=== PATIENT | male | born 1965 ===

== ENCOUNTER 2017-07-27 14:35 | Emergency (ER) | payer MEDICAID ==
[2017-07-27 14:35] VITALS: BMI 34.3
[2017-07-27] MEDS ORDERED: Piperacillin/Tazobact 3.375 GM in Sodium Chloride 0.9% 100 ML IVPB STA (15:03)
[2017-07-27] MEDS ORDERED: Multivitamin (MVI) 10 ML, Thiamine 100 MG, Folic Acid 1 MG in Sodium Chloride 0.9% 1,00... IV ONE (15:05)
--- NOTE | 2017-07-27 15:38 | ED PDOC ---
HPI: Psych/Substance Abuse Time Seen by Provider: 07/27/17 14:53 Chief Complaint (Nursing): Alcohol Ingestion ED Caveat: Intoxicated History Per: EMS History/Exam Limitations: intoxication Onset/Duration Of Symptoms: Unknown Current Symptoms Are (Timing): Still Present Suicide/Self Injury Attempted (Context): None Modifying Factor(s): Alcohol Additional History Per: Patient, EMS Additional Complaint(s): 52 y/o male who was found by EMS to be intoxicated. Patient admitted to ETOH today, and complains that he fell, striking his head and causing a headache. He also complains of bilateral leg swelling and pain for the last 5 months. No fever or other complaint. Past Medical History Vital Signs: Last Vital Signs Temp 99.0 F 07/27/17 14:36 Pulse 107 H 07/27/17 14:36 Resp 16 07/27/17 14:36 BP 145/78 07/27/17 14:36 Pulse Ox 97 07/27/17 14:36 - Medical History PMH: Diabetes (type II), HTN (noncompliance with meds), Peripheral Edema (BLE), Seizures Denies: HIV, Chronic Kidney Disease - Family History Family History: States: Unknown Family Hx - Social History Alcohol: > 2 Drinks/Day - Immunization History Hx Tetanus Toxoid Vaccination: No Hx Influenza Vaccination: No Hx Pneumococcal Vaccination: No - Home Medications Home Medications: Ambulatory Orders Medication Instructions Recorded Cephalexin [cephalexin] 500 mg PO Q6 #28 cap 07/27/17 - Allergies Allergies/Adverse Reactions: Allergies Allergy/AdvReac Type Severity Reaction Status Date / Time No Known Allergies Allergy Verified 06/21/17 21:54 Review of Systems Review Of Systems: ROS cannot be obtained secondary to pt's inabilty to answer questions. Constitutional: Positive for: Fever Musculoskeletal: Positive for: Leg Pain Neurological: Positive for: Headache Physical Exam - Physical Exam Appears: Positive for: Non-toxic (disheveled) Skin: Positive for: Warm (moderate, bilateral lower extremities). Negative for : Normal Color (erythema bilateral lower extremities that is noncircumferential) Pulses-Dorsalis Pedis (L): 2+ Pulses-Dorsalis Pedis (R): 2+ Extremity: Positive for: Normal ROM, Swelling - Laboratory Results Result Diagrams: 07/27/17 15:40 07/27/17 15:40 - ECG O2 Sat by Pulse Oximetry: 97 (RA) Pulse Ox Interpretation: Normal - Progress ED Course And Treament: 1620 CT head, cervical spine w/o contrast: nothing acute. Sleeping comfortably in ED. Pt. had meal in ED. 2003 Duplex b/l lower extremity: no DVT. Still sleeping comfortably. Easily arousable. Vancomycin and banana bag infusing. 2202 Gait steady and unassisted. No slurred speech. Informed of plan. States that his legs have been this way x 5 months. Denies fever. Offers no complaints at this time. Medical Decision Making Medical Decision Making: Plan: - CT head and C Spine - Doppler US BLE - Labs - Vancomycin IV and Zosyn IV - IVF ~ Scribe Attestation: Documented by~Hilary Barnes, acting as a scribe for FACUNDO Glez. Provider Scribe Attestation: All medical record entries made by the Scribe were at my direction and personally dictated by me. I have reviewed the chart and agree that the record accurately reflects my personal performance of the history, physical exam, medical decision making, and the department course for this patient. I have also personally directed, reviewed, and agree with the discharge instructions and disposition. Disposition - Clinical Impression Clinical Impression: Alcohol intoxication, Chronic cellulitis - Patient ED Disposition Is Patient to be Admitted: No - Disposition Referrals: [facility] [Outside] [facility] [Outside] Disposition: Routine/Home Disposition Time: 22:06 Condition: STABLE Prescriptions: Cephalexin [cephalexin] 500 mg PO Q6 #28 cap Instructions: Alcohol Intoxication (ED), Head Injury (ED), Leg Edema (ED) Forms: [employer] (Sri Lankan) Print Language: CROATIAN
[2017-07-27 15:43] LABS: VENOUS BLOOD GAS BASE EXCESS 0.3 mmol/L (0.0-2.0); VENOUS BLOOD GAS PCO2 45 mmHg (40-60); VENOUS BLOOD PH 7.37 (7.32-7.43)
[2017-07-27 15:44] LABS: BASO % 0.7 % (0.0-2.0); EOS # 0.2 K/uL (0.0-0.7); EOS % 3.5 % (0.0-4.0); HEMATOCRIT 32.1 % (35.0-51.0); LYMPH # 1.4 K/uL (1.0-4.3); LYMPH % 20.8 % (20.0-40.0); MEAN CELL VOLUME 94.2 fl (80.0-94.0); MEAN CORPUSCULAR HEMOGLOBIN 30.7 pg (27.0-31.0); MEAN CORPUSCULAR HGB CONC 32.6 g/dL (33.0-37.0); MEAN PLATELET VOLUME 7.5 fl (7.2-11.7); MONO # 0.5 K/uL (0.0-0.8); MONO % 7.5 % (0.0-10.0); NEUT # 4.4 K/uL (1.8-7.0); NEUT % 67.5 % (50.0-75.0); NRBC % 0.1 % (0.0-0.0); RED CELL DISTRIBUTION WIDTH 14.4 % (11.5-14.5); WHITE BLOOD COUNT 6.6 K/uL (4.8-10.8)
[2017-07-27 15:53] LABS: ALB/GLOB RATIO 1.2 (1.0-2.1); ALCOHOL SERUM 284 mg/dl (0-10); ALKALINE PHOSPHATASE 349 U/L (38-126); ALT/SGPT 46 U/L (21-72); AST/SGOT 167 U/L (17-59); BLOOD UREA NITROGEN 4 mg/dl (9-20); CALCIUM 8.6 mg/dL (8.4-10.2); CARBON DIOXIDE 25 mmol/L (22-30); CHLORIDE 105 mmol/L (98-107); GFR AFRICAN-AMERICAN > 60; GLUCOSE,RANDOM 109 mg/dL (75-110); POTASSIUM 3.6 MMOL/L (3.6-5.0); SODIUM 143 mmol/l (132-148); TOTAL PROTEIN 7.3 G/DL (6.3-8.2)
[2017-07-27] MEDS ORDERED: Piperacillin/Tazobact 3.375 gm Inj IVPB ONE (16:08)
[2017-07-27 16:38] LABS: RBC URINE < 1 /hpf (0-3); URINE BILIRUBIN NEGATIVE (NEGATIVE); URINE BLOOD NEGATIVE (NEGATIVE); URINE COLOR STRAW (YELLOW); URINE GLUCOSE (UA) NEG (Normal); URINE KETONE NEGATIVE (NEGATIVE); URINE LEUKOCYTE ESTERASE NEG Leu/uL (Negative); URINE PROTEIN NEGATIVE (NEGATIVE); URINE UROBILINOGEN 0.2-1.0 mg/dL (0.2-1.0); WBC URINE < 1 /hpf (0-5)
--- NOTE | 2017-07-27 16:48 | CT ---
PROCEDURE: CT HEAD WITHOUT CONTRAST. HISTORY: head injury COMPARISON: 02/11/2017 TECHNIQUE: Axial computed tomography images were obtained through the head/brain without intravenous contrast. Radiation dose: Total exam DLP = 1682 mGy-cm. This CT exam was performed using one or more of the following dose reduction techniques: Automated exposure control, adjustment of the mA and/or kV according to patient size, and/or use of iterative reconstruction technique. FINDINGS: HEMORRHAGE: No intracranial hemorrhage. BRAIN: No mass effect or edema. Diffuse mild cerebral cortical atrophy is noted. Minor small vessel changes are seen in the white matter tracts. No extra-axial fluid collection is noted. Retro-orbital regions are unremarkable. No tonsillar ectopia is identified. VENTRICLES: Unremarkable. No hydrocephalus. CALVARIUM: Unremarkable. PARANASAL SINUSES: Unremarkable as visualized. No significant inflammatory changes. MASTOID AIR CELLS: Underdeveloped but no abnormal opacification. OTHER FINDINGS: None. IMPRESSION: No evidence of intracranial hemorrhage or recent infarct. Mild age related atrophy.
--- NOTE | 2017-07-27 16:54 | CT ---
PROCEDURE: CT Cervical Spine without contrast HISTORY: <trauma> COMPARISON: None available. TECHNIQUE: Axial computed tomography images were obtained of the cervical spine without the use of intravenous contrast. Coronal and sagittal reformatted images were created and reviewed. Radiation dose: Total exam DLP = 770 mGy-cm. This CT exam was performed using one or more of the following dose reduction techniques: Automated exposure control, adjustment of the mA and/or kV according to patient size, and/or use of iterative reconstruction technique. FINDINGS: VERTEBRAE: There is no evidence of fracture malalignment. Posterior elements are intact. Moderate multilevel degenerative disc disease is noted from C4-5 through C7-T1 with moderate anterior osteophytes appreciated. DISCS/SPINAL CANAL/NEURAL FORAMINA: There is evidence of posterior disc osteophyte complexes from C4-5 through C6-7 causing elements of severe acquired central stenosis at C4-5 and C6-7 and lesser degree at C5-6. The disc osteophyte complex at C4-5 is causing moderate flattening upon the cervical cord. A superior endplates spur at C5 is also causing some impression upon the cord. Moderate multilevel neural foraminal narrowing is noted from C3-4 through C7-T1. Mild bulging is seen at C3-4. Visualized clavicles and upper ribs are intact. Discs heights are grossly preserved. C1-C2 articulation is within normal limits. PARASPINAL SOFT TISSUES: No prevertebral soft tissue swelling is seen. No adenopathy is identified. Thyroid gland is unremarkable. OTHER FINDINGS: None. IMPRESSION: No evidence of fracture or malalignment. Moderate to severe acquired central stenosis at C4-5 secondary to large disc osteophyte complex. Igyeczgt-oa-ddoevh acquired stenosis at C6-7 and bshq-iz-prlqrbdh stenosis at C5-6. There is flattening of the cervical cord at C4-5 and to a lesser degree at C6-7. Please see above for details.
--- NOTE | 2017-07-27 16:58 | RAD ---
HISTORY: clearance COMPARISON: 03/24/2017 FINDINGS: LUNGS: Low lung volumes are noted with poor expiratory effort. There is crowding at the lung bases. This is greater on the left. No definite focal infiltrate is seen. PLEURA: No significant pleural effusion identified, no pneumothorax apparent. CARDIOVASCULAR: Normal. OSSEOUS STRUCTURES: No significant abnormalities. VISUALIZED UPPER ABDOMEN: Normal. OTHER FINDINGS: None. IMPRESSION: Limited exam due to poor expiratory effort and crowding at the lung bases. Body habitus also limits exam. No focal infiltrate.
[2017-07-27] MEDS ORDERED: Vancomycin 1 g Inj ONE (17:13)
--- NOTE | 2017-07-27 19:45 | US ---
EXAM: US Duplex Bilateral Lower Extremity Veins CLINICAL HISTORY: 52 years old, male; Pain; Leg, lower; Bilateral TECHNIQUE: Real-time ultrasound scan of the veins of the bilateral lower extremities with color Doppler flow, spectral waveform analysis and compression. COMPARISON: No relevant prior studies available. FINDINGS: Right deep veins: Normal color and spectral Doppler flow. Normal compressibility. No deep vein thrombosis from common femoral to popliteal vein. Right superficial veins: Unremarkable. Left deep veins: Normal color and spectral Doppler flow. Normal compressibility. No deep vein thrombosis from common femoral to popliteal vein. Left superficial veins: Unremarkable. Soft tissues: No popliteal cyst. IMPRESSION: 1. No evidence of DVT within the lower extremities.
[2017-07-27 22:31] VITALS: BP 144/80; PULSE 115; RESP 20; TEMP 99.6; O2SAT 100
== END 2017-07-27 23:32 | disposition home or self-care (01) ==
LOC: H.ER 14:35
DX: F10.129 Alcohol abuse with intoxication, unspecified (principal); L03.116 Cellulitis of left lower limb; E11.9 Type 2 diabetes mellitus without complications; I10 Essential (primary) hypertension; R50.9 Fever, unspecified
CPT/HCPCS: 70450; 71010; 72125; 80053; 80320; 80324; 80345; 80346; 80349; 80353; 80358; 80361; 81003; 82803; 82948; 83992; 85025; 87040; 93970; 96374; 96375; 99285; J2543; J3411; J7040

== ENCOUNTER 2017-08-30 13:13 | Emergency (ER) | payer MEDICAID ==
[2017-08-30 13:13] VITALS: BMI 34.3
[2017-08-30 13:17] VITALS: O2SAT 100
--- NOTE | 2017-08-30 13:40 | ED PDOC ---
HPI: Psych/Substance Abuse Time Seen by Provider: 08/30/17 13:25 Chief Complaint (Nursing): Alcohol Ingestion Chief Complaint (Provider): Alcohol Ingestion History Per: Patient History/Exam Limitations: intoxication Onset/Duration Of Symptoms: Days (x1) Modifying Factor(s): Alcohol Additional History Per: EMS Additional Complaint(s): Sammy is a 52 y/o male who was brought to the ED by EMS for ETOH intoxication. Patient is well known to this ED for visits for intoxication. While here, patient went to the bathroom voluntarily, without supervision of staff, and was found lying on the floor of the bathroom after falling. Patient denies headache , pain, nausea, vomiting, dizziness, or any other complaint at this time. No active bleeding or hematoma present. Patient ambulates with unsteady gait. PMD: Provider TBD Past Medical History Reviewed: Historical Data, Nursing Documentation, Vital Signs Vital Signs: Last Vital Signs Temp 97.8 F 08/30/17 13:15 Pulse 95 H 08/30/17 13:15 Resp 18 08/30/17 13:15 BP 124/74 08/30/17 13:15 Pulse Ox 100 08/30/17 13:15 - Medical History PMH: Diabetes (type II), HTN (noncompliance with meds), Peripheral Edema (BLE), Seizures Denies: HIV, Chronic Kidney Disease - Family History Family History: States: Unknown Family Hx - Social History Alcohol: > 2 Drinks/Day - Immunization History Hx Tetanus Toxoid Vaccination: No Hx Influenza Vaccination: No Hx Pneumococcal Vaccination: No - Home Medications Home Medications: Ambulatory Orders Medication Instructions Recorded Cephalexin [cephalexin] 500 mg PO Q6 #28 cap 07/27/17 - Allergies Allergies/Adverse Reactions: Allergies Allergy/AdvReac Type Severity Reaction Status Date / Time No Known Allergies Allergy Verified 06/21/17 21:54 Review of Systems ROS Statement: Except As Marked, All Systems Reviewed And Found Negative Gastrointestinal: Negative for: Nausea, Vomiting Skin: Negative for: Other (bleeding or signs of injury) Neurological: Negative for: Weakness, Numbness, Headache, Dizziness Psych: Positive for: Other (ETOH intoxication) Physical Exam - Reviewed Nursing Documentation Reviewed: Yes Vital Signs Reviewed: Yes - Physical Exam Appears: Positive for: Non-toxic, No Acute Distress Head Exam: Positive for: ATRAUMATIC, NORMAL INSPECTION (with no bleeding or hematoma), NORMOCEPHALIC Skin: Positive for: Normal Color, Warm, Dry Eye Exam: Positive for: EOMI, Normal appearance, PERRL Neck: Positive for: Normal, Painless ROM, Supple Cardiovascular/Chest: Positive for: Regular Rate, Rhythm. Negative for: Murmur Respiratory: Positive for: Normal Breath Sounds. Negative for: Accessory Muscle Use, Respiratory Distress Gastrointestinal/Abdominal: Positive for: Normal Exam, Soft. Negative for: Tenderness Back: Positive for: Normal Inspection. Negative for: Vertebral Tenderness Extremity: Positive for: Normal ROM, Other (Bilateral feet with fungal infection ). Negative for: Pedal Edema Neurologic/Psych: Positive for: Alert, certified retinal angiographer II-XII (intact), Oriented, Gait ( unsteady), Other (Alcohol on breath, slurred speech) - ECG O2 Sat by Pulse Oximetry: 100 (RA) Pulse Ox Interpretation: Normal Medical Decision Making Medical Decision Making: Time: 13:37 Initial Plan: --Accucheck --Will order CT Head to r/o acute intracranial changes --Pending clinical sobriety Time: 17:19 CT Head FINDINGS: HEMORRHAGE: No intracranial hemorrhage. BRAIN: No mass effect or edema. Mild to moderate atrophy is again noted. Mild white matter chronic microvascular ischemic changes are again seen. VENTRICLES: Unremarkable. No hydrocephalus. CALVARIUM: Unremarkable. PARANASAL SINUSES: Unremarkable as visualized. No significant inflammatory changes. MASTOID AIR CELLS: Unremarkable as visualized. No inflammatory changes. OTHER FINDINGS: None. IMPRESSION: No evidence of acute intracranial hemorrhage intracranial collection mass effect or midline shift. Hddq-nq-nbbfdvbx atrophy. pt is clinically sober for d/c Scribe Attestation: Documented by Nova Richmond, acting as a scribe for Debra Hudson PA-C Provider Scribe Attestation: All medical record entries made by the Scribe were at my direction and personally dictated by me. I have reviewed the chart and agree that the record accurately reflects my personal performance of the history, physical exam, medical decision making, and the department course for this patient. I have also personally directed, reviewed, and agree with the discharge instructions and disposition. Disposition - Clinical Impression Clinical Impression: Alcohol abuse, Head injury - Patient ED Disposition Is Patient to be Admitted: No Counseled Patient/Family Regarding: Need For Followup - Disposition Disposition: Routine/Home Disposition Time: 20:32 Condition: STABLE Instructions: Alcohol Intoxication (ED), Abuse of Alcohol (ED), Alcohol Dependence (ED) Forms: [employer] (Khmer)
--- NOTE | 2017-08-30 17:21 | CT ---
PROCEDURE: CT HEAD WITHOUT CONTRAST. HISTORY: head injury etoh COMPARISON: Comparison is made to the previous study dated 07/27/2017 TECHNIQUE: Axial computed tomography images were obtained through the head/brain without intravenous contrast. Radiation dose: Total exam DLP = 1322.59 mGy-cm. This CT exam was performed using one or more of the following dose reduction techniques: Automated exposure control, adjustment of the mA and/or kV according to patient size, and/or use of iterative reconstruction technique. FINDINGS: HEMORRHAGE: No intracranial hemorrhage. BRAIN: No mass effect or edema. Mild to moderate atrophy is again noted. Mild white matter chronic microvascular ischemic changes are again seen. VENTRICLES: Unremarkable. No hydrocephalus. CALVARIUM: Unremarkable. PARANASAL SINUSES: Unremarkable as visualized. No significant inflammatory changes. MASTOID AIR CELLS: Unremarkable as visualized. No inflammatory changes. OTHER FINDINGS: None. IMPRESSION: No evidence of acute intracranial hemorrhage intracranial collection mass effect or midline shift. Nhiv-hd-qqlovvpz atrophy.
[2017-08-30 20:00] VITALS: BP 144/82; PULSE 90; RESP 16; TEMP 97.6
== END 2017-08-30 21:17 | disposition home or self-care (01) ==
LOC: H.ER 13:13
DX: F10.129 Alcohol abuse with intoxication, unspecified (principal); S09.90XA Unspecified injury of head, initial encounter; W19.XXXA Unspecified fall, initial encounter; Y92.89 Other specified places as the place of occurrence of the external cause; E11.9 Type 2 diabetes mellitus without complications; I10 Essential (primary) hypertension; Z91.14 Patient's other noncompliance with medication regimen

== ENCOUNTER 2017-08-31 21:18 | Emergency (ER) | payer MEDICAID ==
[2017-08-31 21:27] VITALS: BMI 31.9
[2017-08-31 21:54] VITALS: O2SAT 98
--- NOTE | 2017-08-31 22:04 | ED PDOC ---
HPI: Psych/Substance Abuse Time Seen by Provider: 08/31/17 21:26 Chief Complaint (Nursing): Alcohol Ingestion Chief Complaint (Provider): Chronic Alcohol Abuse ED Caveat: Intoxicated History Per: EMS History/Exam Limitations: intoxication Onset/Duration Of Symptoms: Mins (just prior to arrival) Current Symptoms Are (Timing): Still Present Additional Complaint(s): Patient is a 52 y/o male brought to the ED by EMS after being found intoxicated at [facility]. Patient was noted to have dry blood in his pants, and admits to right upper quadrant abdominal pain when asked. History and ROS limited due to patient 's intoxicated state. Past Medical History Reviewed: Historical Data, Nursing Documentation, Vital Signs Vital Signs: Last Vital Signs Temp 98.7 F 08/31/17 21:27 Pulse 83 08/31/17 21:27 Resp 16 08/31/17 21:27 BP 109/56 L 08/31/17 21:27 Pulse Ox 98 08/31/17 21:27 - Medical History PMH: Diabetes (type II), HTN (noncompliance with meds), Peripheral Edema (BLE), Seizures Denies: HIV, Chronic Kidney Disease - Family History Family History: States: No Known Family Hx, Unknown Family Hx - Immunization History Hx Tetanus Toxoid Vaccination: No Hx Influenza Vaccination: No Hx Pneumococcal Vaccination: No - Home Medications Home Medications: Ambulatory Orders Medication Instructions Recorded Cephalexin [cephalexin] 500 mg PO Q6 #28 cap 07/27/17 - Allergies Allergies/Adverse Reactions: Allergies Allergy/AdvReac Type Severity Reaction Status Date / Time No Known Allergies Allergy Verified 08/31/17 21:27 Review of Systems Review Of Systems: ROS cannot be obtained secondary to pt's inabilty to answer questions. (ROS limited due to patient's intoxicated state) Gastrointestinal: Positive for: Abdominal Pain (right upper quadrant) Physical Exam - Reviewed Nursing Documentation Reviewed: Yes Vital Signs Reviewed: Yes - Physical Exam Appears: Positive for: No Acute Distress Head Exam: Positive for: ATRAUMATIC, NORMOCEPHALIC Skin: Positive for: Normal Color, Warm, Dry Eye Exam: Positive for: EOMI, PERRL, Scleral icterus (bilaterally) Neck: Positive for: Normal, Painless ROM, Supple Cardiovascular/Chest: Positive for: Regular Rate, Rhythm. Negative for: Murmur Respiratory: Positive for: Normal Breath Sounds. Negative for: Respiratory Distress Gastrointestinal/Abdominal: Positive for: Soft, Tenderness (Mild right upper quadrant tenderness), Distended (with fluid wave), Other (caput medusae) Back: Positive for: Normal Inspection. Negative for: L CVA Tenderness, R CVA Tenderness, Vertebral Tenderness Rectal: Positive for: Other (normal brown stool) Extremity: Positive for: Normal ROM. Negative for: Pedal Edema, Deformity Neurologic/Psych: Positive for: Alert, Oriented (x2). Negative for: Motor/ Sensory Deficits - Laboratory Results Result Diagrams: 08/31/17 22:06 08/31/17 22:06 - ECG O2 Sat by Pulse Oximetry: 98 (RA) Pulse Ox Interpretation: Normal Medical Decision Making Medical Decision Makin:34 Initial Impression: Alcohol induced GI Bleed Initial Plan: --Blood Type and Screen --CT Abd Pelvis PO & IV Contrast --EKG --Alcohol Serum --Bilirubin, Direct --Labs --Chest X-Ray --Sodium Chloride 0.9% IV 1,000 mls/hr --Iohexol 50 ml PO --Pantoprazole 40 m IVP --Occult Blood, Stool, ER --Urinalysis 5AM: CT IMPRESSION: - Acute fracture involving the T12 vertebra. Please see above for a full description. - Possible mild mesenteric adenitis. - Otherwise, no evidence of significant acute process. - See above for remaining findings. Patient feeling well, no GIB. Patient has no complaints of back pain at this time. No step-off, crepitus, or abnormality felt on spine. Pt. has normal sensation. Will refer to Dr. Pardo. Pt. awake and alert with steady gait. Scribe Attestation: Documented by Kaiden Gore, acting as a scribe for Stanislaw Urbano MD Provider Scribe Attestation: All medical record entries made by the Scribe were at my direction and personally dictated by me. I have reviewed the chart and agree that the record accurately reflects my personal performance of the history, physical exam, medical decision making, and the department course for this patient. I have also personally directed, reviewed, and agree with the discharge instructions and disposition. Disposition - Clinical Impression Clinical Impression: Alcohol abuse, Fracture of T12 vertebra - Patient ED Disposition Is Patient to be Admitted: No - Disposition Referrals: Ant Brandon MD [Staff Provider] - Alcohol[facility] Anonymous [Outside] Disposition: Routine/Home Disposition Time: 04:37 Condition: STABLE Instructions: Alcohol Intoxication (ED), Abuse of Alcohol (ED), Vertebral Compression Fracture (DC) Forms: [employer] (Tamazight)
[2017-08-31] MEDS ORDERED: Iohexol 240 (50 ml) ONE (22:18)
[2017-08-31 22:29] LABS: BASO # 0.1 K/uL (0.0-0.2); BASO % 1.4 % (0.0-2.0); EOS # 0.3 K/uL (0.0-0.7); EOS % 4.7 % (0.0-4.0); LYMPH % 42.9 % (20.0-40.0); MEAN CELL VOLUME 90.8 fl (80.0-94.0); MEAN CORPUSCULAR HEMOGLOBIN 29.2 pg (27.0-31.0); MEAN CORPUSCULAR HGB CONC 32.2 g/dL (33.0-37.0); MEAN PLATELET VOLUME 8.9 fl (7.2-11.7); MONO # 0.3 K/uL (0.0-0.8); NEUT # 3.2 K/uL (1.8-7.0); NRBC % 0.3 % (0.0-0.0); WHITE BLOOD COUNT 6.9 K/uL (4.8-10.8)
[2017-08-31] MEDS: Sodium Chloride 0.9% 1,000 ML IV STA (22:39)
[2017-08-31 22:43] LABS: ALCOHOL SERUM 362 mg/dl (0-10)
[2017-08-31 23:02] LABS: BLOOD UREA NITROGEN 7 mg/dl (9-20); CHLORIDE 103 mmol/L (98-107); GFR AFRICAN-AMERICAN > 60; GLUCOSE,RANDOM 119 mg/dL (75-110); POTASSIUM 3.4 MMOL/L (3.6-5.0); SODIUM 145 mmol/l (132-148)
[2017-08-31 23:03] LABS: ALB/GLOB RATIO 1.2 (1.0-2.1); ALKALINE PHOSPHATASE 317 U/L (38-126); ALT/SGPT 33 U/L (21-72); AST/SGOT 53 U/L (17-59); CARBON DIOXIDE 26 mmol/L (22-30); LIPASE 101 U/L (23-300)
[2017-08-31] MEDS: Iohexol 240 (50 ml) PO ONE (23:30)
[2017-09-01] MEDS ORDERED: Sodium Chloride 0.9% 50 ML IV ONE (01:48)
[2017-09-01] MEDS ORDERED: Iohexol 300 100 ML IJ ONE (01:48)
--- NOTE | 2017-09-01 03:27 | CT ---
EXAM: CT Abdomen and Pelvis With Intravenous Contrast EXAM DATE/TIME: 08/31/2017 9:36 PM CLINICAL HISTORY: 52 years old, male; Signs and symptoms; Abdominal tenderness; Additional info: ETOH, distended abdomen, gib TECHNIQUE: Axial computed tomography images of the abdomen and pelvis with intravenous contrast. All CT scans at this facility use one or more dose reduction techniques, viz.: automated exposure control; ma/kV adjustment per patient size (including targeted exams where dose is matched to indication; i.e. head); or iterative reconstruction technique. Coronal and sagittal reformatted images were created and reviewed. CONTRAST: 95 mL of omnipaque 300 administered intravenously. Oral contrast was administered. COMPARISON: No relevant prior studies available. FINDINGS: LIMITATIONS: Mild streak/motion artifact. LOWER THORAX: Heart appears mildly enlarged. ABDOMEN: LIVER: Liver is mildly cirrhotic in appearance. It has a mildly nodular contour, and there is hypertrophy of the left lobe. No evidence of liver laceration. GALLBLADDER AND BILE DUCTS: No CT evidence of acute cholecystitis. No evidence of significant biliary ductal dilatation. PANCREAS: No CT evidence of acute pancreatitis. SPLEEN: No acute abnormality of the spleen identified. No evidence of splenic laceration. ADRENALS: No acute abnormality of the adrenal glands identified. KIDNEYS AND URETERS: No acute abnormality of the kidneys identified. No evidence of perinephric hemorrhage. STOMACH AND BOWEL: No acute abnormality of the stomach, small bowel or colon identified. No evidence of bowel obstruction. No evidence of diverticulitis. APPENDIX: Appendix is seen, and is within normal limits in appearance. PELVIS: BLADDER: Bladder is mildly dilated. REPRODUCTIVE: No acute abnormality of the reproductive organs is seen. ABDOMEN and PELVIS: INTRAPERITONEAL SPACE: No evidence of free intraperitoneal air or fluid. BONES/JOINTS: Acute fracture involving the T12 vertebral body on the right. There is an axially and slightly obliquely oriented fracture line, which extends anteroposteriorly through the right superior aspect of the vertebra. There is a small amount of nearby paravertebral hemorrhage. No significant associated vertebral compression deformity/height loss. No involvement of the posterior elements of T12 or associated vertebral retropulsion. No additional acute fractures seen. SOFT TISSUES: Fat-containing inguinal hernia on the left. Bilateral gynecomastia. VASCULATURE: No evidence of abdominal aortic aneurysm. No evidence of periaortic hemorrhage. LYMPH NODES: Mild infiltration of the mesenteric fat, in the small bowel mesentery centrally, associated with multiple tiny mesenteric lymph nodes. Findings are nonspecific, but could be secondary to mild mesenteric adenitis. No evidence of diffuse pathologic lymphadenopathy. IMPRESSION: - Acute fracture involving the T12 vertebra. Please see above for a full description. - Possible mild mesenteric adenitis. - Otherwise, no evidence of significant acute process. - See above for remaining findings.
[2017-09-01 06:03] VITALS: BP 142/82; PULSE 98; RESP 18; TEMP 98.1
--- NOTE | 2017-09-01 09:50 | RAD ---
PROCEDURE: CHEST RADIOGRAPH, 1 VIEW HISTORY: abd pain COMPARISON: Frontal chest radiograph 07/27/2017. FINDINGS: LUNGS: In the interval, there is been no definitive airspace disease bilaterally. PLEURA: No pneumothorax or pleural fluid seen. CARDIOVASCULAR: Cardiac silhouette remains prominent appearing. No definite pulmonary vascular derangement. OSSEOUS STRUCTURES: No significant abnormalities. VISUALIZED UPPER ABDOMEN: Normal. OTHER FINDINGS: None. IMPRESSION: Stable prominent cardiac silhouette. No airspace disease or pleural effusion bilaterally.
--- NOTE | 2017-09-02 12:26 | CARD ---
APPROVED REPORT EKG Measurement Heart [id number] <Conclusion> Sinus rhythm with marked sinus arrhythmia Prolonged QT Abnormal ECG
== END 2017-09-01 06:15 | disposition home or self-care (01) ==
LOC: H.ER 21:18
DX: F10.10 Alcohol abuse, uncomplicated (principal); S22.089A Unspecified fracture of T11-T12 vertebra, initial encounter for closed fracture; E11.9 Type 2 diabetes mellitus without complications; I10 Essential (primary) hypertension; Z91.14 Patient's other noncompliance with medication regimen; Y90.8 Blood alcohol level of 240 mg/100 ml or more
CPT/HCPCS: 71010; 74177; 80053; 80320; 82248; 83690; 85025; 86850; 86900; 93005; 96374; 99283; C9113; G0328; J7040; Q9966; Q9967

== ENCOUNTER 2017-09-05 20:34 | Emergency (ER) | payer MEDICAID ==
[2017-09-05 20:34] VITALS: BMI 31.9
--- NOTE | 2017-09-06 04:21 | ED PDOC ---
HPI: Psych/Substance Abuse Time Seen by Provider: 09/05/17 20:41 Chief Complaint (Nursing): Alcohol Ingestion Chief Complaint (Provider): alcohol intoxication History Per: EMS History/Exam Limitations: intoxication Additional History Per: EMS Additional Complaint(s): 52 y/o nondomiciled male brought in by EMS for acute alcohol intoxication. Patient admits to drinking tonight; denies acute medical or psychiatric complaints. Past Medical History Reviewed: Historical Data, Nursing Documentation, Vital Signs Vital Signs: Last Vital Signs Temp 97.2 F L 09/05/17 20:34 Pulse 74 09/05/17 20:34 Resp 16 09/05/17 20:34 BP 152/99 H 09/05/17 20:34 Pulse Ox 99 09/05/17 20:34 - Medical History PMH: Diabetes (type II), HTN (noncompliance with meds), Peripheral Edema (BLE), Seizures Denies: HIV, Chronic Kidney Disease - Family History Family History: States: Unknown Family Hx - Immunization History Hx Tetanus Toxoid Vaccination: No Hx Influenza Vaccination: No Hx Pneumococcal Vaccination: No - Home Medications Home Medications: Ambulatory Orders Medication Instructions Recorded Cephalexin [cephalexin] 500 mg PO Q6 #28 cap 07/27/17 - Allergies Allergies/Adverse Reactions: Allergies Allergy/AdvReac Type Severity Reaction Status Date / Time No Known Allergies Allergy Verified 08/31/17 21:27 Review of Systems ROS Statement: Except As Marked, All Systems Reviewed And Found Negative Physical Exam - Reviewed Nursing Documentation Reviewed: Yes Vital Signs Reviewed: Yes - Physical Exam Appears: Positive for: Well, Non-toxic, No Acute Distress Head Exam: Positive for: ATRAUMATIC, NORMAL INSPECTION, NORMOCEPHALIC Skin: Positive for: Normal Color Cardiovascular/Chest: Positive for: Regular Rate, Rhythm Respiratory: Positive for: Normal Breath Sounds Gastrointestinal/Abdominal: Positive for: Normal Exam Extremity: Positive for: Normal ROM Neurologic/Psych: Positive for: Alert, Oriented, Other (+aob) - ECG O2 Sat by Pulse Oximetry: 99 - Progress ED Course And Treament: accucheck, alcohol level Patient observed in ED until clinically sober. 4:15 Patient awake, alert, oriented 3. Ambulating steady gait. Stable for discharge Disposition - Clinical Impression Clinical Impression: Alcohol abuse - Patient ED Disposition Is Patient to be Admitted: No Counseled Patient/Family Regarding: Diagnosis, Need For Followup - Disposition Disposition: Routine/Home Disposition Time: 04:21 Condition: STABLE Instructions: Abuse of Alcohol (ED) Print Language: TELUGU
[2017-09-06 05:50] VITALS: BP 147/86; PULSE 79; RESP 18; TEMP 98.2
[2017-09-06 05:54] VITALS: O2SAT 99
== END 2017-09-06 05:57 | disposition home or self-care (01) ==
LOC: H.ER 20:34
DX: F10.129 Alcohol abuse with intoxication, unspecified (principal); E11.9 Type 2 diabetes mellitus without complications; I10 Essential (primary) hypertension; Z91.14 Patient's other noncompliance with medication regimen

== ENCOUNTER 2017-09-07 17:13 | Emergency (ER) | payer MEDICAID ==
[2017-09-07 17:13] VITALS: BMI 31.9
--- NOTE | 2017-09-07 17:47 | ED PDOC ---
HPI: Psych/Substance Abuse Time Seen by Provider: 09/07/17 17:27 Chief Complaint (Nursing): Trauma Chief Complaint (Provider): Alcohol Intoxicatuon ED Caveat: Intoxicated History Per: Patient History/Exam Limitations: intoxication Current Symptoms Are (Timing): Still Present Suicide/Self Injury Attempted (Context): None Modifying Factor(s): Alcohol Additional Complaint(s): Sammy Kaminski, a 52 year old male, is brought into the ED by ems for alcohol intoxication. History cannot be obtained due to patient's intoxicated state. Past Medical History Reviewed: Historical Data, Nursing Documentation, Vital Signs Vital Signs: Last Vital Signs Temp Pulse 78 09/07/17 17:39 Resp 18 09/07/17 17:39 BP 96/48 L 09/07/17 17:39 Pulse Ox 100 09/07/17 17:39 - Medical History PMH: Diabetes (type II), HTN (noncompliance with meds), Peripheral Edema (BLE), Seizures Denies: HIV, Chronic Kidney Disease - Family History Family History: States: Unknown Family Hx - Social History Alcohol: < 2 Drinks/Day - Immunization History Hx Tetanus Toxoid Vaccination: No Hx Influenza Vaccination: No Hx Pneumococcal Vaccination: No - Home Medications Home Medications: Ambulatory Orders Medication Instructions Recorded Cephalexin [cephalexin] 500 mg PO Q6 #28 cap 07/27/17 - Allergies Allergies/Adverse Reactions: Allergies Allergy/AdvReac Type Severity Reaction Status Date / Time No Known Allergies Allergy Verified 08/31/17 21:27 Review of Systems Review Of Systems: ROS cannot be obtained secondary to pt's inabilty to answer questions. (cannot be obtained due to patient's intoxicated state) Physical Exam - Reviewed Nursing Documentation Reviewed: Yes Vital Signs Reviewed: Yes - Physical Exam Appears: Positive for: No Acute Distress (appears intoxicated ) Head Exam: Positive for: ATRAUMATIC, NORMAL INSPECTION (abrasion right forehead ), NORMOCEPHALIC Skin: Positive for: Normal Color, Warm, Dry. Negative for: Rash Eye Exam: Positive for: Normal appearance, EOMI, PERRL. Negative for: Nystagmus ENT: Positive for: Normal ENT Inspection. Negative for: Nasal Congestion, Tonsillar Exudate Neck: Positive for: Normal, Painless ROM, Supple Cardiovascular/Chest: Positive for: Regular Rate, Rhythm, Chest Non Tender. Negative for: Tachycardia Respiratory: Positive for: Normal Breath Sounds. Negative for: Rales, Rhonchi, Wheezing, Respiratory Distress Gastrointestinal/Abdominal: Positive for: Normal Exam, Bowel Sounds, Soft. Negative for: Tenderness, Guarding, Rebound Back: Positive for: Normal Inspection. Negative for: L CVA Tenderness, R CVA Tenderness Extremity: Positive for: Normal ROM (moving all extremities). Negative for: Tenderness, Deformity, Swelling Neurologic/Psych: Positive for: Alert (responsive to verbal stimuli ), Gait. Negative for: Motor/Sensory Deficits - ECG O2 Sat by Pulse Oximetry: 100 (RA) Pulse Ox Interpretation: Normal Medical Decision Making Medical Decision Makin Initial Impression 52 y/o male presenting with alcohol intoxication Initial Plan: * CT Head w/o Contrast * Alcohol Serum * Reevaluation Patient signed out to Dr. Greenberg at 1900 pending imaging. Scribe Attestation Documented by Tish Pittman acting as a scribe for Lesly Ingram MD. Provider Attestation All medical record entries made by the Scribe were at my direction and personally dictated by me. I have reviewed the chart and agree that the record accurately reflects my personal performance of the history, physical exam, medical decision making, and the department course for this patient. I have also personally directed, reviewed, and agree with the discharge instructions and disposition. Disposition - Patient ED Disposition Is Patient to be Admitted: Transfer of Care - Disposition Disposition: Transfer of Care Forms: [employer] (Rwandan) Patient Signed Over To: Brain Greenberg Present On Arrival: None
--- NOTE | 2017-09-07 19:04 | ED PDOC ---
- ECG O2 Sat by Pulse Oximetry: 100 (RA) Pulse Ox Interpretation: Normal Medical Decision Making Medical Decision Making: Patient signed out to provider at [address] Ingram pending imaging. 2032 EXAM: CT Head Without Intravenous Contrast COMPARISON: CT - HEAD W/O CONTRAST 2017-08-30 17:03 FINDINGS: Brain: [id number] atrophy. No intracranial hemorrhage. No mass. No edema. Ventricles: No hydrocephalus. Bones/joints: No acute fracture. Sclerotic lesion within LEFT frontal bone, nonspecific. Soft tissues: Minimal frontal soft tissue swelling. Vasculature: Minimal atherosclerotic disease of intracranial arteries. Sinuses: Scattered minimal mucosal thickening. Mastoid air cells: No mastoid effusion. Auditory system: Cerumen. Orbits: Unremarkable as visualized. IMPRESSION: 1. No intracranial hemorrhage. 2. Incidental/non-acute findings are described above. 09/08/17 Time: 5:32 Patient is ambulating in the ED with steady gait and clear speech. Requesting to leave. Patient is clinically sober, and medically stable for discharge home. There is agreement to discharge plan. Return if symptoms persist or worsen. Clinical Impression: Alcohol abuse Scribe Attestation Documented by Tish Pittman & Nova Richmond, acting as a scribe for Brain Greenberg MD. Provider Attestation: All medical record entries made by the Scribe were at my direction and personally dictated by me. I have reviewed the chart and agree that the record accurately reflects my personal performance of the history, physical exam, medical decision making, and the department course for this patient. I have also personally directed, reviewed, and agree with the discharge instructions and disposition Disposition Counseled Patient/Family Regarding: Diagnosis - Clinical Impression Clinical Impression: Alcohol abuse, Alcohol intoxication - POA Present On Arrival: None - Disposition Disposition: Routine/Home Disposition Time: 05:32 Condition: STABLE Instructions: Alcohol Intoxication (ED), Alcohol Dependence (ED) Forms: [employer] (Macanese)
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
[2017-09-08 05:27] VITALS: BP 123/76; PULSE 88; RESP 16; TEMP 97
[2017-09-08 05:34] VITALS: O2SAT 100
== END 2017-09-08 06:00 | disposition home or self-care (01) ==
LOC: H.ER 17:13 → SUPCPDRO 17:13 → H.ER 09-08 06:00
DX: F10.129 Alcohol abuse with intoxication, unspecified (principal); S00.81XA Abrasion of other part of head, initial encounter; W19.XXXA Unspecified fall, initial encounter; Y92.89 Other specified places as the place of occurrence of the external cause; E11.9 Type 2 diabetes mellitus without complications; I10 Essential (primary) hypertension

== ENCOUNTER 2017-09-11 21:36 | Emergency (ER) | payer MEDICAID ==
[2017-09-11 21:36] VITALS: BMI 31.9
--- NOTE | 2017-09-11 22:31 | ED PDOC ---
HPI: Psych/Substance Abuse Time Seen by Provider: 09/11/17 21:51 Chief Complaint (Nursing): Alcohol Ingestion Chief Complaint (Provider): etoh History Per: Patient, EMS Additional Complaint(s): BIBA for etoh, patient is non-domiciled and has history of etoh abuse. Patient was found in vestibule of a building drinking. He is well known to ED for frequent visits. Past Medical History Reviewed: Historical Data, Nursing Documentation, Vital Signs Vital Signs: Last Vital Signs Temp 98.9 F 09/11/17 21:39 Pulse 77 09/11/17 21:39 Resp 29 H 09/11/17 21:39 BP 127/81 09/11/17 21:39 Pulse Ox 100 09/11/17 21:39 - Medical History PMH: Diabetes (type II), HTN (noncompliance with meds), Peripheral Edema (BLE), Seizures - Family History Family History: States: No Known Family Hx - Living Arrangements Living Arrangements: Other (nondomiciled) - Social History Alcohol: > 2 Drinks/Day - Home Medications Home Medications: Ambulatory Orders Medication Instructions Recorded Cephalexin [cephalexin] 500 mg PO Q6 #28 cap 07/27/17 - Allergies Allergies/Adverse Reactions: Allergies Allergy/AdvReac Type Severity Reaction Status Date / Time No Known Allergies Allergy Verified 08/31/17 21:27 Review of Systems ROS Statement: Except As Marked, All Systems Reviewed And Found Negative Psych: Positive for: Other (etoh) Physical Exam - Reviewed Nursing Documentation Reviewed: Yes Vital Signs Reviewed: Yes - Physical Exam Appears: Positive for: Non-toxic, No Acute Distress. Negative for: Well ( unkempt) Skin: Positive for: Normal Color. Negative for: Rash Cardiovascular/Chest: Positive for: Regular Rate, Rhythm Respiratory: Positive for: Normal Breath Sounds Neurologic/Psych: Positive for: Other (intoxicated, answers some questions appropriately) - ECG O2 Sat by Pulse Oximetry: 100 Pulse Ox Interpretation: Normal Medical Decision Making Medical Decision Makin52 year old intoxicated male Plan: Glucose POC 106 BAL 356 Disposition - Clinical Impression Clinical Impression: Alcohol intoxication, Alcohol abuse - Patient ED Disposition Is Patient to be Admitted: Transfer of Care - Disposition Disposition: Transfer of Care Disposition Time: 23:59 Condition: FAIR Instructions: Alcohol Intoxication (ED), Abuse of Alcohol (ED), Alcohol Dependence (ED) Forms: [facility] (Malawian) Patient Signed Over To: Debra Hudson Handoff Comments: Signed out pending sobriety and final dispo
--- NOTE | 2017-09-12 04:15 | ED PDOC ---
- ECG O2 Sat by Pulse Oximetry: 100 - Progress ED Course And Treament: 52yo M in ED signed out to service writer pending sobriety. routinely seen in ED for intoxication. Medical Decision Making Medical Decision Making: pt clincally sober and stablefor d/c Disposition - Clinical Impression Clinical Impression: Alcohol intoxication, Alcohol abuse - POA Present On Arrival: None - Disposition Disposition: Routine/Home Disposition Time: 04:14 Condition: FAIR Instructions: Alcohol Intoxication (ED), Abuse of Alcohol (ED), Alcohol Dependence (ED) Forms: [employer] (Setswana) Progress Note - Review of Symptoms General: No: Chills, Night Sweats, Fatigue, Malaise, Appetite, Other HEENT: No: Head Aches, Visual Changes, Eye Pain, Ear Pain, Dysphasia, Sinus Congestion, Post Nasal Drip, Sore Throat, Other Pulmonary: No: Dyspnea, Cough, Pleuritic Chest Pain, Other Cardiovascular: No: Chest Pain, Palpitations, Orthopnea, Paroxysmal Noc. Dyspnea , Edema, Light Headedness, Other Gastrointestinal: No: Nausea, Vomiting, Abdominal Pain, Diarrhea, Constipation, Melena, Hematochezia, Other Genitourinary: No: Dysuria, Frequency, Incontinence, Hematuria, Retention, Other Musculoskeletal: No: Muscle Pain, Joint Pain, Other
[2017-09-12 06:19] VITALS: BP 136/63; PULSE 85; RESP 16; TEMP 98.6; O2SAT 99
== END 2017-09-12 06:20 | disposition home or self-care (01) ==
LOC: H.ER 21:36
DX: F10.129 Alcohol abuse with intoxication, unspecified (principal); E11.9 Type 2 diabetes mellitus without complications; I10 Essential (primary) hypertension; Y90.8 Blood alcohol level of 240 mg/100 ml or more; Z91.14 Patient's other noncompliance with medication regimen

== ENCOUNTER 2017-12-15 06:29 | Emergency (ER) | payer MEDICAID ==
[2017-12-15 06:29] VITALS: BMI 31.9
--- NOTE | 2017-12-15 07:45 | ED PDOC ---
HPI: Psych/Substance Abuse Time Seen by Provider: 12/15/17 07:13 Chief Complaint (Nursing): Alcohol Ingestion Chief Complaint (Provider): ETOH Intoxication ED Caveat: Intoxicated, Uncooperative History Per: Patient History/Exam Limitations: intoxication Onset/Duration Of Symptoms: Unknown Current Symptoms Are (Timing): Still Present Additional Complaint(s): 52 yo male, brought in by EMS, presents with ETOH intoxication after being found found in [employer] by EMS, onset unknown. Reviews of Systems are limited due to the patient's inability to answer any of the provider's questions. Past Medical History Reviewed: Historical Data, Nursing Documentation, Vital Signs Vital Signs: Last Vital Signs Temp 97.5 F L 12/15/17 06:32 Pulse 80 12/15/17 06:32 Resp 18 12/15/17 06:32 BP 141/80 12/15/17 06:32 Pulse Ox 99 12/15/17 06:32 - Medical History PMH: Diabetes (type II), HTN (noncompliance with meds), Peripheral Edema (BLE), Seizures Denies: HIV, Chronic Kidney Disease - Surgical History Surgical History: No Surg Hx - Family History Family History: States: Unknown Family Hx - Social History Current smoker - smoking cessation education provided: No Ex-Smoker (has not smoked in the last 12 months): No Alcohol: Social Drugs: Denies - Immunization History Hx Tetanus Toxoid Vaccination: No Hx Influenza Vaccination: No Hx Pneumococcal Vaccination: No - Home Medications Home Medications: Ambulatory Orders Medication Instructions Recorded Cephalexin [cephalexin] 500 mg PO Q6 #28 cap 07/27/17 - Allergies Allergies/Adverse Reactions: Allergies Allergy/AdvReac Type Severity Reaction Status Date / Time No Known Allergies Allergy Verified 12/04/17 23:27 Review of Systems Review Of Systems: ROS cannot be obtained secondary to pt's inabilty to answer questions. (patient is uncooperative) Physical Exam - Reviewed Nursing Documentation Reviewed: Yes Vital Signs Reviewed: Yes - Physical Exam Appears: Positive for: No Acute Distress Head Exam: Positive for: ATRAUMATIC Skin: Positive for: Normal Color Eye Exam: Positive for: Normal appearance, EOMI, PERRL Neck: Positive for: Normal, Painless ROM Cardiovascular/Chest: Positive for: Regular Rate, Rhythm. Negative for: Murmur Respiratory: Positive for: Normal Breath Sounds. Negative for: Respiratory Distress Gastrointestinal/Abdominal: Positive for: Normal Exam, Soft. Negative for: Tenderness Back: Positive for: Normal Inspection. Negative for: L CVA Tenderness, R CVA Tenderness Extremity: Positive for: Normal ROM (moving extremities at his own will), Swelling (mild leg swelling bilaterally), Other (chronic vein stasis to lower extremities bilateral) Neurologic/Psych: Positive for: Alert (reponsive to commands that he wants adhere to), Other (limited secondary to paitent being uncooperative) - ECG O2 Sat by Pulse Oximetry: 99 (RA) Pulse Ox Interpretation: Normal - Progress ED Course And Treament: 1452: Stable. AAOx3. Pain free. Ambulated with no issues. Tolerated PO. Medical Decision Making Medical Decision Making: Time: --07:34 Impression: --ETOH Intoxication Plan: --Alcohol Serum --POC Reassess -- Scribe Attestation: Documented by Isael Alegria acting as a scribe for Valentin Paz MD. Disposition - Clinical Impression Clinical Impression: Alcohol abuse - Patient ED Disposition Is Patient to be Admitted: No Counseled Patient/Family Regarding: Studies Performed, Diagnosis, Need For Followup - Disposition Referrals: [facility] [Outside] - 12/17/17 Disposition: Routine/Home Disposition Time: 14:53 Condition: STABLE Additional Instructions: Return if not better in 3 days. Instructions: Alcohol Intoxication (ED) Print Language: SINHALA
[2017-12-15 12:05] VITALS: RESP 17
[2017-12-15 14:53] VITALS: O2SAT 99
[2017-12-15 15:17] VITALS: BP 137/76; PULSE 88; TEMP 98.4
== END 2017-12-15 15:15 | disposition home or self-care (01) ==
LOC: H.ER 06:29
DX: F10.129 Alcohol abuse with intoxication, unspecified (principal); E11.9 Type 2 diabetes mellitus without complications; I10 Essential (primary) hypertension; Z91.14 Patient's other noncompliance with medication regimen

== ENCOUNTER 2017-12-28 15:02 | Emergency (ER) | payer MEDICAID ==
[2017-12-28 15:02] VITALS: BMI 31.9
[2017-12-28 15:07] VITALS: RESP 16; TEMP 97.6; O2SAT 96
--- NOTE | 2017-12-28 15:15 | ED PDOC ---
HPI: Psych/Substance Abuse Time Seen by Provider: 12/28/17 15:10 Chief Complaint (Nursing): Alcohol Ingestion Chief Complaint (Provider): Alcohol Intoxication History Per: Patient History/Exam Limitations: no limitations Current Symptoms Are (Timing): Still Present Suicide/Self Injury Attempted (Context): None Modifying Factor(s): Alcohol Severity: None Additional Complaint(s): 52 year old male brought into the emergency department by EMS for alcohol intoxication. Patient admits to having a few drinks today. Patient also states that he is hungry. Patient offers no medical complaint. Past Medical History Reviewed: Historical Data, Nursing Documentation, Vital Signs Vital Signs: Last Vital Signs Temp 97.6 F 12/28/17 15:05 Pulse 76 12/28/17 15:05 Resp 16 12/28/17 15:05 BP 132/63 12/28/17 15:05 Pulse Ox 96 12/28/17 15:05 - Medical History PMH: Diabetes (type II), HTN (noncompliance with meds), Peripheral Edema (BLE), Seizures Denies: HIV, Chronic Kidney Disease - Surgical History Surgical History: No Surg Hx - Family History Family History: States: Unknown Family Hx - Social History Alcohol: < 2 Drinks/Day - Immunization History Hx Tetanus Toxoid Vaccination: No Hx Influenza Vaccination: No Hx Pneumococcal Vaccination: No - Home Medications Home Medications: Ambulatory Orders Medication Instructions Recorded Cephalexin [cephalexin] 500 mg PO Q6 #28 cap 07/27/17 - Allergies Allergies/Adverse Reactions: Allergies Allergy/AdvReac Type Severity Reaction Status Date / Time No Known Allergies Allergy Verified 12/04/17 23:27 Review of Systems ROS Statement: Except As Marked, All Systems Reviewed And Found Negative ENT: Positive for: Other (alcohol intoxication) Physical Exam - Reviewed Nursing Documentation Reviewed: Yes Vital Signs Reviewed: Yes - Physical Exam Appears: Positive for: Non-toxic, No Acute Distress (no tremors; minimal slurred speech) Head Exam: Positive for: ATRAUMATIC, NORMAL INSPECTION (No obvious head injury) , NORMOCEPHALIC Skin: Positive for: Normal Color, Warm, Dry. Negative for: Rash Cardiovascular/Chest: Positive for: Regular Rate, Rhythm, Chest Non Tender. Negative for: Tachycardia Respiratory: Positive for: Normal Breath Sounds. Negative for: Rales, Rhonchi, Wheezing, Respiratory Distress Neurologic/Psych: Positive for: Alert, Oriented - ECG O2 Sat by Pulse Oximetry: 96 (RA) Pulse Ox Interpretation: Normal - Progress ED Course And Treament: patient noted progressively sober. Eating meal in ED. Steady gait. Medical Decision Making Medical Decision Makin Initial Impression 52 year old male presenting with alcohol intoxication Initial Plan: * Reevaluation 151 Blood sugar level 136 Documented by Tish Pittman acting as a scribe for Tish Pittman. All medical record entries made by the Scribe were at my direction and personally dictated by me. I have reviewed the chart and agree that the record accurately reflects my personal performance of the history, physical exam, medical decision making, and the department course for this patient. I have also personally directed, reviewed, and agree with the discharge instructions and disposition. Disposition - Clinical Impression Clinical Impression: Alcohol intoxication - Patient ED Disposition Is Patient to be Admitted: No - Disposition Disposition: Routine/Home Disposition Time: 21:21 Condition: FAIR Instructions: Alcohol Use - When Is Drinking a Problem?, Alcohol Poisoning Forms: [facility] (Montserratian) Print Language: FRISIAN
[2017-12-28 21:49] VITALS: BP 130/76; PULSE 78
== END 2017-12-28 21:50 | disposition home or self-care (01) ==
LOC: H.ER 15:02
DX: F10.129 Alcohol abuse with intoxication, unspecified (principal); E11.9 Type 2 diabetes mellitus without complications; I10 Essential (primary) hypertension; Z91.14 Patient's other noncompliance with medication regimen

== ENCOUNTER 2018-01-06 15:08 | Emergency (ER) | payer MEDICAID ==
[2018-01-06 15:08] VITALS: BMI 31.9
--- NOTE | 2018-01-06 18:01 | ED PDOC ---
HPI: Psych/Substance Abuse Time Seen by Provider: 01/06/18 18:00 Chief Complaint (Nursing): Alcohol Ingestion Chief Complaint (Provider): etoh History Per: Patient, EMS Additional Complaint(s): 52-year-old male well-known to the emergency department presents acutely intoxicated via ambulance. Patient offers no acute complaints. Past Medical History Reviewed: Historical Data, Nursing Documentation, Vital Signs Vital Signs: Last Vital Signs Temp 97.8 F 01/06/18 16:05 Pulse 87 01/06/18 16:05 Resp 18 01/06/18 16:05 BP 123/82 01/06/18 16:05 Pulse Ox 99 01/06/18 16:05 - Medical History PMH: Diabetes (type II), HTN (noncompliance with meds), Peripheral Edema (BLE), Seizures - Family History Family History: States: No Known Family Hx - Living Arrangements Living Arrangements: Other (non-domiciled) - Social History Alcohol: > 2 Drinks/Day - Immunization History Hx Tetanus Toxoid Vaccination: No Hx Influenza Vaccination: No Hx Pneumococcal Vaccination: No - Home Medications Home Medications: Ambulatory Orders Medication Instructions Recorded Cephalexin [cephalexin] 500 mg PO Q6 #28 cap 07/27/17 - Allergies Allergies/Adverse Reactions: Allergies Allergy/AdvReac Type Severity Reaction Status Date / Time No Known Allergies Allergy Verified 12/04/17 23:27 Review of Systems ROS Statement: Except As Marked, All Systems Reviewed And Found Negative Psych: Positive for: Other (etoh) Physical Exam - Reviewed Nursing Documentation Reviewed: Yes Vital Signs Reviewed: Yes - Physical Exam Appears: Negative for: Well (unkempt) Skin: Positive for: Normal Color. Negative for: Rash Cardiovascular/Chest: Positive for: Regular Rate, Rhythm Respiratory: Positive for: Normal Breath Sounds Neurologic/Psych: Positive for: Other (intoxicated, answers some questions appropraiately) - ECG O2 Sat by Pulse Oximetry: 99 Pulse Ox Interpretation: Normal Medical Decision Making Medical Decision Makin-year-old acutely intoxicated male Fingerstick: 152 Disposition - Clinical Impression Clinical Impression: Alcohol abuse with uncomplicated intoxication - Patient ED Disposition Is Patient to be Admitted: Transfer of Care - Disposition Disposition: Transfer of Care Disposition Time: 20:04 Condition: FAIR Forms: [employer] (Estonian) Patient Signed Over To: Mishel Dorsey Handoff Comments: pending sobriety and final disposition
[2018-01-06 22:51] VITALS: RESP 20; O2SAT 96
[2018-01-06 23:11] VITALS: BP 140/78; PULSE 102; TEMP 99.1
--- NOTE | 2018-01-06 23:41 | ED PDOC ---
- ECG O2 Sat by Pulse Oximetry: 96 - Progress ED Course And Treament: Case endorsed to copy writer from Suzanne SMITH pending clinical sobriety 23:30 Patient awake, alert, oriented x3. Ambulating steady gait Tolerating food/drink stable for discharge. Disposition - Clinical Impression Clinical Impression: Alcohol abuse with uncomplicated intoxication - POA Present On Arrival: None - Disposition Disposition: Routine/Home Disposition Time: 23:41 Condition: STABLE Instructions: Alcohol Abuse and Alcoholism (DC) Forms: [facility] (Tamazight) Print Language: LIBYAN
== END 2018-01-06 23:46 | disposition home or self-care (01) ==
LOC: H.ER 15:08
DX: F10.120 Alcohol abuse with intoxication, uncomplicated (principal); E11.9 Type 2 diabetes mellitus without complications; I10 Essential (primary) hypertension; Z91.14 Patient's other noncompliance with medication regimen

== ENCOUNTER 2018-01-09 22:31 | Emergency (ER) | payer MEDICAID ==
[2018-01-09 22:31] VITALS: BMI 31.9
[2018-01-09 22:37] VITALS: TEMP 97.6
--- NOTE | 2018-01-09 22:51 | ED PDOC ---
HPI: Psych/Substance Abuse Time Seen by Provider: 01/09/18 22:43 Chief Complaint (Nursing): Alcohol Ingestion Chief Complaint (Provider): Alcohol abuse History Per: Patient History/Exam Limitations: no limitations Onset/Duration Of Symptoms: Days (today) Additional Complaint(s): Pt. found sleeping on the street so brought to the ED. Pt. admits to drinking alcohol heavily. Multiple ER visits for the same. Did not fall or hurt head or other extremities. No dizziness, chest pain, dyspnea, weakness. No drugs. Not suicidal or homicidal. Past Medical History Reviewed: Nursing Documentation, Vital Signs Vital Signs: Last Vital Signs Temp 97.6 F 01/09/18 22:34 Pulse 92 H 01/09/18 22:34 Resp 18 01/09/18 22:34 BP Pulse Ox 97 01/09/18 22:34 - Medical History PMH: Diabetes (type II), HTN (noncompliance with meds), Peripheral Edema (BLE), Seizures Denies: HIV, Chronic Kidney Disease - Family History Family History: States: Unknown Family Hx - Social History Alcohol: > 2 Drinks/Day - Immunization History Hx Tetanus Toxoid Vaccination: No Hx Influenza Vaccination: No Hx Pneumococcal Vaccination: No - Home Medications Home Medications: Ambulatory Orders Medication Instructions Recorded Cephalexin [cephalexin] 500 mg PO Q6 #28 cap 07/27/17 - Allergies Allergies/Adverse Reactions: Allergies Allergy/AdvReac Type Severity Reaction Status Date / Time No Known Allergies Allergy Verified 01/09/18 22:34 Review of Systems ROS Statement: Except As Marked, All Systems Reviewed And Found Negative Physical Exam - Reviewed Nursing Documentation Reviewed: Yes Vital Signs Reviewed: Yes - Physical Exam Appears: Positive for: Non-toxic, No Acute Distress Head Exam: Positive for: ATRAUMATIC, NORMAL INSPECTION, NORMOCEPHALIC Skin: Positive for: Normal Color, Warm, DRY Eye Exam: Positive for: EOMI, Normal appearance, PERRL ENT: Positive for: Normal ENT Inspection Neck: Positive for: Normal, Painless ROM Cardiovascular/Chest: Positive for: Regular Rate, Rhythm Respiratory: Positive for: CNT, Normal Breath Sounds Gastrointestinal/Abdominal: Positive for: Normal Exam, Bowel Sounds, Soft. Negative for: Tenderness Back: Positive for: Normal Inspection. Negative for: L CVA Tenderness, R CVA Tenderness Extremity: Positive for: Pedal Edema (b/l ). Negative for: Tenderness Neurologic/Psych: Positive for: Alert, Other (responds to commands with delay; moving extremities slowly on will.) - ECG O2 Sat by Pulse Oximetry: 97 Pulse Ox Interpretation: Normal - Progress ED Course And Treament: 2338: Stable. Dr. Schultz to take over care. FU on sobriety. Disposition - Clinical Impression Clinical Impression: Alcohol abuse - Patient ED Disposition Is Patient to be Admitted: Transfer of Care - Disposition Disposition Time: 23:39 Condition: FAIR Patient Signed Over To: Traci Schultz
--- NOTE | 2018-01-09 23:53 | ED PDOC ---
- ECG O2 Sat by Pulse Oximetry: 97 (RA) Pulse Ox Interpretation: Normal - Progress Re-evaluation Time: 06:39 Condition: Re-examined, Improved Medical Decision Making Medical Decision Making: Time: 0000 Patient signed out to me by Dr. Paz pending clinical sobriety. Scribe Attestation: Documented by Gurinder Donnelly, acting as a scribe for Traci Schultz MD Provider Scribe Attestation: All medical record entries made by the Scribe were at my direction and personally dictated by me. I have reviewed the chart and agree that the record accurately reflects my personal performance of the history, physical exam, medical decision making, and the department course for this patient. I have also personally directed, reviewed, and agree with the discharge instructions and disposition. Disposition - Clinical Impression Clinical Impression: Alcohol abuse, Alcohol abuse with uncomplicated intoxication - POA Present On Arrival: None - Disposition Referrals: [facility] [Outside] Disposition: Routine/Home Disposition Time: 06:46 Condition: GOOD Instructions: Alcohol Intoxication (ED) Print Language: SLOVENIAN
[2018-01-10 05:11] VITALS: RESP 18
[2018-01-10 06:23] VITALS: BP 117/60; PULSE 102
[2018-01-10 06:46] VITALS: O2SAT 97
== END 2018-01-10 07:07 | disposition home or self-care (01) ==
LOC: H.ER 22:31
DX: F10.120 Alcohol abuse with intoxication, uncomplicated (principal); E11.9 Type 2 diabetes mellitus without complications; I10 Essential (primary) hypertension; Z91.14 Patient's other noncompliance with medication regimen

== ENCOUNTER 2018-01-10 12:13 | Emergency (ER) | payer MEDICAID ==
[2018-01-10 12:13] VITALS: BMI 31.9
[2018-01-10 12:54] LABS: BASO # 0.1 K/uL (0.0-0.2); BASO % 0.9 % (0.0-2.0); EOS # 0.2 K/uL (0.0-0.7); HEMOGLOBIN 11.3 g/dL (12.0-18.0); LYMPH # 2.5 K/uL (1.0-4.3); LYMPH % 40.5 % (20.0-40.0); MEAN CELL VOLUME 89.4 fl (80.0-94.0); MEAN CORPUSCULAR HEMOGLOBIN 29.1 pg (27.0-31.0); MEAN CORPUSCULAR HGB CONC 32.5 g/dL (33.0-37.0); MEAN PLATELET VOLUME 8.1 fl (7.2-11.7); MONO # 0.5 K/uL (0.0-0.8); MONO % 8.4 % (0.0-10.0); NEUT # 2.9 K/uL (1.8-7.0); NEUT % 47.2 % (50.0-75.0); NRBC % 0.1 % (0.0-0.0); RBC 3.89 Mil/uL (4.40-5.90); RED CELL DISTRIBUTION WIDTH 16.6 % (11.5-14.5); WHITE BLOOD COUNT 6.2 K/uL (4.8-10.8)
--- NOTE | 2018-01-10 13:02 | ED PDOC ---
HPI: Psych/Substance Abuse Time Seen by Provider: 01/10/18 12:24 Chief Complaint (Nursing): Alcohol Ingestion History Per: EMS History/Exam Limitations: intoxication Onset/Duration Of Symptoms: Days (x today) Current Symptoms Are (Timing): Still Present Additional Complaint(s): Mr. Christianson is a 52 year old male who presents to the ED via EMS for alcohol intoxication. Patient was recently discharged earlier for similar diagnosis. Patient is unable to provide further history due to being intoxicated. PMD: Provider TBD Past Medical History Reviewed: Historical Data, Nursing Documentation, Vital Signs Vital Signs: Last Vital Signs Temp 97.8 F 01/10/18 12:15 Pulse 83 01/10/18 12:15 Resp 16 01/10/18 12:15 BP 149/84 01/10/18 12:15 Pulse Ox 97 01/10/18 12:15 - Medical History PMH: Diabetes (type II), HTN (noncompliance with meds), Peripheral Edema (BLE), Seizures Denies: HIV, Chronic Kidney Disease - Family History Family History: States: Unknown Family Hx - Immunization History Hx Tetanus Toxoid Vaccination: No Hx Influenza Vaccination: No Hx Pneumococcal Vaccination: No - Home Medications Home Medications: Ambulatory Orders Medication Instructions Recorded Cephalexin [cephalexin] 500 mg PO Q6 #28 cap 07/27/17 - Allergies Allergies/Adverse Reactions: Allergies Allergy/AdvReac Type Severity Reaction Status Date / Time No Known Allergies Allergy Verified 01/09/18 22:34 Review of Systems Review Of Systems: ROS cannot be obtained secondary to pt's inabilty to answer questions. (Caveat: Intoxication) Physical Exam - Reviewed Nursing Documentation Reviewed: Yes Vital Signs Reviewed: Yes - Physical Exam Comments: GENERAL APPEARANCE: Sleeping, but arousable to painful stimuli, in no acute distress. (-) Visible signs of trauma. SKIN: Warm, dry. HEAD: (-) scalp swelling, (-) scalp tenderness. EYES: (-) conjunctival pallor, (-) scleral icterus. ENMT: Mucous membranes moist. (+) Fruit smell to breath noted, Airway patent: (-) stridor. NECK: (-) tenderness, (-) stiffness, (-) lymphadenopathy. CHEST AND RESPIRATORY: (-) rales, (-) rhonchi, (-) wheezes; breath sounds equal. ABDOMEN: Soft, (-) distention, (-) tenderness, (-) guarding. EXTREMITIES: (-) deformity, (+) mild pedal edema, (+) mild erythema to the anterior shins b/l, (-) hot to touch, (-) tenderness, (+) distal pulses. NEURO : photographic aide grossly intact. - Laboratory Results Result Diagrams: 01/10/18 12:48 01/10/18 12:48 - ECG O2 Sat by Pulse Oximetry: 97 (RA) Pulse Ox Interpretation: Normal Medical Decision Making Medical Decision Making: Time: 12:34 Plan: - Alcohol Serum - CMP - Lipase - CBC - Glucose, POC, Routine Labs reviewed : etoh level 554 / glucose 130 / AST 130 / ALT 49 / Alk phos 280 / lipase 119 VS at 16:50 T96 P84 BP119/76 R16 [id number]%RA. On re-evaluation, patient is still sleeping, responsive to painful stimuli, will continue to observe until clinically sober. VS at 19:50 T98.4 P88 BP117/67 R18 [id number]%RA. Patient still sleeping, is arousable, still not sober at this time. Will continue to observe. Patient was afebrile the entire time he was in the ER, labs show a normal WBC. Erythema and edema to the b/l LE is likely chronic and not related to any acute infectious process. On re-evaluation, patient is awake, alert, able to stand up and ambulate in the ER with a normal gait. Speech is normal, not slurred and no tremors noted. Patient is stable for d/c. Scribe Attestation: Documented by Maverick Sampson, acting as a scribe for Sidra Laurent PA-C. Provider Scribe Attestation: All medical record entries made by the Scribe were at my direction and personally dictated by me. I have reviewed the chart and agree that the record accurately reflects my personal performance of the history, physical exam, medical decision making, and the department course for this patient. I have also personally directed, reviewed, and agree with the discharge instructions and disposition. Disposition - Clinical Impression Clinical Impression: Alcohol intoxication - Disposition Disposition: Routine/Home Disposition Time: 00:00 Condition: STABLE Instructions: Alcohol Abuse and Alcoholism (DC) Forms: [facility] (Bulgarian) - PA / [employer] ETL DEVELOPER / Resident Statement MD/DO has reviewed & agrees with the documentation as recorded.
[2018-01-10 13:14] LABS: ALB/GLOB RATIO 1.1 (1.0-2.1); ALT/SGPT 49 U/L (21-72); AST/SGOT 130 U/L (17-59); BLOOD UREA NITROGEN 6 mg/dl (9-20); CALCIUM 8.7 mg/dL (8.4-10.2); GFR AFRICAN-AMERICAN > 60; GFR NON-AFRICAN AMERICAN > 60; LIPASE 119 U/L (23-300)
[2018-01-10 21:36] VITALS: RESP 18; TEMP 98.4
[2018-01-10 23:43] VITALS: BP 158/95; PULSE 89
[2018-01-10 23:44] VITALS: O2SAT 97
== END 2018-01-10 23:51 | disposition home or self-care (01) ==
LOC: H.ER 12:13
DX: F10.129 Alcohol abuse with intoxication, unspecified (principal); E11.9 Type 2 diabetes mellitus without complications; I10 Essential (primary) hypertension; Z91.14 Patient's other noncompliance with medication regimen

== ENCOUNTER 2018-01-11 16:36 | Emergency (ER) | payer MEDICAID ==
[2018-01-11 16:36] VITALS: BMI 31.9
[2018-01-11 17:01] VITALS: TEMP 98.4
[2018-01-11 18:21] LABS: BASO % 0.8 % (0.0-2.0); EOS # 0.2 K/uL (0.0-0.7); LYMPH # 2.2 K/uL (1.0-4.3); LYMPH % 39.5 % (20.0-40.0); MEAN CORPUSCULAR HEMOGLOBIN 28.9 pg (27.0-31.0); MEAN CORPUSCULAR HGB CONC 32.1 g/dL (33.0-37.0); MEAN PLATELET VOLUME 7.7 fl (7.2-11.7); MONO # 0.4 K/uL (0.0-0.8); MONO % 6.7 % (0.0-10.0); NEUT # 2.8 K/uL (1.8-7.0); NRBC % 0.1 % (0.0-0.0); RBC 3.79 Mil/uL (4.40-5.90); WHITE BLOOD COUNT 5.6 K/uL (4.8-10.8)
--- NOTE | 2018-01-11 18:49 | ED PDOC ---
HPI: Psych/Substance Abuse Time Seen by Provider: 01/11/18 17:02 Chief Complaint (Nursing): Lower Extremity Problem/Injury Chief Complaint (Provider): leg pain bilaterally ED Caveat: Intoxicated History Per: EMS History/Exam Limitations: intoxication Onset/Duration Of Symptoms: Other (3 months) Current Symptoms Are (Timing): Still Present Additional History Per: Patient Additional Complaint(s): 52 year old male was brought to the ED by EMS for public intoxication. Reports of bilateral leg pain. EMS stated the leg pain has been there for 3 months. History is limited due to intoxicated state. PMD: No Family Provided Past Medical History Reviewed: Historical Data, Nursing Documentation, Vital Signs Vital Signs: Last Vital Signs Temp 98.4 F 01/11/18 16:58 Pulse 69 01/11/18 16:58 Resp 18 01/11/18 16:58 BP 117/64 01/11/18 16:58 Pulse Ox 95 01/11/18 16:58 - Medical History PMH: Diabetes (type II), HTN (noncompliance with meds), Peripheral Edema (BLE), Seizures Denies: HIV, Chronic Kidney Disease - Family History Family History: States: Unknown Family Hx - Social History Current smoker - smoking cessation education provided: No Alcohol: Social Drugs: Denies - Immunization History Hx Tetanus Toxoid Vaccination: No Hx Influenza Vaccination: No Hx Pneumococcal Vaccination: No - Home Medications Home Medications: Ambulatory Orders Medication Instructions Recorded Cephalexin [cephalexin] 500 mg PO Q6 #28 cap 07/27/17 Cephalexin [cephalexin] 500 mg PO Q6 #28 cap 01/11/18 - Allergies Allergies/Adverse Reactions: Allergies Allergy/AdvReac Type Severity Reaction Status Date / Time No Known Allergies Allergy Verified 01/09/18 22:34 Review of Systems Review Of Systems: ROS cannot be obtained secondary to pt's inabilty to answer questions. Musculoskeletal: Positive for: Leg Pain (bilateral) Psych: Negative for: Suicidal ideation (homicidal ideation) Physical Exam - Reviewed Nursing Documentation Reviewed: Yes Vital Signs Reviewed: Yes - Physical Exam Appears: Positive for: Non-toxic, No Acute Distress Head Exam: Positive for: ATRAUMATIC, NORMAL INSPECTION, NORMOCEPHALIC Skin: Positive for: Normal Color, Warm, Dry Eye Exam: Positive for: Normal appearance, EOMI, PERRL ENT: Positive for: Normal ENT Inspection Neck: Positive for: Normal, Painless ROM, Supple. Negative for: Decreased ROM Cardiovascular/Chest: Positive for: Regular Rate, Rhythm. Negative for: Murmur Respiratory: Positive for: Normal Breath Sounds. Negative for: Decreased Breath Sounds, Accessory Muscle Use, Respiratory Distress Pulses-Radial (L): 2+ Pulses-Radial (R): 2+ Gastrointestinal/Abdominal: Positive for: Normal Exam, Bowel Sounds, Soft. Negative for: Tenderness, Organomegaly, Guarding, Rebound Back: Positive for: Normal Inspection. Negative for: L CVA Tenderness, R CVA Tenderness Extremity: Positive for: Pedal Edema (minimal), Swelling (Bilateral lower extremity with diffuse erythematous ). Negative for: Normal ROM (Plantar surface of left foot with laceration ), Tenderness, Other (homans sign bilateral ) Neurologic/Psych: Positive for: Alert, Mood/Affect (alcoholic breath; slurred speech ). Negative for: Motor/Sensory Deficits - Laboratory Results Result Diagrams: 01/11/18 18:05 01/11/18 18:05 - ECG O2 Sat by Pulse Oximetry: 95 (RA) Pulse Ox Interpretation: Normal - Progress ED Course And Treament: 2315 Pt. alert and awake. Offers no complaints. Informed of plan to f/u with podiatry and need for antibiotic treatment. No slurred speech. Gait steady unassisted. Medical Decision Making Medical Decision Making: Time: 1737 Initial Plan: --Alcohol serum --CMP --CBC w/ differential --Glucose, Blood, POC --Foot left 3 views [RAD] --Foot right 3 views [RAD] --Tibia left Fibula [RAD] --Tibia right Fibula [RAD] --Reevaluation X-rays: no acute bony abnormalities. Patient was evaluated by Neri, podiatry resident who spoke with Dr. Cancino. Labs and reports were reviewed. Upon reevaluation, patient can be discharged and follow up with podiatry. Scribe Attestation: Documented by Gurinder Donnelly, acting as a scribe for Lionel Stoddard PA-C Provider Scribe Attestation: All medical record entries made by the Scribe were at my direction and personally dictated by me. I have reviewed the chart and agree that the record accurately reflects my personal performance of the history, physical exam, medical decision making, and the department course for this patient. I have also personally directed, reviewed, and agree with the discharge instructions and disposition. Disposition - Clinical Impression Clinical Impression: Alcohol intoxication, Cellulitis - Patient ED Disposition Is Patient to be Admitted: No - Disposition Referrals: Podiatry Clinic [Outside] Disposition: Routine/Home Disposition Time: 23:24 Condition: IMPROVED Prescriptions: Cephalexin [cephalexin] 500 mg PO Q6 #28 cap Instructions: Cellulitis (Skin Infection), Adult (DC), Alcohol Abuse and Alcoholism (DC) Print Language: YEMENI
[2018-01-11 18:53] LABS: ALB/GLOB RATIO 1.1 (1.0-2.1); ALBUMIN 3.9 g/dL (3.5-5.0); ALT/SGPT 53 U/L (21-72); AST/SGOT 107 U/L (17-59); BLOOD UREA NITROGEN 7 mg/dl (9-20); CALCIUM 8.9 mg/dL (8.4-10.2); GFR AFRICAN-AMERICAN > 60; GFR NON-AFRICAN AMERICAN > 60
--- NOTE | 2018-01-11 21:21 | CP.PCM.CON ---
History of Present Illness - History of Present Illness History of Present Illness: 52 year old male seen in ED for b/l lower extremity leg pain. Patient is well known to ED for multiple episodes of alcohol intoxicaiton. Patient is seen to be intoxicated during examination and will not cooperate with questioning or with physical examination. Past Patient History - Infectious Disease Hx of Infectious Diseases: None - Past Medical History & Family History Past Medical History?: Yes - Past Social History Alcohol: Social Drugs: Denies - CARDIAC Hx Hypertension: Yes (noncompliance with meds) Hx Peripheral Edema: Yes (BLE) - PULMONARY Hx Respiratory Disorders: No - NEUROLOGICAL Hx Seizures: Yes - HEENT Hx HEENT Problems: No - RENAL Hx Chronic Kidney Disease: No - ENDOCRINE/METABOLIC Hx Endocrine Disorders: No - HEMATOLOGICAL/ONCOLOGICAL Hx Human Immunodeficiency Virus (HIV): No - INTEGUMENTARY Hx Dermatological Problems: No - MUSCULOSKELETAL/RHEUMATOLOGICAL Hx Musculoskeletal Disorders: No - GASTROINTESTINAL Hx Gastrointestinal Disorders: No - GENITOURINARY/GYNECOLOGICAL Hx Genitourinary Disorders: No - PSYCHIATRIC Hx Psychophysiologic Disorder: No Hx Substance Use: No - SURGICAL HISTORY Hx Surgeries: No - ANESTHESIA Hx Anesthesia: No Hx Anesthesia Reactions: No Hx Malignant Hyperthermia: No Meds Home Medications: Home Medication List Medication Instructions Recorded Confirmed Type Cephalexin [cephalexin] 500 mg PO Q6 #28 cap 01/11/18 Rx Allergies/Adverse Reactions: Allergies Allergy/AdvReac Type Severity Reaction Status Date / Time No Known Allergies Allergy Verified 01/09/18 22:34 Physical Exam - Constitutional Appears: Toxic - Extremities Exam Additional comments: Patient would not cooperate for proper physical examination of lower extremities Derm: Multiple excoriations seen to b/l LE with erythema noted to both feet and legs. No drainage noted from any site. Malodor present but appears to be due to patient's hygienic state and not the wounds - Neurological Exam Neurological exam: Altered - Psychiatric Exam Psychiatric exam: Flat Affect Results - Vital Signs Recent Vital Signs: Last Vital Signs Temp 98.4 F 01/11/18 16:58 Pulse 69 01/11/18 16:58 Resp 18 01/11/18 16:58 BP 117/64 01/11/18 16:58 Pulse Ox 95 01/11/18 20:29 - Labs Result Diagrams: 01/11/18 18:05 01/11/18 18:05 Labs: Laboratory Results - last 24 hr 01/11/18 01/11/18 18:05 18:05 WBC 5.6 RBC 3.79 L Hgb 11.0 L Hct 34.1 L MCV 90.0 MCH 28.9 MCHC 32.1 L RDW 17.0 H Plt Count 135 MPV 7.7 Neut % (Auto) 50.0 Lymph % (Auto) 39.5 Nicholas % (Auto) 6.7 Eos % (Auto) 3.0 Baso % (Auto) 0.8 Neut # (Auto) 2.8 Lymph # (Auto) 2.2 Nicholas # (Auto) 0.4 Eos # (Auto) 0.2 Baso # (Auto) 0.0 Sodium 143 Potassium 3.4 L Chloride 102 Carbon Dioxide 23 Anion Gap 21 H BUN 7 L Creatinine 0.5 L Est GFR ( Amer) > 60 Est GFR (Non-Af Amer) > 60 Random Glucose 114 H Calcium 8.9 Total Bilirubin 1.0 AST 107 H ALT 53 Alkaline Phosphatase 300 H Total Protein 7.4 Albumin 3.9 Globulin 3.5 Albumin/Globulin Ratio 1.1 Alcohol, Quantitative 400 H* Assessment & Plan - Assessment and Plan (Free Text) Assessment: 52 year old male seen for cellulitic changes to b/l LE Plan: Patient seen and evaluated Plan discussed with attending Dr. Cancino Afebrile, absent leukocytosis Rx Keflex 500 mg x 7 days Patient to f/u in podiatry clinic on Saturday - Date & Time Date: 01/11/18 Time: 20:22
[2018-01-11 23:22] VITALS: BP 124/68; PULSE 70; RESP 15
[2018-01-11 23:30] VITALS: O2SAT 95
--- NOTE | 2018-01-12 09:01 | RAD ---
PROCEDURE: Bilateral Feet Radiographs. HISTORY: pain COMPARISON: None. FINDINGS: BONES: Right Foot: No acute fracture. Left Foot: No acute fracture. JOINTS: Right Foot: Unremarkable. Left Foot: Unremarkable. SOFT TISSUES: Right Foot: Normal. Left Foot: Normal. OTHER FINDINGS: Achilles enthesophytes. Small inferior plantar calcaneal spurs. IMPRESSION: No demonstrated fracture or dislocation.
--- NOTE | 2018-01-12 09:02 | RAD ---
PROCEDURE: Radiographs of the bilateral Tibiae and Fibulae. HISTORY: pain COMPARISON: None available. TECHNIQUE: Frontal and lateral views obtained. FINDINGS: BONES: RIGHT TIBIA: No acute fracture. LEFT TIBIA: No acute fracture. JOINT SPACES: RIGHT TIBIA: Unremarkable. LEFT TIBIA: Unremarkable. SOFT TISSUES: RIGHT TIBIA: Normal. LEFT TIBIA: Normal. OTHER FINDINGS: Patellar tendon enthesophytes. IMPRESSION: No demonstrated fracture or dislocation.
== END 2018-01-11 23:40 | disposition home or self-care (01) ==
LOC: H.ER 16:36
DX: F10.129 Alcohol abuse with intoxication, unspecified (principal); L03.116 Cellulitis of left lower limb; L03.115 Cellulitis of right lower limb; E11.9 Type 2 diabetes mellitus without complications; I10 Essential (primary) hypertension; R56.9 Unspecified convulsions; Z91.14 Patient's other noncompliance with medication regimen

== ENCOUNTER 2018-01-12 17:40 | Emergency (ER) | payer SELFPAY ==
[2018-01-12 17:40] VITALS: BMI 31.9
--- NOTE | 2018-01-12 18:09 | ED PDOC ---
HPI: Psych/Substance Abuse Time Seen by Provider: 01/12/18 18:01 History Per: Patient Onset/Duration Of Symptoms: Unknown Current Symptoms Are (Timing): Still Present Modifying Factor(s): Alcohol Additional Complaint(s): Admits to ETOH ingestion. H/o chronic ETOH abuse. No fall or injury. Denies SI/ HI Past Medical History Vital Signs: Last Vital Signs Temp 97 F L 01/12/18 17:47 Pulse 17 L 01/12/18 17:47 Resp 80 H 01/12/18 17:47 BP 131/88 01/12/18 17:47 Pulse Ox 98 01/12/18 17:47 - Medical History PMH: Diabetes (type II), HTN (noncompliance with meds), Peripheral Edema (BLE), Seizures Denies: HIV, Chronic Kidney Disease - Family History Family History: States: Unknown Family Hx - Immunization History Hx Tetanus Toxoid Vaccination: No Hx Influenza Vaccination: No Hx Pneumococcal Vaccination: No - Home Medications Home Medications: Ambulatory Orders Medication Instructions Recorded Cephalexin [cephalexin] 500 mg PO Q6 #28 cap 07/27/17 Cephalexin [cephalexin] 500 mg PO Q6 #28 cap 01/11/18 - Allergies Allergies/Adverse Reactions: Allergies Allergy/AdvReac Type Severity Reaction Status Date / Time No Known Allergies Allergy Verified 01/09/18 22:34 Review of Systems Constitutional: Negative for: Fever Cardiovascular: Negative for: Chest Pain Respiratory: Negative for: Cough Physical Exam - Physical Exam Appears: Positive for: Non-toxic, No Acute Distress Head Exam: Positive for: ATRAUMATIC, NORMAL INSPECTION, NORMOCEPHALIC Skin: Positive for: Normal Color, Warm, DRY Cardiovascular/Chest: Positive for: Regular Rate, Rhythm Respiratory: Positive for: CNT, Normal Breath Sounds Extremity: Positive for: Other (Erythema pretibially bilat, Chronic, was place on PO Keflex last visit to ED) Neurologic/Psych: Positive for: Alert (Sleepy arousable). Negative for: Motor/ Sensory Deficits - ECG O2 Sat by Pulse Oximetry: 98 - Progress Re-evaluation Time: 23:40 Condition: Improved (Awake alert oriented x 3 no focal neuro deficits) Disposition - Clinical Impression Clinical Impression: Alcohol abuse with intoxication - Patient ED Disposition Is Patient to be Admitted: No Counseled Patient/Family Regarding: Diagnosis, Need For Followup - Disposition Referrals: [facility] [Outside] Disposition: Routine/Home Disposition Time: 23:41 Condition: FAIR Instructions: Alcohol Abuse and Alcoholism (DC)
[2018-01-13 06:48] VITALS: BP 128/86; PULSE 89; RESP 18; TEMP 97.9; O2SAT 99
== END 2018-01-13 06:47 | disposition home or self-care (01) ==
LOC: H.ER 17:40
DX: F10.129 Alcohol abuse with intoxication, unspecified (principal); E11.9 Type 2 diabetes mellitus without complications; Z91.14 Patient's other noncompliance with medication regimen; I10 Essential (primary) hypertension
CPT/HCPCS: 82948; 99283; G0480

== ENCOUNTER 2018-01-15 04:06 | Emergency (ER) | payer SELFPAY ==
[2018-01-15 04:06] VITALS: BMI 31.9
[2018-01-15 04:43] VITALS: O2SAT 100
--- NOTE | 2018-01-15 05:09 | ED PDOC ---
HPI: Psych/Substance Abuse Chief Complaint (Provider): etoh History Per: EMS History/Exam Limitations: intoxication Additional Complaint(s): 52 y/o male brought in by EMS for acute alcohol intoxication. Patient homeless , well known to ED with multiple visits for same. <Mishel Dorsey C - Last Filed: 01/15/18 06:03> <Tyra Ricks Y - Last Filed: 01/15/18 06:07> Time Seen by Provider: 01/15/18 04:30 Chief Complaint (Nursing): Alcohol Ingestion Past Medical History Reviewed: Historical Data, Nursing Documentation, Vital Signs Vital Signs: Last Vital Signs Temp 98 F 01/15/18 04:41 Pulse 74 01/15/18 04:41 Resp 16 01/15/18 04:41 BP Pulse Ox 100 01/15/18 04:41 - Medical History PMH: Diabetes (type II), HTN (noncompliance with meds), Peripheral Edema (BLE), Seizures Denies: HIV, Chronic Kidney Disease - Family History Family History: States: Unknown Family Hx - Immunization History Hx Tetanus Toxoid Vaccination: No Hx Influenza Vaccination: No Hx Pneumococcal Vaccination: No <Mishel Dorsey C - Last Filed: 01/15/18 06:03> Vital Signs: Last Vital Signs Temp 98 F 01/15/18 04:41 Pulse 74 01/15/18 04:41 Resp 16 01/15/18 04:41 BP Pulse Ox 100 01/15/18 06:04 <Tyra Ricks Y - Last Filed: 01/15/18 06:07> - Home Medications Home Medications: Ambulatory Orders Medication Instructions Recorded Cephalexin [cephalexin] 500 mg PO Q6 #28 cap 07/27/17 Cephalexin [cephalexin] 500 mg PO Q6 #28 cap 01/11/18 - Allergies Allergies/Adverse Reactions: Allergies Allergy/AdvReac Type Severity Reaction Status Date / Time No Known Allergies Allergy Verified 01/15/18 04:41 Review of Systems ROS Statement: Except As Marked, All Systems Reviewed And Found Negative <Mishel Doresy C - Last Filed: 01/15/18 06:03> Physical Exam - Reviewed Nursing Documentation Reviewed: Yes Vital Signs Reviewed: Yes - Physical Exam Appears: Positive for: Well, Non-toxic, No Acute Distress (sleeping) Head Exam: Positive for: ATRAUMATIC, NORMAL INSPECTION, NORMOCEPHALIC Skin: Positive for: Normal Color Cardiovascular/Chest: Positive for: Regular Rate, Rhythm Respiratory: Positive for: Normal Breath Sounds Gastrointestinal/Abdominal: Positive for: Normal Exam Back: Positive for: Normal Inspection Extremity: Positive for: Normal ROM Neurologic/Psych: Positive for: Alert (responds to tactile stimuli) <Mishel Dorsey - Last Filed: 01/15/18 06:03> - ECG O2 Sat by Pulse Oximetry: 100 - Progress ED Course And Treament: accucheck, alcohol level <Mishel Dorsey - Last Filed: 01/15/18 06:03> Disposition - Disposition Disposition Time: 06:00 Patient Signed Over To: Tyra Ricks Y Handoff Comments: pending clinical sobriety <Mishel Dorsey - Last Filed: 01/15/18 06:03> <Tyra Ricks - Last Filed: 01/15/18 06:07> - Clinical Impression Clinical Impression: Alcohol abuse with intoxication - Disposition Condition: FAIR
--- NOTE | 2018-01-15 11:44 | ED PDOC ---
- ECG O2 Sat by Pulse Oximetry: 100 Medical Decision Making Medical Decision Making: received patient from Dr. Ricks. patient now awake,alert and steady on his feet. Will d/c Disposition - Clinical Impression Clinical Impression: Alcohol abuse with intoxication - POA Present On Arrival: None - Disposition Disposition: Routine/Home Disposition Time: 11:30 Condition: IMPROVED Instructions: Alcohol Abuse and Alcoholism (DC) Forms: [facility] (Pashto) Print Language: CANADIAN
[2018-01-15 12:01] VITALS: BP 122/68; PULSE 68; RESP 16; TEMP 98.4
== END 2018-01-15 11:48 | disposition home or self-care (01) ==
LOC: H.ER 04:06
DX: F10.129 Alcohol abuse with intoxication, unspecified (principal); E11.9 Type 2 diabetes mellitus without complications; I10 Essential (primary) hypertension; Z91.14 Patient's other noncompliance with medication regimen
CPT/HCPCS: 82948; 99284; G0480

== ENCOUNTER 2018-01-27 12:00 | Emergency (ER) | payer SELFPAY ==
[2018-01-27 12:00] VITALS: BMI 31.9
[2018-01-27 12:04] VITALS: TEMP 97.5
--- NOTE | 2018-01-27 14:43 | ED PDOC ---
HPI: Psych/Substance Abuse Chief Complaint (Nursing): Alcohol Ingestion Chief Complaint (Provider): Alcohol Ingestion History Per: Patient History/Exam Limitations: no limitations Modifying Factor(s): Alcohol Additional Complaint(s): 52 y/o male was brought to the ED for alcohol intoxication. Patient had been in the ED multiple times for alcohol intoxication. Patient admits to drinking today. Denies trauma, injury, dizziness, abdominal pain, vomiting, or any further medical complaints. Past Medical History Reviewed: Historical Data, Nursing Documentation, Vital Signs Vital Signs: Last Vital Signs Temp 97.5 F L 01/27/18 12:03 Pulse 75 01/27/18 12:03 Resp 20 01/27/18 12:03 BP 148/92 H 01/27/18 12:03 Pulse Ox 99 01/27/18 12:03 - Medical History PMH: Diabetes (type II), HTN (noncompliance with meds), Peripheral Edema (BLE), Seizures Denies: HIV, Chronic Kidney Disease - Surgical History Surgical History: No Surg Hx - Family History Family History: States: Unknown Family Hx - Social History Current smoker - smoking cessation education provided: No (Never Smoked) Alcohol: > 2 Drinks/Day Drugs: Denies - Immunization History Hx Tetanus Toxoid Vaccination: No Hx Influenza Vaccination: No Hx Pneumococcal Vaccination: No - Home Medications Home Medications: Ambulatory Orders Medication Instructions Recorded Cephalexin [cephalexin] 500 mg PO Q6 #28 cap 07/27/17 Cephalexin [cephalexin] 500 mg PO Q6 #28 cap 01/11/18 - Allergies Allergies/Adverse Reactions: Allergies Allergy/AdvReac Type Severity Reaction Status Date / Time No Known Allergies Allergy Verified 01/15/18 04:41 Review of Systems ROS Statement: Except As Marked, All Systems Reviewed And Found Negative (As per HPI,otherwise negative) Neurological: Positive for: Other (Alcohol intoxication) Physical Exam - Reviewed Nursing Documentation Reviewed: Yes Vital Signs Reviewed: Yes - Physical Exam Comments: GENERAL APPEARANCE: Patient is awake, alert, oriented x 3, in no acute distress , ill kept, patient soiled himself SKIN: Warm, dry; (-) cyanosis; (-) rash. HEAD: (+)atraumatic, (+)normocephalic, (+) normal inspection EYES: (+) Normal appearance, (+) EOMI, (+) PERRL ENMT: (+) normal ENT inspection NECK: (-) tenderness, (-) stiffness, (-) meningismus, (-) lymphadenopathy. CHEST AND RESPIRATORY: (-) rales, (-) rhonchi, (-) wheezes; breath sounds equal bilaterally. HEART AND CARDIOVASCULAR: (-) irregularity; (-) murmur, (-) gallop, (+) regular rate and rhythm. ABDOMEN AND GI: Soft; (-) tenderness. EXTREMITIES: (+) Chronic erythematous bilateral lower extremity, (-) deformity. NEURO AND PSYCH: Mental status as above. - ECG O2 Sat by Pulse Oximetry: 99 (RA) Pulse Ox Interpretation: Normal Medical Decision Making Medical Decision Making: Time: 14:00 Initial Impression: Alcohol intoxication Plan: --Patient will be observed in ED until sober Time: 17:00 -- Upon reevalaution, patient is sleeping, unlabored and aroused. Patient will be kept under observation until sober Time: 20:00 --Patiet is AAOx3, observed ambulating in the ER with a steady gait. Has no slurred speech and no tremors. Reports no complaints at this time. Patient given a shower. Otherwise is stable for d/c. VSS. Scribe Attestation: Documented by Essence Pickett acting as a scribe for PA. GIANA Bedolla PA-C Scribe Attestation: All medical record entries made by the Scribe were at my direction and personally dictated by me. I have reviewed the chart and agree that the record accurately reflects my personal performance of the history, physical exam, medical decision making, and the department course for this patient. I have also personally directed, reviewed, and agree with the discharge instructions and disposition. Disposition - Clinical Impression Clinical Impression: Alcohol intoxication - Patient ED Disposition Is Patient to be Admitted: No - Disposition Referrals: [facility] [Outside] Disposition: Routine/Home Disposition Time: 21:00 Condition: STABLE Instructions: Alcohol Abuse and Alcoholism (DC) Forms: [employer] (Nepali) - PA / HAM CURER / Resident Statement MD/DO has reviewed & agrees with the documentation as recorded.
[2018-01-27 20:39] VITALS: BP 154/89; PULSE 90; RESP 18
[2018-01-27 20:55] VITALS: O2SAT 99
== END 2018-01-27 21:01 | disposition home or self-care (01) ==
LOC: H.ER 12:00
DX: F10.129 Alcohol abuse with intoxication, unspecified (principal); E11.9 Type 2 diabetes mellitus without complications; I10 Essential (primary) hypertension; Z91.14 Patient's other noncompliance with medication regimen

== ENCOUNTER 2018-02-05 12:43 | Emergency (ER) | payer OTHER ==
[2018-02-05 12:44] VITALS: BMI 31.9
[2018-02-05] MEDS ORDERED: Sodium Chloride 0.9% 1,000 ML IV STA (13:22)
[2018-02-05 13:42] LABS: BASO % 0.7 % (0.0-2.0); EOS # 0.2 K/uL (0.0-0.7); EOS % 3.9 % (0.0-4.0); HEMOGLOBIN 11.3 g/dL (12.0-18.0); LYMPH # 1.4 K/uL (1.0-4.3); MEAN CELL VOLUME 90.5 fl (80.0-94.0); MEAN CORPUSCULAR HEMOGLOBIN 29.5 pg (27.0-31.0); MEAN CORPUSCULAR HGB CONC 32.6 g/dL (33.0-37.0); MONO # 0.4 K/uL (0.0-0.8); MONO % 7.6 % (0.0-10.0); NEUT # 2.7 K/uL (1.8-7.0); NEUT % 56.8 % (50.0-75.0); NRBC % 0.2 % (0.0-0.0); RBC 3.84 Mil/uL (4.40-5.90); RED CELL DISTRIBUTION WIDTH 16.8 % (11.5-14.5); WHITE BLOOD COUNT 4.7 K/uL (4.8-10.8)
[2018-02-05 13:53] LABS: ALB/GLOB RATIO 1.1 (1.0-2.1); ALBUMIN 3.9 g/dL (3.5-5.0); ALT/SGPT 54 U/L (21-72); AST/SGOT 112 U/L (17-59); BLOOD UREA NITROGEN 6 mg/dl (9-20); CALCIUM 8.7 mg/dL (8.4-10.2); GFR AFRICAN-AMERICAN > 60; GFR NON-AFRICAN AMERICAN > 60
--- NOTE | 2018-02-05 14:37 | ED PDOC ---
HPI: Psych/Substance Abuse Time Seen by Provider: 02/05/18 13:04 Chief Complaint (Nursing): Alcohol Ingestion Chief Complaint (Provider): Alcohol intoxication ED Caveat: Intoxicated (ETOH) History Per: EMS Onset/Duration Of Symptoms: Hrs (today) Current Symptoms Are (Timing): Still Present Suicide/Self Injury Attempted (Context): None Involuntary Hold By: None Additional Complaint(s): Sammy Kaminski is a 52 year old male, with a past medical history alcohol abuse, who was brought to the emergency department via EMS after he was found drunk on the street today. Patient is well known to the ED for multiple visits for ETOH abuse. He is somnolent but arousable. Patient is unable to give any history due to intoxication. PMD: None provided. Past Medical History Reviewed: Historical Data, Nursing Documentation, Vital Signs Vital Signs: Last Vital Signs Temp 98.5 F 02/05/18 12:54 Pulse 81 02/05/18 12:54 Resp 18 02/05/18 12:54 BP 140/85 02/05/18 12:54 Pulse Ox 96 02/05/18 12:54 - Medical History PMH: Diabetes (type II), HTN (noncompliance with meds), Peripheral Edema (BLE), Seizures Denies: HIV, Chronic Kidney Disease - Surgical History Surgical History: No Surg Hx - Family History Family History: States: Unknown Family Hx - Social History Current smoker - smoking cessation education provided: No Alcohol: > 2 Drinks/Day Drugs: Denies - Immunization History Hx Tetanus Toxoid Vaccination: No Hx Influenza Vaccination: No Hx Pneumococcal Vaccination: No - Home Medications Home Medications: Ambulatory Orders Medication Instructions Recorded Unobtainable 02/05/18 - Allergies Allergies/Adverse Reactions: Allergies Allergy/AdvReac Type Severity Reaction Status Date / Time No Known Allergies Allergy Verified 02/05/18 12:54 Review of Systems Review Of Systems: ROS cannot be obtained secondary to pt's inabilty to answer questions. Physical Exam - Reviewed Nursing Documentation Reviewed: Yes Vital Signs Reviewed: Yes - Physical Exam Appears: Positive for: Non-toxic. Negative for: Well (ETOH on breath) Head Exam: Positive for: ATRAUMATIC, NORMAL INSPECTION, NORMOCEPHALIC Skin: Positive for: Normal Color, Warm, Dry Eye Exam: Positive for: Normal appearance Neck: Positive for: Painless ROM Cardiovascular/Chest: Positive for: Regular Rate, Rhythm. Negative for: Murmur Respiratory: Positive for: Normal Breath Sounds. Negative for: Respiratory Distress Gastrointestinal/Abdominal: Positive for: Normal Exam, Soft. Negative for: Tenderness Extremity: Positive for: Normal ROM (all extremities). Negative for: Deformity , Swelling Neurologic/Psych: Positive for: Alert (somnolent but arousable). Negative for: Oriented - Laboratory Results Result Diagrams: 02/05/18 13:25 02/05/18 13:25 - ECG O2 Sat by Pulse Oximetry: 96 (RA) Pulse Ox Interpretation: Normal Medical Decision Making Medical Decision Making: Initial Impression: ETOH intoxication Initial Plan: --Alcohol serum --CMP --CBC w/ differential --Sodium Chloride 1,000 ml IV 999 mls/hr --Reevaluation -Pending sobriety 15:18 Patient EtOH level is 429. [address] Urbano Pending sobriety Scribe Attestation: Documented by David Ansari, acting as a scribe for Tyra Ricks MD Provider Scribe Attestation: All medical record entries made by the Scribe were at my direction and personally dictated by me. I have reviewed the chart and agree that the record accurately reflects my personal performance of the history, physical exam, medical decision making, and the department course for this patient. I have also personally directed, reviewed, and agree with the discharge instructions and disposition. Disposition - Clinical Impression Clinical Impression: Alcohol abuse - Patient ED Disposition Is Patient to be Admitted: Transfer of Care - Disposition Referrals: [facility] Anonymous [Outside] Disposition: Transfer of Care Disposition Time: 19:00 Condition: STABLE Instructions: Alcohol Intoxication (ED) Forms: [employer] ([place]) Print Language: JAPANESE Patient Signed Over To: Stanislaw Urbano
--- NOTE | 2018-02-06 02:24 | ED PDOC ---
- Laboratory Results Result Diagrams: 02/05/18 13:25 02/05/18 13:25 - ECG O2 Sat by Pulse Oximetry: 97 Medical Decision Making Medical Decision Makin Patient signed out from Dr. Ricks to this provider pending clinical sobriety. Patient is resting comfortably in room. Vitals stable. 2030 Patient is resting comfortably in room. Vitals stable. 2200 Patient is resting comfortably in room. Vitals stable. 2330 Patient is resting comfortably in room. Vitals stable. 0100 Patient is resting comfortably in room. Vitals stable. 0230 Patient is resting comfortably in room. Vitals stable. 0345 Upon re-evaluation, patient is awake, alert, oriented x3, and walks with a steady gait. Patient is stable for discharge home. Dx: alcohol abuse Condition: stable ~ Scribe Attestation: Documented by Deyanira Harmon, acting as a scribe for Stanislaw Urbano MD. Provider Scribe Attestation: All medical record entries made by the Scribe were at my direction and personally dictated by me. I have reviewed the chart and agree that the record accurately reflects my personal performance of the history, physical exam, medical decision making, and the department course for this patient. I have also personally directed, reviewed, and agree with the discharge instructions and disposition. Disposition - Clinical Impression Clinical Impression: Alcohol abuse - POA Present On Arrival: None - Disposition Referrals: Alcoholics Anonymous [Outside] Disposition: Routine/Home Disposition Time: 03:45 Condition: STABLE Instructions: Alcohol Intoxication (ED) Forms: [employer] (Moroccan) Print Language: POLISH
[2018-02-06 03:33] VITALS: RESP 18
[2018-02-06 05:07] VITALS: BP 120/78; PULSE 92; TEMP 98.8
[2018-02-06 15:20] VITALS: O2SAT 96
== END 2018-02-06 04:35 | disposition short-term general hospital (02) ==
LOC: H.ER 12:43
DX: F10.129 Alcohol abuse with intoxication, unspecified (principal); Y90.8 Blood alcohol level of 240 mg/100 ml or more; E11.9 Type 2 diabetes mellitus without complications; I10 Essential (primary) hypertension; Z91.14 Patient's other noncompliance with medication regimen
CPT/HCPCS: 80053; 80320; 85025; 96360; 99285; J7030

== ENCOUNTER 2018-02-11 23:49 | Emergency (ER) | payer OTHER ==
[2018-02-11 23:49] VITALS: BMI 31.9
--- NOTE | 2018-02-12 01:47 | ED PDOC ---
HPI: Psych/Substance Abuse Time Seen by Provider: 02/11/18 23:56 Chief Complaint (Nursing): Alcohol Ingestion Chief Complaint (Provider): Alcohol Ingestion History Per: Patient History/Exam Limitations: intoxication Onset/Duration Of Symptoms: Mins (prior to arrival) Current Symptoms Are (Timing): Still Present Additional Complaint(s): 52 year old male presents to the ED via EMS due to alcohol intoxication. He was found sitting on a bench. Patient is known to the ED for multiple visits related to alcohol and substance abuse. He is a limited historian because of alcohol intoxication. Denies trauma. PMD: none provided Past Medical History Reviewed: Historical Data, Nursing Documentation, Vital Signs Vital Signs: Last Vital Signs Temp 97.8 F 02/11/18 23:50 Pulse 88 02/11/18 23:50 Resp 18 02/11/18 23:50 BP 130/78 02/11/18 23:50 Pulse Ox 98 02/11/18 23:50 - Medical History PMH: Diabetes (type II), HTN (noncompliance with meds), Peripheral Edema (BLE), Seizures Denies: HIV, Chronic Kidney Disease - Surgical History Surgical History: No Surg Hx - Family History Family History: States: Unknown Family Hx - Immunization History Hx Tetanus Toxoid Vaccination: No Hx Influenza Vaccination: No Hx Pneumococcal Vaccination: No - Home Medications Home Medications: Ambulatory Orders Medication Instructions Recorded No Known Home Med 02/12/18 - Allergies Allergies/Adverse Reactions: Allergies Allergy/AdvReac Type Severity Reaction Status Date / Time No Known Allergies Allergy Verified 02/05/18 12:54 Review of Systems ROS Statement: Except As Marked, All Systems Reviewed And Found Negative Physical Exam - Reviewed Nursing Documentation Reviewed: Yes Vital Signs Reviewed: Yes - Physical Exam Appears: Positive for: No Acute Distress (comfortable, disheveled and ill kempt) Head Exam: Positive for: ATRAUMATIC Skin: Positive for: Warm, Dry Eye Exam: Positive for: EOMI, Normal appearance, PERRL Neck: Positive for: Normal, Painless ROM, Supple Cardiovascular/Chest: Positive for: Regular Rate, Rhythm. Negative for: Murmur Respiratory: Positive for: Normal Breath Sounds. Negative for: Respiratory Distress Gastrointestinal/Abdominal: Positive for: Normal Exam, Soft Back: Positive for: Normal Inspection. Negative for: L CVA Tenderness, R CVA Tenderness, Vertebral Tenderness Extremity: Positive for: Pedal Edema (chronic bilateral lower extremity edema present which he has had for many years) Neurologic/Psych: Positive for: Gait (unsteady), Other (arousable) - ECG O2 Sat by Pulse Oximetry: 98 (RA) Pulse Ox Interpretation: Normal - Progress Re-evaluation Time: 06:11 Condition: Re-examined, Improving,but remains with symptoms Medical Decision Making Medical Decision Making: Time: 01:46 Impression: alcohol intoxication Initial Plan: --Alcohol serum Patient will be monitored for clinical sobriety and reassessed when sober. Scribe Attestation: Documented by Paige Anglin, acting as a scribe for Traci Schultz MD Provider Scribe Attestation: All medical record entries made by the Scribe were at my direction and personally dictated by me. I have reviewed the chart and agree that the record accurately reflects my personal performance of the history, physical exam, medical decision making, and the department course for this patient. I have also personally directed, reviewed, and agree with the discharge instructions and disposition. Disposition - Clinical Impression Clinical Impression: Alcohol intoxication, Alcohol abuse - Patient ED Disposition Is Patient to be Admitted: Transfer of Care Counseled Patient/Family Regarding: Studies Performed, Diagnosis, Need For Followup - Disposition Referrals: [facility] [Outside] Disposition: Transfer of Care Disposition Time: 07:00 Condition: STABLE Instructions: Alcohol Abuse and Alcoholism (DC) Print Language: [place]
[2018-02-12 06:37] VITALS: O2SAT 100
--- NOTE | 2018-02-12 07:44 | ED PDOC ---
- ECG O2 Sat by Pulse Oximetry: 100 Pulse Ox Interpretation: Normal - Progress ED Course And Treament: 1310: Stable. AAOx3. Chronic leg pain. Will give tylenol. Medical Decision Making Medical Decision Makin:00 Took over care from Dr. Schultz. 52 y/o pending sobriety. Scribe Attestation: Documented by Stan Monk, acting as a scribe for Valentin Paz MD. Provider Scribe Attestation: All medical record entries made by the Scribe were at my direction and personally dictated by me. I have reviewed the chart and agree that the record accurately reflects my personal performance of the history, physical exam, medical decision making, and the department course for this patient. I have also personally directed, reviewed, and agree with the discharge instructions and disposition. Disposition - Clinical Impression Clinical Impression: Alcohol intoxication - POA Present On Arrival: None - Disposition Referrals: [facility] [Outside] - 02/13/18 Disposition: Routine/Home Disposition Time: 13:10 Condition: STABLE Additional Instructions: Return if not better in 3 days. Instructions: Alcohol Abuse and Alcoholism (DC) Print Language: ITALIAN
[2018-02-12 13:50] VITALS: BP 125/79; PULSE 81; RESP 16; TEMP 97.9
== END 2018-02-12 13:55 | disposition home or self-care (01) ==
LOC: H.ER 23:49
DX: F10.129 Alcohol abuse with intoxication, unspecified (principal); E11.9 Type 2 diabetes mellitus without complications; I10 Essential (primary) hypertension; Z91.14 Patient's other noncompliance with medication regimen

== ENCOUNTER 2018-02-20 23:57 | Emergency (ER) | payer OTHER ==
[2018-02-20 23:58] VITALS: BMI 31.9
--- NOTE | 2018-02-21 00:47 | ED PDOC ---
HPI: Psych/Substance Abuse Time Seen by Provider: 02/21/18 00:06 Chief Complaint (Nursing): Alcohol Ingestion Chief Complaint (Provider): Alcohol Ingestion ED Caveat: Intoxicated History Per: Patient History/Exam Limitations: no limitations Suicide/Self Injury Attempted (Context): None Additional Complaint(s): 52 year old male brought in by EMS presents to ED due to alcohol intoxication and is well known to the ED and this provider for multiple visits regarding alcohol intoxication. EMS states patient was found laying on the ground in public. Uncertain if head injury occurred. Patient denies any medical complaints. PCP: [facility] Past Medical History Reviewed: Historical Data, Nursing Documentation, Vital Signs Vital Signs: Last Vital Signs Temp 98.0 F 02/20/18 23:59 Pulse 89 02/20/18 23:59 Resp 16 02/20/18 23:59 BP 142/89 02/20/18 23:59 Pulse Ox 98 02/20/18 23:59 - Medical History PMH: Diabetes (type II), HTN (noncompliance with meds), Peripheral Edema (BLE), Seizures Denies: HIV, Chronic Kidney Disease - Family History Family History: States: Unknown Family Hx - Social History Alcohol: > 2 Drinks/Day - Immunization History Hx Tetanus Toxoid Vaccination: No Hx Influenza Vaccination: No Hx Pneumococcal Vaccination: No - Home Medications Home Medications: Ambulatory Orders Medication Instructions Recorded No Known Home Med 02/12/18 - Allergies Allergies/Adverse Reactions: Allergies Allergy/AdvReac Type Severity Reaction Status Date / Time No Known Allergies Allergy Verified 02/20/18 23:58 Review of Systems ROS Statement: Except As Marked, All Systems Reviewed And Found Negative ( Denies all medical complaints) Physical Exam - Reviewed Nursing Documentation Reviewed: Yes Vital Signs Reviewed: Yes - Physical Exam Appears: Positive for: Non-toxic, No Acute Distress (smells of alcohol) Skin: Positive for: Normal Color, Warm, Dry Eye Exam: Positive for: Normal appearance ENT: Positive for: Normal ENT Inspection Neck: Positive for: Normal, Painless ROM, Supple Cardiovascular/Chest: Positive for: Regular Rate, Rhythm. Negative for: Murmur Respiratory: Positive for: Normal Breath Sounds. Negative for: Respiratory Distress Gastrointestinal/Abdominal: Positive for: Soft. Negative for: Tenderness Neurologic/Psych: Positive for: Alert, Gait (unsteady), Other ((+) slurred speech). Negative for: Motor/Sensory Deficits - ECG O2 Sat by Pulse Oximetry: 98 (RA) Pulse Ox Interpretation: Normal Medical Decision Making Medical Decision Makin Initial impression: alcohol intoxication Initial plan: * CT HEAD * EtOH serum * Accucheck 0217 CT FINDINGS: Brain: [id number] atrophy. No intracranial hemorrhage. No mass. No edema. Ventricles: No hydrocephalus. Bones/joints: No acute fracture. Soft tissues: Marked LEFT parietal soft tissue swelling. Minimal RIGHT frontal soft tissue swelling. Vasculature: Minimal atherosclerotic disease of intracranial arteries. Sinuses: Scattered minimal mucosal thickening. Mastoid air cells: No mastoid effusion. Auditory system: Cerumen. Orbits: Unremarkable as visualized. IMPRESSION: 1. No intracranial hemorrhage. 2. Incidental/non-acute findings are described above. At 7AM pt is AAO x3 and has steady gait with fluent speech; stable for discharge Scribe Attestation: Documented by Deyanira Harmon acting as a scribe for Brain Greenberg MD. Scribe Attestation: All medical record entries made by the Scribe were at my direction and personally dictated by me. I have reviewed the chart and agree that the record accurately reflects my personal performance of the history, physical exam, medical decision making, and the department course for this patient. I have also personally directed, reviewed, and agree with the discharge instructions and disposition. Disposition - Clinical Impression Clinical Impression: Alcohol abuse - Disposition Disposition: Routine/Home Disposition Time: 07:00 Condition: STABLE Instructions: Alcohol Intoxication (ED) Forms: [employer] (Uzbek) Print Language: BURKINAN
--- NOTE | 2018-02-21 02:15 | CT ---
EXAM: CT Head Without Intravenous Contrast CLINICAL HISTORY: 52 years old, male; Injury or trauma; Fall; Initial encounter; Blunt trauma (contusions or hematomas); Additional info: Head injury TECHNIQUE: Axial computed tomography images of the head/brain without intravenous contrast. All CT scans at this facility use one or more dose reduction techniques, viz.: automated exposure control; ma/kV adjustment per patient size (including targeted exams where dose is matched to indication; i.e. head); or iterative reconstruction technique. Coronal and sagittal reformatted images were created and reviewed. COMPARISON: CT - HEAD W/O CONTRAST 2017-09-07 20:05 FINDINGS: Brain: [id number] atrophy. No intracranial hemorrhage. No mass. No edema. Ventricles: No hydrocephalus. Bones/joints: No acute fracture. Soft tissues: Marked LEFT parietal soft tissue swelling. Minimal RIGHT frontal soft tissue swelling. Vasculature: Minimal atherosclerotic disease of intracranial arteries. Sinuses: Scattered minimal mucosal thickening. Mastoid air cells: No mastoid effusion. Auditory system: Cerumen. Orbits: Unremarkable as visualized. IMPRESSION: 1. No intracranial hemorrhage. 2. Incidental/non-acute findings are described above.
[2018-02-21 06:49] VITALS: BP 107/60; PULSE 91; RESP 19; TEMP 98.2
[2018-02-21 20:23] VITALS: O2SAT 98
== END 2018-02-21 07:16 | disposition home or self-care (01) ==
LOC: H.ER 23:57
DX: F10.129 Alcohol abuse with intoxication, unspecified (principal); S09.90XA Unspecified injury of head, initial encounter; W19.XXXA Unspecified fall, initial encounter; Y92.89 Other specified places as the place of occurrence of the external cause; E11.9 Type 2 diabetes mellitus without complications; I10 Essential (primary) hypertension; Z91.14 Patient's other noncompliance with medication regimen

== ENCOUNTER 2018-02-22 21:18 | Emergency (ER) | payer OTHER ==
[2018-02-22 21:19] VITALS: BMI 31.9
[2018-02-22 21:27] VITALS: TEMP 97.9
--- NOTE | 2018-02-23 00:25 | ED PDOC ---
HPI: Psych/Substance Abuse Time Seen by Provider: 02/22/18 21:35 Chief Complaint (Nursing): Alcohol Ingestion Chief Complaint (Provider): Alcohol Ingestion ED Caveat: Intoxicated History/Exam Limitations: intoxication Current Symptoms Are (Timing): Still Present Modifying Factor(s): Alcohol Additional Complaint(s): 52 year old male, well known to ED and provider, presents to ED by EMS for an evaluation of alcohol intoxication after he was found sleeping on the ground prior to arrival. Unable to obtain further medical history due to patient's intoxicated condition. PMD: none provided Past Medical History Reviewed: Unable To Obtain Vital Signs: Last Vital Signs Temp 97.9 F 02/22/18 21:26 Pulse 91 H 02/22/18 21:26 Resp 20 02/22/18 21:26 BP 133/71 02/22/18 21: Pulse Ox 100 02/22/18 21:26 - Medical History PMH: Diabetes (type II), HTN (noncompliance with meds), Peripheral Edema (BLE), Seizures Denies: HIV, Chronic Kidney Disease - Family History Family History: States: Unknown Family Hx - Social History Current smoker - smoking cessation education provided: No Alcohol: > 2 Drinks/Day Drugs: Denies - Immunization History Hx Tetanus Toxoid Vaccination: No Hx Influenza Vaccination: No Hx Pneumococcal Vaccination: No - Home Medications Home Medications: Ambulatory Orders Medication Instructions Recorded No Known Home Med 02/12/18 - Allergies Allergies/Adverse Reactions: Allergies Allergy/AdvReac Type Severity Reaction Status Date / Time No Known Allergies Allergy Verified 02/20/18 23:58 Review of Systems Review Of Systems: ROS cannot be obtained secondary to pt's inabilty to answer questions. (intoxication) Physical Exam - Reviewed Nursing Documentation Reviewed: Yes Vital Signs Reviewed: Yes - Physical Exam Appears: Positive for: Non-toxic, No Acute Distress Head Exam: Positive for: ATRAUMATIC, NORMAL INSPECTION, NORMOCEPHALIC Skin: Positive for: Normal Color Eye Exam: Positive for: Normal appearance Neck: Positive for: Normal, Painless ROM, Supple Cardiovascular/Chest: Positive for: Regular Rate, Rhythm. Negative for: Murmur Respiratory: Positive for: Normal Breath Sounds. Negative for: Wheezing, Respiratory Distress Gastrointestinal/Abdominal: Positive for: Normal Exam, Soft. Negative for: Tenderness Extremity: Positive for: Normal ROM (upper/lower) Neurologic/Psych: Positive for: Alert, Mood/Affect (intoxicated), Gait (unsteady ), Other (slurred speech with alcohol on breath). Negative for: Motor/Sensory Deficits - ECG O2 Sat by Pulse Oximetry: 100 (RA) Pulse Ox Interpretation: Normal Medical Decision Making Medical Decision Making: Initial Impression: 52 year old male with alcohol intoxication Initial Plan: * Alcohol serum * Glucose, POC * Accucheck Time: 553 --Upon provider reevaluationn patient is clinically stable, medically stable and requires no further treatment in the ED at this time. Patient will be discharged home. Counseling was provided and all questions were answered regarding diagnosis. There is agreement to discharge plan. Return if symptoms persist or worsen. Clinical Impression: Alcohol intoxication Scribe Attestation: Documented by Rosaura Herring, acting as a scribe for Brain Greenberg MD. Provider Scribe Attestation: All medical record entries made by the Scribe were at my direction and personally dictated by me. I have reviewed the chart and agree that the record accurately reflects my personal performance of the history, physical exam, medical decision making, and the department course for this patient. I have also personally directed, reviewed, and agree with the discharge instructions and disposition. Disposition - Clinical Impression Clinical Impression: Alcohol abuse - Disposition Disposition: Routine/Home Disposition Time: 06:00 Condition: STABLE Instructions: Alcohol Intoxication (ED) Forms: [facility] (Liberian) Print Language: [place]OT[place]
[2018-02-23 05:35] VITALS: BP 159/76; PULSE 99; RESP 15
[2018-02-23 06:16] VITALS: O2SAT 100
== END 2018-02-23 06:34 | disposition home or self-care (01) ==
LOC: H.ER 21:18
DX: F10.129 Alcohol abuse with intoxication, unspecified (principal); E11.9 Type 2 diabetes mellitus without complications; I10 Essential (primary) hypertension; Z91.14 Patient's other noncompliance with medication regimen

== ENCOUNTER 2018-03-10 20:25 | Emergency (ER) | payer OTHER ==
[2018-03-10 20:25] VITALS: BMI 31.9
--- NOTE | 2018-03-10 20:33 | ED PDOC ---
HPI: Psych/Substance Abuse Time Seen by Provider: 03/10/18 20:30 Chief Complaint (Nursing): Alcohol Ingestion Chief Complaint (Provider): etoh History Per: Patient, EMS Additional Complaint(s): BIBA for etoh. 52 year old male well known to ED was found asleep outside and was brought to ED. He admits to drinking today and offers no acute complaints. PMD: none Past Medical History Reviewed: Historical Data, Nursing Documentation, Vital Signs Vital Signs: Last Vital Signs Temp 96.7 F L 03/10/18 20:28 Pulse 86 03/10/18 20:28 Resp 16 03/10/18 20:28 BP 127/76 03/10/18 20:28 Pulse Ox 97 03/10/18 20:28 - Medical History PMH: Diabetes (type II), HTN, Seizures - Family History Family History: States: No Known Family Hx - Living Arrangements Living Arrangements: Other (non domiciled) - Social History Current smoker - smoking cessation education provided: No Alcohol: > 2 Drinks/Day Drugs: Denies - Home Medications Home Medications: Ambulatory Orders Medication Instructions Recorded No Known Home Med 02/12/18 - Allergies Allergies/Adverse Reactions: Allergies Allergy/AdvReac Type Severity Reaction Status Date / Time No Known Allergies Allergy Verified 02/20/18 23:58 Review of Systems ROS Statement: Except As Marked, All Systems Reviewed And Found Negative Psych: Positive for: Other (etoh) Physical Exam - Reviewed Nursing Documentation Reviewed: Yes Vital Signs Reviewed: Yes - Physical Exam Appears: Positive for: Well, Non-toxic, No Acute Distress Skin: Negative for: Rash Eye Exam: Positive for: Normal appearance Cardiovascular/Chest: Positive for: Regular Rate, Rhythm Respiratory: Positive for: Normal Breath Sounds Neurologic/Psych: Positive for: Alert, Other (acutely intoxicated, answers some questions appropriately) - ECG O2 Sat by Pulse Oximetry: 97 Pulse Ox Interpretation: Normal Medical Decision Making Medical Decision Makin:30 pm - 52 year old intoxicated male Plan: BAL Glucose POC Fingerstick: 126 BAL: 404 9:30 pm: patient is asleep, arousable, vital signs stable. 11:30 pm: patient is asleep, arousable, vital signs stable. Disposition - Clinical Impression Clinical Impression: Alcohol abuse with intoxication - Patient ED Disposition Is Patient to be Admitted: No - Disposition Disposition: Transfer of Care Disposition Time: 23:55 Condition: FAIR Forms: [facility] (Bolivian) Patient Signed Over To: Mishel Dorsey Handoff Comments: Signed out pending sobriety and final disposition
--- NOTE | 2018-03-11 05:12 | ED PDOC ---
- ECG O2 Sat by Pulse Oximetry: 97 - Progress ED Course And Treament: Case endorsed to sports book writer from Suzanne SMITH pending sobriety 00:00 Patient sleeping; no distress 1:30 Patient sleeping; no distress 3:00 Patient sleeping; no distress 4:30 Patient sleeping; no distress 6:00 Patient awake, alert, orientedx3. Ambulating steady gait Stable for discharge Disposition - Clinical Impression Clinical Impression: Alcohol abuse with intoxication - POA Present On Arrival: None - Disposition Disposition: Routine/Home Disposition Time: 05:12 Condition: STABLE Instructions: Alcohol Abuse and Alcoholism (DC) Print Language: CAMBODIAN
[2018-03-11 06:22] VITALS: BP 122/71; PULSE 88; RESP 16; TEMP 98.1; O2SAT 96
== END 2018-03-11 06:05 | disposition home or self-care (01) ==
LOC: H.ER 20:25
DX: F10.129 Alcohol abuse with intoxication, unspecified (principal); Y90.8 Blood alcohol level of 240 mg/100 ml or more; E11.9 Type 2 diabetes mellitus without complications; I10 Essential (primary) hypertension

== ENCOUNTER 2018-03-29 01:32 | Observation (INO) | payer MEDICAID ==
[2018-03-29 01:32] VITALS: BMI 31.9
--- NOTE | 2018-03-29 03:30 | ED PDOC ---
HPI: Psych/Substance Abuse Time Seen by Provider: 03/29/18 01:52 Chief Complaint (Nursing): Alcohol Ingestion ED Caveat: Acuity of Condition History Per: EMS History/Exam Limitations: intoxication Onset/Duration Of Symptoms: Hrs Current Symptoms Are (Timing): Still Present Additional Complaint(s): Patient well known to ED for ETOH consumption brought in by EMS For alcohol abuse. Further history cannot be obtained secondary to intoxication. Past Medical History Reviewed: Unable To Obtain Vital Signs: Last Vital Signs Temp 98.6 F 03/29/18 01:33 Pulse 86 03/29/18 01:33 Resp 16 03/29/18 01:33 BP 99/53 L 03/29/18 01:33 Pulse Ox 93 L 03/29/18 01:33 - Medical History PMH: Diabetes (type II), HTN, Peripheral Edema (BLE), Seizures Denies: HIV, Chronic Kidney Disease - Family History Family History: States: Unknown Family Hx - Immunization History Hx Tetanus Toxoid Vaccination: No Hx Influenza Vaccination: No Hx Pneumococcal Vaccination: No - Home Medications Home Medications: Ambulatory Orders Medication Instructions Recorded No Known Home Med 02/12/18 - Allergies Allergies/Adverse Reactions: Allergies Allergy/AdvReac Type Severity Reaction Status Date / Time No Known Allergies Allergy Verified 03/12/18 01:20 Review of Systems Review Of Systems: ROS cannot be obtained secondary to pt's inabilty to answer questions. Physical Exam - Reviewed Nursing Documentation Reviewed: Yes Vital Signs Reviewed: Yes - Physical Exam Appears: Positive for: Non-toxic, No Acute Distress. Negative for: Well ( Intoxicated Appearing) Head Exam: Positive for: ATRAUMATIC, NORMAL INSPECTION, NORMOCEPHALIC Skin: Positive for: Normal Color, Warm, DRY Eye Exam: Positive for: EOMI, Normal appearance, PERRL ENT: Positive for: Normal ENT Inspection Neck: Positive for: Normal, Painless ROM Cardiovascular/Chest: Positive for: Regular Rate, Rhythm Respiratory: Positive for: CNT, Normal Breath Sounds Gastrointestinal/Abdominal: Positive for: Normal Exam, Soft Back: Positive for: Normal Inspection Extremity: Positive for: Normal ROM Neurologic/Psych: Negative for: Alert (Intoxicated) - Laboratory Results Result Diagrams: 03/29/18 06:45 03/29/18 06:45 - ECG O2 Sat by Pulse Oximetry: 93 Pulse Ox Interpretation: Normal Medical Decision Making Medical Decision Making: A/P: 230AM Patient here with alcohol intoxication, stable vitals, no signs of trauma Will observe till sober 07:00 -Patient complaining of dizziness, will order labs. -Patient will be endorsed to Dr. Ingram, pending sobriety, labwork, and reevaluation. Disposition - Clinical Impression Clinical Impression: Alcohol abuse - Patient ED Disposition Is Patient to be Admitted: Transfer of Care - Disposition Disposition Time: 07:00 Condition: STABLE Patient Signed Over To: Lesly Ingram Handoff Comments: pending sobriety and reevaluation
[2018-03-29] MEDS ORDERED: Ammonia 2% Inhalant ONE (05:12)
[2018-03-29] MEDS ORDERED: Sodium Chloride 0.9% 1,000 ML IV STA (06:36)
--- NOTE | 2018-03-29 07:14 | ED PDOC ---
- Laboratory Results Result Diagrams: 03/29/18 06:45 03/29/18 06:45 - ECG O2 Sat by Pulse Oximetry: 93 Medical Decision Making Medical Decision Makin:00 Patient care is endorsed from Dr. Urbano to Dr. Ingram pending clinical sobriety, blood work, and reevaluation. 11:25 Upon reevaluation when asked to walk, patient states he is still dizzy. Scribe Attestation: Documented by Melly Espinoza, acting as a scribe for Lesly Ingram MD. Provider Scribe Attestation: All medical entries made by the Scribe were at my direction and personally dictated by me. I have reviewed the chart and agree that the record accurately reflects my personal performance of the history, physical exam, medical decision making, and the department course for this patient. I have also personally directed, reviewed, and agree with the discharge instructions and disposition. Disposition - Clinical Impression Clinical Impression: Alcohol abuse, Constant vertigo - POA Present On Arrival: Falls Or Trauma - Disposition Disposition: Hospitalized as Observation Patient Disposition Time: 12:04 Condition: STABLE
[2018-03-29 07:19] LABS: BASO # 0.1 K/uL (0.0-0.2); BASO % 0.9 % (0.0-2.0); EOS # 0.3 K/uL (0.0-0.7); EOS % 4.7 % (0.0-4.0); HEMOGLOBIN 11.3 g/dL (12.0-18.0); LYMPH # 1.5 K/uL (1.0-4.3); LYMPH % 21.8 % (20.0-40.0); MEAN CELL VOLUME 91.3 fl (80.0-94.0); MEAN CORPUSCULAR HEMOGLOBIN 30.4 pg (27.0-31.0); MEAN CORPUSCULAR HGB CONC 33.4 g/dL (33.0-37.0); MEAN PLATELET VOLUME 8.7 fl (7.2-11.7); MONO # 0.4 K/uL (0.0-0.8); MONO % 5.8 % (0.0-10.0); NEUT # 4.5 K/uL (1.8-7.0); NEUT % 66.8 % (50.0-75.0); RBC 3.71 Mil/uL (4.40-5.90); RED CELL DISTRIBUTION WIDTH 15.7 % (11.5-14.5); WHITE BLOOD COUNT 6.7 K/uL (4.8-10.8)
[2018-03-29 07:34] LABS: ALB/GLOB RATIO 1.2 (1.0-2.1); ALBUMIN 3.7 g/dL (3.5-5.0); ALT/SGPT 22 U/L (21-72); AST/SGOT 21 U/L (17-59); BILIRUBIN,DIRECT 0.5 mg/ml (0.0-0.4); BLOOD UREA NITROGEN 22 mg/dl (9-20); CALCIUM 8.9 mg/dL (8.4-10.2); GFR AFRICAN-AMERICAN > 60; GFR NON-AFRICAN AMERICAN > 60
[2018-03-29 07:37] LABS: ACETAMINOPHEN < 10.0 ug/ml (10.0-30.0); SALICYLATE < 1.0 mg/dl
--- NOTE | 2018-03-29 12:16 | CT ---
PROCEDURE: CT HEAD WITHOUT CONTRAST. HISTORY: intox, head trauma COMPARISON: CT head dated 02/21/2018. TECHNIQUE: Axial computed tomography images were obtained through the head/brain without intravenous contrast. Radiation dose: Total exam DLP = 901.8 mGy-cm. This CT exam was performed using one or more of the following dose reduction techniques: Automated exposure control, adjustment of the mA and/or kV according to patient size, and/or use of iterative reconstruction technique. FINDINGS: HEMORRHAGE: No intracranial hemorrhage. BRAIN: No mass effect or edema. Atrophy. No significant chronic microvascular ischemic changes. VENTRICLES: Unremarkable. No hydrocephalus. CALVARIUM: Unremarkable. PARANASAL SINUSES: Unremarkable as visualized. No significant inflammatory changes. MASTOID AIR CELLS: Unremarkable as visualized. No inflammatory changes. OTHER FINDINGS: Posterior vertex soft tissue swelling. IMPRESSION: Posterior vertex scalp hematoma. No calvarial fracture or intracranial hemorrhage.
--- NOTE | 2018-03-29 12:44 | CP.PCM.HP ---
History of Present Illness - History of Present Illness History of Present Illness: This is a 51 year old male with pmh significant for alcohol abuse (for which he is frequently sent to this ED), hypertension, seizure hx, who presented again to the ED with acute alcohol intoxication. The patient is a poor historian and unable to give adequate history. He does have a small posterior scalp laceration with some bleeding which has resolved. CT scan shows no acute abnormality, signs of CVA or ICH. After 10 hours in the ED his mentation has improved but is now complaining of vertigo and states he is unable to ambulate as a result. Given this, the patient is to be placed on med/surg observation until his status improves. Present on Admission - Present on Admission Any Indicators Present on Admission: No Review of Systems - Review of Systems Systems not reviewed;Unavailable: Intoxicated Past Patient History - Infectious Disease Hx of Infectious Diseases: None - Past Medical History & Family History Past Medical History?: Yes - Past Social History Smoking Status: Never Smoked Alcohol: > 2 Drinks/Day Home Situation {Lives}: Homeless - CARDIAC Hx Hypertension: Yes Hx Peripheral Edema: Yes (BLE) - PULMONARY Hx Respiratory Disorders: No - NEUROLOGICAL Hx Seizures: Yes - HEENT Hx HEENT Problems: No - RENAL Hx Chronic Kidney Disease: No - ENDOCRINE/METABOLIC Hx Endocrine Disorders: No - HEMATOLOGICAL/ONCOLOGICAL Hx Human Immunodeficiency Virus (HIV): No - INTEGUMENTARY Hx Dermatological Problems: No - MUSCULOSKELETAL/RHEUMATOLOGICAL Hx Musculoskeletal Disorders: No - GASTROINTESTINAL Hx Gastrointestinal Disorders: No - GENITOURINARY/GYNECOLOGICAL Hx Genitourinary Disorders: No - PSYCHIATRIC Hx Psychophysiologic Disorder: No Hx Substance Use: No - SURGICAL HISTORY Hx Surgeries: No - ANESTHESIA Hx Anesthesia: No Hx Anesthesia Reactions: No Hx Malignant Hyperthermia: No Meds Allergies/Adverse Reactions: Allergies Allergy/AdvReac Type Severity Reaction Status Date / Time No Known Allergies Allergy Verified 03/12/18 01:20 Physical Exam - Additional Findings Additional findings: Physical exam: Constitutional- cooperative, awake, alert Head- NCAT, PERRL Eye- PERRL, EOMI, + occ horizontal nystagmus bilaterally ENT- normal exam, MMM. Neck- normal inspection, supple, no JVD Respiratory- CTAB, no wheezes rales rhonchi Cardiovascular- RRR, +S1, +S2 no MRG GI/Abdominal- + Caput medusae. normal bowel sounds, soft, no mass, no hsm Skin- warm, dry Extremities Exam- normal capillary refill, normal inspection Neurological Exam- alert, awake, oriented Psych- normal mood, normal affect Results - Vital Signs Recent Vital Signs: Last Vital Signs Temp 98 F 03/29/18 12:28 Pulse 86 03/29/18 12:28 Resp 20 03/29/18 12:28 BP 150/80 03/29/18 12:28 Pulse Ox 98 03/29/18 12:28 - Labs Result Diagrams: 03/29/18 06:45 03/29/18 06:45 Labs: Laboratory Results - last 24 hr 03/29/18 03/29/18 03/29/18 01:52 03:05 06:20 WBC RBC Hgb Hct MCV MCH MCHC RDW Plt Count MPV Neut % (Auto) Lymph % (Auto) [place] % (Auto) Eos % (Auto) Baso % (Auto) Neut # (Auto) Lymph # (Auto) [place] # (Auto) Eos # (Auto) Baso # (Auto) Sodium Potassium Chloride Carbon Dioxide Anion Gap BUN Creatinine Est GFR ( Amer) Est GFR (Non-Af Amer) POC Glucose (mg/dL) 114 H 121 H Random Glucose Calcium Total Bilirubin Direct Bilirubin AST ALT Alkaline Phosphatase Ammonia Troponin I Total Protein Albumin Globulin Albumin/Globulin Ratio Salicylates Acetaminophen Alcohol, Quantitative 221 H 03/29/18 03/29/18 03/29/18 06:45 06:45 06:45 WBC 6.7 RBC 3.71 L Hgb 11.3 L Hct 33.8 L MCV 91.3 MCH 30.4 MCHC 33.4 RDW 15.7 H Plt Count 172 MPV 8.7 Neut % (Auto) 66.8 Lymph % (Auto) 21.8 [place] % (Auto) 5.8 Eos % (Auto) 4.7 H Baso % (Auto) 0.9 Neut # (Auto) 4.5 Lymph # (Auto) 1.5 [place] # (Auto) 0.4 Eos # (Auto) 0.3 Baso # (Auto) 0.1 Sodium 140 Potassium 3.8 Chloride 106 Carbon Dioxide 23 Anion Gap 15 BUN 22 H Creatinine 0.8 Est GFR ( Amer) > 60 Est GFR (Non-Af Amer) > 60 POC Glucose (mg/dL) Random Glucose 103 Calcium 8.9 Total Bilirubin 0.6 Direct Bilirubin 0.5 H AST 21 ALT 22 Alkaline Phosphatase 78 Ammonia Troponin I < 0.0120 Total Protein 6.7 Albumin 3.7 Globulin 3.1 Albumin/Globulin Ratio 1.2 Salicylates < 1.0 Acetaminophen < 10.0 L Alcohol, Quantitative 03/29/18 06:45 WBC RBC Hgb Hct MCV MCH MCHC RDW Plt Count MPV Neut % (Auto) Lymph % (Auto) [place] % (Auto) Eos % (Auto) Baso % (Auto) Neut # (Auto) Lymph # (Auto) [place] # (Auto) Eos # (Auto) Baso # (Auto) Sodium Potassium Chloride Carbon Dioxide Anion Gap BUN Creatinine Est GFR ( Amer) Est GFR (Non-Af Amer) POC Glucose (mg/dL) Random Glucose Calcium Total Bilirubin Direct Bilirubin AST ALT Alkaline Phosphatase Ammonia 38 Troponin I Total Protein Albumin Globulin Albumin/Globulin Ratio Salicylates Acetaminophen Alcohol, Quantitative Assessment & Plan - Assessment and Plan (Free Text) Plan: This is a 51 year old male with pmh significant for alcohol abuse (for which he is frequently sent to this ED), hypertension, seizure hx, who presented again to the ED with acute alcohol intoxication. The patient is a poor historian and unable to give adequate history. He does have a small posterior scalp laceration with some bleeding which has resolved. CT scan shows no acute abnormality, signs of CVA or ICH. After 10 hours in the ED his mentation has improved but is now complaining of vertigo and states he is unable to ambulate as a result. Given this, the patient is to be placed on med/surg observation until his status improves. 1) Vertigo, acute, with inability to ambulate as a result - Due to acute on chronic ETOH abuse - Monitor on med/surg - d/c when able to ambulate and vertigo improved - Meclizine 2) ETOH abuse with acute intoxication - monitor - Ativan PRN for signs of ETOH withdrawal - B 12, folic acid supplementation 3) Hypertension hx - monitor for now, will give antihypertensive as needed 4) Homeless - chronic 5) Noncompliance with medications - chronic 6) DVT prophylaxis - SCDs as pt has scalp laceration
[2018-03-29] MEDS: Sodium Chloride 0.9% 1,000 ML IV SCH (15:04)
[2018-03-29 18:28] VITALS: RESP 20
[2018-03-30 04:47] LABS: SQUAMOUS EPITHIAL < 1 /hpf (0-5); URINE BILIRUBIN NEGATIVE (NEGATIVE); URINE BLOOD NEGATIVE (NEGATIVE); URINE CLARITY CLEAR (Clear); URINE COLOR AMBER (YELLOW); URINE GLUCOSE (UA) NEG (Normal); URINE LEUKOCYTE ESTERASE NEG Leu/uL (Negative); URINE PROTEIN NEGATIVE (NEGATIVE); URINE UROBILINOGEN 0.2-1.0 mg/dL (0.2-1.0)
[2018-03-30 05:02] LABS: BARBITURATES, UR NEGATIVE (NEGATIVE); BENZODIAZEPINES, UR POSITIVE (NEGATIVE); OPIATES, UR NEGATIVE (NEGATIVE); PHENCYCLIDINE, UR NEGATIVE (NEGATIVE)
[2018-03-30] MEDS: Sodium Chloride 0.9% 1,000 ML IV SCH ×2 (05:53→05:54)
[2018-03-30 09:00] VITALS: BP 137/82; PULSE 78; TEMP 99.6
--- NOTE | 2018-03-30 09:07 | CP.PCM.DIS ---
Provider - Provider Date of Admission: 03/29/18 12:04 Attending physician: Maverick Herrera DO Primary care physician: None Consults: None Time Spent in preparation of Discharge (in minutes): 10 Hospital Course - Lab Results Lab Results: Most Recent Lab Values WBC 6.7 K/uL (4.8-10.8) 03/29/18 06:45 RBC 3.71 Mil/uL (4.40-5.90) L 03/29/18 06:45 Hgb 11.3 g/dL (12.0-18.0) L 03/29/18 06:45 Hct 33.8 % (35.0-51.0) L 03/29/18 06:45 MCV 91.3 fl (80.0-94.0) 03/29/18 06:45 MCH 30.4 pg (27.0-31.0) 03/29/18 06:45 MCHC 33.4 g/dL (33.0-37.0) 03/29/18 06:45 RDW 15.7 % (11.5-14.5) H 03/29/18 06:45 Plt Count 172 K/uL (130-400) 03/29/18 06:45 MPV 8.7 fl (7.2-11.7) 03/29/18 06:45 Neut % (Auto) 66.8 % (50.0-75.0) 03/29/18 06:45 Lymph % (Auto) 21.8 % (20.0-40.0) 03/29/18 06:45 [place] % (Auto) 5.8 % (0.0-10.0) 03/29/18 06:45 Eos % (Auto) 4.7 % (0.0-4.0) H 03/29/18 06:45 Baso % (Auto) 0.9 % (0.0-2.0) 03/29/18 06:45 Neut # (Auto) 4.5 K/uL (1.8-7.0) 03/29/18 06:45 Lymph # (Auto) 1.5 K/uL (1.0-4.3) 03/29/18 06:45 [place] # (Auto) 0.4 K/uL (0.0-0.8) 03/29/18 06:45 Eos # (Auto) 0.3 K/uL (0.0-0.7) 03/29/18 06:45 Baso # (Auto) 0.1 K/uL (0.0-0.2) 03/29/18 06:45 Sodium 140 mmol/l (132-148) 03/29/18 06:45 Potassium 3.8 MMOL/L (3.6-5.0) 03/29/18 06:45 Chloride 106 mmol/L (98-107) 03/29/18 06:45 Carbon Dioxide 23 mmol/L (22-30) 03/29/18 06:45 Anion Gap 15 (10-20) 03/29/18 06:45 BUN 22 mg/dl (9-20) H 03/29/18 06:45 Creatinine 0.8 mg/dl (0.8-1.5) 03/29/18 06:45 Est GFR ( Amer) > 60 03/29/18 06:45 Est GFR (Non-Af Amer) > 60 03/29/18 06:45 POC Glucose (mg/dL) 121 mg/dL (65-110) H 03/29/18 06:20 Random Glucose 103 mg/dL (75-110) 03/29/18 06:45 Calcium 8.9 mg/dL (8.4-10.2) 03/29/18 06:45 Total Bilirubin 0.6 mg/dl (0.2-1.3) 03/29/18 06:45 Direct Bilirubin 0.5 mg/ml (0.0-0.4) H 03/29/18 06:45 AST 21 U/L (17-59) 03/29/18 06:45 ALT 22 U/L (21-72) 03/29/18 06:45 Alkaline Phosphatase 78 U/L (38-126) 03/29/18 06:45 Ammonia 38 umo/L (16-60) 03/29/18 06:45 Troponin I < 0.0120 ng/mL (0.00-0.120) 03/29/18 06:45 Total Protein 6.7 G/DL (6.3-8.2) 03/29/18 06:45 Albumin 3.7 g/dL (3.5-5.0) 03/29/18 06:45 Globulin 3.1 gm/dL (2.2-3.9) 03/29/18 06:45 Albumin/Globulin Ratio 1.2 (1.0-2.1) 03/29/18 06:45 Urine Color Lauren (YELLOW) 03/30/18 04:40 Urine Clarity Clear (Clear) 03/30/18 04:40 Urine pH 5.0 (5.0-8.0) 03/30/18 04:40 Ur Specific [place] 1.016 (1.003-1.030) 03/30/18 04:40 Urine Protein Negative mg/dL (NEGATIVE) 03/30/18 04:40 Urine Glucose (UA) Neg mg/dL (Normal) 03/30/18 04:40 Urine Ketones Negative mg/dL (NEGATIVE) 03/30/18 04:40 Urine Blood Negative (NEGATIVE) 03/30/18 04:40 Urine Nitrate Negative (NEGATIVE) 03/30/18 04:40 Urine Bilirubin Negative (NEGATIVE) 03/30/18 04:40 Urine Urobilinogen 0.2-1.0 mg/dL (0.2-1.0) 03/30/18 04:40 Ur Leukocyte Esterase Neg [place]/uL (Negative) 03/30/18 04:40 Urine RBC (Auto) 1 /hpf (0-3) 03/30/18 04:40 Urine Microscopic WBC 1 /hpf (0-5) 03/30/18 04:40 Ur Squamous Epith Cells < 1 /hpf (0-5) 03/30/18 04:40 Salicylates < 1.0 mg/dl 03/29/18 06:45 Urine Opiates Screen Negative (NEGATIVE) 03/30/18 04:40 Urine Methadone Screen Negative (NEGATIVE) 03/30/18 04:40 Acetaminophen < 10.0 ug/ml (10.0-30.0) L 03/29/18 06:45 Ur Barbiturates Screen Negative (NEGATIVE) 03/30/18 04:40 Ur Phencyclidine Scrn Negative (NEGATIVE) 03/30/18 04:40 Ur Amphetamines Screen Negative (NEGATIVE) 03/30/18 04:40 U Benzodiazepines Scrn Positive (NEGATIVE) 03/30/18 04:40 U Oth Cocaine Metabols Negative (NEGATIVE) 03/30/18 04:40 U Cannabinoids Screen Negative (NEGATIVE) 03/30/18 04:40 Alcohol, Quantitative 221 mg/dl (0-10) H 03/29/18 03:05 - Hospital Course Hospital Course: 51 year old male with PMH significant for alcohol abuse (for which he is frequently sent to this ED), hypertension, seizure hx, presented again to the ED with acute alcohol intoxication. The patient is a poor historian and unable to give adequate history. He does have a small posterior scalp laceration with some bleeding which has resolved. CT scan shows no acute abnormality, signs of CVA or ICH. After 10 hours in the ED his mentation has improved but was complaining of vertigo and states he is unable to ambulate as a result. Given this, the patient was be placed on med/surg observation. Overnight there was no acute issues . At present he is AAOx3 , feeling well , tolerating Po intake , denies any dizziness , hemodynamically stable.Patient is ready to be discharged He states he is from [place] , moved to [place] ,[address]eless [address] and does not work . [facility]. [facility] to [facility] in stable conditions. 1. Vertigo, acute, with inability to ambulate as a result--resolved Due to acute on chronic ETOH abuse 2.ETOH abuse with acute intoxication no signs of withdrawal denies heavy ETOH abuse 3. Hypertension hx controlled without meds 4. Homeless chronic 5. Noncompliance with medications chronic 6. Bilateral lower extremity skin excoriation with superficial cellulitis start Keflex PO 7. Scalp laceration CT head showed no acute pathology Discharge Exam - Head Exam Head Exam: ATRAUMATIC, NORMAL INSPECTION, NORMOCEPHALIC - Eye Exam Eye Exam: EOMI, PERRL Pupil Exam: NORMAL ACCOMODATION Additional comments: scalp laceration - ENT Exam ENT Exam: Mucous Membranes Moist, Normal Exam - Neck Exam Neck exam: Full Rom, Normal Inspection - Respiratory Exam Respiratory Exam: Clear to PA & Lateral, NORMAL BREATHING PATTERN. absent: Rhonchi, Wheezes, Respiratory Distress - Cardiovascular Exam Cardiovascular Exam: REGULAR RHYTHM, RRR, +S1, +S2. absent: JVD - GI/Abdominal Exam GI & Abdominal Exam: Normal Bowel Sounds, Soft. absent: Distended, Guarding, Rebound, Tenderness - Rectal Exam Rectal Exam: Deferred - Extremities Exam Extremities exam: pedal pulses present Additional comments: bilateral lower extremity excoriations with mild erythema and dry scabs - Back Exam Back exam: NORMAL INSPECTION - Neurological Exam Neurological exam: Alert, CN II-XII Intact, Oriented x3, Reflexes Normal - Psychiatric Exam Psychiatric exam: Normal Affect, Normal Mood - Skin Skin Exam: Dry, Warm Discharge Plan - Discharge Medications Prescriptions: Cephalexin [Keflex] 500 mg PO Q12 #14 capsule Cyanocobalamin [Vitamin B12 1000 mcg Tab] 1,000 mcg PO DAILY #30 tab Folic Acid 1 mg PO DAILY #30 tab - Follow Up Plan Condition: STABLE Disposition: HOME/ ROUTINE Patient education suggested?: Yes Instructions: Alcohol Abuse and Alcoholism (DC) Referrals: Alcoholics Anonymous [Outside]
--- NOTE | 2018-03-31 11:30 | CARD ---
APPROVED REPORT EKG Measurement Heart [id number] <Conclusion> Normal sinus rhythm Possible Left atrial enlargement Left ventricular hypertrophy Nonspecific ST abnormality Abnormal ECG
[2018-03-31 14:54] VITALS: O2SAT 93
== END 2018-03-30 14:30 | disposition home or self-care (01) ==
LOC: H.ER 01:32 → H.ERHOLD 12:04 → H.MEDSURG1 16:42
PROVIDERS: ADMIT Internal Medicine; ATTEND Internal Medicine
DX: R42 Dizziness and giddiness (principal); F10.129 Alcohol abuse with intoxication, unspecified; I10 Essential (primary) hypertension; Z59.0 Homelessness; Z91.14 Patient's other noncompliance with medication regimen; S01.01XA Laceration without foreign body of scalp, initial encounter; L03.116 Cellulitis of left lower limb; L03.115 Cellulitis of right lower limb; E11.9 Type 2 diabetes mellitus without complications; Y90.7 Blood alcohol level of 200-239 mg/100 ml
CPT/HCPCS: 70450; 80053; 81003; 82140; 82248; 82948; 84484; 85025; 96360; 99285; G0378; G0480; J7030

== ENCOUNTER 2018-04-06 03:30 | Emergency (ER) | payer MEDICAID, OTHER, SELFPAY ==
[2018-04-06 03:30] VITALS: BMI 31.9
[2018-04-06 03:34] VITALS: RESP 18; TEMP 97.5
--- NOTE | 2018-04-06 03:46 | ED PDOC ---
HPI: Psych/Substance Abuse Time Seen by Provider: 04/06/18 03:41 Chief Complaint (Nursing): Alcohol Ingestion Chief Complaint (Provider): Alcohol Ingestion ED Caveat: Intoxicated History/Exam Limitations: intoxication Onset/Duration Of Symptoms: Hrs Current Symptoms Are (Timing): Still Present Modifying Factor(s): Alcohol Additional Complaint(s): 52 year old male brought into the ED via EMS for evaluation of alcohol intoxication. Patient was found soiled in feces and urine. PMD: None Provided. Past Medical History Reviewed: Historical Data, Nursing Documentation, Vital Signs Vital Signs: Last Vital Signs Temp 97.5 F L 04/06/18 03:32 Pulse 101 H 04/06/18 03:32 Resp 18 04/06/18 03:32 BP 127/86 04/06/18 03:32 Pulse Ox 99 04/06/18 03:32 - Medical History PMH: Diabetes (type II), HTN, Peripheral Edema (BLE), Seizures Denies: HIV, Chronic Kidney Disease - Surgical History Surgical History: No Surg Hx - Family History Family History: States: Unknown Family Hx - Immunization History Hx Tetanus Toxoid Vaccination: No Hx Influenza Vaccination: No Hx Pneumococcal Vaccination: No - Home Medications Home Medications: Ambulatory Orders Medication Instructions Recorded Cephalexin [Keflex] 500 mg PO Q12 #14 capsule 03/30/18 Cyanocobalamin [Vitamin B12 1000 1,000 mcg PO DAILY #30 tab 03/30/18 mcg Tab] Folic Acid 1 mg PO DAILY #30 tab 03/30/18 - Allergies Allergies/Adverse Reactions: Allergies Allergy/AdvReac Type Severity Reaction Status Date / Time No Known Allergies Allergy Verified 03/12/18 01:20 Review of Systems ROS Statement: Except As Marked, All Systems Reviewed And Found Negative Psych: Positive for: Other (EtOH intoxication) Physical Exam - Reviewed Nursing Documentation Reviewed: Yes - Physical Exam Appears: Positive for: Non-toxic, No Acute Distress Head Exam: Positive for: ATRAUMATIC, NORMOCEPHALIC Skin: Positive for: Normal Color, Warm, Dry Eye Exam: Positive for: Normal appearance, EOMI, PERRL ENT: Positive for: Normal ENT Inspection Neck: Positive for: Normal, Painless ROM, Supple Cardiovascular/Chest: Positive for: Regular Rate, Rhythm. Negative for: Murmur Respiratory: Positive for: Normal Breath Sounds. Negative for: Respiratory Distress Gastrointestinal/Abdominal: Positive for: Normal Exam, Soft. Negative for: Tenderness Back: Positive for: Normal Inspection. Negative for: L CVA Tenderness, R CVA Tenderness, Vertebral Tenderness Extremity: Positive for: Normal ROM, Pedal Edema, Swelling (dependent edema B/L LE). Negative for: Deformity Neurologic/Psych: Positive for: Gait (unsteady ), Other (slurred speech) - ECG O2 Sat by Pulse Oximetry: 99 (RA) Pulse Ox Interpretation: Normal Medical Decision Making Medical Decision Making: Time: 341 Impression: Intoxicated 52 year old male Plan: -- Alcohol Serum -- Accucheck At 7AM pt is AAO x3 and has steady gait with fluent speech; stable on discharge Scribe Attestation: Documented by Porfirio Alexandra, acting as a scribe for Dr. Brain Greenberg MD. Provider Scribe Attestation: All medical record entries made by the Scribe were at my direction and personally dictated by me. I have reviewed the chart and agree that the record accurately reflects my personal performance of the history, physical exam, medical decision making, and the department course for this patient. I have also personally directed, reviewed, and agree with the discharge instructions and disposition. Disposition - Clinical Impression Clinical Impression: Alcohol abuse - Disposition Disposition: Routine/Home Disposition Time: 07:00 Condition: IMPROVED Instructions: Abuse of Alcohol (ED) Forms: [employer] ([place])
[2018-04-06 07:14] VITALS: BP 133/88; PULSE 93
[2018-04-07 05:36] VITALS: O2SAT 99
== END 2018-04-06 07:35 | disposition home or self-care (01) ==
LOC: H.ER 03:30
DX: F10.129 Alcohol abuse with intoxication, unspecified (principal); E11.9 Type 2 diabetes mellitus without complications; I10 Essential (primary) hypertension

== ENCOUNTER 2018-05-07 21:23 | Emergency (ER) | payer OTHER ==
[2018-05-07 21:23] VITALS: BMI 31.9
[2018-05-07 21:28] VITALS: BP 118/69; TEMP 98.1
--- NOTE | 2018-05-07 22:09 | ED PDOC ---
HPI: Psych/Substance Abuse Time Seen by Provider: 05/07/18 21:45 Chief Complaint (Nursing): Alcohol Ingestion Chief Complaint (Provider): etoh History Per: Patient, EMS Additional Complaint(s): 53 y/o male brought in by EMS for public intoxication. Patient was loitering outside of [place]. Patient denies acute medical or psychiatric complaitns. Past Medical History Reviewed: Historical Data, Nursing Documentation, Vital Signs Vital Signs: Last Vital Signs Temp 98.1 F 05/07/18 21:27 Pulse 90 05/07/18 21:27 Resp 16 05/07/18 21:27 BP 118/69 05/07/18 21:27 Pulse Ox 99 05/07/18 21:27 - Medical History PMH: Diabetes (type II), HTN, Peripheral Edema (BLE), Seizures Denies: HIV, Chronic Kidney Disease - Surgical History Surgical History: No Surg Hx - Family History Family History: States: Unknown Family Hx - Immunization History Hx Tetanus Toxoid Vaccination: No Hx Influenza Vaccination: No Hx Pneumococcal Vaccination: No - Home Medications Home Medications: Ambulatory Orders Medication Instructions Recorded Cyanocobalamin [Vitamin B12 1000 1,000 mcg PO DAILY #30 tab 03/30/18 mcg Tab] Folic Acid 1 mg PO DAILY #30 tab 03/30/18 Losartan [Cozaar] 50 mg PO DAILY #30 tab 05/02/18 cloNIDine [Catapres] 0.2 mg PO BID #60 tab 05/02/18 - Allergies Allergies/Adverse Reactions: Allergies Allergy/AdvReac Type Severity Reaction Status Date / Time No Known Allergies Allergy Verified 05/07/18 21:27 Review of Systems ROS Statement: Except As Marked, All Systems Reviewed And Found Negative Physical Exam - Reviewed Nursing Documentation Reviewed: Yes Vital Signs Reviewed: Yes - Physical Exam Appears: Positive for: Well, Non-toxic, No Acute Distress Head Exam: Positive for: ATRAUMATIC, NORMAL INSPECTION, NORMOCEPHALIC Skin: Positive for: Normal Color Eye Exam: Positive for: Normal appearance ENT: Positive for: Normal ENT Inspection Cardiovascular/Chest: Positive for: Regular Rate, Rhythm Respiratory: Positive for: Normal Breath Sounds Gastrointestinal/Abdominal: Positive for: Normal Exam Back: Positive for: Normal Inspection Extremity: Positive for: Normal ROM Neurologic/Psych: Positive for: Alert, Oriented - ECG O2 Sat by Pulse Oximetry: 99 - Progress ED Course And Treament: accucheck 22:30 Patient sleeping; no distress 05/08/18 00:00 Patient sleeping; no distress 1:30 Patient sleeping; no distress 3:00 Patient sleeping; no distress 5:00 Patient awake, alert, oriented x3. Ambulating steady gait Stable for discharge Disposition - Clinical Impression Clinical Impression: Alcohol abuse - Patient ED Disposition Is Patient to be Admitted: No Counseled Patient/Family Regarding: Studies Performed, Diagnosis, Need For Followup - Disposition Disposition: Routine/Home Disposition Time: 05:00 Condition: STABLE Instructions: Abuse of Alcohol (ED) Print Language: BELARUSIAN
[2018-05-08 05:17] VITALS: PULSE 89; RESP 21
[2018-05-08 05:39] VITALS: O2SAT 99
== END 2018-05-08 05:22 | disposition home or self-care (01) ==
LOC: H.ER 21:23
DX: F10.10 Alcohol abuse, uncomplicated (principal); E11.9 Type 2 diabetes mellitus without complications; I10 Essential (primary) hypertension

== ENCOUNTER 2018-05-10 00:29 | Emergency (ER) | payer SELFPAY ==
[2018-05-10 00:29] VITALS: BMI 32.7
[2018-05-10 00:37] VITALS: BP 99/78; PULSE 86; RESP 16; TEMP 98.2; O2SAT 99
--- NOTE | 2018-05-10 00:53 | ED PDOC ---
HPI: Psych/Substance Abuse Time Seen by Provider: 05/10/18 00:36 Chief Complaint (Nursing): Alcohol Ingestion Chief Complaint (Provider): Alcohol Ingestion ED Caveat: Intoxicated History Per: EMS History/Exam Limitations: intoxication Current Symptoms Are (Timing): Still Present Modifying Factor(s): Alcohol Additional Complaint(s): 53 year old male, well-known to ED with multiple visit for alcohol intoxication , arrives to the ED via [facility] for an evaluation after finding patient sitting on sidewalk intoxicated prior to arrival. No reports of injuries. Patient offers no complaints at this time. Past Medical History Reviewed: Historical Data, Nursing Documentation, Vital Signs Vital Signs: Last Vital Signs Temp 98.2 F 05/10/18 00:32 Pulse 86 05/10/18 00:32 Resp 16 05/10/18 00:32 BP 99/78 L 05/10/18 00:32 Pulse Ox 99 05/10/18 00:32 - Medical History PMH: No Chronic Diseases - Surgical History Surgical History: No Surg Hx - Family History Family History: States: Unknown Family Hx - Social History Alcohol: > 2 Drinks/Day Drugs: Denies - Immunization History Hx Tetanus Toxoid Vaccination: No Hx Influenza Vaccination: No Hx Pneumococcal Vaccination: No - Home Medications Home Medications: Ambulatory Orders Medication Instructions Recorded Amoxicillin/Clavulanate [Augmentin 1 tab PO BID #0 tab 07/22/16 875 MG-125 MG] Azithromycin [Zithromax] 250 mg PO DAILY #0 tab 07/22/16 Folic Acid 1 mg PO DAILY #0 tab 07/22/16 Furosemide [Lasix] 40 mg PO DAILY #0 tab 07/22/16 LORazepam [Ativan] 0.5 mg PO TID #0 tab 07/22/16 Spironolactone [Aldactone] 100 mg PO DAILY #0 tab 07/22/16 Thiamine [Vitamin B1 Tab] 100 mg PO DAILY #0 tab 07/22/16 Cephalexin [Keflex] 500 mg PO BID #14 capsule 11/22/16 - Allergies Allergies/Adverse Reactions: Allergies Allergy/AdvReac Type Severity Reaction Status Date / Time No Known Allergies Allergy Verified 04/21/18 19:08 Review of Systems Review Of Systems: ROS cannot be obtained secondary to pt's inabilty to answer questions. Physical Exam - Reviewed Nursing Documentation Reviewed: Yes Vital Signs Reviewed: Yes - Physical Exam Appears: Positive for: No Acute Distress Head Exam: Positive for: ATRAUMATIC, NORMAL INSPECTION, NORMOCEPHALIC Skin: Positive for: Normal Color Eye Exam: Positive for: Normal appearance, EOMI Cardiovascular/Chest: Positive for: Regular Rate, Rhythm Respiratory: Negative for: Respiratory Distress Extremity: Positive for: Normal ROM (upper/lower). Negative for: Deformity ( intoxicated and) Neurologic/Psych: Positive for: Alert, Oriented, Gait (unsteady), Other ( slurred speech; disheveled). Negative for: Motor/Sensory Deficits - ECG O2 Sat by Pulse Oximetry: 99 (RA) Pulse Ox Interpretation: Normal Medical Decision Making Medical Decision Making: Initial Impression: Alcohol Intoxication; Homelessness Initial Plan: * Achieve clinical sobriety Scribe Attestation: Documented by Rosaura Herring, acting as a scribe for Traci Schultz MD. Provider Scribe Attestation: All medical record entries made by the Scribe were at my direction and personally dictated by me. I have reviewed the chart and agree that the record accurately reflects my personal performance of the history, physical exam, medical decision making, and the department course for this patient. I have also personally directed, reviewed, and agree with the discharge instructions and disposition. Disposition - Clinical Impression Clinical Impression: Alcohol intoxication - Patient ED Disposition Is Patient to be Admitted: No Counseled Patient/Family Regarding: Studies Performed, Diagnosis - Disposition Disposition: Routine/Home Disposition Time: 06:00 Condition: GOOD Instructions: Alcohol Abuse and Alcoholism (DC)
== END 2018-05-10 06:18 | disposition home or self-care (01) ==
LOC: H.ER 00:29 → MERGE 00:29 → H.ER 06:18
DX: F10.129 Alcohol abuse with intoxication, unspecified (principal); Z59.0 Homelessness; Y90.8 Blood alcohol level of 240 mg/100 ml or more
CPT/HCPCS: 82948; 99283; G0480

== ENCOUNTER 2018-05-10 23:53 | Emergency (ER) | payer SELFPAY ==
[2018-05-10 23:53] VITALS: BMI 32.7
--- NOTE | 2018-05-11 01:00 | ED PDOC ---
HPI: Psych/Substance Abuse Time Seen by Provider: 05/11/18 00:06 Chief Complaint (Nursing): Alcohol Ingestion Chief Complaint (Provider): Alcohol Ingestion History Per: Patient History/Exam Limitations: intoxication Onset/Duration Of Symptoms: Mins (prior to arrival) Current Symptoms Are (Timing): Still Present Modifying Factor(s): Alcohol Additional Complaint(s): 53 year old male with a history of alcohol abuse and multiple visits to this ED presents via EMS with alcohol intoxication. Patient is known to be homeless. EMS found him sleeping on a park bench and brought him to the ED for evaluation. He provides limited history due to intoxication. Offers no other medical complaints. PMD: none provided Past Medical History Reviewed: Historical Data, Nursing Documentation, Vital Signs Vital Signs: Last Vital Signs Temp 97.5 F L 05/10/18 23:59 Pulse 102 H 05/10/18 23:59 Resp 20 05/10/18 23:59 BP 104/60 05/10/18 23:59 Pulse Ox 97 05/10/18 23:59 - Medical History Other PMH: alcohol abuse - Surgical History Surgical History: No Surg Hx - Family History Family History: States: Unknown Family Hx - Social History Alcohol: > 2 Drinks/Day - Immunization History Hx Tetanus Toxoid Vaccination: No Hx Influenza Vaccination: No Hx Pneumococcal Vaccination: No - Home Medications Home Medications: Ambulatory Orders Medication Instructions Recorded Amoxicillin/Clavulanate [Augmentin 1 tab PO BID #0 tab 07/22/16 875 MG-125 MG] Azithromycin [Zithromax] 250 mg PO DAILY #0 tab 07/22/16 Folic Acid 1 mg PO DAILY #0 tab 07/22/16 Furosemide [Lasix] 40 mg PO DAILY #0 tab 07/22/16 LORazepam [Ativan] 0.5 mg PO TID #0 tab 07/22/16 Spironolactone [Aldactone] 100 mg PO DAILY #0 tab 07/22/16 Thiamine [Vitamin B1 Tab] 100 mg PO DAILY #0 tab 07/22/16 Cephalexin [Keflex] 500 mg PO BID #14 capsule 11/22/16 - Allergies Allergies/Adverse Reactions: Allergies Allergy/AdvReac Type Severity Reaction Status Date / Time No Known Allergies Allergy Verified 05/10/18 23:59 Review of Systems ROS Statement: Except As Marked, All Systems Reviewed And Found Negative Physical Exam - Reviewed Nursing Documentation Reviewed: Yes Vital Signs Reviewed: Yes - Physical Exam Appears: Positive for: Non-toxic, No Acute Distress (unable to fully evaluate due to intoxication) Head Exam: Positive for: ATRAUMATIC, NORMAL INSPECTION, NORMOCEPHALIC Skin: Positive for: Normal Color, Warm, DRY Eye Exam: Positive for: EOMI ENT: Positive for: Normal ENT Inspection Neck: Positive for: Normal, Painless ROM, Supple Cardiovascular/Chest: Positive for: Regular Rate, Rhythm Neurologic/Psych: Positive for: Other (patient is sleeping; responsive to loud voices and painful stimuli). Negative for: Alert (or awake ) - ECG O2 Sat by Pulse Oximetry: 97 (RA) Pulse Ox Interpretation: Normal - Progress Re-evaluation Time: 06:00 Condition: Re-examined, Improved Medical Decision Making Medical Decision Makin:24 --Alcohol serum Scribe Attestation: Documented by Paige Anglin, acting as a scribe for Traci Horne MD Provider Scribe Attestation: All medical record entries made by the Scribe were at my direction and personally dictated by me. I have reviewed the chart and agree that the record accurately reflects my personal performance of the history, physical exam, medical decision making, and the department course for this patient. I have also personally directed, reviewed, and agree with the discharge instructions and disposition. Disposition - Clinical Impression Clinical Impression: Alcohol abuse with uncomplicated intoxication - Patient ED Disposition Is Patient to be Admitted: No - Disposition Disposition: Routine/Home Disposition Time: 06:00 Condition: FAIR Instructions: Alcohol Abuse and Alcoholism (DC)
[2018-05-11 05:48] VITALS: BP 112/66; PULSE 82; RESP 18; TEMP 98.2
[2018-05-11 19:03] VITALS: O2SAT 97
== END 2018-05-11 05:49 | disposition home or self-care (01) ==
LOC: H.ER 23:53 → MERGE 23:53 → H.ER 05-11 05:49
DX: F10.120 Alcohol abuse with intoxication, uncomplicated (principal); Z59.0 Homelessness; Y90.8 Blood alcohol level of 240 mg/100 ml or more
CPT/HCPCS: 82948; G0480

== ENCOUNTER 2018-05-18 12:40 | Emergency (ER) | payer SELFPAY ==
[2018-05-18 12:40] VITALS: BMI 31.9
[2018-05-18 12:57] VITALS: TEMP 97.7
--- NOTE | 2018-05-18 13:20 | ED PDOC ---
HPI: Psych/Substance Abuse Time Seen by Provider: 05/18/18 13:05 Chief Complaint (Nursing): Alcohol Ingestion Chief Complaint (Provider): Alcohol abuse History Per: Patient History/Exam Limitations: no limitations Onset/Duration Of Symptoms: Days (today) Additional Complaint(s): Pt. found sleeping on park bench so sent to the ER. Pt. admits to drinking etoh. Has stool over himself as he is homeless and not taking care of himself. Not suicidal or homicidal. No drugs. No pain. No dyspnea, weakness, headaches, chest pain. Past Medical History Reviewed: Nursing Documentation, Vital Signs Vital Signs: Last Vital Signs Temp 97.7 F 05/18/18 12:55 Pulse 78 05/18/18 12:55 Resp 18 05/18/18 12:55 BP 138/78 05/18/18 12:55 Pulse Ox 98 05/18/18 12:55 - Medical History PMH: Diabetes (type II), HTN, Peripheral Edema (BLE) Denies: HIV, Chronic Kidney Disease - Family History Family History: States: Unknown Family Hx - Social History Alcohol: None Drugs: Denies - Immunization History Hx Tetanus Toxoid Vaccination: No Hx Influenza Vaccination: No Hx Pneumococcal Vaccination: No - Home Medications Home Medications: Ambulatory Orders Medication Instructions Recorded Amoxicillin/Clavulanate [Augmentin 1 tab PO BID #0 tab 07/22/16 875 MG-125 MG] Azithromycin [Zithromax] 250 mg PO DAILY #0 tab 07/22/16 Folic Acid 1 mg PO DAILY #0 tab 07/22/16 Furosemide [Lasix] 40 mg PO DAILY #0 tab 07/22/16 LORazepam [Ativan] 0.5 mg PO TID #0 tab 07/22/16 Spironolactone [Aldactone] 100 mg PO DAILY #0 tab 07/22/16 Thiamine [Vitamin B1 Tab] 100 mg PO DAILY #0 tab 07/22/16 Cephalexin [Keflex] 500 mg PO BID #14 capsule 11/22/16 Cyanocobalamin [Vitamin B12 1000 1,000 mcg PO DAILY #30 tab 03/30/18 mcg Tab] Folic Acid 1 mg PO DAILY #30 tab 03/30/18 Losartan [Cozaar] 50 mg PO DAILY #30 tab 05/02/18 cloNIDine [Catapres] 0.2 mg PO BID #60 tab 05/02/18 - Allergies Allergies/Adverse Reactions: Allergies Allergy/AdvReac Type Severity Reaction Status Date / Time No Known Allergies Allergy Verified 05/07/18 21:27 Review of Systems ROS Statement: Except As Marked, All Systems Reviewed And Found Negative Physical Exam - Reviewed Nursing Documentation Reviewed: Yes Vital Signs Reviewed: Yes - Physical Exam Appears: Positive for: Non-toxic, No Acute Distress Head Exam: Positive for: ATRAUMATIC, NORMAL INSPECTION, NORMOCEPHALIC Skin: Positive for: Normal Color, Warm, DRY Eye Exam: Positive for: EOMI, Normal appearance, PERRL ENT: Positive for: Normal ENT Inspection Neck: Positive for: Normal, Painless ROM Cardiovascular/Chest: Positive for: Regular Rate, Rhythm Respiratory: Positive for: CNT, Normal Breath Sounds Gastrointestinal/Abdominal: Positive for: Normal Exam, Soft. Negative for: Tenderness Back: Positive for: Normal Inspection. Negative for: L CVA Tenderness, R CVA Tenderness Extremity: Positive for: Normal ROM. 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 Negative for: Motor/Sensory Deficits - ECG O2 Sat by Pulse Oximetry: 98 Pulse Ox Interpretation: Normal - Progress ED Course And Treament: 1417: Dr. Mendez to take over care. Fu on lab and re-eval Disposition - Clinical Impression Clinical Impression: Alcohol abuse - Patient ED Disposition Is Patient to be Admitted: Transfer of Care - Disposition Disposition: Transfer of Care Disposition Time: 14:17 Condition: FAIR Patient Signed Over To: Anna Mendez
--- NOTE | 2018-05-18 15:06 | ED PDOC ---
- ECG O2 Sat by Pulse Oximetry: 98 Medical Decision Making Medical Decision Makin.00p - received patient from Dr. Paz. Patient intoxicated. ETOH level 437 at 2pm. He is pending sobriety. 10.00p - patient awake. willing and capable to eat. Will discharge when done with food. Disposition Doctor Will See Patient In The: Office Counseled Patient/Family Regarding: Diagnosis, Need For Followup - Clinical Impression Clinical Impression: Alcohol abuse - POA Present On Arrival: None - Disposition Referrals: [facility] [Outside] [facility] [Outside] Disposition: Routine/Home Disposition Time: 21:54 Condition: FAIR Instructions: Alcohol Intoxication (ED), Abuse of Alcohol (ED), Alcohol Dependence (ED) Forms: [facility] (Lux[place]ish)
[2018-05-18 22:52] VITALS: BP 130/81; PULSE 75; RESP 16; O2SAT 95
== END 2018-05-18 23:05 | disposition home or self-care (01) ==
LOC: H.ER 12:40
DX: F10.10 Alcohol abuse, uncomplicated (principal); Y90.8 Blood alcohol level of 240 mg/100 ml or more

== ENCOUNTER 2018-06-23 20:35 | Observation (INO) | payer OTHER, SELFPAY ==
--- NOTE | 2018-06-23 22:06 | ED PDOC ---
Lower Extremity Pain/Injury Time Seen by Provider: 06/23/18 21:42 Chief Complaint (Nursing): Lower Extremity Problem/Injury Chief Complaint (Provider): toe injury History Per: Patient History/Exam Limitations: no limitations Onset/Duration Of Symptoms: Days (x3) Current Symptoms Are (Timing): Still Present Additional Complaint(s): Sammy Kaminski, a 53 year old homeless man with past medical history of hypertension and diabetes, presents to the emergency department with a toe injury. Patient reports that 5 days ago he had his big toe amputated at [facility] secondary to diabetes complications and was released after 21 days of being admitted. He states that 3 days ago he bumped the surgical site and returned to [facility] and asked for an evaluation and wound cleaning. Patient reports that he was wrapped up and sent home and is unable to recall the name of his surgeon or why he was admitted for such a lengthy stay. He is well known to the emergency department for alcohol abuse. PMD: none Past Medical History Reviewed: Historical Data, Nursing Documentation, Vital Signs Vital Signs: Last Vital Signs Temp 98.8 F 06/23/18 21:15 Pulse 114 H 06/23/18 21:15 Resp 16 06/23/18 21:15 BP 117/77 06/23/18 21:15 Pulse Ox 99 06/23/18 21:15 - Medical History PMH: Diabetes (type II), HTN, Peripheral Edema (BLE), Seizures - Surgical History Other surgeries: amputation of big toe, right foot - Family History Family History: States: Unknown Family Hx - Living Arrangements Living Arrangements: Other (Homeless) - Social History Current smoker - smoking cessation education provided: No Alcohol: Other (daily) - Home Medications Home Medications: Ambulatory Orders Medication Instructions Recorded Losartan [Cozaar] 50 mg PO DAILY #30 tab 05/02/18 Amoxicillin/Potassium Clav 1 tab PO BID 06/24/18 [Augmentin 500-125 Tablet] Lisinopril [Zestril] 10 mg PO DAILY 06/24/18 Metoprolol Tartrate [Lopressor] 25 mg PO Q12 06/24/18 - Allergies Allergies/Adverse Reactions: Allergies Allergy/AdvReac Type Severity Reaction Status Date / Time No Known Allergies Allergy Verified 06/23/18 21:15 Review of Systems ROS Statement: Except As Marked, All Systems Reviewed And Found Negative Musculoskeletal: Positive for: Other (check surgical site) Physical Exam - Reviewed Nursing Documentation Reviewed: Yes Vital Signs Reviewed: Yes - Physical Exam Comments: GENERAL APPEARANCE: Patient is awake, alert, oriented x 3, in no acute distress. Surgical shoe at bedside. SKIN: Warm, dry; (-) cyanosis. (+)venous stasis changes to bilateral lower extremities FOOT: (+) Tenderness, (-) swelling, (-) ecchymosis of amputation stump of R big toe. Multiple sutures to proximal aspect of right great toe with amputation of distal phalanx, (+)dried blood to surgical site and dorsum of right forefoot , (+) sensation intact throughout. (+) pulses (-) calf tenderness. Remainder of lower extremity nontender with FROM. NEURO AND PSYCH: Mental status as above. Speech: clear. (-) facial asymmetry (- ) aphasia CHEST AND RESPIRATORY: (-) wheezing; (-) rales, (-) rhonchi, (-) rub; breath sounds equal bilaterally. Respirations nonlabored. HEART AND CARDIOVASCULAR: (-) irregularity - Laboratory Results Result Diagrams: 06/24/18 07:43 06/24/18 07:43 - ECG O2 Sat by Pulse Oximetry: 99 (RA) Pulse Ox Interpretation: Normal Medical Decision Making Medical Decision Making: Time: 21:40 Impression: wound check s/p amputation of great toe Initial Plan: - Consult with podiatry 2154 -Discussed with podiatry resident Tiffany Boyd, who recommends CBC, CMP, foot xray and agreed to evaluation in ED 2330 XR reviewed: (+) amputation of distal phalanx of great toe Labs reviewed. No elevation of WBCs. H&H stable. CMP: elevation of LFTs ( highest level in recent visits although patient has no abdominal complaints at present), BUN ,creatinine. Call placed to [facility], where patient was recently admitted. 2350 Case discussed with [facility] ED attending, Dr Cordova. He notes renal function from bloodwork on 06/17/18 during patient's admission revealed kidney function WNL. States the patient has had ongoing issues with cellulitis to the affected extremity for the past year, resulting in the amputation. Case discussed with Dr Matthews, who recommends 1L NS bolus for hydration and repeat renal function tests in 5-7 days along with close clinic follow up. 0000 Podiatry at bedside. Case endorsed to [facility] Dorsey, pending re-evaluation, podiatry disposition. Scribe Attestation: Documented by Judie Mojica, acting as a scribe for Zayra Busby PA-C. Provider Scribe Attestation: All medical record entries made by the Scribe were at my direction and personally dictated by me. I have reviewed the chart and agree that the record accurately reflects my personal performance of the history, physical exam, medical decision making, and the department course for this patient. I have also personally directed, reviewed, and agree with the discharge instructions and disposition. Disposition - Clinical Impression Clinical Impression: Visit for wound care, Amputated toe of right foot, Acute renal failure - Patient ED Disposition Is Patient to be Admitted: Transfer of Care (Case endorsed to Phuc Dorsey, pending re-evaluation, podiatry disposition, and final disposition.) - Disposition Disposition: Transfer of Care (Case endorsed to Phuc Dorsey, pending re-evaluation , podiatry disposition, and final disposition.) Disposition Time: 00:00 Condition: FAIR - POA Present On Arrival: None Results - Lab Results Lab Results: 06/23/18 06/23/18 23:00 23:00 WBC 8.6 D RBC 3.57 L Hgb 10.5 L Hct 31.2 L MCV 87.3 D MCH 29.5 MCHC 33.8 RDW 15.2 H Plt Count 537 H D MPV 8.5 Neut % (Auto) 56.8 Lymph % (Auto) 32.7 [place] % (Auto) 7.5 Eos % (Auto) 2.2 Baso % (Auto) 0.8 Neut # (Auto) 4.9 Lymph # (Auto) 2.8 [place] # (Auto) 0.6 Eos # (Auto) 0.2 Baso # (Auto) 0.1 Sodium 135 Potassium 4.0 Chloride 100 Carbon Dioxide 20 L Anion Gap 19 BUN 29 H Creatinine 1.9 H Est GFR ( Amer) 45 Est GFR (Non-Af Amer) 37 Random Glucose 100 Calcium 9.6 Total Bilirubin 1.4 H AST 63 H ALT 41 Alkaline Phosphatase 760 H D Total Protein 7.9 Albumin 4.1 Globulin 3.8 Albumin/Globulin Ratio 1.1
[2018-06-23 23:23] LABS: BASO # 0.1 K/uL (0.0-0.2); BASO % 0.8 % (0.0-2.0); EOS # 0.2 K/uL (0.0-0.7); EOS % 2.2 % (0.0-4.0); HEMOGLOBIN 10.5 g/dL (12.0-18.0); LYMPH # 2.8 K/uL (1.0-4.3); LYMPH % 32.7 % (20.0-40.0); MEAN CELL VOLUME 87.3 fl (80.0-94.0); MEAN CORPUSCULAR HEMOGLOBIN 29.5 pg (27.0-31.0); MEAN CORPUSCULAR HGB CONC 33.8 g/dL (33.0-37.0); MEAN PLATELET VOLUME 8.5 fl (7.2-11.7); MONO # 0.6 K/uL (0.0-0.8); MONO % 7.5 % (0.0-10.0); NEUT # 4.9 K/uL (1.8-7.0); NEUT % 56.8 % (50.0-75.0); RBC 3.57 Mil/uL (4.40-5.90); RED CELL DISTRIBUTION WIDTH 15.2 % (11.5-14.5); WHITE BLOOD COUNT 8.6 K/uL (4.8-10.8)
[2018-06-23 23:31] LABS: ALB/GLOB RATIO 1.1 (1.0-2.1); ALBUMIN 4.1 g/dL (3.5-5.0); CALCIUM 9.6 mg/dL (8.4-10.2)
[2018-06-23] MEDS ORDERED: Sodium Chloride 0.9% 1,000 ML IV SCH (23:45)
[2018-06-24] MEDS ORDERED: Amoxicillin-Clav 875-125 mg Tab PO STA (01:17)
[2018-06-24] MEDS ORDERED: Multivitamin (MVI) 10 ML, Thiamine 100 MG, Folic Acid 1 MG in Sodium Chloride 0.9% 1,00... IV ONE (01:18)
--- NOTE | 2018-06-24 01:18 | ED PDOC ---
- Laboratory Results Result Diagrams: 06/23/18 23:00 06/23/18 23:00 - ECG ECG: Positive for: Viewed By Me (reviewed by ED attending) ECG Rhythm: Positive for: Sinus Tachycardia O2 Sat by Pulse Oximetry: 99 (RA) Pulse Ox Interpretation: Normal - Radiology X-Ray: Viewed By Me X-Ray Interpretation: No Acute Disease - Progress ED Course And Treament: Case endorsed to business writer from [facility] pending labs, podiatry eval Patient evaluated by podiatry resident; cleared from their stand point Patient filled Augmentin rx but has not yet started it; advised to start KULWINDER and f/up with surgeon. Bun/Cre elevated; new from previous visit Case discussed with ED attending Dr. Schultz; will admit for IV hydration Case discussed with Dr. Linares, Hospitalist on-call, for placement in observation med/surg Librium PO, Augmentin PO, IV banana bag ordered Disposition - Clinical Impression Clinical Impression: Visit for wound care, Amputated toe of right foot, Acute renal failure - POA Present On Arrival: None - Disposition Disposition: Hospitalized as Observation Patient Disposition Time: 01:19 Condition: FAIR
--- NOTE | 2018-06-24 02:57 | CP.PCM.HP ---
<Saadia Garland - Last Filed: 06/24/18 02:32> History of Present Illness - History of Present Illness History of Present Illness: 53 yr old Male presents to ED with complaint right foot pain and intermittent chills s/p right great toe amputation on 06/18/18 at [facility]. PMHx includes Etoh abuse and recurrent LE cellulitis. Patient reports he was recently discharged from [facility] and hurt his toe ambulating; he was given precription for Augmentin but has not started the medication. Denies use of any assistive device, denies fevers/nausea, vomiting, dysuria, weakness, chest pain or syncope. Patient reports he is homeless, sleeps on the street because he does not like any of the shelters. PMD: none Specialists: none PMHx: recurrent LE cellulitis and Etoh abuse SurgHx: right great toe amputation (06/18/18) FMHx: father at 42 from MVA; mother at 75-from [place] SocHx: denies tobacco or drugs; hx Etoh abuse (last drink 21 days ago-drinks 1/ 2 bottle rum) Medications: Augmentin 875/125 mg 1 tab PO Q12 Allergies: NKDA Code Status: Full code Emergency contact: none ED course: 117/77 mmHg, HR 114 bpm; Temp 98.8F, Resp rate 16; SpO2 99 on room air -EKG: sinus tachycardia at 101 bpm, prolonged QT, no significant ST-T changes -CXR: no active disease -Right foot xray: report pending -CBC: WBC 8.6; H/H 10.5/31.2, MCV 87.3, RDW 15.2, plts 537, rest wnl -CMP: Na 135, K+ 4.0, Cl 100, HCO3 20, AG 19, BUN 29/Cr 1.9, est GFR 37, AST 63 , ALT 41, Alk phos 760 -ED treatment: NS 1L IV bolus, Banana bag at 125 mls/hr, Augmentin 875-125mg 1 tab PO once, Librium 50mg PO once, Present on Admission - Present on Admission Any Indicators Present on Admission: No History of DVT/PE: No History of Uncontrolled Diabetes: No Urinary Catheter: No Decubitus Ulcer Present: No History Surgical Site Infection Following: None Past Patient History - Infectious Disease Hx of Infectious Diseases: None - Past Medical History & Family History Past Medical History?: Yes - Past Social History Alcohol: Other (daily) - CARDIAC Hx Hypertension: Yes Hx Peripheral Edema: Yes (BLE) - PULMONARY Hx Respiratory Disorders: No - NEUROLOGICAL Hx Seizures: Yes - HEENT Hx HEENT Problems: No - RENAL Hx Chronic Kidney Disease: No - ENDOCRINE/METABOLIC Hx Diabetes Mellitus Type 2: Yes - HEMATOLOGICAL/ONCOLOGICAL Hx Human Immunodeficiency Virus (HIV): No - INTEGUMENTARY Hx Dermatological Problems: No - MUSCULOSKELETAL/RHEUMATOLOGICAL Hx Falls: Yes - GASTROINTESTINAL Hx Liver Failure: Yes - GENITOURINARY/GYNECOLOGICAL Hx Genitourinary Disorders: No - PSYCHIATRIC Hx Psychophysiologic Disorder: Yes Hx Substance Use: No - SURGICAL HISTORY Hx Surgeries: No - ANESTHESIA Hx Anesthesia: No Hx Anesthesia Reactions: No Hx Malignant Hyperthermia: No Meds Allergies/Adverse Reactions: Allergies Allergy/AdvReac Type Severity Reaction Status Date / Time No Known Allergies Allergy Verified 06/23/18 21:15 Physical Exam - Constitutional Appears: No Acute Distress - Head Exam Head Exam: ATRAUMATIC, NORMOCEPHALIC - Eye Exam Eye Exam: EOMI, PERRL - ENT Exam ENT Exam: Mucous Membranes Moist - Neck Exam Neck exam: Positive for: Full Rom. Negative for: Lymphadenopathy - Respiratory Exam Respiratory Exam: Clear to Auscultation Bilateral, NORMAL BREATHING PATTERN - Cardiovascular Exam Cardiovascular Exam: REGULAR RHYTHM, +S1, +S2 - GI/Abdominal Exam GI & Abdominal Exam: Normal Bowel Sounds, Soft, Tenderness (diffuse). absent: Distended, Guarding, Rigid Additional comments: jaundiced abdominal skin - Extremities Exam Extremities exam: Positive for: full ROM, pedal edema, tenderness (right distal LE), pedal pulses present. Negative for: calf tenderness Additional comments: bilateral distal LE erythema with dry/scaly skin, equally warm to touch, right great toe amputation: dressing clean/dry/intact; - Back Exam Back exam: absent: CVA tenderness (L), CVA tenderness (R) - Neurological Exam Neurological exam: Alert, CN II-XII Intact, Oriented x3 - Psychiatric Exam Psychiatric exam: Normal Affect, Normal Mood - Skin Skin Exam: Dry, Intact, Normal Color, Warm Results - Vital Signs Recent Vital Signs: Last Vital Signs Temp 98.2 F 06/24/18 02:24 Pulse 95 H 06/24/18 02:24 Resp 17 06/24/18 02:24 BP 159/73 H 06/24/18 02:24 Pulse Ox 100 06/24/18 02:24 - Labs Result Diagrams: 06/23/18 23:00 06/23/18 23:00 Labs: Laboratory Results - last 24 hr 06/23/18 06/23/18 23:00 23:00 WBC 8.6 D RBC 3.57 L Hgb 10.5 L Hct 31.2 L MCV 87.3 D MCH 29.5 MCHC 33.8 RDW 15.2 H Plt Count 537 H D MPV 8.5 Neut % (Auto) 56.8 Lymph % (Auto) 32.7 [place] % (Auto) 7.5 Eos % (Auto) 2.2 Baso % (Auto) 0.8 Neut # (Auto) 4.9 Lymph # (Auto) 2.8 [place] # (Auto) 0.6 Eos # (Auto) 0.2 Baso # (Auto) 0.1 Sodium 135 Potassium 4.0 Chloride 100 Carbon Dioxide 20 L Anion Gap 19 BUN 29 H Creatinine 1.9 H Est GFR ( Amer) 45 Est GFR (Non-Af Amer) 37 Random Glucose 100 Calcium 9.6 Total Bilirubin 1.4 H AST 63 H ALT 41 Alkaline Phosphatase 760 H D Total Protein 7.9 Albumin 4.1 Globulin 3.8 Albumin/Globulin Ratio 1.1 Assessment & Plan - Assessment and Plan (Free Text) Assessment: 53 yr old M admitted for acute renal failure with recent right great toe amputation. Acute Renal Failure -acute, likely secondary to dehydration -admit to [facility] -NS IV fluids at 125 ml (s/p 1L bolus + 1L banana bag in ED) -f/u next day CMP Abdominal tenderness -acute on chronic, diffuse -alk phos 760 -f/u abd/pelvis CT -heart healthy/low carb/low sodium diet Right great toe amputation -acute, stable -dressing changed by podiatry in ER: cleared for discharge and outpatient wound care -Amoxicillin/Clavulanate 875-125mg 1 tab PO Q12 -pain management: tylenol PRN -PT/OT Hx Etoh abuse -chronic, stable (patient reports last drink was 21 days ago) -1 dose Librium 50mg PO given in ED -monitor for signs of alcohol withdrawal DVT prophylaxis -Heparin 5,000 units SC Q8 - Date & Time Date: 06/24/18 Time: 02:32 <Ag Linares - Last Filed: 06/24/18 07:40> Results - Vital Signs Recent Vital Signs: Last Vital Signs Temp 98.3 F 06/24/18 07:38 Pulse 74 06/24/18 07:38 Resp 19 06/24/18 07:38 BP 130/81 06/24/18 07:38 Pulse Ox 97 06/24/18 07:38 - Labs Result Diagrams: 06/23/18 23:00 06/23/18 23:00 Labs: Laboratory Results - last 24 hr 06/23/18 06/23/18 23:00 23:00 WBC 8.6 D RBC 3.57 L Hgb 10.5 L Hct 31.2 L MCV 87.3 D MCH 29.5 MCHC 33.8 RDW 15.2 H Plt Count 537 H D MPV 8.5 Neut % (Auto) 56.8 Lymph % (Auto) 32.7 [place] % (Auto) 7.5 Eos % (Auto) 2.2 Baso % (Auto) 0.8 Neut # (Auto) 4.9 Lymph # (Auto) 2.8 [place] # (Auto) 0.6 Eos # (Auto) 0.2 Baso # (Auto) 0.1 Sodium 135 Potassium 4.0 Chloride 100 Carbon Dioxide 20 L Anion Gap 19 BUN 29 H Creatinine 1.9 H Est GFR ( Amer) 45 Est GFR (Non-Af Amer) 37 Random Glucose 100 Calcium 9.6 Total Bilirubin 1.4 H AST 63 H ALT 41 Alkaline Phosphatase 760 H D Total Protein 7.9 Albumin 4.1 Globulin 3.8 Albumin/Globulin Ratio 1.1 Assessment & Plan - Assessment and Plan (Free Text) Plan: Patient seen and examined at bedside, agree with the above findings with resident. Plans were discussed with resident.
--- NOTE | 2018-06-24 07:27 | CARD ---
APPROVED REPORT Date of service: 06/24/2018 EKG Measurement Heart [id number] <Conclusion> Sinus tachycardia Minimal voltage criteria for LVH, may be normal variant Prolonged QT Abnormal ECG
--- NOTE | 2018-06-24 08:00 | RAD ---
Date of service: 06/24/2018 HISTORY: admit COMPARISON: Frontal chest radiograph 04/28/2018. FINDINGS: LUNGS: Right hemidiaphragm remains somewhat elevated. No active pulmonary disease. PLEURA: No significant pleural effusion identified, no pneumothorax apparent. CARDIOVASCULAR: Normal. OSSEOUS STRUCTURES: No significant abnormalities. VISUALIZED UPPER ABDOMEN: Normal. OTHER FINDINGS: None. IMPRESSION: No interval acute cardiopulmonary disease appreciated. Elevated right hemidiaphragm again evident.
[2018-06-24] MEDS: Amoxicillin-Clav 875-125 mg Tab PO SCH ×2 (08:09→22:21)
--- NOTE | 2018-06-24 08:32 | RAD ---
Date of service: 06/23/2018 PROCEDURE: Right Foot Radiographs. HISTORY: s/p amputation 1st toe COMPARISON: None. FINDINGS: BONES: Dense of subtotal amputation right great toe with majority of the proximal phalanx remaining. Local soft tissues appear unremarkable. Remaining osseous elements throughout the right foot appear grossly nonfocal. JOINTS: Normal. SOFT TISSUES: Normal. OTHER FINDINGS: None. IMPRESSION: Status post subtotal amputation right great toe as per above. Exam otherwise unremarkable.
--- NOTE | 2018-06-24 09:12 | CP.PCM.CON ---
History of Present Illness - History of Present Illness History of Present Illness: Podiatry consult note for Dr. Churchill, 53 yo male was seen and evaluated at bedside in the ED. Patient presents 6 days s/p partial hallux amputation. Patient is AAOx3 and in NAD. Patient states he was admitted at [facility] for 21 days prior to this. He states a few days ago he had bumped his toe and was bleeding from the surgical site. Patient states he had gone back to [facility] for check up however was sent home after wound cleaning. Patient is well known to podiatry. Patient denies any pain today. Patient denies any other pedal complains. Patient denies f/n/v/sob/calf pain. PMH: DM (type II), HTN, Peripheral Edema (BLE), Seizures; Fracture T12 Vertebrae PSH: No Surgical Hx SH: Drinks > 2 drinks a day: No illegal Drugs; Former Smoker; No illegal drug use; Homeless FH: States: No Known Family Hx Allergies: NKDA Past Patient History - Infectious Disease Hx of Infectious Diseases: None - Past Medical History & Family History Past Medical History?: Yes - Past Social History Smoking Status: Heavy Smoker > 10 Cigarettes Daily - CARDIAC Hx Hypertension: Yes Hx Peripheral Edema: Yes (BLE) - PULMONARY Hx Respiratory Disorders: No - NEUROLOGICAL Hx Seizures: Yes - HEENT Hx HEENT Problems: No - RENAL Hx Chronic Kidney Disease: No - ENDOCRINE/METABOLIC Hx Diabetes Mellitus Type 2: Yes - HEMATOLOGICAL/ONCOLOGICAL Hx Human Immunodeficiency Virus (HIV): No - INTEGUMENTARY Hx Dermatological Problems: No - MUSCULOSKELETAL/RHEUMATOLOGICAL Hx Falls: Yes - GASTROINTESTINAL Hx Liver Failure: Yes - GENITOURINARY/GYNECOLOGICAL Hx Genitourinary Disorders: No - PSYCHIATRIC Hx Psychophysiologic Disorder: Yes Hx Substance Use: No - SURGICAL HISTORY Hx Surgeries: No - ANESTHESIA Hx Anesthesia: No Hx Anesthesia Reactions: No Hx Malignant Hyperthermia: No Meds Allergies/Adverse Reactions: Allergies Allergy/AdvReac Type Severity Reaction Status Date / Time No Known Allergies Allergy Verified 06/23/18 21:15 - Medications Medications: Current Medications Acetaminophen (Tylenol 325mg Tab) 650 mg PO Q6 PRN PRN Reason: Pain, moderate (4-7) Amoxicillin/Clavulanate Potassium (Augmentin 875 Mg-125 Mg Tab) 1 tab PO Q12 [facility] PRN Reason: Protocol Last Admin: 06/24/18 08:09 Dose: 1 tab Heparin Sodium (Porcine) (Heparin) 5,000 units SC Q8 [facility] PRN Reason: Protocol Last Admin: 06/24/18 08:09 Dose: 5,000 units Sodium Chloride (Sodium Chloride 0.9%) 1,000 mls @ 1,000 mls/hr IV .Q1H [facility] Last Admin: 06/24/18 00:02 Dose: 1,000 mls/hr Multivitamins/Vitamin C 10 ml/Thiamine HCl 100 mg/ Folic Acid 1 mg/ Sodium Chloride 1,011 mls @ 125 mls/hr IV .Q8H6M ONE Stop: 06/24/18 09:23 Last Admin: 06/24/18 02:10 Dose: 125 mls/hr Physical Exam - Constitutional Appears: Well, Non-toxic, No Acute Distress - Head Exam Head Exam: ATRAUMATIC, NORMOCEPHALIC - Extremities Exam Additional comments: Bilateral lower extremity exam: Vascular: Dp/ PT 2/4 b/l , CFT <3 secs x9, TG warm to warm, erythema noted on the anterior aspect of b/l legs, no edema noted Derm: no open lesions, surgical site noted at the previous right partial hallux amputation site, site well coapted, no wound dehiscence noted, no drainage noted , no malodor, no clinical signs of infection. Erythema noted on the anterior aspect of b/l legs, no increased temperature, no open lesions on legs, no clinical signs of infection. Dry, scaling skin noted on the plantar aspect of the right foot. Ortho: No pain on palpation Neuro: protective sensation diminished b/l - Neurological Exam Neurological exam: Normal Gait, Oriented x3 - Psychiatric Exam Psychiatric exam: Normal Affect, Normal Mood - Skin Skin Exam: Normal Color Results - Vital Signs Recent Vital Signs: Last Vital Signs Temp 98.3 F 06/24/18 07:38 Pulse 74 06/24/18 07:38 Resp 19 06/24/18 07:38 BP 130/81 06/24/18 07:38 Pulse Ox 97 06/24/18 07:38 - Labs Result Diagrams: 06/23/18 23:00 06/23/18 23:00 Labs: Laboratory Results - last 24 hr 06/23/18 06/23/18 23:00 23:00 WBC 8.6 D RBC 3.57 L Hgb 10.5 L Hct 31.2 L MCV 87.3 D MCH 29.5 MCHC 33.8 RDW 15.2 H Plt Count 537 H D MPV 8.5 Neut % (Auto) 56.8 Lymph % (Auto) 32.7 [place] % (Auto) 7.5 Eos % (Auto) 2.2 Baso % (Auto) 0.8 Neut # (Auto) 4.9 Lymph # (Auto) 2.8 [place] # (Auto) 0.6 Eos # (Auto) 0.2 Baso # (Auto) 0.1 Sodium 135 Potassium 4.0 Chloride 100 Carbon Dioxide 20 L Anion Gap 19 BUN 29 H Creatinine 1.9 H Est GFR ( Amer) 45 Est GFR (Non-Af Amer) 37 Random Glucose 100 Calcium 9.6 Total Bilirubin 1.4 H AST 63 H ALT 41 Alkaline Phosphatase 760 H D Total Protein 7.9 Albumin 4.1 Globulin 3.8 Albumin/Globulin Ratio 1.1
[2018-06-24 09:19] LABS: BASO % 0.8 % (0.0-2.0); EOS # 0.1 K/uL (0.0-0.7); EOS % 2.4 % (0.0-4.0); HEMOGLOBIN 9.1 g/dL (12.0-18.0); LYMPH # 1.6 K/uL (1.0-4.3); LYMPH % 34.7 % (20.0-40.0); MEAN CELL VOLUME 87.7 fl (80.0-94.0); MEAN PLATELET VOLUME 8.7 fl (7.2-11.7); MONO # 0.4 K/uL (0.0-0.8); NEUT # 2.5 K/uL (1.8-7.0); NEUT % 53.1 % (50.0-75.0); NRBC % 0.1 % (0.0-0.0); RBC 3.15 Mil/uL (4.40-5.90); RED CELL DISTRIBUTION WIDTH 15.1 % (11.5-14.5); WHITE BLOOD COUNT 4.7 K/uL (4.8-10.8)
--- NOTE | 2018-06-24 09:26 | CP.PCM.CON ---
History of Present Illness - History of Present Illness History of Present Illness: Podiatry consult note for Dr. Churchill, 53 yo male was seen and evaluated at bedside in the ED. Patient presents 6 days s/p partial hallux amputation. Patient is AAOx3 and in NAD. Patient states he was admitted at [facility] for 21 days prior to this. He states a few days ago he had bumped his toe and was bleeding from the surgical site. Patient states he had gone back to [place] for check up however was sent home after wound cleaning. Patient is well known to podiatry. Patient has chronic cellulitis of b /l lower extremity. Patient states he was given augmentin prescription from [place], however has not started taking it. Patient denies any pain today. Patient denies any other pedal complains. Patient denies f/n/v/sob/calf pain. PMH: DM (type II), HTN, Peripheral Edema (BLE), Seizures; Fracture T12 Vertebrae PSH: No Surgical Hx SH: Drinks > 2 drinks a day: No illegal Drugs; Former Smoker; No illegal drug use; Homeless FH: States: No Known Family Hx Allergies: NKDA Past Patient History - Infectious Disease Hx of Infectious Diseases: None - Past Medical History & Family History Past Medical History?: Yes - Past Social History Smoking Status: Heavy Smoker > 10 Cigarettes Daily - CARDIAC Hx Hypertension: Yes Hx Peripheral Edema: Yes (BLE) - PULMONARY Hx Respiratory Disorders: No - NEUROLOGICAL Hx Seizures: Yes - HEENT Hx HEENT Problems: No - RENAL Hx Chronic Kidney Disease: No - ENDOCRINE/METABOLIC Hx Diabetes Mellitus Type 2: Yes - HEMATOLOGICAL/ONCOLOGICAL Hx Human Immunodeficiency Virus (HIV): No - INTEGUMENTARY Hx Dermatological Problems: No - MUSCULOSKELETAL/RHEUMATOLOGICAL Hx Falls: No (Patient refused to answer) - GASTROINTESTINAL Hx Liver Failure: Yes - GENITOURINARY/GYNECOLOGICAL Hx Genitourinary Disorders: No - PSYCHIATRIC Hx Psychophysiologic Disorder: Yes Hx Substance Use: (patient refused ot answer) - SURGICAL HISTORY Hx Surgeries: No - ANESTHESIA Hx Anesthesia: No Hx Anesthesia Reactions: No Hx Malignant Hyperthermia: No Meds Allergies/Adverse Reactions: Allergies Allergy/AdvReac Type Severity Reaction Status Date / Time No Known Allergies Allergy Verified 06/23/18 21:15 - Medications Medications: Current Medications Acetaminophen (Tylenol 325mg Tab) 650 mg PO Q6 PRN PRN Reason: Pain, moderate (4-7) Amoxicillin/Clavulanate Potassium (Augmentin 875 Mg-125 Mg Tab) 1 tab PO Q12 [facility] PRN Reason: Protocol Last Admin: 06/24/18 08:09 Dose: 1 tab Heparin Sodium (Porcine) (Heparin) 5,000 units SC Q8 [facility] PRN Reason: Protocol Last Admin: 06/24/18 08:09 Dose: 5,000 units Sodium Chloride (Sodium Chloride 0.9%) 1,000 mls @ 1,000 mls/hr IV .Q1H [facility] Last Admin: 06/24/18 00:02 Dose: 1,000 mls/hr Physical Exam - Constitutional Appears: Well, Non-toxic, No Acute Distress - Head Exam Head Exam: ATRAUMATIC, NORMOCEPHALIC - Extremities Exam Additional comments: Bilateral lower extremity exam: Vascular: Dp/ PT 2/4 b/l , CFT <3 secs x9, TG warm to warm, erythema noted on the anterior aspect of b/l legs, no edema noted Derm: no open lesions, surgical site noted at the previous right partial hallux amputation site, site well coapted, no wound dehiscence noted, no drainage noted , no malodor, no clinical signs of infection. Erythema noted on the anterior aspect of b/l legs, no increased temperature, no open lesions on legs, no clinical signs of infection. Dry, scaling skin noted on the plantar aspect of the right foot. Ortho: No pain on palpation Neuro: protective sensation diminished b/l - Neurological Exam Neurological exam: Alert, Oriented x3 - Psychiatric Exam Psychiatric exam: Normal Affect, Normal Mood - Skin Skin Exam: Normal Color Results - Vital Signs Recent Vital Signs: Last Vital Signs Temp 98.3 F 06/24/18 07:38 Pulse 74 06/24/18 07:38 Resp 19 06/24/18 07:38 BP 130/81 06/24/18 07:38 Pulse Ox 97 06/24/18 07:38 - Labs Result Diagrams: 06/23/18 23:00 06/23/18 23:00 Labs: Laboratory Results - last 24 hr 06/23/18 06/23/18 23:00 23:00 WBC 8.6 D RBC 3.57 L Hgb 10.5 L Hct 31.2 L MCV 87.3 D MCH 29.5 MCHC 33.8 RDW 15.2 H Plt Count 537 H D MPV 8.5 Neut % (Auto) 56.8 Lymph % (Auto) 32.7 [place] % (Auto) 7.5 Eos % (Auto) 2.2 Baso % (Auto) 0.8 Neut # (Auto) 4.9 Lymph # (Auto) 2.8 [place] # (Auto) 0.6 Eos # (Auto) 0.2 Baso # (Auto) 0.1 Sodium 135 Potassium 4.0 Chloride 100 Carbon Dioxide 20 L Anion Gap 19 BUN 29 H Creatinine 1.9 H Est GFR ( Amer) 45 Est GFR (Non-Af Amer) 37 Random Glucose 100 Calcium 9.6 Total Bilirubin 1.4 H AST 63 H ALT 41 Alkaline Phosphatase 760 H D Total Protein 7.9 Albumin 4.1 Globulin 3.8 Albumin/Globulin Ratio 1.1 Assessment & Plan - Assessment and Plan (Free Text) Assessment: 53 yo male with diabetes and HTN seen in the ED 6 days s/p right partial hallux amputation and chronic cellulitis of the b/l anterior aspect of the legs. Plan: Patient seen and evaluated at the bedside. Plan discussed in details with the attending Zhao Pillai Patient chart and vitals and labs reviewed; afebrile, no leukocytosis. Right Foot and wound cleansed with saline Patient ulcer dressed using betadine, Telfa, DSD and kerlix. Patient advised to finish taking augmentin Patient advised to ambulate in surgical shoe Patient to follow up with [facility] for right hallux amputation If patient unable to make an appointment, patient to follow up in podiatry clinic Thank you for the consult
[2018-06-24 09:36] LABS: ALBUMIN 3.2 g/dL (3.5-5.0); CALCIUM 8.9 mg/dL (8.4-10.2)
--- NOTE | 2018-06-24 10:40 | CT ---
Date of service: 06/24/2018 PROCEDURE: CT Abdomen and Pelvis without intravenous contrast HISTORY: diffuse abdominal tenderness COMPARISON: Abdomen pelvis CT with contrast 09/01/2017. TECHNIQUE: Helical CT of the abdomen and pelvis was performed without oral or intravenous contrast as per referring physician request Contrast dose: None Radiation dose: Total exam DLP = 500.41 mGy-cm. This CT exam was performed using one or more of the following dose reduction techniques: Automated exposure control, adjustment of the mA and/or kV according to patient size, and/or use of iterative reconstruction technique. FINDINGS: LOWER THORAX: Punctate calcified granuloma again seen right lower lobe. Cardiomegaly reiterated. Trace bilateral gynecomastia evident once again. LIVER: Relatively prominent left lobe liver and caudate head with the right lobe normal in size. Borderline peripheral nodularity may indicate an element of cirrhosis. Clinically correlate further. No definitive mass in this unenhanced examination. GALLBLADDER AND BILE DUCTS: Unremarkable. PANCREAS: Unremarkable. No gross lesion or ductal dilatation. SPLEEN: Unremarkable. ADRENALS: Unremarkable. No mass. KIDNEYS AND URETERS: No radiodense urolithiasis, perinephric fluid collection or obstructive uropathy is appreciate bilaterally. The bilateral ureters appear normal caliber overall. VASCULATURE: Unremarkable. No aortic aneurysm. BOWEL: Stomach is completely contracted. Evaluation of the gastrointestinal tract is limited due the lack of oral contrast administration. No bowel obstruction, pericolic or perienteric reaction identified. APPENDIX: Unremarkable. Normal appendix. PERITONEUM: There is developing left inguinal hernia containing only mesenteric fat. Prior central mesenteric adenitis pattern appears diminished. No free fluid. No free air. LYMPH NODES: Unremarkable. No enlarged lymph nodes. BLADDER: Unremarkable. REPRODUCTIVE: Enlarged prostate gland reiterated. BONES: Deformity of the right side of the T12 to body appreciate status post prior fracture. No acute fracture appreciable in the interval. Extensive multilevel thoracolumbar spondylosis reiterated. OTHER FINDINGS: None. IMPRESSION: 1. No definite acute abdominal pelvic findings as discussed above. 2. Borderline hepatic cirrhotic pattern reiterated. 3. Diminished mesenteric adenitis pattern evident. 4. Enlarged prostate gland reiterated. 5. Additional lesser findings as discussed above.
[2018-06-24 13:45] VITALS: BMI 25.0
[2018-06-25 07:56] LABS: BLOOD UREA NITROGEN 22 mg/dl (9-20); CALCIUM 9.2 mg/dL (8.4-10.2); GFR NON-AFRICAN AMERICAN 58
[2018-06-25] MEDS: Amoxicillin-Clav 875-125 mg Tab PO SCH ×2 (08:58→21:37)
--- NOTE | 2018-06-25 10:24 | CP.PCM.PN ---
<Lenore Senior - Last Filed: 06/25/18 15:42> Subjective - Date & Time of Evaluation Date of Evaluation: 06/25/18 Time of Evaluation: 09:15 - Subjective Subjective: Patient seen at bedside this AM, NAD, denies SEYMOUR, CP, abdominal pain, N/V, palpitations, foot pain. Patient reports diarrhea x3 yesterday afternoon and x1 today in AM. Objective - Vital Signs/Intake and Output Vital Signs (last 24 hours): Temp Pulse Resp BP Pulse Ox 97.7 F 88 19 136/89 96 06/25/18 08:17 06/25/18 08:17 06/25/18 08:17 06/25/18 08:17 06/25/18 08:17 - Medications Medications: Current Medications Acetaminophen (Tylenol 325mg Tab) 650 mg PO Q6 PRN PRN Reason: Pain, moderate (4-7) Heparin Sodium (Porcine) (Heparin) 5,000 units SC Q8 [facility] PRN Reason: Protocol Last Admin: 06/25/18 08:57 Dose: Not Given Sodium Chloride (Sodium Chloride 0.9%) 1,000 mls @ 1,000 mls/hr IV .Q1H [facility] Last Admin: 06/24/18 00:02 Dose: 1,000 mls/hr - Labs Labs: 06/24/18 07:43 06/25/18 05:45 - Additional Findings Additional findings: - Constitutional Appears: No Acute Distress - Head Exam Head Exam: ATRAUMATIC, NORMOCEPHALIC - Eye Exam Eye Exam: EOMI, PERRL - ENT Exam ENT Exam: Mucous Membranes Moist - Neck Exam Neck exam: Positive for: Full Rom. Negative for: Lymphadenopathy - Respiratory Exam Respiratory Exam: Clear to Auscultation Bilateral, NORMAL BREATHING PATTERN - Cardiovascular Exam Cardiovascular Exam: REGULAR RHYTHM, +S1, +S2 - GI/Abdominal Exam GI & Abdominal Exam: Normal Bowel Sounds, Soft, nontenderness to palpation today . absent: Distended, Guarding, Rigid Additional comments: - Extremities Exam Extremities exam: Positive for: full ROM, pedal edema, tenderness (right distal LE), Negative for: calf tenderness Additional comments: bilateral distal LE erythema with dry/scaly skin, equally warm to touch, right great toe amputation: dressing clean/dry/intact; - Neurological Exam Neurological exam: Alert, CN II-XII Intact, Oriented x3 - Psychiatric Exam Psychiatric exam: Normal Affect, Normal Mood - Skin Skin Exam: Dry, Intact, Normal Color, Warm Assessment and Plan - Assessment and Plan (Free Text) Assessment: 53 yr old M admitted for acute renal failure with recent right great toe amputation. Plan: Acute Renal Failure -acute, likely secondary to dehydration, at this time significantly improved already -Creatinine and BUN trend down and is significantly improved from admission: today 1.3 WNL, BUN 22 -NS IV fluids at 125 ml Abdominal tenderness -Resolved, patient denies abdominal tenderness today and nontender to palpation -Elevated alk Phosphat, GGT 810: This changes in LFT's are likely chronic 2/2 to alcohol consuptio. Patient is encouraged to decrease alcohol comsuption, f/u as outpatient with PMD upon discharge. -abd/pelvis CT: No define acute changes, borderline cirrhotic hepatic pattern( see full report) Acute Diarrhea -Patient reports diarrhea x3, denies abdominal pain -On exam his abdomen is nontender -Given that patient is currently on augmentin, we will r/o C diff : ordered stool C diff test, stool WBC, Stool C -WBC WNL since admission, f/u WBC today. Right great toe amputation -acute, stable -dressing changed by podiatry in ER: cleared for discharge and outpatient wound care -Amoxicillin/Clavulanate 875-125mg 1 tab PO Q12 -F/u with podiatry at [facility] -pain management: tylenol PRN -PT/OT Hx Etoh abuse -chronic, stable (patient reports last drink more than 3 weeks ago) -1 dose Librium 50mg PO given in ED -monitor for signs of alcohol withdrawal DVT prophylaxis -Heparin 5,000 units SC Q8 <Bela Moreno - Last Filed: 06/25/18 16:17> Objective - Vital Signs/Intake and Output Vital Signs (last 24 hours): Temp Pulse Resp BP Pulse Ox 98.2 F 79 20 133/83 98 06/25/18 16:09 06/25/18 16:09 06/25/18 16:09 06/25/18 16:09 06/25/18 16:09 - Medications Medications: Current Medications Acetaminophen (Tylenol 325mg Tab) 650 mg PO Q6 PRN PRN Reason: Pain, moderate (4-7) Heparin Sodium (Porcine) (Heparin) 5,000 units SC Q8 [facility] PRN Reason: Protocol Last Admin: 06/25/18 16:09 Dose: Not Given Sodium Chloride (Sodium Chloride 0.9%) 1,000 mls @ 1,000 mls/hr IV .Q1H [facility] Last Admin: 06/24/18 00:02 Dose: 1,000 mls/hr - Labs Labs: 06/25/18 10:29 06/25/18 05:45 Attending/Attestation - Attestation I have personally seen and examined this patient.: Yes I have fully participated in the care of the patient.: Yes I have reviewed all pertinent clinical information, including history, physical exam and plan: Yes Notes (Text): Will keep patient in the hospital for another day of Observation because of diarrhea. Diarrhea likely viral. Stool C diff negative. cont IVF hydration KEVIN likely sec to Dehydration , improved S/P Recent Toe amputation (done at [facility], as per Podiatry , no signs of infection, pt to ff up at [facility] , cont PO Augmentin to complete tx as rec post op by his supervisor marble) Hx of Alcoholism - pt states , he stopped drinking since he was admitted at [facility] w[facility] ago, no signs of withdrawal
[2018-06-25 10:32] LABS: BASO # 0.1 K/uL (0.0-0.2); BASO % 1.3 % (0.0-2.0); EOS # 0.1 K/uL (0.0-0.7); EOS % 2.8 % (0.0-4.0); HEMOGLOBIN 9.6 g/dL (12.0-18.0); LYMPH % 38.9 % (20.0-40.0); MEAN CELL VOLUME 88.1 fl (80.0-94.0); MEAN CORPUSCULAR HEMOGLOBIN 30.3 pg (27.0-31.0); MEAN CORPUSCULAR HGB CONC 34.4 g/dL (33.0-37.0); MONO # 0.4 K/uL (0.0-0.8); MONO % 7.1 % (0.0-10.0); NEUT # 2.5 K/uL (1.8-7.0); NEUT % 49.9 % (50.0-75.0); NRBC % 0.1 % (0.0-0.0); RBC 3.17 Mil/uL (4.40-5.90); RED CELL DISTRIBUTION WIDTH 15.4 % (11.5-14.5); WHITE BLOOD COUNT 5.1 K/uL (4.8-10.8)
[2018-06-25 16:09] VITALS: RESP 20
[2018-06-25] MEDS ORDERED: Sodium Chloride 0.9% 1,000 ML IV SCH (18:00)
[2018-06-25] MEDS ORDERED: Amoxicillin-Clav 875-125 mg Tab PO SCH (21:00)
[2018-06-26 06:37] LABS: BASO # 0.1 K/uL (0.0-0.2); BASO % 0.9 % (0.0-2.0); EOS # 0.2 K/uL (0.0-0.7); EOS % 3.4 % (0.0-4.0); LYMPH # 2.2 K/uL (1.0-4.3); LYMPH % 36.9 % (20.0-40.0); MEAN CELL VOLUME 87.9 fl (80.0-94.0); MEAN CORPUSCULAR HEMOGLOBIN 29.4 pg (27.0-31.0); MEAN CORPUSCULAR HGB CONC 33.5 g/dL (33.0-37.0); MEAN PLATELET VOLUME 8.6 fl (7.2-11.7); MONO # 0.4 K/uL (0.0-0.8); MONO % 6.1 % (0.0-10.0); NEUT # 3.1 K/uL (1.8-7.0); NEUT % 52.7 % (50.0-75.0); NRBC % 0.2 % (0.0-0.0); RBC 3.39 Mil/uL (4.40-5.90); RED CELL DISTRIBUTION WIDTH 15.2 % (11.5-14.5); WHITE BLOOD COUNT 5.9 K/uL (4.8-10.8)
[2018-06-26 06:39] LABS: BLOOD UREA NITROGEN 18 mg/dl (9-20); CALCIUM 9.3 mg/dL (8.4-10.2); GFR NON-AFRICAN AMERICAN 58
[2018-06-26] MEDS: Amoxicillin-Clav 875-125 mg Tab PO SCH (09:12)
[2018-06-26 09:25] VITALS: BP 161/95; PULSE 86; TEMP 98.2; O2SAT 100
--- NOTE | 2018-06-26 09:53 | CP.PCM.DIS ---
<Marvin ShawLenore - Last Filed: 06/26/18 14:37> Provider - Provider Date of Admission: 06/24/18 01:16 Attending physician: Ag Linares MD Time Spent in preparation of Discharge (in minutes): 35 Diagnosis - Discharge Diagnosis (1) Acute renal injury due to hypovolemia Status: Resolved (2) Amputated toe of right foot Status: Chronic (3) HTN (hypertension) Status: Chronic Hospital Course - Lab Results Lab Results: Micro Results 06/25/18 05:45 Blood Blood Culture - Preliminary NO GROWTH AFTER 24 HOURS Most Recent Lab Values WBC 5.9 K/uL (4.8-10.8) 06/26/18 05:45 RBC 3.39 Mil/uL (4.40-5.90) L 06/26/18 05:45 Hgb 10.0 g/dL (12.0-18.0) L 06/26/18 05:45 Hct 29.8 % (35.0-51.0) L 06/26/18 05:45 MCV 87.9 fl (80.0-94.0) 06/26/18 05:45 MCH 29.4 pg (27.0-31.0) 06/26/18 05:45 MCHC 33.5 g/dL (33.0-37.0) 06/26/18 05:45 RDW 15.2 % (11.5-14.5) H 06/26/18 05:45 Plt Count 426 K/uL (130-400) H 06/26/18 05:45 MPV 8.6 fl (7.2-11.7) 06/26/18 05:45 Neut % (Auto) 52.7 % (50.0-75.0) 06/26/18 05:45 Lymph % (Auto) 36.9 % (20.0-40.0) 06/26/18 05:45 Toombs % (Auto) 6.1 % (0.0-10.0) 06/26/18 05:45 Eos % (Auto) 3.4 % (0.0-4.0) 06/26/18 05:45 Baso % (Auto) 0.9 % (0.0-2.0) 06/26/18 05:45 Neut # (Auto) 3.1 K/uL (1.8-7.0) 06/26/18 05:45 Lymph # (Auto) 2.2 K/uL (1.0-4.3) 06/26/18 05:45 Toombs # (Auto) 0.4 K/uL (0.0-0.8) 06/26/18 05:45 Eos # (Auto) 0.2 K/uL (0.0-0.7) 06/26/18 05:45 Baso # (Auto) 0.1 K/uL (0.0-0.2) 06/26/18 05:45 Sodium 142 mmol/l (132-148) 06/26/18 05:45 Potassium 3.5 MMOL/L (3.6-5.0) L 06/26/18 05:45 Chloride 110 mmol/L (98-107) H 06/26/18 05:45 Carbon Dioxide 24 mmol/L (22-30) 06/26/18 05:45 Anion Gap 12 (10-20) 06/26/18 05:45 BUN 18 mg/dl (9-20) 06/26/18 05:45 Creatinine 1.3 mg/dl (0.8-1.5) 06/26/18 05:45 Est GFR ( Amer) > 60 06/26/18 05:45 Est GFR (Non-Af Amer) 58 06/26/18 05:45 Random Glucose 101 mg/dL (75-110) 06/26/18 05:45 Calcium 9.3 mg/dL (8.4-10.2) 06/26/18 05:45 Total Bilirubin 1.4 mg/dl (0.2-1.3) H 06/24/18 07:43 GGT 810 U/L (8-78) H 06/24/18 07:43 AST 55 U/L (17-59) 06/24/18 07:43 ALT 35 U/L (21-72) 06/24/18 07:43 Alkaline Phosphatase 581 U/L (38-126) H D 06/24/18 07:43 Total Protein 6.6 G/DL (6.3-8.2) 06/24/18 07:43 Albumin 3.2 g/dL (3.5-5.0) L D 06/24/18 07:43 Globulin 3.3 gm/dL (2.2-3.9) 06/24/18 07:43 Albumin/Globulin Ratio 1.0 (1.0-2.1) 06/24/18 07:43 C. difficile Ag & Toxin Negative (NEGATIVE) 06/25/18 11:50 Discharge Exam - Head Exam Head Exam: ATRAUMATIC, NORMOCEPHALIC Discharge Plan - Follow Up Plan Condition: STABLE Disposition: HOME/ ROUTINE Instructions: Amputation of the Foot or Toe (DC) Additional Instructions: Patient instructed to continue follow with his podiatry surgeon at [place] Referrals: [facility] [Provider Group] Mook Churchill MD [Staff Provider] - <Cristian Coto - Last Filed: 06/26/18 19:19> Provider - Provider Date of Admission: 06/24/18 01:16 Attending physician: Ag Linares MD Primary care physician: None Consults: podiatry consult Hospital Course - Lab Results Lab Results: Micro Results 06/25/18 05:45 Blood Blood Culture - Preliminary NO GROWTH AFTER 24 HOURS Most Recent Lab Values WBC 5.9 K/uL (4.8-10.8) 06/26/18 05:45 RBC 3.39 Mil/uL (4.40-5.90) L 06/26/18 05:45 Hgb 10.0 g/dL (12.0-18.0) L 06/26/18 05:45 Hct 29.8 % (35.0-51.0) L 06/26/18 05:45 MCV 87.9 fl (80.0-94.0) 06/26/18 05:45 MCH 29.4 pg (27.0-31.0) 06/26/18 05:45 MCHC 33.5 g/dL (33.0-37.0) 06/26/18 05:45 RDW 15.2 % (11.5-14.5) H 06/26/18 05:45 Plt Count 426 K/uL (130-400) H 06/26/18 05:45 MPV 8.6 fl (7.2-11.7) 06/26/18 05:45 Neut % (Auto) 52.7 % (50.0-75.0) 06/26/18 05:45 Lymph % (Auto) 36.9 % (20.0-40.0) 06/26/18 05:45 Toombs % (Auto) 6.1 % (0.0-10.0) 06/26/18 05:45 Eos % (Auto) 3.4 % (0.0-4.0) 06/26/18 05:45 Baso % (Auto) 0.9 % (0.0-2.0) 06/26/18 05:45 Neut # (Auto) 3.1 K/uL (1.8-7.0) 06/26/18 05:45 Lymph # (Auto) 2.2 K/uL (1.0-4.3) 06/26/18 05:45 Toombs # (Auto) 0.4 K/uL (0.0-0.8) 06/26/18 05:45 Eos # (Auto) 0.2 K/uL (0.0-0.7) 06/26/18 05:45 Baso # (Auto) 0.1 K/uL (0.0-0.2) 06/26/18 05:45 Sodium 142 mmol/l (132-148) 06/26/18 05:45 Potassium 3.5 MMOL/L (3.6-5.0) L 06/26/18 05:45 Chloride 110 mmol/L (98-107) H 06/26/18 05:45 Carbon Dioxide 24 mmol/L (22-30) 06/26/18 05:45 Anion Gap 12 (10-20) 06/26/18 05:45 BUN 18 mg/dl (9-20) 06/26/18 05:45 Creatinine 1.3 mg/dl (0.8-1.5) 06/26/18 05:45 Est GFR ( Amer) > 60 06/26/18 05:45 Est GFR (Non-Af Amer) 58 06/26/18 05:45 Random Glucose 101 mg/dL (75-110) 06/26/18 05:45 Calcium 9.3 mg/dL (8.4-10.2) 06/26/18 05:45 Total Bilirubin 1.4 mg/dl (0.2-1.3) H 06/24/18 07:43 GGT 810 U/L (8-78) H 06/24/18 07:43 AST 55 U/L (17-59) 06/24/18 07:43 ALT 35 U/L (21-72) 06/24/18 07:43 Alkaline Phosphatase 581 U/L (38-126) H D 06/24/18 07:43 Total Protein 6.6 G/DL (6.3-8.2) 06/24/18 07:43 Albumin 3.2 g/dL (3.5-5.0) L D 06/24/18 07:43 Globulin 3.3 gm/dL (2.2-3.9) 06/24/18 07:43 Albumin/Globulin Ratio 1.0 (1.0-2.1) 06/24/18 07:43 C. difficile Ag & Toxin Negative (NEGATIVE) 06/25/18 11:50 - Hospital Course Hospital Course: 53 yyear old male with PMH ETOH abuse , homeless presented to Er complaining of right foot pain and intermittent chills s/p right great toe amputation on at [facility]. Patient has history of recurrent cellulitis in the past . As per patient he was recently discharged from [facility] and hurt his toe ambulating. He was given prescription for Augmentin but did not start taking it . Denies use of any assistive device, denies fevers/nausea, vomiting, dysuria, weakness, chest pain or syncope. Patient reports he is homeless, sleeps on the street because he does not like any of the shelters. Lab work up in ER showed some mild dehydration with acute kidney injury . He was placed under observation and started on some IVF with improvement of his renal function Podiatry was consulted for evaluation of his surgical wound ,over the right great toe amputation. As per podiatry wound appears clean with no signs of cellulitis and after providing wound care recommended continuation of Augmentin Po, follow up with podiatry clinic or [facility] as outpatient and use of surgical shoe. During this hospital stay patient developed some abdominal pain with 4 episodes of watery diarrhea. Abdominal and pelvis CT showed no acute pathology, borderline cirrhosis of the liver . blood tests showed elevated alk phosphatase and GGT .Stool was sent for c.diff work up due to recent hospitalization and was reported as negative. His observation status was extended 24 more hours due to diarrhea and hydration and close monitoring continued . Patient clinically improved , abdominal pain resolved and diarrhea resolved. Most likely his diarrhea , viral in nature and self limited He is hemodynamically stable Will discharge patient to longterm Counselled to continue with augmentin Po and follow up with podiatry clinic Dx 1. Acute Renal Failure secondary to dehydration 2. homeless 3. Acute viral diarrhea 4.Liver cirrhosis 5. s/p recent right great toe amputation . surgical wound clean , not infected with sutures in place 6.History of ETOH abuse and dependency 7. Anemia of chronic disease Discharge Exam - Eye Exam Eye Exam: PERRL Pupil Exam: NORMAL ACCOMODATION - ENT Exam ENT Exam: Mucous Membranes Moist, Normal Exam - Neck Exam Neck exam: Full Rom, Normal Inspection - Respiratory Exam Respiratory Exam: Clear to PA & Lateral, NORMAL BREATHING PATTERN. absent: Rhonchi, Wheezes - Cardiovascular Exam Cardiovascular Exam: REGULAR RHYTHM, RRR, +S1, +S2. absent: JVD - GI/Abdominal Exam GI & Abdominal Exam: Normal Bowel Sounds, Soft. absent: Distended, Guarding, Rebound, Tenderness - Rectal Exam Rectal Exam: Deferred - Extremities Exam Extremities exam: pedal pulses present Additional comments: right great toe amputation site with sutures in place , clean with no signs of infection - Back Exam Back exam: NORMAL INSPECTION - Neurological Exam Neurological exam: Alert, CN II-XII Intact, Oriented x3 - Psychiatric Exam Psychiatric exam: Normal Affect - Skin Skin Exam: Dry, Warm Discharge Plan - Follow Up Plan Patient education suggested?: Yes
--- NOTE | 2018-06-26 10:29 | CP.PCM.PN ---
Subjective - Date & Time of Evaluation Date of Evaluation: 06/26/18 Time of Evaluation: 10:26 - Subjective Subjective: 53 yo seen and evaluated bedside for right hallux amputation. States he is in no pain today. States his procedure was done at [facility]. States he will follow up with his surgeon who performed the procedure. Denies N/V/F/C/SOB/CP today. Has no other pedal complaints today. Objective - Vital Signs/Intake and Output Vital Signs (last 24 hours): Temp Pulse Resp BP Pulse Ox 98.2 F 86 20 161/95 H 100 06/26/18 09:25 06/26/18 09:25 06/26/18 09:25 06/26/18 09:25 06/26/18 09:25 - Medications Medications: Current Medications Acetaminophen (Tylenol 325mg Tab) 650 mg PO Q6 PRN PRN Reason: Pain, moderate (4-7) Amoxicillin/Clavulanate Potassium (Augmentin 875 Mg-125 Mg Tab) 1 tab PO Q12 DEDRA PRN Reason: Protocol Last Admin: 06/26/18 09:12 Dose: 1 tab Heparin Sodium (Porcine) (Heparin) 5,000 units SC Q8 DEDRA PRN Reason: Protocol Last Admin: 06/26/18 09:13 Dose: Not Given Sodium Chloride (Sodium Chloride 0.9%) 1,000 mls @ 100 mls/hr IV .Q10H [facility] Stop: 06/26/18 17:54 Last Admin: 06/25/18 21:39 Dose: 100 mls/hr - Labs Labs: 06/26/18 05:45 06/26/18 05:45 - Constitutional Appears: Well, Non-toxic, No Acute Distress - Head Exam Head Exam: ATRAUMATIC, NORMOCEPHALIC - Extremities Exam Additional comments: Vascular: Dp/ PT 2/4 b/l , CFT <3 secs x9, TG warm to warm, erythema noted on the anterior aspect of b/l legs, no edema noted Derm: no open lesions, surgical site noted at the previous right partial hallux amputation site, site well coapted, no wound dehiscence noted, no drainage noted , no malodor, no clinical signs of infection, sutures still intact Erythema noted on the anterior aspect of b/l legs, no increased temperature, no open lesions on legs, no clinical signs of infection. Dry, scaling skin noted on the plantar aspect of the right foot. Ortho: No pain on palpation Neuro: protective sensation diminished b/l - Neurological Exam Neurological Exam: Alert, Awake, Oriented x3 - Psychiatric Exam Psychiatric exam: Normal Affect, Normal Mood Assessment and Plan - Assessment and Plan (Free Text) Assessment: 53 yo male with diabetes and HTN seen and evaluated at bedside 8 days s/p right partial hallux amputation and chronic cellulitis of the b/l anterior aspect of the legs. Plan: Patient seen and evaluated at the bedside. Plan discussed in details with the attending Zhao Pillai Patient chart and vitals and labs reviewed; afebrile, no leukocytosis. Right Foot and wound cleansed with saline Patient ulcer dressed using adaptic, DSD and kerlix. Patient advised to ambulate in surgical shoe Patient to follow up with [facility] for right hallux amputation If patient unable to make an appointment, patient to follow up in podiatry clinic Stable from podiatry standpoint Will continue to follow while in house
== END 2018-06-26 15:15 | disposition home or self-care (01) ==
LOC: H.ER 20:35 → H.ERHOLD 06-24 01:16 → H.MEDSURG1 06-24 04:04
PROVIDERS: ADMIT Internal Medicine; ATTEND Internal Medicine
DX: N17.9 Acute kidney failure, unspecified (principal); E86.1 Hypovolemia; Z89.411 Acquired absence of right great toe; E86.0 Dehydration; Z59.0 Homelessness; D63.8 Anemia in other chronic diseases classified elsewhere; I10 Essential (primary) hypertension; K74.60 Unspecified cirrhosis of liver; A08.4 Viral intestinal infection, unspecified; F10.21 Alcohol dependence, in remission; E11.9 Type 2 diabetes mellitus without complications; F17.210 Nicotine dependence, cigarettes, uncomplicated
CPT/HCPCS: 36415; 71045; 73630; 74176; 80048; 80053; 82977; 85025; 87040; 87045; 87230; 89055; 93005; 96360; 97110; 97116; 97161; 97165; 97530; 99285; G0378; G8978; G8979; G8987; G8988; J1644; J3411; J7030

== ENCOUNTER 2018-06-28 17:37 | Emergency (ER) | payer SELFPAY ==
--- NOTE | 2018-06-28 17:58 | ED PDOC ---
HPI: Psych/Substance Abuse Time Seen by Provider: 06/28/18 17:42 Chief Complaint (Nursing): Alcohol Ingestion Chief Complaint (Provider): etoh History Per: Patient Additional Complaint(s): BIBA for etoh. Patient is well known to ED. He has history of alcohol abuse and drinks every day. Patient is well known to ED for frequent visits. He is currently non-domiciled. PMD: none Past Medical History Reviewed: Historical Data, Nursing Documentation, Vital Signs Vital Signs: Last Vital Signs Temp 98.0 F 06/28/18 17:39 Pulse 104 H 06/28/18 17:39 Resp 16 06/28/18 17:39 BP 117/61 06/28/18 17:39 Pulse Ox 97 06/28/18 17:39 - Medical History PMH: No Chronic Diseases - Family History Family History: States: No Known Family Hx - Living Arrangements Living Arrangements: Other (non-domiciled) - Social History Alcohol: > 2 Drinks/Day - Allergies Allergies/Adverse Reactions: Allergies Allergy/AdvReac Type Severity Reaction Status Date / Time No Known Allergies Allergy Verified 06/28/18 17:39 Review of Systems ROS Statement: Except As Marked, All Systems Reviewed And Found Negative Psych: Positive for: Other (etoh) Physical Exam - Reviewed Nursing Documentation Reviewed: Yes Vital Signs Reviewed: Yes - Physical Exam Appears: Negative for: Well (unkempt) Skin: Positive for: Normal Color. Negative for: Rash Eye Exam: Positive for: Normal appearance Cardiovascular/Chest: Positive for: Regular Rate, Rhythm Respiratory: Positive for: Normal Breath Sounds. Negative for: Wheezing, Respiratory Distress Extremity: Positive for: Other (open wound to right great toe, no active bleeding or drainage) Neurologic/Psych: Positive for: Other (responses to painful stimuli) - Laboratory Results Result Diagrams: 06/28/18 18:14 06/28/18 18:14 - ECG O2 Sat by Pulse Oximetry: 97 Pulse Ox Interpretation: Normal Medical Decision Making Medical Decision Makin:45 pm 64 y/o intoxicated male Plan: CBC CMP BAL Fingerstick: 112 BAL: 427 8:00 pm: Patient is asleep, arousable, vital signs stable 10:00 pm: patient is asleep, arousable, vital signs stable 11:30 pm: patient is asleep, arousable, vital signs stable Disposition - Clinical Impression Clinical Impression: Alcohol abuse with intoxication - Patient ED Disposition Is Patient to be Admitted: Transfer of Care - Disposition Disposition: Transfer of Care Disposition Time: 23:55 Condition: FAIR Forms: [employer] (Maori) Patient Signed Over To: Zayra Busby Handoff Comments: Signed out pending sobriety and final disposition
[2018-06-28 18:29] LABS: BASO # 0.1 K/uL (0.0-0.2); BASO % 0.7 % (0.0-2.0); EOS # 0.2 K/uL (0.0-0.7); EOS % 1.4 % (0.0-4.0); HEMOGLOBIN 10.4 g/dL (12.0-18.0); MEAN CELL VOLUME 88.1 fl (80.0-94.0); MEAN CORPUSCULAR HEMOGLOBIN 28.3 pg (27.0-31.0); MEAN CORPUSCULAR HGB CONC 32.1 g/dL (33.0-37.0); MEAN PLATELET VOLUME 7.8 fl (7.2-11.7); MONO # 0.8 K/uL (0.0-0.8); MONO % 5.3 % (0.0-10.0); NEUT # 10.3 K/uL (1.8-7.0); NEUT % 66.6 % (50.0-75.0); RBC 3.68 Mil/uL (4.40-5.90); RED CELL DISTRIBUTION WIDTH 15.5 % (11.5-14.5); WHITE BLOOD COUNT 15.4 K/uL (4.8-10.8)
[2018-06-28 18:52] LABS: BLOOD UREA NITROGEN 13 mg/dl (9-20); GFR NON-AFRICAN AMERICAN > 60
--- NOTE | 2018-06-28 23:38 | ED PDOC ---
- Laboratory Results Result Diagrams: 06/28/18 18:14 06/28/18 18:14 - ECG O2 Sat by Pulse Oximetry: 97 (RA) Pulse Ox Interpretation: Normal Medical Decision Making Medical Decision Making: Case endorsed to web content writer, Kehinde SMITH, at [id number]. Pertinent details reviewed. Patient pending re-evaluation and clinical sobriety. Labs reviewed. Serum alcohol 427 @ 1815. Repeat HR: 98. Potassium chloride 40mg PO ordered due to hypokalemia. 0230 Patient sleeping comfortably in ED. No distress noted. 0400 Patient remains asleep in ED. Vitals stable. 0600 Patient now awake, alert, and oriented x3. No complaints verbalized. Ambulatory in ED with a steady, unassisted gait. Lungs clear to auscultation, cardiac RRR, abdomen soft, non-tender, repeat neuro exam shows no focal findings. VSS, stable for discharge. Lab/Diagnostic results d/w the patient in great detail. Diagnosis of alcohol abuse with intoxication, hypokalemia d/w the patient. Based on history, exam and diagnostic results, plan will be for outpatient follow up. Patient was observed in ED for 12+ hours with no evidence of neurological deterioration. Patient instructed to follow-up with pmd / referral provided / the clinic in 1- 2 days without fail. Return to the emergency room at any time for any new or worsening symptoms. Patient states he fully agrees with and understands discharge instructions. States that he agrees with the plan and disposition. Verbalized and repeated discharge instructions and plan. I have given the patient opportunity to ask any additional questions. Disposition Counseled Patient/Family Regarding: Studies Performed, Diagnosis, Need For Followup - Clinical Impression Clinical Impression: Alcohol abuse with intoxication, Hypokalemia - POA Present On Arrival: None - Disposition Referrals: [facility] [Outside] Disposition: Routine/Home Disposition Time: 06:00 Condition: FAIR Additional Instructions: La atencin mdica de emergencia que recibi hoy se dirigi a los sntomas agudos de presentacin. Si le prescribieron algn medicamento, por favor ll bryan y d nhan indicado. Jacinta sntomas pueden tardar varios calles en resolverse. Regrese al Departamento de Emergencia en cualquier momento si los sntomas empeoran, no mejoran o si surge algn otro problema. Comunquese con garcia mdico en 2 calles para laurie reevaluacin y seguimiento / o llame a patrick de los mdicos / clnicas a los que mccain referido y que figura en el formulario de Informacin de visitas del paciente que se incluye en garcia paquete de rowena. Lleve todos los documentos que recibi al momento del rowena junto con los medicamentos a garcia visita de seguimiento. Nuestro tratamiento no puede reemplazar la atencin mdica en curso por parte de un proveedor de atencin primaria (PCP) fuera del departamento de emergencias. Instructions: Alcohol Abuse and Alcoholism (DC), Effects of Alcohol on Your Health Forms: [employer] (Slovenian) Print Language: MICRONESIAN Results - Lab Results Lab Results: 06/28/18 06/28/18 06/28/18 18:14 18:14 17:54 WBC 15.4 H RBC 3.68 L Hgb 10.4 L Hct 32.4 L MCV 88.1 MCH 28.3 MCHC 32.1 L RDW 15.5 H Plt Count 469 H MPV 7.8 Neut % (Auto) 66.6 Lymph % (Auto) 26.0 Granite % (Auto) 5.3 Eos % (Auto) 1.4 Baso % (Auto) 0.7 Neut # (Auto) 10.3 H Lymph # (Auto) 4.0 [place]ite # (Auto) 0.8 Eos # (Auto) 0.2 Baso # (Auto) 0.1 Sodium 141 Potassium 3.1 L Chloride 106 Carbon Dioxide 19 L Anion Gap 19 BUN 13 Creatinine 1.1 Est GFR ( Amer) > 60 Est GFR (Non-Af Amer) > 60 POC Glucose (mg/dL) 112 H Random Glucose 107 Calcium 9.0 Alcohol, Quantitative 427 H*
[2018-06-29] MEDS ORDERED: Potassium Chloride 20 mEq ER Tab PO ONE (02:17)
[2018-06-29 06:31] VITALS: BP 125/84; PULSE 86; RESP 17; TEMP 98.2
[2018-06-29 06:46] VITALS: O2SAT 97
== END 2018-06-29 06:20 | disposition home or self-care (01) ==
LOC: MERGE 17:37 → H.ER 17:37
DX: F10.129 Alcohol abuse with intoxication, unspecified (principal); Y90.8 Blood alcohol level of 240 mg/100 ml or more; E87.6 Hypokalemia; Z59.0 Homelessness

== ENCOUNTER 2018-06-30 22:46 | Inpatient (IN) | payer SELFPAY ==
[2018-06-30 22:46] VITALS: BMI 25.0
[2018-06-30] MEDS ORDERED: Thiamine 100 mg/ml Inj IV STA (23:13)
[2018-06-30] MEDS ORDERED: Sodium Chloride 0.9% 1,000 ML IV STA (23:13)
--- NOTE | 2018-06-30 23:39 | ED PDOC ---
Lower Extremity Pain/Injury Time Seen by Provider: 06/30/18 23:00 Chief Complaint (Nursing): Alcohol Ingestion Chief Complaint (Provider): RIGHT foot pain History Per: Patient, EMS History/Exam Limitations: intoxication Onset/Duration Of Symptoms: Unknown Current Symptoms Are (Timing): Still Present Additional Complaint(s): 53yo man known well to ER for alcoholism and homelessness brought in by ambulance after being found on street. He reports that he has trouble walking because of pain to his foot, localized to area of recent partial amputation of great toe. He denies recent trauma. He denies taking medications for treatment of his foot (antibiotics) or for pain. He denies drinking alcohol but is somewhat sleepy with slurred speech consistent with intoxication. Also recently admitted for ARF and Dehydration to this hospital. Discharged 3 days ago, returned the following day with acute alcohol intoxication History may be unreliable due to intoxication. Past Medical History Vital Signs: Last Vital Signs Temp 98.2 F 06/30/18 22:50 Pulse 100 H 06/30/18 22:50 Resp 18 06/30/18 22:50 BP Pulse Ox 100 06/30/18 22:50 - Medical History PMH: Diabetes (type II), HTN, Peripheral Edema (BLE), Seizures Denies: HIV, Chronic Kidney Disease - Family History Family History: States: Unknown Family Hx - Immunization History Hx Tetanus Toxoid Vaccination: No Hx Influenza Vaccination: No Hx Pneumococcal Vaccination: No - Home Medications Home Medications: Ambulatory Orders Medication Instructions Recorded Lisinopril [Zestril] 10 mg PO DAILY 06/24/18 Metoprolol Tartrate [Lopressor] 25 mg PO Q12 06/24/18 Levofloxacin [Levaquin] 750 mg PO DAILY 42 Days #42 tablet 07/04/18 - Allergies Allergies/Adverse Reactions: Allergies Allergy/AdvReac Type Severity Reaction Status Date / Time No Known Allergies Allergy Verified 06/23/18 21:15 Review of Systems ROS Statement: Except As Marked, All Systems Reviewed And Found Negative Constitutional: Positive for: Weakness Musculoskeletal: Positive for: Foot Pain Skin: Positive for: Lesions Physical Exam - Reviewed Nursing Documentation Reviewed: Yes Vital Signs Reviewed: Yes - Physical Exam Appears: Positive for: No Acute Distress (dissheveled and unkempt) Head Exam: Positive for: ATRAUMATIC, NORMOCEPHALIC Skin: Positive for: Warm, Dry Eye Exam: Positive for: Conjunctival injection Neck: Positive for: Painless ROM, Trachea Midline Cardiovascular/Chest: Positive for: Regular Rate, Rhythm. Negative for: Murmur Respiratory: Positive for: Normal Breath Sounds. Negative for: Respiratory Distress Gastrointestinal/Abdominal: Positive for: Soft. Negative for: Tenderness Back: Positive for: Normal Inspection. Negative for: Decreased ROM Extremity: Positive for: Pedal Edema, Other (bilateral lower leg edema and erythema. RIGHT foot: post surgical wound distal great toe with no dehiscence ( but with debris and dried clot), mildly erythematous digit, no tenderness, no fluctuance of wound, no discharge expressed) Lymphatic: Negative for: Adenopathy Neurologic/Psych: Positive for: Motor/Sensory Deficits, Other (sleepy). Negative for: Aphasia, Facial Droop - Laboratory Results Result Diagrams: 07/04/18 05:45 07/04/18 05:45 - ECG O2 Sat by Pulse Oximetry: 100 Pulse Ox Interpretation: Normal Medical Decision Making Medical Decision Makin Patient endorsed by me to Dr. Greenberg pending sobriety, labs and reevaluation. Disposition - Clinical Impression Clinical Impression: Alcohol abuse, Cellulitis of right foot - Disposition Disposition: Transfer of Care Disposition Time: 00:00 Condition: FAIR
--- NOTE | 2018-07-01 00:16 | ED PDOC ---
- Laboratory Results Result Diagrams: 07/01/18 01:27 07/01/18 01:27 - ECG O2 Sat by Pulse Oximetry: 100 (RA) Pulse Ox Interpretation: Normal Medical Decision Making Medical Decision Makin Patient endorsed from Dr. Pineda to myself pending sobriety, labs and reevaluation. [id number] Labs reviewed and show no significant abnormality with the exception of elevation in ESR. Podiatry consultation ordered. Podiatry asked for patient to be admitted for workup for osteomyelitis and treatment of cellulitis of right foot. Scribe Attestation: Documented by Courtney Blanchard, acting as a scribe for Huseyin Greenberg MD. Provider Scribe Attestation: All medical record entries made by the Scribe were at my direction and personally dictated by me. I have reviewed the chart and agree that the record accurately reflects my personal performance of the history, physical exam, medical decision making, and the department course for this patient. Disposition - Clinical Impression Clinical Impression: Alcohol abuse, Cellulitis of right foot - POA Present On Arrival: None - Disposition Disposition: Routine/Home Disposition Time: 03:55 Condition: FAIR
[2018-07-01 01:31] LABS: BASO # 0.1 K/uL (0.0-0.2); BASO % 1.3 % (0.0-2.0); EOS # 0.1 K/uL (0.0-0.7); EOS % 1.2 % (0.0-4.0); HEMOGLOBIN 10.9 g/dL (12.0-18.0); LYMPH # 2.9 K/uL (1.0-4.3); MEAN CELL VOLUME 88.7 fl (80.0-94.0); MEAN CORPUSCULAR HEMOGLOBIN 29.2 pg (27.0-31.0); MEAN CORPUSCULAR HGB CONC 32.9 g/dL (33.0-37.0); MONO # 0.6 K/uL (0.0-0.8); MONO % 6.3 % (0.0-10.0); NEUT # 6.2 K/uL (1.8-7.0); NEUT % 62.2 % (50.0-75.0); NRBC % 0.1 % (0.0-0.0); RBC 3.73 Mil/uL (4.40-5.90); RED CELL DISTRIBUTION WIDTH 15.3 % (11.5-14.5); WHITE BLOOD COUNT 9.9 K/uL (4.8-10.8)
[2018-07-01 01:32] LABS: VENOUS BLOOD GAS BASE EXCESS -4.3 mmol/L (0.0-2.0); VENOUS BLOOD GAS PCO2 45 mmHg (40-60); VENOUS BLOOD GAS PO2 37 mm/Hg (30-55)
[2018-07-01 01:35] LABS: SQUAMOUS EPITHIAL < 1 /hpf (0-5); URINE BACTERIA RARE (<OCC); URINE BILIRUBIN NEGATIVE (NEGATIVE); URINE BLOOD MODERATE (NEGATIVE); URINE CLARITY CLEAR (Clear); URINE COLOR STRAW (YELLOW); URINE GLUCOSE (UA) NEG (Normal); URINE LEUKOCYTE ESTERASE SMALL Leu/uL (Negative); URINE PROTEIN NEGATIVE (NEGATIVE); URINE UROBILINOGEN 0.2-1.0 mg/dL (0.2-1.0)
[2018-07-01] MEDS ORDERED: Thiamine 100 mg/ml Inj ONE (01:38)
[2018-07-01 01:50] LABS: ALBUMIN 3.9 g/dL (3.5-5.0); ALT/SGPT 36 U/L (21-72); AST/SGOT 74 U/L (17-59); BLOOD UREA NITROGEN 9 mg/dl (9-20); CALCIUM 8.8 mg/dL (8.4-10.2); GFR NON-AFRICAN AMERICAN > 60
[2018-07-01] MEDS ORDERED: Piperacillin/Tazobact 3.375 GM in Sodium Chloride 0.9% 100 ML IV STA (03:50)
--- NOTE | 2018-07-01 03:52 | CP.PCM.CON ---
History of Present Illness - History of Present Illness History of Present Illness: Podiatry consult note for attending Dr. Herrera 53 y/o male with PMHX of recurrent LE cellulitis and EtOH abuse presents to ED with complaint right foot pain s/p right great toe amputation on 06/18/18 at [facility]. Patient unable to provide history due to intoxication. Previous admission 06/24/2018 for similar complaint. PMD: none PMH: recurrent LE cellulitis and Etoh abuse Medications: Augmentin 875/125 mg 1 tab PO Q12 Allergies: NKDA PSH: right great toe amputation (06/18/18) Fam: father at 42 from MVA; mother at 75-from [place] SOC: denies tobacco or drugs; hx EtOH abuse Review of Systems - Review of Systems All systems: reviewed and no additional remarkable complaints except Review of Systems: as per HPI Past Patient History - Infectious Disease Hx of Infectious Diseases: None - Past Medical History & Family History Past Medical History?: Yes - Past Social History Smoking Status: Heavy Smoker > 10 Cigarettes Daily - CARDIAC Hx Hypertension: Yes Hx Peripheral Edema: Yes (BLE) - PULMONARY Hx Respiratory Disorders: No - NEUROLOGICAL Hx Seizures: Yes - HEENT Hx HEENT Problems: No - RENAL Hx Chronic Kidney Disease: No - ENDOCRINE/METABOLIC Hx Diabetes Mellitus Type 2: Yes - HEMATOLOGICAL/ONCOLOGICAL Hx Human Immunodeficiency Virus (HIV): No - INTEGUMENTARY Hx Dermatological Problems: No - MUSCULOSKELETAL/RHEUMATOLOGICAL Hx Falls: No (Patient refused to answer) - GASTROINTESTINAL Hx Liver Failure: Yes - GENITOURINARY/GYNECOLOGICAL Hx Genitourinary Disorders: No - PSYCHIATRIC Hx Psychophysiologic Disorder: Yes Hx Substance Use: (patient refused ot answer) - SURGICAL HISTORY Hx Surgeries: No - ANESTHESIA Hx Anesthesia: No Hx Anesthesia Reactions: No Hx Malignant Hyperthermia: No Meds Allergies/Adverse Reactions: Allergies Allergy/AdvReac Type Severity Reaction Status Date / Time No Known Allergies Allergy Verified 06/23/18 21:15 Physical Exam - Constitutional Appears: Well, Non-toxic - Extremities Exam Additional comments: Vascular: DP/ PT 2/4 b/l , CFT <3 secs x9, TG warm to warm, erythema noted on the anterior aspect of b/l legs, no edema noted Derm: no open lesions, surgical site noted at the previous right partial hallux amputation site, site well coapted, area of wound dehiscence noted centrally, no drainage noted, no malodor, no clinical signs of infection, sutures still intact Erythema noted on the anterior aspect of b/l legs with increased temperature, no open lesions on legs, no clinical signs of infection, Dry, scaling skin noted on the plantar aspect of the right foot. Ortho: No pain on palpation Neuro: protective sensation diminished b/l Results - Vital Signs Recent Vital Signs: Last Vital Signs Temp 97.6 F 07/01/18 00:40 Pulse 86 07/01/18 01:45 Resp 17 07/01/18 01:45 BP 115/65 07/01/18 01:45 Pulse Ox 95 07/01/18 01:45 - Labs Result Diagrams: 07/01/18 01:27 07/01/18 01:27 Labs: Laboratory Results - last 24 hr 07/01/18 07/01/18 07/01/18 00:15 01:17 01:27 WBC 9.9 RBC 3.73 L Hgb 10.9 L Hct 33.1 L MCV 88.7 MCH 29.2 MCHC 32.9 L RDW 15.3 H Plt Count 312 D MPV 8.0 Neut % (Auto) 62.2 Lymph % (Auto) 29.0 [place] % (Auto) 6.3 Eos % (Auto) 1.2 Baso % (Auto) 1.3 Neut # (Auto) 6.2 Lymph # (Auto) 2.9 [place] # (Auto) 0.6 Eos # (Auto) 0.1 Baso # (Auto) 0.1 ESR 112 H pO2 37 VBG pH 7.30 L VBG pCO2 45 VBG HCO3 20.9 VBG Total CO2 23.5 VBG O2 Sat (Calc) 67.4 H VBG Base Excess -4.3 L VBG Potassium 3.5 L Sodium 135.0 Chloride 106.0 Glucose 104 Lactate 1.9 FiO2 21.0 Potassium Carbon Dioxide Anion Gap BUN Creatinine Est GFR ( Amer) Est GFR (Non-Af Amer) POC Glucose (mg/dL) 96 Random Glucose Calcium Total Bilirubin AST ALT Alkaline Phosphatase Total Creatine Kinase Total Protein Albumin Globulin Albumin/Globulin Ratio Venous Blood Potassium 3.5 L Urine Color Urine Clarity Urine pH Ur Specific [place] Urine Protein Urine Glucose (UA) Urine Ketones Urine Blood Urine Nitrate Urine Bilirubin Urine Urobilinogen Ur Leukocyte Esterase Urine RBC (Auto) Urine Microscopic WBC Ur Squamous Epith Cells Urine Bacteria Alcohol, Quantitative 07/01/18 07/01/18 01:27 01:27 WBC RBC Hgb Hct MCV MCH MCHC RDW Plt Count MPV Neut % (Auto) Lymph % (Auto) [place] % (Auto) Eos % (Auto) Baso % (Auto) Neut # (Auto) Lymph # (Auto) [place] # (Auto) Eos # (Auto) Baso # (Auto) ESR pO2 VBG pH VBG pCO2 VBG HCO3 VBG Total CO2 VBG O2 Sat (Calc) VBG Base Excess VBG Potassium Sodium 138 Chloride 104 Glucose Lactate FiO2 Potassium 3.9 Carbon Dioxide 20 L Anion Gap 18 BUN 9 Creatinine 0.9 Est GFR ( Amer) > 60 Est GFR (Non-Af Amer) > 60 POC Glucose (mg/dL) Random Glucose 99 Calcium 8.8 Total Bilirubin 1.1 AST 74 H D ALT 36 Alkaline Phosphatase 614 H Total Creatine Kinase 583 H Total Protein 7.8 Albumin 3.9 Globulin 3.9 Albumin/Globulin Ratio 1.0 Venous Blood Potassium Urine Color Straw Urine Clarity Clear Urine pH 6.0 Ur Specific [place] < 1.005 Urine Protein Negative Urine Glucose (UA) Neg Urine Ketones Negative Urine Blood Moderate Urine Nitrate Negative Urine Bilirubin Negative Urine Urobilinogen 0.2-1.0 Ur Leukocyte Esterase Small Urine RBC (Auto) 1 Urine Microscopic WBC 1 Ur Squamous Epith Cells < 1 Urine Bacteria Rare Alcohol, Quantitative 238 H Assessment & Plan - Assessment and Plan (Free Text) Assessment: 53 yo male with diabetes and HTN seen and evaluated at bedside for right partial hallux amputation and chronic cellulitis of the b/l anterior aspect of the legs. Plan: Patient seen and evaluated at the bedside. Plan discussed in details with the attending Dr. Herrera Patient chart and vitals and labs reviewed, afebrile, ESR 112 Right Foot and wound cleansed with saline Patient ulcer dressed using betadine, adaptic, DSD and kerlix. Patient will be admitted for IV Antibiotics and to rule out osteomyelitis Infectious Disease consulted Wound Cx Ordered- Pending RLE MRI Ordered- Pending Podiatry will continue to follow patient while in house - Date & Time Date: 07/01/18 Time: 13:26
[2018-07-01] MEDS ORDERED: Piperacillin/Tazobact 3.375 gm Inj IVPB ONE (04:03)
--- NOTE | 2018-07-01 04:45 | CP.PCM.HP ---
<Isac Gomez - Last Filed: 07/01/18 04:37> History of Present Illness - History of Present Illness History of Present Illness: CC: right foot pain HPI: 53 y/o man w/ pmh of recurrent LE cellulitis and EtOH abuse presents to ED with complaint right foot pain s/p right great toe amputation on 06/18/18 at [facility]. Patient unable to provide history due to intoxication. Previous admission 06/24/2018 for similar complaint. ED course: vitals: 98.4F, 85 beats/min, 124/81 mm Hg, resp 18, O2 96% room air CBC: 9.9>10.9/33.1<312 ESR: 112 CMP: 138/3.9, 104/20, 9/0.9, glucose 99, AST 74, ALT 36, alk phos 614 VBG: pO2 37, pH 7.30, pCO2 20.9, lactate 1.9 UA: moderate blood, small leukocyte esterase alcohol: 238 XR rt foot: report pending PMD: none PMH: recurrent LE cellulitis and Etoh abuse Medications: Augmentin 875/125 mg 1 tab PO Q12 Allergies: NKDA PSH: right great toe amputation (06/18/18) Fam: father at 42 from MVA; mother at 75-from [place] SOC: denies tobacco or drugs; hx EtOH abuse ROS: unable to assess due to patient intoxication Present on Admission - Present on Admission Any Indicators Present on Admission: No History of DVT/PE: No History of Uncontrolled Diabetes: No Urinary Catheter: No Decubitus Ulcer Present: No Review of Systems - Review of Systems Systems not reviewed;Unavailable: Intoxicated Past Patient History - Infectious Disease Hx of Infectious Diseases: None - Past Medical History & Family History Past Medical History?: Yes - Past Social History Smoking Status: Heavy Smoker > 10 Cigarettes Daily - CARDIAC Hx Hypertension: Yes Hx Peripheral Edema: Yes (BLE) - PULMONARY Hx Respiratory Disorders: No - NEUROLOGICAL Hx Seizures: Yes - HEENT Hx HEENT Problems: No - RENAL Hx Chronic Kidney Disease: No - ENDOCRINE/METABOLIC Hx Diabetes Mellitus Type 2: Yes - HEMATOLOGICAL/ONCOLOGICAL Hx Human Immunodeficiency Virus (HIV): No - INTEGUMENTARY Hx Dermatological Problems: No - MUSCULOSKELETAL/RHEUMATOLOGICAL Hx Falls: No (Patient refused to answer) - GASTROINTESTINAL Hx Liver Failure: Yes - GENITOURINARY/GYNECOLOGICAL Hx Genitourinary Disorders: No - PSYCHIATRIC Hx Psychophysiologic Disorder: Yes Hx Substance Use: (patient refused ot answer) - SURGICAL HISTORY Hx Surgeries: No - ANESTHESIA Hx Anesthesia: No Hx Anesthesia Reactions: No Hx Malignant Hyperthermia: No Meds Allergies/Adverse Reactions: Allergies Allergy/AdvReac Type Severity Reaction Status Date / Time No Known Allergies Allergy Verified 06/23/18 21:15 Physical Exam - Constitutional Appears: Non-toxic, No Acute Distress, Unkempt - Head Exam Head Exam: ATRAUMATIC, NORMAL INSPECTION, NORMOCEPHALIC - Eye Exam Additional comments: unable to assess due to intoxication - Neck Exam Neck exam: Positive for: Full Rom. Negative for: Tenderness - Respiratory Exam Respiratory Exam: Clear to Auscultation Bilateral. absent: Decreased Breath Sounds, Rales, Rhonchi, Wheezes, Respiratory Distress - Cardiovascular Exam Cardiovascular Exam: REGULAR RHYTHM, RRR. absent: Tachycardia - GI/Abdominal Exam GI & Abdominal Exam: Soft. absent: Distended, Tenderness - Extremities Exam Extremities exam: Positive for: pedal edema (bilateral non-pitting), tenderness , pedal pulses present (left PT and DP +1, unable to palpate right due to dressing). Negative for: calf tenderness - Neurological Exam Neurological exam: Altered - Skin Skin Exam: Dry Results - Vital Signs Recent Vital Signs: Last Vital Signs Temp 98.4 F 07/01/18 04:12 Pulse 85 07/01/18 04:12 Resp 18 07/01/18 04:12 BP 124/81 07/01/18 04:12 Pulse Ox 96 07/01/18 04:12 - Labs Result Diagrams: 07/01/18 01:27 07/01/18 01:27 Labs: Laboratory Results - last 24 hr 07/01/18 07/01/18 07/01/18 00:15 01:17 01:27 WBC 9.9 RBC 3.73 L Hgb 10.9 L Hct 33.1 L MCV 88.7 MCH 29.2 MCHC 32.9 L RDW 15.3 H Plt Count 312 D MPV 8.0 Neut % (Auto) 62.2 Lymph % (Auto) 29.0 [place] % (Auto) 6.3 Eos % (Auto) 1.2 Baso % (Auto) 1.3 Neut # (Auto) 6.2 Lymph # (Auto) 2.9 [place] # (Auto) 0.6 Eos # (Auto) 0.1 Baso # (Auto) 0.1 ESR 112 H pO2 37 VBG pH 7.30 L VBG pCO2 45 VBG HCO3 20.9 VBG Total CO2 23.5 VBG O2 Sat (Calc) 67.4 H VBG Base Excess -4.3 L VBG Potassium 3.5 L Sodium 135.0 Chloride 106.0 Glucose 104 Lactate 1.9 FiO2 21.0 Potassium Carbon Dioxide Anion Gap BUN Creatinine Est GFR ( Amer) Est GFR (Non-Af Amer) POC Glucose (mg/dL) 96 Random Glucose Calcium Total Bilirubin AST ALT Alkaline Phosphatase Total Creatine Kinase Total Protein Albumin Globulin Albumin/Globulin Ratio Venous Blood Potassium 3.5 L Urine Color Urine Clarity Urine pH Ur Specific [place] Urine Protein Urine Glucose (UA) Urine Ketones Urine Blood Urine Nitrate Urine Bilirubin Urine Urobilinogen Ur Leukocyte Esterase Urine RBC (Auto) Urine Microscopic WBC Ur Squamous Epith Cells Urine Bacteria Alcohol, Quantitative 07/01/18 07/01/18 01:27 01:27 WBC RBC Hgb Hct MCV MCH MCHC RDW Plt Count MPV Neut % (Auto) Lymph % (Auto) [place] % (Auto) Eos % (Auto) Baso % (Auto) Neut # (Auto) Lymph # (Auto) [place] # (Auto) Eos # (Auto) Baso # (Auto) ESR pO2 VBG pH VBG pCO2 VBG HCO3 VBG Total CO2 VBG O2 Sat (Calc) VBG Base Excess VBG Potassium Sodium 138 Chloride 104 Glucose Lactate FiO2 Potassium 3.9 Carbon Dioxide 20 L Anion Gap 18 BUN 9 Creatinine 0.9 Est GFR ( Amer) > 60 Est GFR (Non-Af Amer) > 60 POC Glucose (mg/dL) Random Glucose 99 Calcium 8.8 Total Bilirubin 1.1 AST 74 H D ALT 36 Alkaline Phosphatase 614 H Total Creatine Kinase 583 H Total Protein 7.8 Albumin 3.9 Globulin 3.9 Albumin/Globulin Ratio 1.0 Venous Blood Potassium Urine Color Straw Urine Clarity Clear Urine pH 6.0 Ur Specific [place] < 1.005 Urine Protein Negative Urine Glucose (UA) Neg Urine Ketones Negative Urine Blood Moderate Urine Nitrate Negative Urine Bilirubin Negative Urine Urobilinogen 0.2-1.0 Ur Leukocyte Esterase Small Urine RBC (Auto) 1 Urine Microscopic WBC 1 Ur Squamous Epith Cells < 1 Urine Bacteria Rare Alcohol, Quantitative 238 H Assessment & Plan (1) Cellulitis of right foot Status: Acute (2) Alcohol abuse Status: Chronic - Assessment and Plan (Free Text) Assessment: 53 y/o man w/ pmh of recurrent LE cellulitis and EtOH abuse presents to ED with complaint right foot pain Plan: Right Foot Pain - Cellulitis vs. osteomyelitis - vital signs stable - CBC: 9.9>10.9/33.1<312 - ESR: 112 - CMP: 138/3.9, 104/20, 9/0.9, glucose 99, AST 74, ALT 36, alk phos 614 - VBG: pO2 37, pH 7.30, pCO2 20.9, lactate 1.9 - XR rt foot: report pending - podiatry consulted - ID consult ordered - start vancomycin 1 gm IV Q12h - start zosyn 3.375 gm IV Q8h - MRI w/ contrast right foot ordered - f/u blood , urine, wound cultures - f/u CBC, CMP - admit to Med/Surg Pain management - tylenol 650 mg PO Q6h for mild - motrin 600 mg PO Q6h for moderate - percocet 1 tab PO Q4 prn for severe Alcohol Abuse - chronic - alcohol: 238 - CIWA protocol ordered - unable to assess CIWA due to acute intoxication - IVF NS w/ MV, thiamine, and folic acid @ 150mL/hr Prophylactic measures - DVT: lovenox 40 mg SC daily <Vladimir Harris - Last Filed: 07/01/18 07:05> Results - Vital Signs Recent Vital Signs: Last Vital Signs Temp 97.5 F L 07/01/18 06:34 Pulse 88 07/01/18 06:34 Resp 18 07/01/18 06:34 BP 144/74 07/01/18 06:34 Pulse Ox 100 07/01/18 06:34 - Labs Result Diagrams: 07/01/18 01:27 07/01/18 01:27 Labs: Laboratory Results - last 24 hr 07/01/18 07/01/18 07/01/18 00:15 01:17 01:27 WBC 9.9 RBC 3.73 L Hgb 10.9 L Hct 33.1 L MCV 88.7 MCH 29.2 MCHC 32.9 L RDW 15.3 H Plt Count 312 D MPV 8.0 Neut % (Auto) 62.2 Lymph % (Auto) 29.0 [place] % (Auto) 6.3 Eos % (Auto) 1.2 Baso % (Auto) 1.3 Neut # (Auto) 6.2 Lymph # (Auto) 2.9 [place] # (Auto) 0.6 Eos # (Auto) 0.1 Baso # (Auto) 0.1 ESR 112 H pO2 37 VBG pH 7.30 L VBG pCO2 45 VBG HCO3 20.9 VBG Total CO2 23.5 VBG O2 Sat (Calc) 67.4 H VBG Base Excess -4.3 L VBG Potassium 3.5 L Sodium 135.0 Chloride 106.0 Glucose 104 Lactate 1.9 FiO2 21.0 Potassium Carbon Dioxide Anion Gap BUN Creatinine Est GFR ( Amer) Est GFR (Non-Af Amer) POC Glucose (mg/dL) 96 Random Glucose Calcium Total Bilirubin AST ALT Alkaline Phosphatase Total Creatine Kinase Total Protein Albumin Globulin Albumin/Globulin Ratio Venous Blood Potassium 3.5 L Urine Color Urine Clarity Urine pH Ur Specific [place] Urine Protein Urine Glucose (UA) Urine Ketones Urine Blood Urine Nitrate Urine Bilirubin Urine Urobilinogen Ur Leukocyte Esterase Urine RBC (Auto) Urine Microscopic WBC Ur Squamous Epith Cells Urine Bacteria Alcohol, Quantitative 07/01/18 07/01/18 01:27 01:27 WBC RBC Hgb Hct MCV MCH MCHC RDW Plt Count MPV Neut % (Auto) Lymph % (Auto) [place] % (Auto) Eos % (Auto) Baso % (Auto) Neut # (Auto) Lymph # (Auto) [place] # (Auto) Eos # (Auto) Baso # (Auto) ESR pO2 VBG pH VBG pCO2 VBG HCO3 VBG Total CO2 VBG O2 Sat (Calc) VBG Base Excess VBG Potassium Sodium 138 Chloride 104 Glucose Lactate FiO2 Potassium 3.9 Carbon Dioxide 20 L Anion Gap 18 BUN 9 Creatinine 0.9 Est GFR ( Amer) > 60 Est GFR (Non-Af Amer) > 60 POC Glucose (mg/dL) Random Glucose 99 Calcium 8.8 Total Bilirubin 1.1 AST 74 H D ALT 36 Alkaline Phosphatase 614 H Total Creatine Kinase 583 H Total Protein 7.8 Albumin 3.9 Globulin 3.9 Albumin/Globulin Ratio 1.0 Venous Blood Potassium Urine Color Straw Urine Clarity Clear Urine pH 6.0 Ur Specific [place] < 1.005 Urine Protein Negative Urine Glucose (UA) Neg Urine Ketones Negative Urine Blood Moderate Urine Nitrate Negative Urine Bilirubin Negative Urine Urobilinogen 0.2-1.0 Ur Leukocyte Esterase Small Urine RBC (Auto) 1 Urine Microscopic WBC 1 Ur Squamous Epith Cells < 1 Urine Bacteria Rare Alcohol, Quantitative 238 H
[2018-07-01] MEDS ORDERED: Vancomycin 1 g Inj ONE (05:17)
[2018-07-01] MEDS ORDERED: Enoxaparin 40 mg Syringe SC SCH (09:00)
--- NOTE | 2018-07-01 09:29 | RAD ---
Date of service: 07/01/2018 PROCEDURE: Right Foot Radiographs. HISTORY: pain COMPARISON: None. FINDINGS: BONES: Status post partial amputation of the great toe at the level of the midshaft of the proximal phalanx. There is no acute displaced fracture or bone destruction. Bone alignment is normal. There is a prominent plantar calcaneal spur and dorsal calcaneal enthesophyte. JOINTS: Normal. SOFT TISSUES: Mild dorsal soft tissue swelling OTHER FINDINGS: None. IMPRESSION: Status post partial amputation of the great toe. No acute findings.
[2018-07-01] MEDS: Multivitamin (MVI) 10 ML, Thiamine 100 MG, Folic Acid 1 MG in Sodium Chloride 0.9% 1,00... IV SCH ×3 (11:29→17:18)
[2018-07-01] MEDS: Piperacillin/Tazobact 3.375 GM in Sodium Chloride 0.9% 100 ML IVPB SCH ×2 (11:30→20:14)
[2018-07-01] MEDS ORDERED: Pneumococcal 23-Valent Vaccine IM ONE (13:33)
[2018-07-01] MEDS ORDERED: Influenza Vaccine (5 YR UP)/PF 60 MCG/0.5 ML SYR IM ONE (13:38)
[2018-07-02] MEDS: Multivitamin (MVI) 10 ML, Thiamine 100 MG, Folic Acid 1 MG in Sodium Chloride 0.9% 1,00... IV SCH (01:00)
[2018-07-02] MEDS: Piperacillin/Tazobact 3.375 GM in Sodium Chloride 0.9% 100 ML IVPB SCH ×3 (04:38→20:33)
[2018-07-02 06:39] LABS: BASO % 0.6 % (0.0-2.0); EOS # 0.1 K/uL (0.0-0.7); EOS % 1.2 % (0.0-4.0); LYMPH # 2.1 K/uL (1.0-4.3); LYMPH % 31.9 % (20.0-40.0); MEAN CELL VOLUME 88.2 fl (80.0-94.0); MEAN CORPUSCULAR HEMOGLOBIN 29.6 pg (27.0-31.0); MEAN CORPUSCULAR HGB CONC 33.6 g/dL (33.0-37.0); MEAN PLATELET VOLUME 8.6 fl (7.2-11.7); MONO # 0.5 K/uL (0.0-0.8); MONO % 7.6 % (0.0-10.0); NEUT # 3.8 K/uL (1.8-7.0); NEUT % 58.7 % (50.0-75.0); RBC 3.39 Mil/uL (4.40-5.90); RED CELL DISTRIBUTION WIDTH 15.3 % (11.5-14.5); WHITE BLOOD COUNT 6.5 K/uL (4.8-10.8)
[2018-07-02 07:05] LABS: ALB/GLOB RATIO 0.9 (1.0-2.1); ALT/SGPT 36 U/L (21-72); AST/SGOT 60 U/L (17-59); BLOOD UREA NITROGEN 7 mg/dl (9-20); CALCIUM 8.2 mg/dL (8.4-10.2); GFR NON-AFRICAN AMERICAN > 60
[2018-07-02] MEDS ORDERED: Potassium Chloride 20 mEq ER Tab PO ONE ×2 (07:10→13:44)
--- NOTE | 2018-07-02 08:04 | CP.PCM.PN ---
Subjective - Date & Time of Evaluation Date of Evaluation: 07/02/18 Time of Evaluation: 08:02 - Subjective Subjective: Podiatry consult note for attending Dr. Herrera 53 y/o male seen and evaluated at bedside for right foot pain s/p partial right hallux amputation on 06/18/18 at [facility], and to r/o OM of the right hallux. Patient resting comfortably in bed and in no acute distress. Patient complains of throbbing pain to the right foot. Patient denies F/N/V/SOB/CP. Objective - Vital Signs/Intake and Output Vital Signs (last 24 hours): Temp Pulse Resp BP Pulse Ox 99.1 F 87 18 143/86 100 07/02/18 00:37 07/02/18 00:37 07/02/18 00:37 07/02/18 00:37 07/02/18 06:00 - Medications Medications: Current Medications Acetaminophen (Tylenol 325mg Tab) 650 mg PO Q6 PRN PRN Reason: Pain, Mild (1-3) Chlordiazepoxide (Librium) 25 mg PO Q8 [facility] Last Admin: 07/02/18 00:40 Dose: 25 mg Vancomycin HCl 1 gm/ Sodium (Chloride) 250 mls @ 166.667 mls/hr IVPB Q12 [facility] PRN Reason: Protocol Last Admin: 07/01/18 21:01 Dose: 166.667 mls/hr Piperacillin Sod/Tazobactam (Sod 3.375 gm/ Sodium Chloride) 100 mls @ 100 mls/ hr IVPB Q8H [facility] PRN Reason: Protocol Last Admin: 07/02/18 04:38 Dose: 100 mls/hr Ibuprofen (Motrin Tab) 400 mg PO Q6H PRN PRN Reason: Pain, moderate (4-7) Last Admin: 07/01/18 22:31 Dose: 400 mg Lorazepam (Ativan) 1 mg IVP Q6 PRN PRN Reason: Seizure activity Oxycodone/Acetaminophen (Percocet 5/325 Mg Tab) 1 tab PO Q4 PRN PRN Reason: Pain, severe (8-10) Stop: 07/04/18 04:21 - Labs Labs: 07/02/18 05:30 07/02/18 05:30 - Constitutional Appears: Well, Non-toxic, No Acute Distress - Head Exam Head Exam: ATRAUMATIC, NORMOCEPHALIC - Extremities Exam Additional comments: Vascular: DP/ PT 2/4 b/l , CFT <3 secs x9, TG warm to warm, erythema noted on the anterior aspect of b/l legs, no edema noted Derm: no open lesions, surgical site noted at the previous right partial hallux amputation site, area of wound dehiscence noted centrally otherwise site well coapted, no drainage noted, no malodor, no clinical signs of infection, sutures still intact, improving erythema noted on the anterior aspect of b/l legs with minimally increased temperature, no open lesions on legs, Dry, scaling skin noted on the plantar aspect of the right foot, pre-ulcerative lesion noted to the tip of the right 2nd digit, no probe to bone, minimal erythematous with edema noted Ortho: No pain on palpation Neuro: protective sensation diminished b/l - Neurological Exam Neurological Exam: Alert, Awake, Oriented x3 - Psychiatric Exam Psychiatric exam: Normal Affect, Normal Mood Assessment and Plan - Assessment and Plan (Free Text) Assessment: 53 yo male with diabetes and HTN seen and evaluated at bedside for right partial hallux amputation and chronic cellulitis of the b/l anterior aspect of the legs. Plan: Patient seen and evaluated at the bedside. Plan discussed in details with the attending Dr. Herrera Patient chart and vitals and labs reviewed, afebrile, ESR 112 and CRP 73.1 Wound Cx Ordered- Pending X-ray R Foot - s/p partial amp of the great toe, no acute findings MRI R Foot - amputation of the right great toe at the level of hte proximal phalanx - soft tissue swelling with fluid filtration suggesting cellulitis or edema, no abscess - abnormal signal intensity in the proximal phalanx consisting of increased signal on STIR and low signal intensity on T1 consistent with Osteomyelitis Patient ulcer dressed using betadine, DSD Patient will be admitted for IV Antibiotics Infectious Disease- appreciate recommendations Podiatry will continue to follow patient while in house
--- NOTE | 2018-07-02 08:29 | CP.PCM.PN ---
Subjective - Date & Time of Evaluation Date of Evaluation: 07/02/18 Time of Evaluation: 08:29 - Subjective Subjective: Patient seen and examined today at bedside, no acute overnight events, more alert today, c/o R foot pain but said is well controlled with medications. Otherwise he denies chest pain, sob, palpitations, no F/N/V. Objective - Vital Signs/Intake and Output Vital Signs (last 24 hours): Temp Pulse Resp BP Pulse Ox 99.1 F 87 18 143/86 100 07/02/18 00:37 07/02/18 00:37 07/02/18 00:37 07/02/18 00:37 07/02/18 06:00 - Medications Medications: Current Medications Acetaminophen (Tylenol 325mg Tab) 650 mg PO Q6 PRN PRN Reason: Pain, Mild (1-3) Chlordiazepoxide (Librium) 25 mg PO Q8 [facility] Last Admin: 07/02/18 00:40 Dose: 25 mg Vancomycin HCl 1 gm/ Sodium (Chloride) 250 mls @ 166.667 mls/hr IVPB Q12 [facility] PRN Reason: Protocol Last Admin: 07/01/18 21:01 Dose: 166.667 mls/hr Piperacillin Sod/Tazobactam (Sod 3.375 gm/ Sodium Chloride) 100 mls @ 100 mls/ hr IVPB Q8H [facility] PRN Reason: Protocol Last Admin: 07/02/18 04:38 Dose: 100 mls/hr Ibuprofen (Motrin Tab) 400 mg PO Q6H PRN PRN Reason: Pain, moderate (4-7) Last Admin: 07/01/18 22:31 Dose: 400 mg Lorazepam (Ativan) 1 mg IVP Q6 PRN PRN Reason: Seizure activity Oxycodone/Acetaminophen (Percocet 5/325 Mg Tab) 1 tab PO Q4 PRN PRN Reason: Pain, severe (8-10) Stop: 07/04/18 04:21 Saccharomyces Boulardii (Florastor) 250 mg PO BID [facility] - Labs Labs: 07/02/18 05:30 07/02/18 05:30 - Constitutional Appears: No Acute Distress - Head Exam Head Exam: NORMAL INSPECTION - Eye Exam Eye Exam: EOMI, PERRL - ENT Exam ENT Exam: Mucous Membranes Moist - Respiratory Exam Respiratory Exam: Clear to Ausculation Bilateral. absent: Rales, Rhonchi, Wheezes - Cardiovascular Exam Cardiovascular Exam: REGULAR RHYTHM. absent: Tachycardia, Murmur - GI/Abdominal Exam GI & Abdominal Exam: Soft, Normal Bowel Sounds. absent: Distended, Tenderness - Extremities Exam Extremities Exam: absent: Calf Tenderness Additional comments: RLE dressing noted clean, dry and intact. Mild tenderness. Assessment and Plan - Assessment and Plan (Free Text) Assessment: 53 y/o man w/ PMH of recurrent LE cellulitis and EtOH abuse presents to ED with complaint right foot pain. MRI as reported per Podiatry showed cellulitis and OM. ID consulted. No surgical procedure for now. Plan: Right Foot Cellulitis and OM - s/p partial R big toe amputation at [place] 06/18/18 - MRI w/contrast right foot: Cellulitis, low T1 signal consistent with OM (by Podiatry) - afebrile, no leukocytosis - ESR: 112, CRP 73 - c/w vancomycin 1 gm IV Q12h - c/w zosyn 3.375 gm IV Q8h - for vanco trough - wound cultures: staph aureus - blood and urine cx pending - Podiatry on board - ID consulted, awaiting recommds. Pain management - tylenol 650 mg PO Q6h for mild - motrin 600 mg PO Q6h for moderate - percocet 1 tab PO Q4 prn for severe Alcohol Abuse - chronic - alcohol: 238 - [facility] protocol. - IVF NS w/ MV, thiamine, and folic acid @ 150mL/hr DVT Prophylaxis: - DVT: lovenox 40 mg SC daily
[2018-07-02] MEDS: Saccharomyces Boulardi 250 mg Cap PO SCH ×2 (10:08→17:02)
[2018-07-02] MEDS: Oxycodone/Acetaminophen 5/325 mg Tab PO PRN (12:54)
--- NOTE | 2018-07-02 13:30 | MRI ---
MRI right forefoot HISTORY: Osteomyelitis. COMPARISON: 07/01/2018 TECHNIQUE: Multi-echo multiplanar sequences were performed through the right forefoot without the use of intravenous contrast. FINDINGS: Amputation of the 1st digit to the head of the 1st proximal phalanx. Prominent reticulation and edema as well as fluid intensity signal seen at the level of the soft tissues at the volar aspect of the remnant 1st proximal phalanx. Prominent signal abnormality within the remnant 1st proximal phalanx demonstrating decreased T1 signal and increased STIR signal suggestive for an acute osteomyelitis. Reticulation and edema within the remainder of the foot most prominent dorsally consistent with a cellulitis. Signal abnormality seen at the level of the 2nd distal phalanx demonstrating some increased STIR signal with some mild patchy decreased T1 signal. This is of uncertain clinical etiology and may represent failure of fat suppression however underlying acute infectious and or inflammatory changes such as an acute osteomyelitis and or additional etiology at this level cannot be excluded. Clinical correlation. Signal abnormality seen within the 5th proximal phalanx with patchy decreased T1 signal and increased STIR signal. This may be the sequelae of failure of fat suppression; however, underlying acute infectious and or inflammatory changes such as acute osteomyelitis and or posttraumatic changes and or additional etiology cannot be excluded. Clinical correlation. Degenerative changes in the midfoot with joint space narrowing and bony spurring. Incidentally noted is a mild tenosynovitis of the posterior tibial tendon sheath. Impression: 1. Amputation of the 1st digit to the head of the 1st proximal phalanx. Prominent reticulation and edema as well as fluid intensity signal seen at the level of the soft tissues at the volar aspect of the remnant 1st proximal phalanx. Prominent signal abnormality within the remnant 1st proximal phalanx demonstrating decreased T1 signal and increased STIR signal suggestive for an acute osteomyelitis. 2. Reticulation and edema within the remainder of the foot most prominent dorsally consistent with a cellulitis. 3. Signal abnormality seen at the level of the 2nd distal phalanx demonstrating some increased STIR signal with some mild patchy decreased T1 signal. This is of uncertain clinical etiology and may represent failure of fat suppression however underlying acute infectious and or inflammatory changes such as an acute osteomyelitis and or additional etiology at this level cannot be excluded. Clinical correlation. 4. Signal abnormality seen within the 5th proximal phalanx with patchy decreased T1 signal and increased STIR signal. This may be the sequelae of failure of fat suppression; however, underlying acute infectious and or inflammatory changes such as acute osteomyelitis and or posttraumatic changes and or additional etiology cannot be excluded. Clinical correlation. 5. Degenerative changes in the midfoot with joint space narrowing and bony spurring. 6. Incidentally noted is a mild tenosynovitis of the posterior tibial tendon sheath. These findings were preliminarily reported at 8:18 p.m. on 07/01/[address] Ti Meza from [facility].
[2018-07-02] MEDS ORDERED: Potassium CL 10 MEQ/50 ML 50 ML IVPB SCH (14:00)
[2018-07-02 14:47] LABS: INR 1.2; PROTHROMBIN TIME 13.2 Seconds (9.8-13.1)
[2018-07-03] MEDS: Piperacillin/Tazobact 3.375 GM in Sodium Chloride 0.9% 100 ML IVPB SCH ×2 (05:00→13:25)
[2018-07-03 07:14] LABS: BLOOD UREA NITROGEN 7 mg/dl (9-20); CALCIUM 8.2 mg/dL (8.4-10.2); GFR NON-AFRICAN AMERICAN > 60
[2018-07-03] MEDS ORDERED: Potassium Chloride 20 mEq ER Tab PO ONE (07:42)
[2018-07-03] MEDS: Saccharomyces Boulardi 250 mg Cap PO SCH ×2 (09:09→17:17)
[2018-07-03] MEDS: Multivitamin With Minerals Tab PO SCH (09:10)
[2018-07-03] MEDS: Enoxaparin 40 mg Syringe SC SCH (09:10)
--- NOTE | 2018-07-03 10:01 | CP.PCM.PN ---
Subjective - Date & Time of Evaluation Date of Evaluation: 07/03/18 Time of Evaluation: 07:53 - Subjective Subjective: Patient seen and examined today at bedside, no acute overnight events. Reports feeling better though still with R foot pain but said is well controlled with medications. Otherwise he denies chest pain, sob, palpitations, no F/N/V. Objective - Vital Signs/Intake and Output Vital Signs (last 24 hours): Temp Pulse Resp BP Pulse Ox 98.7 F 88 20 167/96 H 99 07/03/18 08:01 07/03/18 09:12 07/03/18 08:01 07/03/18 09:12 07/03/18 08:01 - Medications Medications: Current Medications Acetaminophen (Tylenol 325mg Tab) 650 mg PO Q6 PRN PRN Reason: Pain, Mild (1-3) Chlordiazepoxide (Librium) 25 mg PO Q8 [facility] Last Admin: 07/03/18 09:10 Dose: 25 mg Enoxaparin Sodium (Lovenox) 40 mg SC DAILY [facility] PRN Reason: Protocol Last Admin: 07/03/18 09:10 Dose: 40 mg Folic Acid (Folic Acid) 1 mg PO DAILY [facility] Last Admin: 07/03/18 09:09 Dose: 1 mg Vancomycin HCl 1 gm/ Sodium (Chloride) 250 mls @ 166.667 mls/hr IVPB Q12 [facility] PRN Reason: Protocol Last Admin: 07/03/18 09:11 Dose: 166.667 mls/hr Piperacillin Sod/Tazobactam (Sod 3.375 gm/ Sodium Chloride) 100 mls @ 100 mls/ hr IVPB Q8H [facility] PRN Reason: Protocol Last Admin: 07/03/18 05:00 Dose: 100 mls/hr Ibuprofen (Motrin Tab) 400 mg PO Q6H PRN PRN Reason: Pain, moderate (4-7) Last Admin: 07/02/18 10:15 Dose: 400 mg Lisinopril (Zestril) 10 mg PO DAILY [facility] Last Admin: 07/03/18 09:12 Dose: 10 mg Lorazepam (Ativan) 1 mg IVP Q6 PRN PRN Reason: Seizure activity Multivitamins/Minerals (Therapeutic-M Tab) 1 tab PO DAILY [facility] Last Admin: 07/03/18 09:10 Dose: 1 tab Nystatin (Nystop Topical Powder) 1 applic TOP TID [facility] Last Admin: 07/03/18 09:10 Dose: 1 applic Oxycodone/Acetaminophen (Percocet 5/325 Mg Tab) 1 tab PO Q4 PRN PRN Reason: Pain, severe (8-10) Stop: 07/04/18 04:21 Last Admin: 07/02/18 12:54 Dose: 1 tab Saccharomyces Boulardii (Florastor) 250 mg PO BID [facility] Last Admin: 07/03/18 09:09 Dose: 250 mg Thiamine HCl (Vitamin B1 Tab) 100 mg PO DAILY [facility] Last Admin: 07/03/18 09:11 Dose: 100 mg - Labs Labs: 07/02/18 05:30 07/03/18 06:10 PT 13.2 Seconds (9.8-13.1) H 07/02/18 14:40 INR 1.2 07/02/18 14:40 - Constitutional Appears: No Acute Distress - Head Exam Head Exam: NORMAL INSPECTION - ENT Exam ENT Exam: Mucous Membranes Moist - Respiratory Exam Respiratory Exam: Clear to Ausculation Bilateral. absent: Rales, Rhonchi, Wheezes - Cardiovascular Exam Cardiovascular Exam: REGULAR RHYTHM. absent: Tachycardia - GI/Abdominal Exam GI & Abdominal Exam: Soft. absent: Distended, Tenderness - Extremities Exam Extremities Exam: absent: Calf Tenderness Additional comments: Dressing clean and dry. - Neurological Exam Neurological Exam: Alert, Awake, Oriented x3 - Skin Skin Exam: Dry, Warm Assessment and Plan - Assessment and Plan (Free Text) Assessment: 53 y/o man w/ PMH of recurrent LE cellulitis and EtOH abuse, s/p recent right hallux amputation at [facility] 2 weeks ago presents to ED with complaint right foot pain, patient admitted for possible OM and cellulitis of LE and started on IV vanco and Zosyn. MRI showed cellulitis and OM. ID consulted. No surgical procedure for now. Plan: Right Foot Cellulitis and OM - s/p partial R big toe amputation at [place] 06/18/18 - MRI w/contrast official reported Cellulitis and OM - afebrile, no leukocytosis - ESR: 112, CRP 73 - c/w vancomycin 1 gm IV Q12h and zosyn 3.375 gm IV Q8h (day 3) - vanco trough: 17.5 - pain control tylenol, motrin and percocet - wound cultures: staph aureus - blood cx negative - urine cx multiple species, contamination - Podiatry on board - ID consulted, awaiting recommds. Alcohol Abuse, chronic - no signs of withdrawal - CIWA protocol. - IVF NS w/ MV, thiamine, and folic acid @ 150mL/hr Anemia of chronic disease - hgb 10, stable Hypokalemia, improving - H 3.4 - replaced with KCl runs 40 MEQ and 20 Meq PO yesterday - KCL 20meq PO this am - f/u BMP Groin area candidiasis - nystatin powder DVT Prophylaxis: - SCD and Lovenox SC
--- NOTE | 2018-07-03 16:04 | CP.PCM.PN ---
Subjective - Date & Time of Evaluation Date of Evaluation: 07/03/18 Time of Evaluation: 15:42 - Subjective Subjective: Podiatry consult note for attending Dr. Herrera 53 y/o male seen and evaluated at bedside for right foot pain s/p partial right hallux amputation on 06/18/18 at [facility], and to r/o OM of the right hallux. Patient resting comfortably in bed and in no acute distress. Patient complains of throbbing pain to the right foot. Patient denies F/N/V/SOB/CP. Objective - Vital Signs/Intake and Output Vital Signs (last 24 hours): Temp Pulse Resp BP Pulse Ox 98.7 F 78 20 167/96 H 100 07/03/18 08:01 07/03/18 10:51 07/03/18 08:01 07/03/18 09:12 07/03/18 10:51 - Medications Medications: Current Medications Acetaminophen (Tylenol 325mg Tab) 650 mg PO Q6 PRN PRN Reason: Pain, Mild (1-3) Chlordiazepoxide (Librium) 25 mg PO Q8 [facility] Last Admin: 07/03/18 09:10 Dose: 25 mg Enoxaparin Sodium (Lovenox) 40 mg SC DAILY [facility] PRN Reason: Protocol Last Admin: 07/03/18 09:10 Dose: 40 mg Folic Acid (Folic Acid) 1 mg PO DAILY [facility] Last Admin: 07/03/18 09:09 Dose: 1 mg Levofloxacin/Dextrose (Levaquin 750mg) 750 mg in 150 mls @ 150 mls/hr IVPB DAILY [facility] PRN Reason: Protocol Ibuprofen (Motrin Tab) 400 mg PO Q6H PRN PRN Reason: Pain, moderate (4-7) Last Admin: 07/02/18 10:15 Dose: 400 mg Lisinopril (Zestril) 10 mg PO DAILY [facility] Last Admin: 07/03/18 09:12 Dose: 10 mg Lorazepam (Ativan) 1 mg IVP Q6 PRN PRN Reason: Seizure activity Multivitamins/Minerals (Therapeutic-M Tab) 1 tab PO DAILY [facility] Last Admin: 07/03/18 09:10 Dose: 1 tab Nystatin (Nystop Topical Powder) 1 applic TOP TID [facility] Last Admin: 07/03/18 09:10 Dose: 1 applic Oxycodone/Acetaminophen (Percocet 5/325 Mg Tab) 1 tab PO Q4 PRN PRN Reason: Pain, severe (8-10) Stop: 07/04/18 04:21 Last Admin: 07/02/18 12:54 Dose: 1 tab Saccharomyces Boulardii (Florastor) 250 mg PO BID [facility] Last Admin: 07/03/18 09:09 Dose: 250 mg Thiamine HCl (Vitamin B1 Tab) 100 mg PO DAILY [facility] Last Admin: 07/03/18 09:11 Dose: 100 mg - Labs Labs: 07/02/18 05:30 07/03/18 06:10 PT 13.2 Seconds (9.8-13.1) H 07/02/18 14:40 INR 1.2 07/02/18 14:40 - Constitutional Appears: Well, Non-toxic, No Acute Distress - Head Exam Head Exam: ATRAUMATIC, NORMOCEPHALIC - Extremities Exam Additional comments: Vascular: DP/ PT 2/4 b/l , CFT <3 secs x9, TG warm to warm, erythema noted on the anterior aspect of b/l legs, no edema noted Derm: no open lesions, surgical site noted at the previous right partial hallux amputation site, area of wound dehiscence noted centrally otherwise site well coapted, no drainage noted, no malodor, no clinical signs of infection, sutures still intact, improving erythema noted on the anterior aspect of b/l legs with minimally increased temperature, no open lesions on legs, Dry, scaling skin noted on the plantar aspect of the right foot, ulcerative noted at the tip of the 2nd digit, ulcer now drainage purulent discharge, negative probe to bone, positive malodor, erythema noted to the 2nd digit with swelling Ortho: No pain on palpation Neuro: protective sensation diminished b/l - Neurological Exam Neurological Exam: Alert, Awake, Oriented x3 - Psychiatric Exam Psychiatric exam: Normal Affect, Normal Mood Assessment and Plan - Assessment and Plan (Free Text) Assessment: 53 yo male with diabetes and HTN seen and evaluated at bedside for right partial hallux amputation and chronic cellulitis of the b/l anterior aspect of the legs. Plan: Patient seen and evaluated at the bedside. Plan discussed in details with the attending Dr. Herrera Patient chart and vitals and labs reviewed, afebrile, ESR 112 and CRP 73.1 from 07/01/18 Wound Cx right hallux amp site-Final, Staph Aureus Wound Cx right 2nd digit- ordered X-ray R Foot - s/p partial amp of the great toe, no acute findings MRI R Foot - amputation of the right great toe at the level of the proximal phalanx - soft tissue swelling with fluid filtration suggesting cellulitis or edema, no abscess - abnormal signal intensity in the proximal phalanx consisting of increased signal on STIR and low signal intensity on T1 consistent with Osteomyelitis Patient ulcer dressed using betadine, DSD Patient will be admitted for IV Antibiotics Infectious Disease- appreciate recommendations Pending plan based on wound culture from the 2nd digit Podiatry will continue to follow patient while in house
[2018-07-03] MEDS: levoFLOXacin 750 mg in D5W 750 MG/150 ML BAG IVPB SCH (17:26)
[2018-07-03] MEDS: Oxycodone/Acetaminophen 5/325 mg Tab PO PRN (20:50)
[2018-07-04 06:31] LABS: BASO % 0.4 % (0.0-2.0); EOS # 0.1 K/uL (0.0-0.7); EOS % 1.5 % (0.0-4.0); HEMOGLOBIN 9.8 g/dL (12.0-18.0); LYMPH # 1.8 K/uL (1.0-4.3); LYMPH % 27.2 % (20.0-40.0); MEAN CELL VOLUME 88.2 fl (80.0-94.0); MEAN CORPUSCULAR HEMOGLOBIN 29.2 pg (27.0-31.0); MEAN CORPUSCULAR HGB CONC 33.2 g/dL (33.0-37.0); MEAN PLATELET VOLUME 8.5 fl (7.2-11.7); MONO # 0.3 K/uL (0.0-0.8); MONO % 4.8 % (0.0-10.0); NEUT # 4.5 K/uL (1.8-7.0); NEUT % 66.1 % (50.0-75.0); NRBC % 0.1 % (0.0-0.0); RBC 3.35 Mil/uL (4.40-5.90); RED CELL DISTRIBUTION WIDTH 15.6 % (11.5-14.5); WHITE BLOOD COUNT 6.8 K/uL (4.8-10.8)
[2018-07-04 06:32] LABS: BLOOD UREA NITROGEN 8 mg/dl (9-20); CALCIUM 8.2 mg/dL (8.4-10.2); GFR NON-AFRICAN AMERICAN > 60
--- NOTE | 2018-07-04 06:36 | CP.PCM.PN ---
Subjective - Date & Time of Evaluation Date of Evaluation: 07/04/18 Time of Evaluation: 06:32 - Subjective Subjective: Podiatry progress note for attending Dr. Herrera 53 y/o male seen and evaluated at bedside for right foot pain s/p partial right hallux amputation on 06/18/18 at [facility], and to r/o OM of the right hallux. Patient resting comfortably in bed and in no acute distress. Patient complains of throbbing pain to the right foot. Patient denies F/N/V/SOB/CP. Objective - Vital Signs/Intake and Output Vital Signs (last 24 hours): Temp Pulse Resp BP Pulse Ox 98.2 F 73 20 153/95 H 96 07/03/18 23:58 07/03/18 23:58 07/03/18 23:58 07/03/18 23:58 07/03/18 23:58 - Medications Medications: Current Medications Acetaminophen (Tylenol 325mg Tab) 650 mg PO Q6 PRN PRN Reason: Pain, Mild (1-3) Chlordiazepoxide (Librium) 25 mg PO Q8 [facility] Last Admin: 07/04/18 00:58 Dose: 25 mg Enoxaparin Sodium (Lovenox) 40 mg SC DAILY [facility] PRN Reason: Protocol Last Admin: 07/03/18 09:10 Dose: 40 mg Folic Acid (Folic Acid) 1 mg PO DAILY [facility] Last Admin: 07/03/18 09:09 Dose: 1 mg Levofloxacin/Dextrose (Levaquin 750mg) 750 mg in 150 mls @ 150 mls/hr IVPB DAILY [facility] PRN Reason: Protocol Last Admin: 07/03/18 17:26 Dose: 150 mls/hr Ibuprofen (Motrin Tab) 400 mg PO Q6H PRN PRN Reason: Pain, moderate (4-7) Last Admin: 07/02/18 10:15 Dose: 400 mg Lisinopril (Zestril) 10 mg PO DAILY [facility] Last Admin: 07/03/18 09:12 Dose: 10 mg Lorazepam (Ativan) 1 mg IVP Q6 PRN PRN Reason: Seizure activity Multivitamins/Minerals (Therapeutic-M Tab) 1 tab PO DAILY [facility] Last Admin: 07/03/18 09:10 Dose: 1 tab Nystatin (Nystop Topical Powder) 1 applic TOP TID [facility] Last Admin: 07/03/18 17:18 Dose: 1 applic Saccharomyces Boulardii (Florastor) 250 mg PO BID [facility] Last Admin: 07/03/18 17:17 Dose: 250 mg Thiamine HCl (Vitamin B1 Tab) 100 mg PO DAILY [facility] Last Admin: 07/03/18 09:11 Dose: 100 mg - Labs Labs: 07/02/18 05:30 07/03/18 06:10 PT 13.2 Seconds (9.8-13.1) H 07/02/18 14:40 INR 1.2 07/02/18 14:40 - Constitutional Appears: Well, Non-toxic, No Acute Distress - Head Exam Head Exam: ATRAUMATIC, NORMOCEPHALIC - Extremities Exam Additional comments: Vascular: DP/ PT 2/4 b/l , CFT <3 secs x9, TG warm to warm, erythema noted on the anterior aspect of b/l legs, no edema noted Derm: surgical site noted at the previous right partial hallux amputation site, area of wound dehiscence noted centrally otherwise site well coapted, no drainage noted, no malodor, no clinical signs of infection, sutures still intact , improving erythema noted on the anterior aspect of b/l legs with minimally increased temperature, no open lesions on legs, Dry, scaling skin noted on the plantar aspect of the right foot, ulceration noted at the tip of the 2nd digit, minimal sero-sanguinous drainage noted, negative probe to bone, negative malodor, erythema noted to the 2nd digit with swelling, no tracking or tunneling noted. Ortho: No pain on palpation Neuro: protective sensation diminished b/l - Neurological Exam Neurological Exam: Alert, Awake, Oriented x3 - Psychiatric Exam Psychiatric exam: Normal Affect, Normal Mood - Skin Skin Exam: Normal Color Assessment and Plan - Assessment and Plan (Free Text) Assessment: 53 yo male with diabetes and HTN seen and evaluated at bedside for right partial hallux amputation; purulent ulcerative lesion at the tip of the right second digit, and chronic cellulitis of the b/l anterior aspect of the legs. Plan: Patient seen and evaluated at the bedside. Plan discussed in details with the attending Dr. Herrera Patient chart and vitals and labs reviewed, afebrile, ESR 112 and CRP 73.1 from 07/01/18 Wound Cx right hallux amp site-Final, Staph Aureus Wound Cx right 2nd digit- Pending X-ray R Foot - s/p partial amp of the great toe, no acute findings MRI R Foot - amputation of the right great toe at the level of the proximal phalanx - soft tissue swelling with fluid filtration suggesting cellulitis or edema, no abscess - abnormal signal intensity in the proximal phalanx consisting of increased signal on STIR and low signal intensity on T1 consistent with Osteomyelitis - signal abnormalty at the distal 2nd phalanx Patients wounds dressed using betadine, DSD Patient thoroughly explained surgical plan vs. 4-6 weeks of antibioticsInfectious disease recommends PO Levaquin as the patient not a candidate for a PICC line Patient states he would not like another surgery at this time and would like to go home with the PO Antibiotics Patient explained all the risks and benefits of both options Patient thoroughly explained to return to the ED if there are clinical signs of infection noted Reporting Consultant services were used and patient demonstrated verbal understanding Patient can follow up in the Podiatry clinic Podiatry will continue to follow patient while in house
[2018-07-04] MEDS ORDERED: Potassium Chloride 20 mEq ER Tab PO ONE (06:50)
[2018-07-04 08:23] VITALS: BP 156/90; PULSE 72; RESP 18; TEMP 98.4
[2018-07-04] MEDS: Saccharomyces Boulardi 250 mg Cap PO SCH (08:24)
[2018-07-04] MEDS: Enoxaparin 40 mg Syringe SC SCH (08:24)
[2018-07-04] MEDS: Multivitamin With Minerals Tab PO SCH (08:25)
[2018-07-04] MEDS: levoFLOXacin 750 mg in D5W 750 MG/150 ML BAG IVPB SCH (08:25)
--- NOTE | 2018-07-04 11:45 | CP.PCM.DIS ---
<Cami Salmeron - Last Filed: 07/04/18 19:48> Provider - Provider Date of Admission: 07/01/18 03:50 Attending physician: Vladimir Harris MD Consults: ID Dr Blackwood Podiatry: Dr Herrera Time Spent in preparation of Discharge (in minutes): 30 Diagnosis - Discharge Diagnosis (1) Cellulitis of right foot Status: Acute (2) Foot osteomyelitis, right Status: Acute (3) Alcohol abuse Status: Acute (4) Anemia in chronic illness Status: Acute (5) Hypokalemia Status: Acute (6) Lissette rash of groin Status: Acute Hospital Course - Lab Results Lab Results: Micro Results 07/03/18 09:54 Foot - Right Gram Stain - Final 07/01/18 01:19 Blood-Venous Blood Culture - Preliminary NO GROWTH AFTER 48 HOURS 07/01/18 01:04 Blood-Venous Blood Culture - Preliminary NO GROWTH AFTER 48 HOURS 07/01/18 05:12 Foot - Right Gram Stain - Final 07/01/18 05:12 Foot - Right Wound Culture - Final Staphylococcus Aureus 07/01/18 01:20 Urine,Clean Catch Urine Culture - Final 50-100,000 CFU/ML. MULTIPLE SPECIES. SUGGEST REPEAT SPECIMEN. Most Recent Lab Values WBC 6.8 K/uL (4.8-10.8) 07/04/18 05:45 RBC 3.35 Mil/uL (4.40-5.90) L 07/04/18 05:45 Hgb 9.8 g/dL (12.0-18.0) L 07/04/18 05:45 Hct 29.6 % (35.0-51.0) L 07/04/18 05:45 MCV 88.2 fl (80.0-94.0) 07/04/18 05:45 MCH 29.2 pg (27.0-31.0) 07/04/18 05:45 MCHC 33.2 g/dL (33.0-37.0) 07/04/18 05:45 RDW 15.6 % (11.5-14.5) H 07/04/18 05:45 Plt Count 199 K/uL (130-400) 07/04/18 05:45 MPV 8.5 fl (7.2-11.7) 07/04/18 05:45 Neut % (Auto) 66.1 % (50.0-75.0) 07/04/18 05:45 Lymph % (Auto) 27.2 % (20.0-40.0) 07/04/18 05:45 [place] % (Auto) 4.8 % (0.0-10.0) 07/04/18 05:45 Eos % (Auto) 1.5 % (0.0-4.0) 07/04/18 05:45 Baso % (Auto) 0.4 % (0.0-2.0) 07/04/18 05:45 Neut # (Auto) 4.5 K/uL (1.8-7.0) 07/04/18 05:45 Lymph # (Auto) 1.8 K/uL (1.0-4.3) 07/04/18 05:45 [place] # (Auto) 0.3 K/uL (0.0-0.8) 07/04/18 05:45 Eos # (Auto) 0.1 K/uL (0.0-0.7) 07/04/18 05:45 Baso # (Auto) 0.0 K/uL (0.0-0.2) 07/04/18 05:45 ESR 112 mm/hr (0-20) H 07/01/18 01:27 PT 13.2 Seconds (9.8-13.1) H 07/02/18 14:40 INR 1.2 07/02/18 14:40 pO2 37 mm/Hg (30-55) 07/01/18 00:15 VBG pH 7.30 (7.32-7.43) L 07/01/18 00:15 VBG pCO2 45 mmHg (40-60) 07/01/18 00:15 VBG HCO3 20.9 mmol/L 07/01/18 00:15 VBG Total CO2 23.5 mmol/L (22-28) 07/01/18 00:15 VBG O2 Sat (Calc) 67.4 % (40-65) H 07/01/18 00:15 VBG Base Excess -4.3 mmol/L (0.0-2.0) L 07/01/18 00:15 VBG Potassium 3.5 mmol/L (3.6-5.2) L 07/01/18 00:15 Sodium 135.0 mmol/L (132-148) 07/01/18 00:15 Chloride 106.0 mmol/L (98-107) 07/01/18 00:15 Glucose 104 mg/dL (75-110) 07/01/18 00:15 Lactate 1.9 mmol/L (0.7-2.1) 07/01/18 00:15 FiO2 21.0 % 07/01/18 00:15 Sodium 141 mmol/l (132-148) 07/04/18 05:45 Potassium 3.3 MMOL/L (3.6-5.0) L 07/04/18 05:45 Chloride 106 mmol/L (98-107) 07/04/18 05:45 Carbon Dioxide 29 mmol/L (22-30) 07/04/18 05:45 Anion Gap 9 (10-20) L 07/04/18 05:45 BUN 8 mg/dl (9-20) L 07/04/18 05:45 Creatinine 1.1 mg/dl (0.8-1.5) 07/04/18 05:45 Est GFR ( Amer) > 60 07/04/18 05:45 Est GFR (Non-Af Amer) > 60 07/04/18 05:45 POC Glucose (mg/dL) 112 mg/dL (65-110) H 07/02/18 05:22 Random Glucose 95 mg/dL (75-110) 07/04/18 05:45 Calcium 8.2 mg/dL (8.4-10.2) L 07/04/18 05:45 Total Bilirubin 1.2 mg/dl (0.2-1.3) 07/02/18 05:30 AST 60 U/L (17-59) H 07/02/18 05:30 ALT 36 U/L (21-72) 07/02/18 05:30 Alkaline Phosphatase 591 U/L (38-126) H 07/02/18 05:30 Total Creatine Kinase 583 U/L (55-170) H 07/01/18 01:27 C-Reactive Prot, Quant 73.1 mg/L (<8.0) H 07/01/18 05:12 Total Protein 6.4 G/DL (6.3-8.2) 07/02/18 05:30 Albumin 3.0 g/dL (3.5-5.0) L D 07/02/18 05:30 Globulin 3.4 gm/dL (2.2-3.9) 07/02/18 05:30 Albumin/Globulin Ratio 0.9 (1.0-2.1) L 07/02/18 05:30 Venous Blood Potassium 3.5 mmol/L (3.6-5.2) L 07/01/18 00:15 Urine Color Straw (YELLOW) 07/01/18 01:27 Urine Clarity Clear (Clear) 07/01/18 01:27 Urine pH 6.0 (5.0-8.0) 07/01/18 01:27 Ur Specific [place] < 1.005 (1.003-1.030) 07/01/18 01:27 Urine Protein Negative mg/dL (NEGATIVE) 07/01/18 01:27 Urine Glucose (UA) Neg mg/dL (Normal) 07/01/18 01:27 Urine Ketones Negative mg/dL (NEGATIVE) 07/01/18 01:27 Urine Blood Moderate (NEGATIVE) 07/01/18 01:27 Urine Nitrate Negative (NEGATIVE) 07/01/18 01:27 Urine Bilirubin Negative (NEGATIVE) 07/01/18 01:27 Urine Urobilinogen 0.2-1.0 mg/dL (0.2-1.0) 07/01/18 01:27 Ur Leukocyte Esterase Small Edgardo/uL (Negative) 07/01/18 01:27 Urine RBC (Auto) 1 /hpf (0-3) 07/01/18 01:27 Urine Microscopic WBC 1 /hpf (0-5) 07/01/18 01:27 Ur Squamous Epith Cells < 1 /hpf (0-5) 07/01/18 01:27 Urine Bacteria Rare (<OCC) 07/01/18 01:27 Vancomycin Trough 17.5 ug/mL (5.0-10.0) H 07/02/18 20:40 Alcohol, Quantitative 238 mg/dl (0-10) H 07/01/18 01:27 - Hospital Course Hospital Course: 53 yo male with PMH ETOH abuse , homeless was admitted for suspected R foot cellulitis and acute OM, patient is s/p partial right great toe amputation on at [facility]. Patient has history of recurrent cellulitis in the past . Patient admitted intoxicated. As per patient he was recently discharged from [facility] and was given prescription for Augmentin but did not buy due to economic reasons. On admission foot MRI reported R great toe cellulitis and OM and signal abnormality in distal 2nd phalange. Patient was started onIV abx, wound cx positive for MSSA. Podiatry and ID were consulted. Patient refuses surgery at this time states he would not like another surgery in his foot for now. Patient pain, afebrile and WBC wnl. Able to ambulate w/o any devise, was discharged home stable. Rx for Levaquin was filled and pt provided with medicines to complete 6 weeks of abx, also instructed to f/u at Podiatry clinic with Dr Herrera. Has appt at [facility] on 07/09. Discharge Exam - Head Exam Head Exam: ATRAUMATIC, NORMOCEPHALIC - Eye Exam Eye Exam: Normal appearance - Respiratory Exam Respiratory Exam: Clear to PA & Lateral. absent: Rales, Rhonchi, Wheezes - Cardiovascular Exam Cardiovascular Exam: REGULAR RHYTHM, +S2, +S4. absent: Tachycardia - GI/Abdominal Exam GI & Abdominal Exam: Normal Bowel Sounds, Soft. absent: Distended, Tenderness - Extremities Exam Additional comments: Dressing noted clean and dry. Discharge Plan - Discharge Medications Prescriptions: RX: Levofloxacin [Levaquin] 750 mg PO DAILY 42 Days #42 tablet - Follow Up Plan Condition: FAIR Disposition: HOME/ ROUTINE Instructions: Alcohol Abuse and Alcoholism (DC), Cellulitis (DC) Additional Instructions: hacer kandy en [facility] [place] y con el podiatra dentro 1 semana Referrals: [facility] [place] [Outside] Zain Herrera, DPM [Doctor Podiatric Medicine] - <Bela Moreno - Last Filed: 07/04/18 19:57> Provider - Provider Date of Admission: 07/01/18 03:50 Attending physician: Vladimir Harris MD Consults: 07/01/18 13:38 Social Work Referral Routine Comment: homeless Physician Instructions: Reason For Exam: homeless 07/01/18 19:15 Wound Care [Nursing Referral for Wound Care] Routine Comment: Physician Instructions: Reason For Exam: redness/excoriation to groin and sacral areas Hospital Course - Lab Results Lab Results: Micro Results 07/01/18 01:19 Blood-Venous Blood Culture - Preliminary NO GROWTH AFTER 3 DAYS 07/01/18 01:04 Blood-Venous Blood Culture - Preliminary NO GROWTH AFTER 3 DAYS 07/03/18 09:54 Foot - Right Gram Stain - Final 07/03/18 09:54 Foot - Right Wound Culture - Preliminary Gram Positive Cocci 07/01/18 05:12 Foot - Right Gram Stain - Final 07/01/18 05:12 Foot - Right Wound Culture - Final Staphylococcus Aureus 07/01/18 01:20 Urine,Clean Catch Urine Culture - Final 50-100,000 CFU/ML. MULTIPLE SPECIES. SUGGEST REPEAT SPECIMEN. Most Recent Lab Values WBC 6.8 K/uL (4.8-10.8) 07/04/18 05:45 RBC 3.35 Mil/uL (4.40-5.90) L 07/04/18 05:45 Hgb 9.8 g/dL (12.0-18.0) L 07/04/18 05:45 Hct 29.6 % (35.0-51.0) L 07/04/18 05:45 MCV 88.2 fl (80.0-94.0) 07/04/18 05:45 MCH 29.2 pg (27.0-31.0) 07/04/18 05:45 MCHC 33.2 g/dL (33.0-37.0) 07/04/18 05:45 RDW 15.6 % (11.5-14.5) H 07/04/18 05:45 Plt Count 199 K/uL (130-400) 07/04/18 05:45 MPV 8.5 fl (7.2-11.7) 07/04/18 05:45 Neut % (Auto) 66.1 % (50.0-75.0) 07/04/18 05:45 Lymph % (Auto) 27.2 % (20.0-40.0) 07/04/18 05:45 [place] % (Auto) 4.8 % (0.0-10.0) 07/04/18 05:45 Eos % (Auto) 1.5 % (0.0-4.0) 07/04/18 05:45 Baso % (Auto) 0.4 % (0.0-2.0) 07/04/18 05:45 Neut # (Auto) 4.5 K/uL (1.8-7.0) 07/04/18 05:45 Lymph # (Auto) 1.8 K/uL (1.0-4.3) 07/04/18 05:45 [place] # (Auto) 0.3 K/uL (0.0-0.8) 07/04/18 05:45 Eos # (Auto) 0.1 K/uL (0.0-0.7) 07/04/18 05:45 Baso # (Auto) 0.0 K/uL (0.0-0.2) 07/04/18 05:45 ESR 112 mm/hr (0-20) H 07/01/18 01:27 PT 13.2 Seconds (9.8-13.1) H 07/02/18 14:40 INR 1.2 07/02/18 14:40 pO2 37 mm/Hg (30-55) 07/01/18 00:15 VBG pH 7.30 (7.32-7.43) L 07/01/18 00:15 VBG pCO2 45 mmHg (40-60) 07/01/18 00:15 VBG HCO3 20.9 mmol/L 07/01/18 00:15 VBG Total CO2 23.5 mmol/L (22-28) 07/01/18 00:15 VBG O2 Sat (Calc) 67.4 % (40-65) H 07/01/18 00:15 VBG Base Excess -4.3 mmol/L (0.0-2.0) L 07/01/18 00:15 VBG Potassium 3.5 mmol/L (3.6-5.2) L 07/01/18 00:15 Sodium 135.0 mmol/L (132-148) 07/01/18 00:15 Chloride 106.0 mmol/L (98-107) 07/01/18 00:15 Glucose 104 mg/dL (75-110) 07/01/18 00:15 Lactate 1.9 mmol/L (0.7-2.1) 18 00:15 FiO2 21.0 % 07/01/18 00:15 Sodium 141 mmol/l (132-148) 07/04/18 05:45 Potassium 3.3 MMOL/L (3.6-5.0) L 07/04/18 05:45 Chloride 106 mmol/L (98-107) 07/04/18 05:45 Carbon Dioxide 29 mmol/L (22-30) 07/04/18 05:45 Anion Gap 9 (10-20) L 07/04/18 05:45 BUN 8 mg/dl (9-20) L 07/04/18 05:45 Creatinine 1.1 mg/dl (0.8-1.5) 07/04/18 05:45 Est GFR ( Amer) > 60 07/04/18 05:45 Est GFR (Non-Af Amer) > 60 07/04/18 05:45 POC Glucose (mg/dL) 112 mg/dL (65-110) H 07/02/18 05:22 Random Glucose 95 mg/dL (75-110) 07/04/18 05:45 Calcium 8.2 mg/dL (8.4-10.2) L 07/04/18 05:45 Total Bilirubin 1.2 mg/dl (0.2-1.3) 07/02/18 05:30 AST 60 U/L (17-59) H 07/02/18 05:30 ALT 36 U/L (21-72) 07/02/18 05:30 Alkaline Phosphatase 591 U/L (38-126) H 07/02/18 05:30 Total Creatine Kinase 583 U/L (55-170) H 07/01/18 01:27 C-Reactive Prot, Quant 73.1 mg/L (<8.0) H 07/01/18 05:12 Total Protein 6.4 G/DL (6.3-8.2) 07/02/18 05:30 Albumin 3.0 g/dL (3.5-5.0) L D 07/02/18 05:30 Globulin 3.4 gm/dL (2.2-3.9) 07/02/18 05:30 Albumin/Globulin Ratio 0.9 (1.0-2.1) L 07/02/18 05:30 Venous Blood Potassium 3.5 mmol/L (3.6-5.2) L 07/01/18 00:15 Urine Color Straw (YELLOW) 07/01/18 01:27 Urine Clarity Clear (Clear) 07/01/18 01:27 Urine pH 6.0 (5.0-8.0) 07/01/18 01:27 Ur Specific [place] < 1.005 (1.003-1.030) 07/01/18 01:27 Urine Protein Negative mg/dL (NEGATIVE) 07/01/18 01:27 Urine Glucose (UA) Neg mg/dL (Normal) 07/01/18 01:27 Urine Ketones Negative mg/dL (NEGATIVE) 07/01/18 01:27 Urine Blood Moderate (NEGATIVE) 07/01/18 01:27 Urine Nitrate Negative (NEGATIVE) 07/01/18 01:27 Urine Bilirubin Negative (NEGATIVE) 07/01/18 01:27 Urine Urobilinogen 0.2-1.0 mg/dL (0.2-1.0) 07/01/18 01:27 Ur Leukocyte Esterase Small Edgardo/uL (Negative) 07/01/18 01:27 Urine RBC (Auto) 1 /hpf (0-3) 07/01/18 01:27 Urine Microscopic WBC 1 /hpf (0-5) 07/01/18 01:27 Ur Squamous Epith Cells < 1 /hpf (0-5) 07/01/18 01:27 Urine Bacteria Rare (<OCC) 07/01/18 01:27 Vancomycin Trough 17.5 ug/mL (5.0-10.0) H 07/02/18 20:40 Alcohol, Quantitative 238 mg/dl (0-10) H 07/01/18 01:27 Attending/Attestation - Attestation I have personally seen and examined this patient.: Yes I have fully participated in the care of the patient.: Yes I have reviewed all pertinent clinical information, including history, physical exam and plan: Yes
--- NOTE | 2018-07-04 11:55 | CP.PCM.CON ---
History of Present Illness - History of Present Illness History of Present Illness: 53 y old chronic etoh and recent amputation of the right big toe secondary osteomyelitis came with cellulitis. Past Patient History - Infectious Disease Hx of Infectious Diseases: None - Past Medical History & Family History Past Medical History?: Yes - Past Social History Smoking Status: Heavy Smoker > 10 Cigarettes Daily - CARDIAC Hx Hypertension: Yes - PULMONARY Hx Respiratory Disorders: No - NEUROLOGICAL Hx Seizures: Yes - HEENT Hx HEENT Problems: No - RENAL Hx Chronic Kidney Disease: No - ENDOCRINE/METABOLIC Hx Diabetes Mellitus Type 2: Yes - HEMATOLOGICAL/ONCOLOGICAL Hx Human Immunodeficiency Virus (HIV): No - INTEGUMENTARY Hx Dermatological Problems: No - MUSCULOSKELETAL/RHEUMATOLOGICAL Hx Falls: No (Patient refused to answer) - GASTROINTESTINAL Hx Liver Failure: Yes - GENITOURINARY/GYNECOLOGICAL Hx Genitourinary Disorders: No - PSYCHIATRIC Hx Psychophysiologic Disorder: Yes Hx Substance Use: (patient refused ot answer) - SURGICAL HISTORY Hx Surgeries: No - ANESTHESIA Hx Anesthesia: No Hx Anesthesia Reactions: No Hx Malignant Hyperthermia: No Meds Home Medications: Home Medication List Medication Instructions Recorded Confirmed Type Levofloxacin [Levaquin] 750 mg PO DAILY 42 Days #42 tablet 07/04/18 Rx Allergies/Adverse Reactions: Allergies Allergy/AdvReac Type Severity Reaction Status Date / Time No Known Allergies Allergy Verified 06/23/18 21:15 - Medications Medications: Current Medications Acetaminophen (Tylenol 325mg Tab) 650 mg PO Q6 PRN PRN Reason: Pain, Mild (1-3) Chlordiazepoxide (Librium) 25 mg PO Q8 [facility] Last Admin: 07/04/18 08:23 Dose: 25 mg Enoxaparin Sodium (Lovenox) 40 mg SC DAILY [facility] PRN Reason: Protocol Last Admin: 07/04/18 08:24 Dose: 40 mg Folic Acid (Folic Acid) 1 mg PO DAILY [facility] Last Admin: 07/04/18 08:24 Dose: 1 mg Levofloxacin/Dextrose (Levaquin 750mg) 750 mg in 150 mls @ 150 mls/hr IVPB DAILY [facility] PRN Reason: Protocol Last Admin: 07/04/18 08:25 Dose: 150 mls/hr Ibuprofen (Motrin Tab) 400 mg PO Q6H PRN PRN Reason: Pain, moderate (4-7) Last Admin: 07/02/18 10:15 Dose: 400 mg Lisinopril (Zestril) 10 mg PO DAILY [facility] Last Admin: 07/04/18 08:25 Dose: 10 mg Lorazepam (Ativan) 1 mg IVP Q6 PRN PRN Reason: Seizure activity Multivitamins/Minerals (Therapeutic-M Tab) 1 tab PO DAILY [facility] Last Admin: 07/04/18 08:25 Dose: 1 tab Nystatin (Nystop Topical Powder) 1 applic TOP TID [facility] Last Admin: 07/04/18 08:24 Dose: 1 applic Saccharomyces Boulardii (Florastor) 250 mg PO BID [facility] Last Admin: 07/04/18 08:24 Dose: 250 mg Thiamine HCl (Vitamin B1 Tab) 100 mg PO DAILY [facility] Last Admin: 07/04/18 08:24 Dose: 100 mg Physical Exam - Extremities Exam Additional comments: erythema of the right foot, absent right hallux Results - Vital Signs Recent Vital Signs: Last Vital Signs Temp 98.4 F 07/04/18 08:22 Pulse 72 07/04/18 08:25 Resp 18 07/04/18 08:22 BP 156/90 H 07/04/18 08:25 Pulse Ox 99 07/04/18 08:22 - Labs Result Diagrams: 07/04/18 05:45 07/04/18 05:45 Labs: Laboratory Results - last 24 hr 07/04/18 07/04/18 05:45 05:45 WBC 6.8 RBC 3.35 L Hgb 9.8 L Hct 29.6 L MCV 88.2 MCH 29.2 MCHC 33.2 RDW 15.6 H Plt Count 199 MPV 8.5 Neut % (Auto) 66.1 Lymph % (Auto) 27.2 Edwards % (Auto) 4.8 Eos % (Auto) 1.5 Baso % (Auto) 0.4 Neut # (Auto) 4.5 Lymph # (Auto) 1.8 Edwards # (Auto) 0.3 Eos # (Auto) 0.1 Baso # (Auto) 0.0 Sodium 141 Potassium 3.3 L Chloride 106 Carbon Dioxide 29 Anion Gap 9 L BUN 8 L Creatinine 1.1 Est GFR ( Amer) > 60 Est GFR (Non-Af Amer) > 60 Random Glucose 95 Calcium 8.2 L Assessment & Plan - Assessment and Plan (Free Text) Assessment: cellulitis with osteomyelitis of the second toe and possibly 5th growing Oxacillin sensitive staph aureus. Continue levofloxacin for 6 weeks or amputation
[2018-07-04 15:02] VITALS: O2SAT 100
== END 2018-07-04 14:58 | disposition home or self-care (01) | DRG 563 ==
LOC: H.ER 22:46 → H.ERHOLD 07-01 03:50 → H.MEDSURG1 07-01 06:56
PROVIDERS: ADMIT Internal Medicine; ATTEND Internal Medicine
DX: L03.115 Cellulitis of right lower limb (principal); M86.171 Other acute osteomyelitis, right ankle and foot; E11.69 Type 2 diabetes mellitus with other specified complication; E87.6 Hypokalemia; B37.2 Candidiasis of skin and nail; L97.519 Non-pressure chronic ulcer of other part of right foot with unspecified severity; E11.621 Type 2 diabetes mellitus with foot ulcer; B95.61 Methicillin susceptible Staphylococcus aureus infection as the cause of diseases classified elsewhere; Z59.0 Homelessness; F10.129 Alcohol abuse with intoxication, unspecified; Y90.7 Blood alcohol level of 200-239 mg/100 ml; D63.8 Anemia in other chronic diseases classified elsewhere; T87.81 Dehiscence of amputation stump; Y83.5 Amputation of limb(s) as the cause of abnormal reaction of the patient, or of later complication, without mention of misadventure at the time of the procedure; I10 Essential (primary) hypertension; F17.210 Nicotine dependence, cigarettes, uncomplicated

== ENCOUNTER 2018-07-11 20:57 | Inpatient (IN) | payer SELFPAY ==
[2018-07-11 20:58] VITALS: BMI 25.0
[2018-07-11] MEDS ORDERED: levoFLOXacin 750 mg in D5W 150 ML BAG IVPB STA (23:40)
[2018-07-11] MEDS ORDERED: Sodium Chloride 0.9% 1,000 ML IV STA (23:44)
--- NOTE | 2018-07-11 23:49 | ED PDOC ---
HPI: General Adult Time Seen by Provider: 07/11/18 22:47 Chief Complaint (Nursing): Alcohol Ingestion Chief Complaint (Provider): Pt reports right foot pain, brought in for drinking alcohol History Per: Patient History/Exam Limitations: no limitations Onset/Duration Of Symptoms: Days Have you had recent travel within the past 21 days to any of the following countries: [place], [place], [place] or [place]?: No Additional Complaint(s): 53 yo male with history of right great toe amputation (sutures in place), osteomeyolitis and DM presents with EMS for evaluation fof public intoxication. Pt denies complaint but when asked about toe he states it does hurt. Pt has (+) blood cultures yesterday. PT denies fever. Pt needs to be admitted for IV antibiotics. Past Medical History Reviewed: Historical Data, Nursing Documentation, Vital Signs Vital Signs: Last Vital Signs Temp 98.0 F 07/11/18 21:00 Pulse 92 H 07/11/18 21:00 Resp 19 07/11/18 21:00 BP 106/69 07/11/18 21:00 Pulse Ox 98 07/11/18 21:00 - Medical History PMH: Diabetes (type II), HTN, Peripheral Edema (BLE), Seizures Denies: HIV, Chronic Kidney Disease - Surgical History Surgical History: No Surg Hx - Family History Family History: States: Unknown Family Hx - Living Arrangements Living Arrangements: With Family - Social History Current smoker - smoking cessation education provided: No - Immunization History Hx Tetanus Toxoid Vaccination: No Hx Influenza Vaccination: No Hx Pneumococcal Vaccination: No - Home Medications Home Medications: Ambulatory Orders Medication Instructions Recorded No Known Home Med 07/07/18 - Allergies Allergies/Adverse Reactions: Allergies Allergy/AdvReac Type Severity Reaction Status Date / Time No Known Allergies Allergy Verified 07/06/18 19:13 Review of Systems ROS Statement: Except As Marked, All Systems Reviewed And Found Negative Constitutional: Negative for: Fever, Chills Musculoskeletal: Positive for: Foot Pain Skin: Positive for: Other Physical Exam - Reviewed Nursing Documentation Reviewed: Yes Vital Signs Reviewed: Yes - Physical Exam Appears: Positive for: Well, Non-toxic, No Acute Distress Head Exam: Positive for: ATRAUMATIC, NORMAL INSPECTION, NORMOCEPHALIC Skin: Positive for: Warm. Negative for: Normal Color (Erythema of bilateral lower extremities; sutures intact distal right toe with mild erythema, no drainage ) Eye Exam: Positive for: Normal appearance ENT: Positive for: Normal ENT Inspection Neck: Positive for: Normal, Painless ROM Cardiovascular/Chest: Positive for: Regular Rate, Rhythm Respiratory: Positive for: Normal Breath Sounds. Negative for: Accessory Muscle Use, Respiratory Distress Back: Positive for: Normal Inspection Extremity: Positive for: Normal ROM Neurologic/Psych: Positive for: Alert, Oriented - ECG O2 Sat by Pulse Oximetry: 98 Medical Decision Making Medical Decision Making: Case discussed with Dr. Urbano and Dr. Lowery for admission. Disposition - Clinical Impression Clinical Impression: Alcohol abuse, Positive blood culture, Osteomyelitis - Patient ED Disposition Is Patient to be Admitted: Yes - Disposition Disposition Time: 23:52 Condition: STABLE Instructions: Alcohol Intoxication (ED), Abuse of Alcohol (ED), Alcohol Dependence (ED)
--- NOTE | 2018-07-12 01:25 | CP.PCM.HP ---
<Isac Gomez - Last Filed: 07/12/18 01:18> History of Present Illness - History of Present Illness History of Present Illness: CC: right foot pain HPI: 53 y/o man w/ pmh of recurrent LE cellulitis and EtOH abuse presents to ED with complaint right foot pain and intoxication. Patient wound culture positive for S. aureus. Patient recently discharged 07/07/2018 and DC'ed w/ galilea grimes he had declined surgical intervention during admission. Patient was contacted to return to hospital earlier upon blood and wound culture findings to receive antibiotic treatment. Patient has no other complaints ED course: vitals: 98.0F, 92 beats/min, 106/69 mm Hg, resp 19, O2 98% room air CBC: pending CMP: pending VBG: pending alcohol: pending PMD: none PMH: recurrent LE cellulitis and Etoh abuse Medications: Augmentin 875/125 mg 1 tab PO Q12 Allergies: NKDA PSH: right great toe amputation (06/18/18) Fam: father at 42 from MVA; mother at 75-from [place] SOC: denies tobacco or drugs; hx EtOH abuse ROS: 12 points assessed and negative unless otherwise reported in HPI Present on Admission - Present on Admission Any Indicators Present on Admission: No History of DVT/PE: No History of Uncontrolled Diabetes: No Urinary Catheter: No Decubitus Ulcer Present: No Review of Systems - Review of Systems All systems: reviewed and no additional remarkable complaints except - Constitutional Constitutional: absent: Chills, Fever, Headache - EENT Eyes: absent: Change in Vision - Cardiovascular Cardiovascular: absent: Chest Pain - Respiratory Respiratory: absent: Dyspnea - Gastrointestinal Gastrointestinal: absent: Abdominal Pain, Diarrhea, Nausea, Vomiting - Genitourinary Genitourinary: absent: Dysuria - Integumentary Integumentary: As Per HPI - Neurological Neurological: absent: Dizziness, Headaches Past Patient History - Infectious Disease Hx of Infectious Diseases: None - Past Medical History & Family History Past Medical History?: Yes - Past Social History Smoking Status: Former Smoker - CARDIAC Hx Hypertension: Yes Hx Peripheral Edema: Yes (BLE) - PULMONARY Hx Respiratory Disorders: No - NEUROLOGICAL Hx Seizures: Yes - HEENT Hx HEENT Problems: No - RENAL Hx Chronic Kidney Disease: No - ENDOCRINE/METABOLIC Hx Diabetes Mellitus Type 2: Yes - HEMATOLOGICAL/ONCOLOGICAL Hx Human Immunodeficiency Virus (HIV): No - INTEGUMENTARY Hx Dermatological Problems: No - MUSCULOSKELETAL/RHEUMATOLOGICAL Hx Musculoskeletal Disorders: Yes - GASTROINTESTINAL Hx Liver Failure: Yes - GENITOURINARY/GYNECOLOGICAL Hx Genitourinary Disorders: No - PSYCHIATRIC Hx Psychophysiologic Disorder: Yes Hx Substance Use: (patient refused ot answer) - SURGICAL HISTORY Other/Comment: right big toe surgery. - ANESTHESIA Hx Anesthesia: Yes Meds Allergies/Adverse Reactions: Allergies Allergy/AdvReac Type Severity Reaction Status Date / Time No Known Allergies Allergy Verified 07/06/18 19:13 Physical Exam - Constitutional Appears: Non-toxic, No Acute Distress - Head Exam Head Exam: ATRAUMATIC, NORMAL INSPECTION, NORMOCEPHALIC - Eye Exam Eye Exam: Normal appearance - ENT Exam ENT Exam: Mucous Membranes Moist - Neck Exam Neck exam: Positive for: Full Rom. Negative for: Tenderness - Respiratory Exam Respiratory Exam: Clear to Auscultation Bilateral. absent: Accessory Muscle Use, Decreased Breath Sounds, Rales, Rhonchi, Wheezes, Respiratory Distress - Cardiovascular Exam Cardiovascular Exam: REGULAR RHYTHM, RRR. absent: Tachycardia - GI/Abdominal Exam GI & Abdominal Exam: Normal Bowel Sounds, Soft. absent: Distended, Tenderness - Extremities Exam Additional comments: right foot dressed - Neurological Exam Neurological exam: Alert, Oriented x3 - Skin Skin Exam: Dry, Warm Results - Vital Signs Recent Vital Signs: Last Vital Signs Temp 98.0 F 07/11/18 21:00 Pulse 92 H 07/11/18 21:00 Resp 19 07/11/18 21:00 BP 106/69 07/11/18 21:00 Pulse Ox 98 07/11/18 23:52 Assessment & Plan (1) Osteomyelitis Status: Acute (2) Alcohol abuse Status: Chronic - Assessment and Plan (Free Text) Assessment: 53 y/o man w/ pmh of recurrent LE cellulitis and EtOH abuse presents to ED with complaint right foot pain and intoxication. Plan: Osteomyelitis - vital signs stable - CBC: pending - CMP: pending - Mg: pending - phos: pending - VBG: pending - alcohol: pending - IVF NS bolus - IVF NS w/ MV, Vit B1, and folic acid @ 100 mL/hr - levofloxacin 750 mg IV daily - admit to Med/Surg Alcohol Abuse - chronic - alcohol: pending Prophylactic measures - DVT: lovenox 40 mg SC daily <Emani Lowery - Last Filed: 08/01/18 16:51> Results - Vital Signs Recent Vital Signs: Last Vital Signs Temp 97.6 F 07/24/18 08:40 Pulse 62 07/24/18 09:40 Resp 20 07/24/18 08:40 BP 121/80 07/24/18 09:40 Pulse Ox 97 07/24/18 08:40 - Labs Result Diagrams: 07/22/18 08:10 07/22/18 08:10 Attending/Attestation - Attestation I have personally seen and examined this patient.: Yes I have fully participated in the care of the patient.: Yes I have reviewed all pertinent clinical information: Yes Notes (Text): 08/01/18 16:51 agree with findingsand plan as above. admit for osteomyelitis and iv rx.
[2018-07-12 01:34] LABS: BASO # 0.1 K/uL (0.0-0.2); BASO % 1.5 % (0.0-2.0); EOS # 0.2 K/uL (0.0-0.7); EOS % 3.6 % (0.0-4.0); HEMOGLOBIN 10.2 g/dL (12.0-18.0); LYMPH # 2.2 K/uL (1.0-4.3); LYMPH % 43.9 % (20.0-40.0); MEAN CELL VOLUME 88.8 fl (80.0-94.0); MEAN CORPUSCULAR HGB CONC 32.7 g/dL (33.0-37.0); MEAN PLATELET VOLUME 8.3 fl (7.2-11.7); MONO # 0.2 K/uL (0.0-0.8); MONO % 4.1 % (0.0-10.0); NEUT # 2.4 K/uL (1.8-7.0); NEUT % 46.9 % (50.0-75.0); NRBC % 0.1 % (0.0-0.0); RBC 3.51 Mil/uL (4.40-5.90)
[2018-07-12 01:39] LABS: VENOUS BLOOD GAS BASE EXCESS -1.7 mmol/L (0.0-2.0); VENOUS BLOOD GAS PCO2 57 mmHg (40-60); VENOUS BLOOD GAS PO2 29 mm/Hg (30-55); VENOUS BLOOD PH 7.27 (7.32-7.43)
[2018-07-12 01:45] LABS: ALT/SGPT 35 U/L (21-72); AST/SGOT 75 U/L (17-59); BLOOD UREA NITROGEN 9 mg/dl (9-20); CALCIUM 9.2 mg/dL (8.4-10.2); GFR NON-AFRICAN AMERICAN > 60
[2018-07-12] MEDS ORDERED: levoFLOXacin 750 mg in D5W 750 MG/150 ML BAG IVPB ONE (01:50)
[2018-07-12] MEDS ORDERED: Sodium Chloride 0.9% 1,000 ML IV STA (05:58)
[2018-07-12] MEDS: Multivitamin (MVI) 10 ML, Thiamine 100 MG, Folic Acid 1 MG in Sodium Chloride 0.9% 1,00... IV SCH ×2 (07:17→13:21)
[2018-07-12] MEDS ORDERED: PED IVPB SCH (07:45)
[2018-07-12] MEDS ORDERED: AMPICILLIN IVPB SCH (07:45)
[2018-07-12] MEDS ORDERED: levoFLOXacin 750 mg in D5W 750 MG/150 ML BAG IVPB SCH (09:00)
[2018-07-12] MEDS ORDERED: AMPicillin 1 GM in Sodium Chloride 0.9% 100 ML IVPB SCH (10:00)
[2018-07-12] MEDS: Enoxaparin 40 mg Syringe SC SCH (11:01)
--- NOTE | 2018-07-12 14:30 | CP.PCM.CON ---
History of Present Illness - History of Present Illness History of Present Illness: Infectious Disease Consultation Note- asked to see this patient at the request of hospitalist for bacteremia and infected right foot. HPI- Patient is a 53 year old male with PMH of and ETOh abuse with recurrent LE cellulitis who was admitted with complaints of right foot pain, swelling and redness. also apparently pt. was just recently d/c from hospital for right great toe OM and he had refused surgery and IV abx and was d/c on levaquin as per med records but his blood adn wound cx was resulted pos and he was called to retu rn to hospital. Pt. states he initially had gone to [facility] 3 weeks ago and had partial amputation of his right great TOE for the infection and OM. He also state he has not taken any of the levaquin that he was discharged on last visit. He is noncompliant with his medical care. Currently he states he feels better but still has a lot of pain in right foot and toe and leg. He denies any chills, had fever, denies any SEYMOUR, denies any cough or sob, denies any chest pain, denies any abd. pain, denies any dysurea, denies any diarrhea PMD: none PMH: recurrent LE cellulitis and Etoh abuse Medications: Augmentin 875/125 mg 1 tab PO Q12 Allergies: NKDA PSH: right great toe amputation (06/18/18) Fam: father at 42 from [place]; mother at 75-from [place] SOC: denies tobacco or drugs; hx EtOH abuse Review of Systems - Review of Systems Review of Systems: ROS- as stated in HPI Past Patient History - Infectious Disease Hx of Infectious Diseases: None - Past Medical History & Family History Past Medical History?: Yes - Past Social History Smoking Status: Former Smoker Alcohol: > 2 Drinks/Day - CARDIAC Hx Cardiac Disorders: Yes Hx Hypertension: Yes Hx Peripheral Edema: Yes (BLE) - PULMONARY Hx Respiratory Disorders: No - NEUROLOGICAL Hx Neurological Disorder: Yes Hx Seizures: Yes - HEENT Hx HEENT Problems: No - RENAL Hx Chronic Kidney Disease: No - ENDOCRINE/METABOLIC Hx Endocrine Disorders: Yes Hx Diabetes Mellitus Type 2: Yes - HEMATOLOGICAL/ONCOLOGICAL Hx Blood Disorders: No - INTEGUMENTARY Hx Dermatological Problems: No - MUSCULOSKELETAL/RHEUMATOLOGICAL Hx Musculoskeletal Disorders: No - GASTROINTESTINAL Hx Gastrointestinal Disorders: Yes Hx Liver Failure: Yes - GENITOURINARY/GYNECOLOGICAL Hx Genitourinary Disorders: No - PSYCHIATRIC Hx Psychophysiologic Disorder: Yes Hx Depression: No Hx Substance Use: (patient refused to answer) - SURGICAL HISTORY Hx Surgeries: Yes Hx Amputation: Yes (rt great toe 06/18/2018) - ANESTHESIA Hx Anesthesia: Yes Hx Anesthesia Reactions: No Meds Allergies/Adverse Reactions: Allergies Allergy/AdvReac Type Severity Reaction Status Date / Time No Known Allergies Allergy Verified 07/06/18 19:13 - Medications Medications: Current Medications Enoxaparin Sodium (Lovenox) 40 mg SC DAILY [facility]; Protocol Last Admin: 07/12/18 11:01 Dose: 40 mg Multivitamins/Vitamin C 10 ml/Thiamine HCl 100 mg/ Folic Acid 1 mg/ Sodium Chloride 1,011.2 mls @ 100 mls/hr IV .Q10H7M [facility] Stop: 07/13/18 01:36 Last Admin: 07/12/18 13:21 Dose: Not Given Gentamicin Sulfate 240 mg/ (Sodium Chloride) 256 mls @ 241.509 mls/hr IVPB Q24H [facility]; Protocol Last Admin: 07/12/18 11:07 Dose: 241.509 mls/hr Ampicillin 1 gm/ Sodium (Chloride) 100 mls @ 100 mls/hr IVPB Q6 [facility]; Protocol Last Admin: 07/12/18 13:22 Dose: 100 mls/hr Physical Exam - Constitutional Appears: No Acute Distress - Head Exam Head Exam: ATRAUMATIC - Eye Exam Eye Exam: EOMI, PERRL - ENT Exam ENT Exam: Normal Oropharynx - Neck Exam Neck exam: Positive for: Full Rom - Respiratory Exam Respiratory Exam: Clear to Auscultation Bilateral, NORMAL BREATHING PATTERN - Cardiovascular Exam Cardiovascular Exam: RRR, +S1, +S2 - GI/Abdominal Exam GI & Abdominal Exam: Normal Bowel Sounds, Soft Additional comments: NT, ND - Extremities Exam Additional comments: right foot great toe with partial amputation , has sutures in place, there is swelling adn erythema on the remaining part of the toe as well as the second right toe and surrounding foot region extending to ankle and lower 1/3 of the left leg region no discharge no malodor - Neurological Exam Neurological exam: Alert, Oriented x3 Results - Vital Signs Recent Vital Signs: Last Vital Signs Temp 98.3 F 07/12/18 13:46 Pulse 102 H 07/12/18 13:46 Resp 17 07/12/18 13:46 BP 146/85 07/12/18 13:46 Pulse Ox 99 07/12/18 13:46 - Labs Result Diagrams: 07/13/18 05:30 07/13/18 05:30 Labs: Laboratory Results - last 24 hr 07/12/18 07/12/18 07/12/18 01:25 01:25 01:35 WBC 5.0 RBC 3.51 L Hgb 10.2 L Hct 31.1 L MCV 88.8 MCH 29.0 MCHC 32.7 L RDW 16.0 H Plt Count 287 D MPV 8.3 Neut % (Auto) 46.9 L Lymph % (Auto) 43.9 H [place] % (Auto) 4.1 Eos % (Auto) 3.6 Baso % (Auto) 1.5 Neut # (Auto) 2.4 Lymph # (Auto) 2.2 [place] # (Auto) 0.2 Eos # (Auto) 0.2 Baso # (Auto) 0.1 pO2 29 L VBG pH 7.27 L VBG pCO2 57 VBG HCO3 22.2 VBG Total CO2 27.9 VBG O2 Sat (Calc) 43.6 VBG Base Excess -1.7 L VBG Potassium 3.6 Glucose 89 Lactate 1.6 FiO2 21.0 Sodium 146 147.0 Potassium 4.4 Chloride 112 H 111.0 H Carbon Dioxide 24 Anion Gap 14 BUN 9 Creatinine 0.8 Est GFR ( Amer) > 60 Est GFR (Non-Af Amer) > 60 POC Glucose (mg/dL) Random Glucose 90 Calcium 9.2 Phosphorus 3.8 Magnesium 1.8 Total Bilirubin 0.9 AST 75 H D ALT 35 Alkaline Phosphatase 759 H D Total Protein 8.0 Albumin 4.0 Globulin 4.1 H Albumin/Globulin Ratio 1.0 Venous Blood Potassium 3.6 Alcohol, Quantitative 197 H 07/12/18 07/12/18 01:45 11:29 WBC RBC Hgb Hct MCV MCH MCHC RDW Plt Count MPV Neut % (Auto) Lymph % (Auto) [place] % (Auto) Eos % (Auto) Baso % (Auto) Neut # (Auto) Lymph # (Auto) [place] # (Auto) Eos # (Auto) Baso # (Auto) pO2 VBG pH VBG pCO2 VBG HCO3 VBG Total CO2 VBG O2 Sat (Calc) VBG Base Excess VBG Potassium Glucose Lactate FiO2 Sodium Potassium Chloride Carbon Dioxide Anion Gap BUN Creatinine Est GFR ( Amer) Est GFR (Non-Af Amer) POC Glucose (mg/dL) 92 98 Random Glucose Calcium Phosphorus Magnesium Total Bilirubin AST ALT Alkaline Phosphatase Total Protein Albumin Globulin Albumin/Globulin Ratio Venous Blood Potassium Alcohol, Quantitative Laboratory Results - last 72 hr 07/12/18 07/12/18 07/12/18 01:25 01:25 01:35 WBC 5.0 RBC 3.51 L Hgb 10.2 L Hct 31.1 L MCV 88.8 MCH 29.0 MCHC 32.7 L RDW 16.0 H Plt Count 287 D MPV 8.3 Neut % (Auto) 46.9 L Lymph % (Auto) 43.9 H [place] % (Auto) 4.1 Eos % (Auto) 3.6 Baso % (Auto) 1.5 Neut # (Auto) 2.4 Lymph # (Auto) 2.2 [place] # (Auto) 0.2 Eos # (Auto) 0.2 Baso # (Auto) 0.1 pO2 29 L VBG pH 7.27 L VBG pCO2 57 VBG HCO3 22.2 VBG Total CO2 27.9 VBG O2 Sat (Calc) 43.6 VBG Base Excess -1.7 L VBG Potassium 3.6 Glucose 89 Lactate 1.6 FiO2 21.0 Sodium 146 147.0 Potassium 4.4 Chloride 112 H 111.0 H Carbon Dioxide 24 Anion Gap 14 BUN 9 Creatinine 0.8 Est GFR ( Amer) > 60 Est GFR (Non-Af Amer) > 60 POC Glucose (mg/dL) Random Glucose 90 Calcium 9.2 Phosphorus 3.8 Magnesium 1.8 Total Bilirubin 0.9 AST 75 H D ALT 35 Alkaline Phosphatase 759 H D Total Protein 8.0 Albumin 4.0 Globulin 4.1 H Albumin/Globulin Ratio 1.0 Venous Blood Potassium 3.6 Alcohol, Quantitative 197 H 07/12/18 07/12/18 01:45 11:29 WBC RBC Hgb Hct MCV MCH MCHC RDW Plt Count MPV Neut % (Auto) Lymph % (Auto) [place] % (Auto) Eos % (Auto) Baso % (Auto) Neut # (Auto) Lymph # (Auto) [place] # (Auto) Eos # (Auto) Baso # (Auto) pO2 VBG pH VBG pCO2 VBG HCO3 VBG Total CO2 VBG O2 Sat (Calc) VBG Base Excess VBG Potassium Glucose Lactate FiO2 Sodium Potassium Chloride Carbon Dioxide Anion Gap BUN Creatinine Est GFR ( Amer) Est GFR (Non-Af Amer) POC Glucose (mg/dL) 92 98 Random Glucose Calcium Phosphorus Magnesium Total Bilirubin AST ALT Alkaline Phosphatase Total Protein Albumin Globulin Albumin/Globulin Ratio Venous Blood Potassium Alcohol, Quantitative Laboratory Results - last 72 hr 07/12/18 07/12/18 07/12/18 01:25 01:25 01:35 WBC 5.0 RBC 3.51 L Hgb 10.2 L Hct 31.1 L MCV 88.8 MCH 29.0 MCHC 32.7 L RDW 16.0 H Plt Count 287 D MPV 8.3 Neut % (Auto) 46.9 L Lymph % (Auto) 43.9 H [place] % (Auto) 4.1 Eos % (Auto) 3.6 Baso % (Auto) 1.5 Neut # (Auto) 2.4 Lymph # (Auto) 2.2 [place] # (Auto) 0.2 Eos # (Auto) 0.2 Baso # (Auto) 0.1 pO2 29 L VBG pH 7.27 L VBG pCO2 57 VBG HCO3 22.2 VBG Total CO2 27.9 VBG O2 Sat (Calc) 43.6 VBG Base Excess -1.7 L VBG Potassium 3.6 Glucose 89 Lactate 1.6 FiO2 21.0 Sodium 146 147.0 Potassium 4.4 Chloride 112 H 111.0 H Carbon Dioxide 24 Anion Gap 14 BUN 9 Creatinine 0.8 Est GFR ( Amer) > 60 Est GFR (Non-Af Amer) > 60 POC Glucose (mg/dL) Random Glucose 90 Calcium 9.2 Phosphorus 3.8 Magnesium 1.8 Total Bilirubin 0.9 AST 75 H D ALT 35 Alkaline Phosphatase 759 H D Total Protein 8.0 Albumin 4.0 Globulin 4.1 H Albumin/Globulin Ratio 1.0 Venous Blood Potassium 3.6 Alcohol, Quantitative 197 H 07/12/18 07/12/18 01:45 11:29 WBC RBC Hgb Hct MCV MCH MCHC RDW Plt Count MPV Neut % (Auto) Lymph % (Auto) [place] % (Auto) Eos % (Auto) Baso % (Auto) Neut # (Auto) Lymph # (Auto) [place] # (Auto) Eos # (Auto) Baso # (Auto) pO2 VBG pH VBG pCO2 VBG HCO3 VBG Total CO2 VBG O2 Sat (Calc) VBG Base Excess VBG Potassium Glucose Lactate FiO2 Sodium Potassium Chloride Carbon Dioxide Anion Gap BUN Creatinine Est GFR ( Amer) Est GFR (Non-Af Amer) POC Glucose (mg/dL) 92 98 Random Glucose Calcium Phosphorus Magnesium Total Bilirubin AST ALT Alkaline Phosphatase Total Protein Albumin Globulin Albumin/Globulin Ratio Venous Blood Potassium Alcohol, Quantitative Microbiology 07/07/18 08:57 Toe Gram Stain - Final 07/07/18 08:57 Toe Wound Culture - Final Staphylococcus Aureus 07/06/18 20:42 Blood-Venous Blood Culture - Final 07/06/18 20:42 Blood-Venous Gram Stain - Final Coagulase Neg Staphylococcus 07/06/18 20:35 Blood-Venous S.aureus & Coag-Neg Staph PNA FISH - Final 07/06/18 20:35 Blood-Venous Gram Stain - Final Enterococcus Faecium 07/03/18 09:54 Foot - Right Gram Stain - Final 07/03/18 09:54 Foot - Right Wound Culture - Final Staphylococcus Aureus 07/01/18 05:12 Foot - Right Gram Stain - Final 07/01/18 05:12 Foot - Right Wound Culture - Final Staphylococcus Aureus Accession No. : [id number] Patient Name / ID : PADMINI THRASHER / [id number] Exam Date : 07/01/2018 17:24:05 ( Approved ) Study Comment : Sex / Age : M / [id number] Creator : Oh Farley MD Dictator : Oh Farley MD Alternative Energy Technician : Director Of Consumer Marketing : Oh Farley MD Approver2 : Report Date : 07/02/2018 13:23:24 My Comment : MRI right forefoot HISTORY: Osteomyelitis. COMPARISON: 07/01/2018 TECHNIQUE: Multi-echo multiplanar sequences were performed through the right forefoot without the use of intravenous contrast. FINDINGS: Amputation of the 1st digit to the head of the 1st proximal phalanx. Prominent reticulation and edema as well as fluid intensity signal seen at the level of the soft tissues at the volar aspect of the remnant 1st proximal phalanx. Prominent signal abnormality within the remnant 1st proximal phalanx demonstrating decreased T1 signal and increased STIR signal suggestive for an acute osteomyelitis. Reticulation and edema within the remainder of the foot most prominent dorsally consistent with a cellulitis. Signal abnormality seen at the level of the 2nd distal phalanx demonstrating some increased STIR signal with some mild patchy decreased T1 signal. This is of uncertain clinical etiology and may represent failure of fat suppression however underlying acute infectious and or inflammatory changes such as an acute osteomyelitis and or additional etiology at this level cannot be excluded. Clinical correlation. Signal abnormality seen within the 5th proximal phalanx with patchy decreased T1 signal and increased STIR signal. This may be the sequelae of failure of fat suppression; however, underlying acute infectious and or inflammatory changes such as acute osteomyelitis and or posttraumatic changes and or additional etiology cannot be excluded. Clinical correlation. Degenerative changes in the midfoot with joint space narrowing and bony spurring. Incidentally noted is a mild tenosynovitis of the posterior tibial tendon cano th. Impression: 1. Amputation of the 1st digit to the head of the 1st proximal phalanx. Promine nt reticulation and edema as well as fluid intensity signal seen at the level of the soft tissues at the volar aspect of the remnant 1st proximal phalanx. Prominent signal abnormality within the remnant 1st proximal phalanx demonstrating decreased T1 signal and increased STIR signal suggestive for an acute osteomyelitis. 2. Reticulation and edema within the remainder of the foot most prominent dorsally consistent with a cellulitis. 3. Signal abnormality seen at the level of the 2nd distal phalanx demonstrating some increased STIR signal with some mild patchy decreased T1 signal. This is of uncertain clinical etiology and may represent failure of fat suppression however underlying acute infectious and or inflammatory changes such as an acute osteomyelitis and or additional etiology at this level cannot be excluded. Clinical correlation. 4. Signal abnormality seen within the 5th proximal phalanx with patchy decreased T1 signal and increased STIR signal. This may be the sequelae of failure of fat suppression; however, underlying acute infectious and or inflammatory changes s uch as acute osteomyelitis and or posttraumatic changes and or additional etiology cannot be excluded. Clinical correlation. 5. Degenerative changes in the midfoot with joint space narrowing and bony spurring. 6. Incidentally noted is a mild tenosynovitis of the posterior tibial tendon sheath. These findings were preliminarily reported at 8:18 p.m. on 07/01/[address] Ti Meza from [facility]. Assessment & Plan (1) Osteomyelitis Status: Acute (2) Positive blood culture Status: Acute (3) Alcohol abuse Status: Chronic - Assessment and Plan (Free Text) Assessment: A/P- 53 year old male admitted with recurrentl LLE cellulitis and right great toe OM and coag neg staph bacteremia and VRE bacteremia. pt. has fever no leukocytosis blood cx from last admission one is VRE and one is coag neg staph wound cx- MSSA MRI last admission as per report acute OM of first and second right great toe. plan- check 2 more blood cx. based on the sensitivity of the blood and wound cx and the organisms advise to place patient on daptomycin 6 mg /kg daily since it would treat all these 3 organisms. would also advise to check TTE r/o any vegetations. advise to check cpk while on daptomycin. advise to also get podiatry evaluation as pt. most likely needs further surgical intervention for the treatment of this OM of right great partial toe and second toe. also has very high alp. advise to check fractionated ALP to differentiate bone vs GI source. all labs and imaging reviewed. al above d/w patient and he verbalizes full understanding of all above and agrees with above plan of care. All above d/w Medical team taking care of the patient as well. Thank you for allowing me to take part in the care of this patient.
[2018-07-12] MEDS ORDERED: Multivitamin (MVI) 10 ML, Thiamine 100 MG, Folic Acid 1 MG in Sodium Chloride 0.9% 1,00... IV SCH (17:15)
[2018-07-13 07:19] LABS: BASO % 1.2 % (0.0-2.0); EOS # 0.1 K/uL (0.0-0.7); EOS % 3.5 % (0.0-4.0); HEMOGLOBIN 8.9 g/dL (12.0-18.0); LYMPH # 1.3 K/uL (1.0-4.3); LYMPH % 37.6 % (20.0-40.0); MEAN CELL VOLUME 88.1 fl (80.0-94.0); MEAN CORPUSCULAR HEMOGLOBIN 29.3 pg (27.0-31.0); MEAN CORPUSCULAR HGB CONC 33.3 g/dL (33.0-37.0); MEAN PLATELET VOLUME 8.1 fl (7.2-11.7); MONO # 0.2 K/uL (0.0-0.8); NEUT # 1.7 K/uL (1.8-7.0); NEUT % 50.7 % (50.0-75.0); NRBC % 0.1 % (0.0-0.0); RBC 3.05 Mil/uL (4.40-5.90); RED CELL DISTRIBUTION WIDTH 15.5 % (11.5-14.5); WHITE BLOOD COUNT 3.4 K/uL (4.8-10.8)
[2018-07-13 07:43] LABS: ALB/GLOB RATIO 0.9 (1.0-2.1); ALBUMIN 2.9 g/dL (3.5-5.0); ALT/SGPT 29 U/L (21-72); AST/SGOT 40 U/L (17-59); BLOOD UREA NITROGEN 8 mg/dl (9-20); CALCIUM 8.4 mg/dL (8.4-10.2); GFR NON-AFRICAN AMERICAN > 60
[2018-07-13] MEDS: Enoxaparin 40 mg Syringe SC SCH (08:47)
--- NOTE | 2018-07-13 08:56 | CP.PCM.PN ---
<SharathAniket - Last Filed: 07/13/18 10:25> Subjective - Date & Time of Evaluation Date of Evaluation: 07/13/18 Time of Evaluation: 09:00 - Subjective Subjective: Seen at bedside this am. Has no complains. States he is aware of the bacteria on his blood. Denies CP or SOB. Was not taking Lvaquin as advised as outpatient. Had a fver overnight. Tolerating PO. Denies foot pain. Objective - Vital Signs/Intake and Output Vital Signs (last 24 hours): Temp Pulse Resp BP Pulse Ox 98.3 F 85 19 132/78 97 07/13/18 08:20 07/13/18 08:20 07/13/18 08:20 07/13/18 08:20 07/13/18 08:20 - Medications Medications: Current Medications Acetaminophen (Tylenol 325mg Tab) 650 mg PO Q6 PRN PRN Reason: Fever >100.4 F Last Admin: 07/13/18 00:40 Dose: 650 mg Chlordiazepoxide (Librium) 50 mg PO Q8 PRN PRN Reason: Other Enoxaparin Sodium (Lovenox) 40 mg SC DAILY [facility]; Protocol Last Admin: 07/13/18 08:47 Dose: 40 mg Daptomycin 480 mg/ Sodium (Chloride) 100 mls @ 100 mls/hr IV Q24H [facility]; Protocol Stop: 07/17/18 14:46 Last Admin: 07/12/18 17:03 Dose: 100 mls/hr - Labs Labs: 07/13/18 05:30 07/13/18 05:30 - Constitutional Appears: Non-toxic, No Acute Distress - Eye Exam Eye Exam: EOMI, PERRL - ENT Exam ENT Exam: Mucous Membranes Moist - Respiratory Exam Respiratory Exam: Clear to Ausculation Bilateral, NORMAL BREATHING PATTERN. absent: Wheezes, Respiratory Distress - Cardiovascular Exam Cardiovascular Exam: REGULAR RHYTHM, +S1, +S2. absent: Gallop, Murmur - GI/Abdominal Exam GI & Abdominal Exam: Soft, Normal Bowel Sounds. absent: Distended, Firm, Guarding, Tenderness - Extremities Exam Extremities Exam: Calf Tenderness (Right calf), Normal Capillary Refill, Pedal Edema (B/L). absent: Normal Inspection (B/L LE pink edema. R/foot covered with dressing that is clean and dry. ) - Neurological Exam Neurological Exam: Alert, Awake, Oriented x3 - Psychiatric Exam Psychiatric exam: Normal Affect, Normal Mood - Skin Skin Exam: Warm Assessment and Plan - Assessment and Plan (Free Text) Assessment: 53 y/o man w/ pmh of recurrent LE cellulitis and EtOH abuse presents to ED with complaint right foot pain and intoxication. Bacteremia -Feels well -WBC WNl on admission. Today is decreased -2 Bcx from previous admission 1 grew Coag neg Staph and another E.Faecalis -ID consult appreciated. F/u recs -C/w Daptomycin as per ID recs -No new murmurs on exam or SOB or CP -Had elevated temp overnight -Monitor CBCs and VS Osteomyelitis of right foot -S/P 1st toe amputation at [facility] more than 1 m/a -Refused Surgical intervention on previous admission to [facility] due to persistent OM on right foot on MRI -Grew MSSA on wound Cx and was DC on PO levaquin that patient didnt take -Didnt f/u with Podiatry as outpatient -Podiatry consulted. F/U recs -Pain control Alcohol Abuse -chronic -ETOH withdrawal protocol -Librium PRN Hypokalemia K=2.9 this AM Mg WNL POss due to ETOH abuse KCL 40 meq stat given Anemia Poss due to ETOH abuse F/U anemia work up B/L leg swelling and erythema with tenderness to R/calf -R/o DVT -LE US ordered Prophylactic measures -DVT: lovenox 40 mg SC daily <Bela Moreno - Last Filed: 07/13/18 17:13> Objective - Vital Signs/Intake and Output Vital Signs (last 24 hours): Temp Pulse Resp BP Pulse Ox 98.5 F 74 18 163/90 H 97 07/13/18 15:56 07/13/18 15:56 07/13/18 15:56 07/13/18 15:56 07/13/18 15:56 - Medications Medications: Current Medications Acetaminophen (Tylenol 325mg Tab) 650 mg PO Q6 PRN PRN Reason: Fever >100.4 F Last Admin: 07/13/18 00:40 Dose: 650 mg Chlordiazepoxide (Librium) 50 mg PO Q8 PRN PRN Reason: Other Enoxaparin Sodium (Lovenox) 40 mg SC DAILY [facility]; Protocol Last Admin: 07/13/18 08:47 Dose: 40 mg Daptomycin 480 mg/ Sodium (Chloride) 100 mls @ 100 mls/hr IV Q24H [facility]; Protocol Stop: 07/17/18 14:46 Last Admin: 07/13/18 15:30 Dose: 100 mls/hr Saccharomyces Boulardii (Florastor) 250 mg PO BID [facility] Last Admin: 07/13/18 16:06 Dose: 250 mg - Labs Labs: 07/13/18 05:30 07/13/18 05:30 Attending/Attestation - Attestation I have personally seen and examined this patient.: Yes I have fully participated in the care of the patient.: Yes I have reviewed all pertinent clinical information, including history, physical exam and plan: Yes Notes (Text): Sepsis with bacteremia sec to Acute Osteomyelitis and Cellulitis of the Right foot - Micro : Staph coag neg and VRE bacteremia - Wound c/s : MSSA - pt had previous Toe amuptation surgery in [facility], he was admitted here last week and was advised surgery by Podiatry ( amputation)however refused - , noncompliant with meds and ff up due to Alcoholism - Doppller US of LE : neg for DVT 07/13/18 17:13
[2018-07-13] MEDS ORDERED: Potassium Chloride 20 mEq ER Tab PO ONE ×2 (09:01→16:55)
[2018-07-13] MEDS: Saccharomyces Boulardi 250 mg Cap PO SCH ×2 (11:00→16:06)
--- NOTE | 2018-07-13 12:48 | US ---
Date of service: Using 07/13/2018 PROCEDURE: Right lower extremity venous duplex Doppler. HISTORY: Right calf tenderness and swelling COMPARISON: None available. TECHNIQUE: Common femoral, superficial femoral, popliteal and posterior tibial veins were evaluated. Flow was assessed with color Doppler, compressibility, assessment of phasic flow and augmentation response. FINDINGS: COMMON FEMORAL VEIN: Unremarkable. SUPERFICIAL FEMORAL VEIN: Unremarkable. POPLITEAL VEIN: Unremarkable. POSTERIOR TIBIAL VEIN: Unremarkable. OTHER FINDINGS: None. IMPRESSION: No evidence of deep venous thrombosis in the right lower extremity.
--- NOTE | 2018-07-13 13:05 | CP.PCM.CON ---
History of Present Illness - History of Present Illness History of Present Illness: Podiatry consult note for Dr. Diaz, 53 y/o male with PMHX of recurrent LE cellulitis and EtOH abuse seen on floor with complaint right foot pain s/p right great toe amputation on 06/18/18 at [facility]. Patient is being admitted for iv antibiotics. Patient unable to provide history due to patient being a poor historian. Previous admission 07/01/2018 for similar complaint. PMD: none PMH: recurrent LE cellulitis and Etoh abuse Medications: Levaquin provided upon discharge last visit. Allergies: NKDA PSH: right great toe amputation (06/18/18) Fam: father at 42 from [place]; mother at 75-from [place] SOC: denies tobacco or drugs; hx EtOH abuse Past Patient History - Infectious Disease Hx of Infectious Diseases: None - Past Medical History & Family History Past Medical History?: Yes - Past Social History Smoking Status: Former Smoker Alcohol: > 2 Drinks/Day - CARDIAC Hx Cardiac Disorders: Yes Hx Hypertension: Yes Hx Peripheral Edema: Yes (BLE) - PULMONARY Hx Respiratory Disorders: No - NEUROLOGICAL Hx Neurological Disorder: Yes Hx Seizures: Yes - HEENT Hx HEENT Problems: No - RENAL Hx Chronic Kidney Disease: No - ENDOCRINE/METABOLIC Hx Endocrine Disorders: Yes Hx Diabetes Mellitus Type 2: Yes - HEMATOLOGICAL/ONCOLOGICAL Hx Blood Disorders: No - INTEGUMENTARY Hx Dermatological Problems: No - MUSCULOSKELETAL/RHEUMATOLOGICAL Hx Musculoskeletal Disorders: No - GASTROINTESTINAL Hx Gastrointestinal Disorders: Yes Hx Liver Failure: Yes - GENITOURINARY/GYNECOLOGICAL Hx Genitourinary Disorders: No - PSYCHIATRIC Hx Psychophysiologic Disorder: Yes Hx Depression: No Hx Substance Use: (patient refused to answer) - SURGICAL HISTORY Hx Surgeries: Yes Hx Amputation: Yes (rt great toe 06/18/2018) - ANESTHESIA Hx Anesthesia: Yes Hx Anesthesia Reactions: No Meds Allergies/Adverse Reactions: Allergies Allergy/AdvReac Type Severity Reaction Status Date / Time No Known Allergies Allergy Verified 07/06/18 19:13 - Medications Medications: Current Medications Acetaminophen (Tylenol 325mg Tab) 650 mg PO Q6 PRN PRN Reason: Fever >100.4 F Last Admin: 07/13/18 00:40 Dose: 650 mg Chlordiazepoxide (Librium) 50 mg PO Q8 PRN PRN Reason: Other Enoxaparin Sodium (Lovenox) 40 mg SC DAILY [facility]; Protocol Last Admin: 07/13/18 08:47 Dose: 40 mg Daptomycin 480 mg/ Sodium (Chloride) 100 mls @ 100 mls/hr IV Q24H [facility]; Protocol Stop: 07/17/18 14:46 Last Admin: 07/12/18 17:03 Dose: 100 mls/hr Saccharomyces Boulardii (Florastor) 250 mg PO BID [facility] Physical Exam - Constitutional Appears: Well, Non-toxic, No Acute Distress - Head Exam Head Exam: ATRAUMATIC, NORMOCEPHALIC - Extremities Exam Additional comments: Vascular: DP/ PT 2/4 b/l , CFT <3 secs x9, TG warm to warm, erythema noted on the anterior aspect of b/l legs, no edema noted Derm: no open lesions, surgical site noted at the previous right partial hallux amputation site, site well coapted, no wound dehiscence noted , no drainage noted, no malodor, no clinical signs of infection, sutures still intact Erythema noted on the anterior aspect of b/l legs with mildly increased temperature, no open lesions on legs, no clinical signs of infection, Dry, scaling skin noted on the plantar aspect of the right foot. ulceration noted at the tip of the 2nd digit, serosanguinous drainage noted, negative probe to bone, negative malodor, erythema noted to the 2nd digit with swelling, no tracking or tunneling noted. Ortho: No pain on palpation Neuro: protective sensation diminished b/l - Neurological Exam Neurological exam: Alert, Oriented x3 - Psychiatric Exam Psychiatric exam: Normal Affect, Normal Mood - Skin Skin Exam: Normal Color Results - Vital Signs Recent Vital Signs: Last Vital Signs Temp 98.3 F 07/13/18 08:20 Pulse 85 07/13/18 08:20 Resp 19 07/13/18 08:20 BP 132/78 07/13/18 08:20 Pulse Ox 97 07/13/18 08:20 - Labs Result Diagrams: 07/13/18 05:30 07/13/18 05:30 Labs: Laboratory Results - last 24 hr 07/12/18 07/12/18 07/13/18 17:24 21:30 05:30 WBC 3.4 L RBC 3.05 L Hgb 8.9 L Hct 26.8 L MCV 88.1 MCH 29.3 MCHC 33.3 RDW 15.5 H Plt Count 232 MPV 8.1 Neut % (Auto) 50.7 Lymph % (Auto) 37.6 [place] % (Auto) 7.0 Eos % (Auto) 3.5 Baso % (Auto) 1.2 Neut # (Auto) 1.7 L Lymph # (Auto) 1.3 [place] # (Auto) 0.2 Eos # (Auto) 0.1 Baso # (Auto) 0.0 Sodium Potassium Chloride Carbon Dioxide Anion Gap BUN Creatinine Est GFR ( Amer) Est GFR (Non-Af Amer) POC Glucose (mg/dL) 85 94 Random Glucose Calcium Total Bilirubin AST ALT Alkaline Phosphatase Total Protein Albumin Globulin Albumin/Globulin Ratio 07/13/18 07/13/18 07/13/18 05:30 06:25 10:33 WBC RBC Hgb Hct MCV MCH MCHC RDW Plt Count MPV Neut % (Auto) Lymph % (Auto) [place] % (Auto) Eos % (Auto) Baso % (Auto) Neut # (Auto) Lymph # (Auto) [place] # (Auto) Eos # (Auto) Baso # (Auto) Sodium 142 Potassium 2.9 L Chloride 107 Carbon Dioxide 28 Anion Gap 10 BUN 8 L Creatinine 0.8 Est GFR ( Amer) > 60 Est GFR (Non-Af Amer) > 60 POC Glucose (mg/dL) 91 146 H Random Glucose 95 Calcium 8.4 Total Bilirubin 0.8 AST 40 ALT 29 Alkaline Phosphatase 544 H D Total Protein 6.2 L Albumin 2.9 L D Globulin 3.2 Albumin/Globulin Ratio 0.9 L Assessment & Plan - Assessment and Plan (Free Text) Assessment: 53 yo male seen at bedside s/p right partial hallux amputation (06/18/2018) and tip of the right second digit ulcer Plan: Patient seen and evaluated at the bedside. Plan discussed in details with the attending Dr. Diaz Patient chart and vitals and labs reviewed, afebrile 3.4 WBC Right Foot and wound cleansed with saline Patient ulcer dressed using betadine, adaptic, DSD and kerlix. Right foot second digit wound cultures ordered RIght foot x-rays ordered. Podiatry will continue to follow patient while in house
[2018-07-13] MEDS ORDERED: Povidone Iodine Topical 10% Sol ONE (15:23)
--- NOTE | 2018-07-13 17:52 | RAD ---
Date of service: 07/13/2018 PROCEDURE: Right Foot Radiographs. HISTORY: s/p hallux amputation and second digit ulcer COMPARISON: Right foot radiographs dated 07/01/2018 FINDINGS: BONES: 1st digit trans phalangeal amputation redemonstrated. No periosteal reaction. JOINTS: Normal. SOFT TISSUES: Distal 2nd digit soft tissue irregularity. OTHER FINDINGS: None. IMPRESSION: Distal 2nd digit soft tissue irregularity compatible with provided clinical history of ulcer without evidence of periosteal reaction. Prior 1st digit trans phalangeal amputation.
[2018-07-13 21:11] LABS: SQUAMOUS EPITHIAL 1 /hpf (0-5); URINE BACTERIA RARE (<OCC); URINE BILIRUBIN NEGATIVE (NEGATIVE); URINE BLOOD NEGATIVE (NEGATIVE); URINE CLARITY CLEAR (Clear); URINE COLOR YELLOW (YELLOW); URINE GLUCOSE (UA) NEG (Normal); URINE LEUKOCYTE ESTERASE NEG Leu/uL (Negative); URINE PROTEIN NEGATIVE (NEGATIVE); URINE UROBILINOGEN 0.2-1.0 mg/dL (0.2-1.0)
[2018-07-14 06:14] LABS: HEMOGLOBIN 9.5 g/dL (12.0-18.0); MEAN CORPUSCULAR HEMOGLOBIN 29.2 pg (27.0-31.0); MEAN CORPUSCULAR HGB CONC 33.1 g/dL (33.0-37.0); RBC 3.25 Mil/uL (4.40-5.90); RED CELL DISTRIBUTION WIDTH 15.6 % (11.5-14.5); WHITE BLOOD COUNT 4.9 K/uL (4.8-10.8)
[2018-07-14 06:51] LABS: ALB/GLOB RATIO 0.9 (1.0-2.1); ALBUMIN 3.2 g/dL (3.5-5.0); ALT/SGPT 33 U/L (21-72); AST/SGOT 45 U/L (17-59); BLOOD UREA NITROGEN 9 mg/dl (9-20); CALCIUM 8.8 mg/dL (8.4-10.2); GFR NON-AFRICAN AMERICAN > 60
--- NOTE | 2018-07-14 06:52 | CP.PCM.PN ---
Subjective - Date & Time of Evaluation Date of Evaluation: 07/14/18 Time of Evaluation: 07:43 - Subjective Subjective: Podiatry consult note for Dr. Diaz, 53 y/o male patient seen and evaluated on the bedside for right foot pain s/p right great toe amputation on 06/18/18 at [facility] and 2nd right digit ulceration. Patient is being admitted for iv antibiotics. Patient denies any overnight acute events. Patient denies any overnight F/N/V/C or SOB. Patient denies any other pedal complaint or pain at this time. Objective - Vital Signs/Intake and Output Vital Signs (last 24 hours): Temp Pulse Resp BP Pulse Ox 98.5 F 79 18 154/85 H 97 07/13/18 15:56 07/14/18 02:02 07/13/18 15:56 07/14/18 02:02 07/13/18 15:56 - Medications Medications: Current Medications Acetaminophen (Tylenol 325mg Tab) 650 mg PO Q6 PRN PRN Reason: Fever >100.4 F Last Admin: 07/13/18 00:40 Dose: 650 mg Chlordiazepoxide (Librium) 50 mg PO Q8 PRN PRN Reason: Other Enoxaparin Sodium (Lovenox) 40 mg SC DAILY [facility]; Protocol Last Admin: 07/13/18 08:47 Dose: 40 mg Daptomycin 480 mg/ Sodium (Chloride) 100 mls @ 100 mls/hr IV Q24H [facility]; Protocol Stop: 07/17/18 14:46 Last Admin: 07/13/18 15:30 Dose: 100 mls/hr Saccharomyces Boulardii (Florastor) 250 mg PO BID [facility] Last Admin: 07/13/18 16:06 Dose: 250 mg Thiamine HCl (Vitamin B1 Tab) 100 mg PO DAILY [facility] - Labs Labs: 07/14/18 05:45 07/14/18 05:45 - Constitutional Appears: Well, Non-toxic, No Acute Distress - Head Exam Head Exam: ATRAUMATIC, NORMOCEPHALIC - Extremities Exam Additional comments: LE focused exam: Vascular: DP/ PT 2/4 b/l , Cap refill <3 secs x9, Temp gradient warm to warm, Moderate erythema noted on the anterior aspect of b/l legs, no edema noted Neuro: protective sensation diminished b/l Derm: No open lesions, surgical site noted at the previous right partial hallux amputation site, site well coapted, no wound dehiscence noted , no drainage noted, no malodor, no clinical signs of infection, sutures still intact Erythema noted on the anterior aspect of b/l legs with mildly increased temperature, no open lesions on legs, no clinical signs of infection, Dry, scaling skin noted on the plantar aspect of the right foot. Ulceration noted at the tip of the 2nd digit, Minimal serous drainage noted, negative probe to bone, negative malodor, erythema noted to the 2nd digit with swelling, no tracking or tunneling noted. MSK: No pain on palpation at the surgery and the ulcer site. Muscle power intact 5/5 b/l. - Neurological Exam Neurological Exam: Alert, Awake, Oriented x3 - Psychiatric Exam Psychiatric exam: Normal Affect, Normal Mood Assessment and Plan - Assessment and Plan (Free Text) Assessment: 53 yo male seen at bedside s/p right partial hallux amputation (06/18/2018) and tip of the right second digit ulcer Plan: Patient seen and evaluated at the bedside. Plan discussed in details with the attending Dr. Diaz Patient chart and vitals and labs reviewed, afebrile 4.9 WBC Right Foot and wound cleansed with saline Suture removed used sterile suture removal kit Patient tolerated the suture removeal well with no complications. Patient ulcer dressed using betadine, adaptic, DSD and kerlix. Right foot second digit wound cultures result pending Right foot x-rays reviewed; Soft tissue changes cinsistent with 2nd digit ulcer, No evidence of osteomyelitis. ID on board. Recommendations appreciated. Continue IV Abx as per ID. Podiatry will continue to follow up the patient while in house
--- NOTE | 2018-07-14 10:26 | CP.PCM.PN ---
Subjective - Date & Time of Evaluation Date of Evaluation: 07/14/18 Time of Evaluation: 10:26 - Subjective Subjective: ID note- Pt. seen and examined today. pt. states he feels better. he had his sutures removed as per podiatry note. Objective - Vital Signs/Intake and Output Vital Signs (last 24 hours): Temp Pulse Resp BP Pulse Ox 98.0 F 72 19 152/84 H 96 07/14/18 08:13 07/14/18 08:13 07/14/18 08:13 07/14/18 08:13 07/14/18 08:13 - Medications Medications: Current Medications Acetaminophen (Tylenol 325mg Tab) 650 mg PO Q6 PRN PRN Reason: Fever >100.4 F Last Admin: 07/13/18 00:40 Dose: 650 mg Chlordiazepoxide (Librium) 50 mg PO Q8 PRN PRN Reason: Other Enoxaparin Sodium (Lovenox) 40 mg SC DAILY [facility]; Protocol Last Admin: 07/13/18 08:47 Dose: 40 mg Daptomycin 480 mg/ Sodium (Chloride) 100 mls @ 100 mls/hr IV Q24H [facility]; Protocol Stop: 07/17/18 14:46 Last Admin: 07/13/18 15:30 Dose: 100 mls/hr Saccharomyces Boulardii (Florastor) 250 mg PO BID [facility] Last Admin: 07/13/18 16:06 Dose: 250 mg Thiamine HCl (Vitamin B1 Tab) 100 mg PO DAILY [facility] - Labs Labs: - Additional Findings Additional findings: - Constitutional Appears: No Acute Distress - Head Exam Head Exam: ATRAUMATIC - Eye Exam Eye Exam: EOMI, PERRL - ENT Exam ENT Exam: Normal Oropharynx - Neck Exam Neck exam: Positive for: Full Rom - Respiratory Exam Respiratory Exam: Clear to Auscultation Bilateral, NORMAL BREATHING PATTERN - Cardiovascular Exam Cardiovascular Exam: RRR, +S1, +S2 - GI/Abdominal Exam GI & Abdominal Exam: Normal Bowel Sounds, Soft Additional comments: NT, ND - Extremities Exam Additional comments: right foot great toe with partial amputation , has one lateral suture left as per exam today, swelling and erythema is much less ad erythema on second toe and foot and ankle is also much less no discharge - Neurological Exam Neurological exam: Alert, Oriented x 3 Laboratory Results - last 72 hr 07/12/18 07/12/1807/12/18 01:25 01:25 01:35 WBC 5.0 RBC 3.51 L Hgb 10.2 L Hct 31.1 L MCV 88.8 MCH 29.0 MCHC 32.7 L RDW 16.0 H Plt Count 287 D MPV 8.3 Neut % (Auto) 46.9 L Lymph % (Auto) 43.9 H [place] % (Auto) 4.1 Eos % (Auto) 3.6 Baso % (Auto) 1.5 Neut # (Auto) 2.4 Lymph # (Auto) 2.2 [place] # (Auto) 0.2 Eos # (Auto) 0.2 Baso # (Auto) 0.1 pO2 29 L VBG pH 7.27 L VBG pCO2 57 VBG HCO3 22.2 VBG Total CO2 27.9 VBG O2 Sat (Calc) 43.6 VBG Base Excess -1.7 L VBG Potassium 3.6 Glucose 89 Lactate 1.6 FiO2 21.0 Sodium 146 147.0 Potassium 4.4 Chloride 112 H 111.0 H Carbon Dioxide 24 Anion Gap 14 BUN 9 Creatinine 0.8 Est GFR ( Amer) > 60 Est GFR (Non-Af Amer) > 60 POC Glucose (mg/dL) Random Glucose 90 Calcium 9.2 Phosphorus 3.8 Magnesium 1.8 Total Bilirubin 0.9 AST 75 H D ALT 35 Alkaline Phosphatase 759 H D Total Creatine Kinase Total Protein 8.0 Albumin 4.0 Globulin 4.1 H Albumin/Globulin Ratio 1.0 Venous Blood Potassium 3.6 Urine Color Urine Clarity Urine pH Ur Specific [place] Urine Protein Urine Glucose (UA) Urine Ketones Urine Blood Urine Nitrate Urine Bilirubin Urine Urobilinogen Ur Leukocyte Esterase Urine RBC (Auto) Urine Microscopic WBC Ur Squamous Epith Cells Urine Bacteria Alcohol, Quantitative 197 H 07/12/18 07/12/18 07/12/18 01:45 11:29 17:24 WBC RBC Hgb Hct MCV MCH MCHC RDW Plt Count MPV Neut % (Auto) Lymph % (Auto) [place] % (Auto) Eos % (Auto) Baso % (Auto) Neut # (Auto) Lymph # (Auto) [place] # (Auto) Eos # (Auto) Baso # (Auto) pO2 VBG pH VBG pCO2 VBG HCO3 VBG Total CO2 VBG O2 Sat (Calc) VBG Base Excess VBG Potassium Glucose Lactate FiO2 Sodium Potassium Chloride Carbon Dioxide Anion Gap BUN Creatinine Est GFR ( Amer) Est GFR (Non-Af Amer) POC Glucose (mg/dL) 92 98 85 Random Glucose Calcium Phosphorus Magnesium Total Bilirubin AST ALT Alkaline Phosphatase Total Creatine Kinase Total Protein Albumin Globulin Albumin/Globulin Ratio Venous Blood Potassium Urine Color Urine Clarity Urine pH Ur Specific [place] Urine Protein Urine Glucose (UA) Urine Ketones Urine Blood Urine Nitrate Urine Bilirubin Urine Urobilinogen Ur Leukocyte Esterase Urine RBC (Auto) Urine Microscopic WBC Ur Squamous Epith Cells Urine Bacteria Alcohol, Quantitative 07/12/18 07/13/18 07/13/18 21:30 05:30 05:30 WBC 3.4 L RBC 3.05 L Hgb 8.9 L Hct 26.8 L MCV 88.1 MCH 29.3 MCHC 33.3 RDW 15.5 H Plt Count 232 MPV 8.1 Neut % (Auto) 50.7 Lymph % (Auto) 37.6 [place] % (Auto) 7.0 Eos % (Auto) 3.5 Baso % (Auto) 1.2 Neut # (Auto) 1.7 L Lymph # (Auto) 1.3 [place] # (Auto) 0.2 Eos # (Auto) 0.1 Baso # (Auto) 0.0 pO2 VBG pH VBG pCO2 VBG HCO3 VBG Total CO2 VBG O2 Sat (Calc) VBG Base Excess VBG Potassium Glucose Lactate FiO2 Sodium 142 Potassium 2.9 L Chloride 107 Carbon Dioxide 28 Anion Gap 10 BUN 8 L Creatinine 0.8 Est GFR ( Amer) > 60 Est GFR (Non-Af Amer) > 60 POC Glucose (mg/dL) 94 Random Glucose 95 Calcium 8.4 Phosphorus Magnesium Total Bilirubin 0.8 AST 40 ALT 29 Alkaline Phosphatase 544 H D Total Creatine Kinase Total Protein 6.2 L Albumin 2.9 L D Globulin 3.2 Albumin/Globulin Ratio 0.9 L Venous Blood Potassium Urine Color Urine Clarity Urine pH Ur Specific [place] Urine Protein Urine Glucose (UA) Urine Ketones Urine Blood Urine Nitrate Urine Bilirubin Urine Urobilinogen Ur Leukocyte Esterase Urine RBC (Auto) Urine Microscopic WBC Ur Squamous Epith Cells Urine Bacteria Alcohol, Quantitative 07/13/18 07/13/18 07/13/18 06:25 10:33 15:00 WBC RBC Hgb Hct MCV MCH MCHC RDW Plt Count MPV Neut % (Auto) Lymph % (Auto) [place] % (Auto) Eos % (Auto) Baso % (Auto) Neut # (Auto) Lymph # (Auto) [place] # (Auto) Eos # (Auto) Baso # (Auto) pO2 VBG pH VBG pCO2 VBG HCO3 VBG Total CO2 VBG O2 Sat (Calc) VBG Base Excess VBG Potassium Glucose Lactate FiO2 Sodium Potassium Chloride Carbon Dioxide Anion Gap BUN Creatinine Est GFR ( Amer) Est GFR (Non-Af Amer) POC Glucose (mg/dL) 91 146 H Random Glucose Calcium Phosphorus Magnesium Total Bilirubin AST ALT Alkaline Phosphatase Total Creatine Kinase 26 L Total Protein Albumin Globulin Albumin/Globulin Ratio Venous Blood Potassium Urine Color Urine Clarity Urine pH Ur Specific [place] Urine Protein Urine Glucose (UA) Urine Ketones Urine Blood Urine Nitrate Urine Bilirubin Urine Urobilinogen Ur Leukocyte Esterase Urine RBC (Auto) Urine Microscopic WBC Ur Squamous Epith Cells Urine Bacteria Alcohol, Quantitative 07/13/18 07/13/18 07/13/18 16:07 20:55 21:43 WBC RBC Hgb Hct MCV MCH MCHC RDW Plt Count MPV Neut % (Auto) Lymph % (Auto) [place] % (Auto) Eos % (Auto) Baso % (Auto) Neut # (Auto) Lymph # (Auto) [place] # (Auto) Eos # (Auto) Baso # (Auto) pO2 VBG pH VBG pCO2 VBG HCO3 VBG Total CO2 VBG O2 Sat (Calc) VBG Base Excess VBG Potassium Glucose Lactate FiO2 Sodium Potassium Chloride Carbon Dioxide Anion Gap BUN Creatinine Est GFR ( Amer) Est GFR (Non-Af Amer) POC Glucose (mg/dL) 104 127 H Random Glucose Calcium Phosphorus Magnesium Total Bilirubin AST ALT Alkaline Phosphatase Total Creatine Kinase Total Protein Albumin Globulin Albumin/Globulin Ratio Venous Blood Potassium Urine Color Yellow Urine Clarity Clear Urine pH 7.0 Ur Specific [place] 1.008 Urine Protein Negative Urine Glucose (UA) Neg Urine Ketones Negative Urine Blood Negative Urine Nitrate Negative Urine Bilirubin Negative Urine Urobilinogen 0.2-1.0 Ur Leukocyte Esterase Neg Urine RBC (Auto) 3 Urine Microscopic WBC 1 Ur Squamous Epith Cells 1 Urine Bacteria Rare Alcohol, Quantitative 07/14/18 07/14/18 07/14/18 05:17 05:45 05:45 WBC 4.9 RBC 3.25 L Hgb 9.5 L Hct 28.6 L MCV 88.0 MCH 29.2 MCHC 33.1 RDW 15.6 H Plt Count 250 MPV Neut % (Auto) Lymph % (Auto) [place] % (Auto) Eos % (Auto) Baso % (Auto) Neut # (Auto) Lymph # (Auto) [place] # (Auto) Eos # (Auto) Baso # (Auto) pO2 VBG pH VBG pCO2 VBG HCO3 VBG Total CO2 VBG O2 Sat (Calc) VBG Base Excess VBG Potassium Glucose Lactate FiO2 Sodium 141 Potassium 3.5 L Chloride 108 H Carbon Dioxide 27 Anion Gap 10 BUN 9 Creatinine 0.7 L Est GFR ( Amer) > 60 Est GFR (Non-Af Amer) > 60 POC Glucose (mg/dL) 86 Random Glucose 97 Calcium 8.8 Phosphorus Magnesium Total Bilirubin 0.7 AST 45 ALT 33 Alkaline Phosphatase 576 H Total Creatine Kinase Total Protein 6.7 Albumin 3.2 L Globulin 3.5 Albumin/Globulin Ratio 0.9 L Venous Blood Potassium Urine Color Urine Clarity Urine pH Ur Specific [place] Urine Protein Urine Glucose (UA) Urine Ketones Urine Blood Urine Nitrate Urine Bilirubin Urine Urobilinogen Ur Leukocyte Esterase Urine RBC (Auto) Urine Microscopic WBC Ur Squamous Epith Cells Urine Bacteria Alcohol, Quantitative 07/14/18 11:05 WBC RBC Hgb Hct MCV MCH MCHC RDW Plt Count MPV Neut % (Auto) Lymph % (Auto) [place] % (Auto) Eos % (Auto) Baso % (Auto) Neut # (Auto) Lymph # (Auto) [place] # (Auto) Eos # (Auto) Baso # (Auto) pO2 VBG pH VBG pCO2 VBG HCO3 VBG Total CO2 VBG O2 Sat (Calc) VBG Base Excess VBG Potassium Glucose Lactate FiO2 Sodium Potassium Chloride Carbon Dioxide Anion Gap BUN Creatinine Est GFR ( Amer) Est GFR (Non-Af Amer) POC Glucose (mg/dL) 114 H Random Glucose Calcium Phosphorus Magnesium Total Bilirubin AST ALT Alkaline Phosphatase Total Creatine Kinase Total Protein Albumin Globulin Albumin/Globulin Ratio Venous Blood Potassium Urine Color Urine Clarity Urine pH Ur Specific [place] Urine Protein Urine Glucose (UA) Urine Ketones Urine Blood Urine Nitrate Urine Bilirubin Urine Urobilinogen Ur Leukocyte Esterase Urine RBC (Auto) Urine Microscopic WBC Ur Squamous Epith Cells Urine Bacteria Alcohol, Quantitative Microbiology 07/13/18 20:55 Toe Gram Stain - Final 07/13/18 15:30 Blood-Venous Blood Culture - Preliminary NO GROWTH AFTER 24 HOURS 07/13/18 15:00 Blood-Venous Blood Culture - Preliminary NO GROWTH AFTER 24 HOURS 07/12/18 07:50 Blood Blood Culture - Preliminary NO GROWTH AFTER 48 HOURS 07/12/18 01:25 Blood Blood Culture - Preliminary NO GROWTH AFTER 48 HOURS Assessment and Plan (1) Osteomyelitis Status: Acute (2) Positive blood culture Status: Acute (3) Alcohol abuse Status: Chronic - Assessment and Plan (Free Text) Assessment: A/P- 53 year old male admitted with recurrentl LLE cellulitis and right great toe OM and coag neg staph bacteremia and VRE bacteremia. afebrile past 48 hours. no leukocytosis repeat blood cx from this admission - neg x 4 blood cx from last admission one is VRE and one is coag neg staph last admission wound cx- MSSA MRI last admission as per report acute OM of first and second right great toe. TTE- no veg as per report. cpk-normal plan- continue with IV daptomycin day #3. await toe cx result. check ESr.
--- NOTE | 2018-07-14 10:28 | CP.PCM.PN ---
<Brady Mccartyson - Last Filed: 07/14/18 15:13> Subjective - Date & Time of Evaluation Date of Evaluation: 07/14/18 Time of Evaluation: 10:25 - Subjective Subjective: 53 yo male seen and evaluated at bedside. Patient AAOX3 and NAD. Has no complaints today. Denies foot pain. Denies N/V/F/C/SOB/CP/ pain in calves. States he is tolerating taking medication. CIWA withdrawal score 3. Objective - Vital Signs/Intake and Output Vital Signs (last 24 hours): Temp Pulse Resp BP Pulse Ox 98.0 F 72 19 152/84 H 96 07/14/18 08:13 07/14/18 08:13 07/14/18 08:13 07/14/18 08:13 07/14/18 08:13 - Medications Medications: Current Medications Acetaminophen (Tylenol 325mg Tab) 650 mg PO Q6 PRN PRN Reason: Fever >100.4 F Last Admin: 07/13/18 00:40 Dose: 650 mg Chlordiazepoxide (Librium) 50 mg PO Q8 PRN PRN Reason: Other Enoxaparin Sodium (Lovenox) 40 mg SC DAILY [facility]; Protocol Last Admin: 07/13/18 08:47 Dose: 40 mg Daptomycin 480 mg/ Sodium (Chloride) 100 mls @ 100 mls/hr IV Q24H [facility]; Protocol Stop: 07/17/18 14:46 Last Admin: 07/13/18 15:30 Dose: 100 mls/hr Saccharomyces Boulardii (Florastor) 250 mg PO BID [facility] Last Admin: 07/13/18 16:06 Dose: 250 mg Thiamine HCl (Vitamin B1 Tab) 100 mg PO DAILY [facility] - Labs Labs: 07/14/18 05:45 07/14/18 05:45 - Constitutional Appears: Well, Non-toxic, No Acute Distress - Head Exam Head Exam: ATRAUMATIC, NORMOCEPHALIC - Eye Exam Eye Exam: EOMI, Normal appearance, PERRL - ENT Exam ENT Exam: Normal Exam - Neck Exam Neck Exam: Full ROM - Respiratory Exam Respiratory Exam: NORMAL BREATHING PATTERN - GI/Abdominal Exam GI & Abdominal Exam: Soft, Normal Bowel Sounds - Extremities Exam Extremities Exam: Normal Capillary Refill, Pedal Edema Additional comments: Right foot dressings clean, dry, and intact - Neurological Exam Neurological Exam: Alert, Awake, Oriented x3 - Psychiatric Exam Psychiatric exam: Normal Affect, Normal Mood - Skin Skin Exam: Dry, Intact, Warm Assessment and Plan - Assessment and Plan (Free Text) Assessment: 53 y/o man w/ pmh of recurrent LE cellulitis and EtOH abuse presents to ED with complaint right foot pain and intoxication. Plan: Bacteremia -Feels well -WBC WNl on admission. Today is decreased -2 Bcx from previous admission 1 grew Coag neg Staph and another E.Faecalis -ID consult appreciated. F/u recs -C/w Daptomycin as per ID recs - first dose given Saturday 15:30, second dose today at 14:34 -No new murmurs on exam or SOB or CP -No elevated temp overnight -Monitor CBCs and VS -echocardiogram results: estimated EF 60-65%, left ventricular diastolic function normal, trace tricuspid regurgitation, no valvular vegetation found Osteomyelitis of right foot -S/P 1st toe amputation at [facility] more than 1 m/a -Refused Surgical intervention on previous admission to [facility] due to persistent OM on right foot on MRI -Grew MSSA on wound Cx and was DC on PO levaquin that patient didnt take -Didnt f/u with Podiatry as outpatient -Podiatry consulted. F/U recs -Pain control Alcohol Abuse -chronic -ETOH withdrawal protocol -Librium PRN Hypokalemia K=3.5 this AM Mg not taken today POss due to ETOH abuse KCL 40 meq stat given yesterday Anemia Poss due to ETOH abuse F/U anemia work up B/L leg swelling and erythema with tenderness to R/calf -R/o DVT -LE US ordered - no evidence of DVT in the right lower extremity Prophylactic measures -DVT: lovenox 40 mg SC daily <Bela Moreno - Last Filed: 07/14/18 17:53> Objective - Vital Signs/Intake and Output Vital Signs (last 24 hours): Temp Pulse Resp BP Pulse Ox 98.8 F 70 18 160/94 H 97 07/14/18 15:57 07/14/18 15:57 07/14/18 15:57 07/14/18 15:57 07/14/18 15:57 - Medications Medications: Current Medications Acetaminophen (Tylenol 325mg Tab) 650 mg PO Q6 PRN PRN Reason: Fever >100.4 F Last Admin: 07/13/18 00:40 Dose: 650 mg Chlordiazepoxide (Librium) 50 mg PO Q8 PRN PRN Reason: Other Enoxaparin Sodium (Lovenox) 40 mg SC DAILY [facility]; Protocol Last Admin: 07/14/18 12:23 Dose: 40 mg Daptomycin 480 mg/ Sodium (Chloride) 100 mls @ 100 mls/hr IV Q24H [facility]; Protocol Stop: 07/17/18 14:46 Last Admin: 07/14/18 14:34 Dose: 100 mls/hr Saccharomyces Boulardii (Florastor) 250 mg PO BID [facility] Last Admin: 07/14/18 17:24 Dose: 250 mg Thiamine HCl (Vitamin B1 Tab) 100 mg PO DAILY [facility] Last Admin: 07/14/18 12:24 Dose: 100 mg - Labs Labs: 07/14/18 05:45 07/14/18 05:45 Attending/Attestation - Attestation I have personally seen and examined this patient.: Yes I have fully participated in the care of the patient.: Yes I have reviewed all pertinent clinical information, including history, physical exam and plan: Yes Notes (Text): Sepsis with VRE and Staph coag negative Bacteremia sec to Right Foot Cellulitis and Acute Osteomyelitis - cont IV Dapto as rec by ID - ECHO - no vegetation - rpt Blood c/s negative so far -MRI done 07/01 showed Acute Osteo - ? amputation, await Podiatry recommendation
--- NOTE | 2018-07-14 10:48 | CP.PCM.PN ---
Subjective - Date & Time of Evaluation Date of Evaluation: 07/14/18 Time of Evaluation: 10:46 - Subjective Subjective: 89 yo female seen and evaluated at bedside for fractures s/p fall 07/12. Patient is AAOx3 and NAD. States that she is in no pain today when she is sitting still. Reports eating well and sleeping well. Denies any acute events overnight. Aware of possible shoulder surgery after Plavix is out of her system. Denies N/V/F/C/SOB/CP. Objective - Vital Signs/Intake and Output Vital Signs (last 24 hours): Temp Pulse Resp BP Pulse Ox 98.0 F 72 19 152/84 H 96 07/14/18 08:13 07/14/18 08:13 07/14/18 08:13 07/14/18 08:13 07/14/18 08:13 - Medications Medications: Current Medications Acetaminophen (Tylenol 325mg Tab) 650 mg PO Q6 PRN PRN Reason: Fever >100.4 F Last Admin: 07/13/18 00:40 Dose: 650 mg Chlordiazepoxide (Librium) 50 mg PO Q8 PRN PRN Reason: Other Enoxaparin Sodium (Lovenox) 40 mg SC DAILY [facility]; Protocol Last Admin: 07/13/18 08:47 Dose: 40 mg Daptomycin 480 mg/ Sodium (Chloride) 100 mls @ 100 mls/hr IV Q24H [facility]; Protocol Stop: 07/17/18 14:46 Last Admin: 07/13/18 15:30 Dose: 100 mls/hr Saccharomyces Boulardii (Florastor) 250 mg PO BID [facility] Last Admin: 07/13/18 16:06 Dose: 250 mg Thiamine HCl (Vitamin B1 Tab) 100 mg PO DAILY [facility] - Labs Labs: 07/14/18 05:45 07/14/18 05:45 - Constitutional Appears: Well, Non-toxic, No Acute Distress - Head Exam Head Exam: ATRAUMATIC, NORMOCEPHALIC - Eye Exam Eye Exam: Normal appearance, PERRL - ENT Exam ENT Exam: Mucous Membranes Moist, Normal Exam - Respiratory Exam Respiratory Exam: NORMAL BREATHING PATTERN - Cardiovascular Exam Cardiovascular Exam: REGULAR RHYTHM - GI/Abdominal Exam GI & Abdominal Exam: Soft, Normal Bowel Sounds - Extremities Exam Extremities Exam: Normal Capillary Refill Additional comments: Left arm in sling, trouble moving left fingers but can move hand up and down. Moderate lower extremity edema. DP and PT pulses palpable b/l. - Neurological Exam Neurological Exam: Alert, Awake, Oriented x3 - Psychiatric Exam Psychiatric exam: Normal Affect, Normal Mood - Skin Skin Exam: Dry, Intact, Normal Color, Warm Assessment and Plan - Assessment and Plan (Free Text) Assessment: 89 yo female seen and evaluated at bedside 2 days s/p mechanical fall and fracture of left humerus and left scapula. Plan: 1. Comminuted proximal left humeral fracture - s/p fall - LUE CT: Impacted, comminuted proximal left humeral fracture. Anatomic relationship of the glenoid and humeral head noted. 10 mm pulmonary nodule left upper lobe dedicated CT advised for further evaluation. - status post reduction at [facility] - pain management with morphine, tylenol and percocet - Ortho Dr Palmer consult appreciated- "OR for reverse shouder arthroplasty when plavix effect is neutralized" - Cardiac consulted Dr Jeong, preop clearance - note for echo - f/u Head CT, spine and Maxilofacial CT reports - spine: no acute fracutre, multilevel degenerative changes; head: no acute intracranial pathology, age related changes; maxilofacial: no acute fracture - consented for transfusion if needed - telephone consent with son Alfonso, with two nurses as witnesses, placed in patient chart 2. L scapula fracture - s/p fall - Shoulder XR showed inferior displaced wing fx, anterior shoulder dislocation - s/p reduction - pain management - shoulder immobilizer noted in place - Ortho on board, f/u recommds 3. H/O CAD - stable, s/p stent 2008 - continue home meds except Plavix for poss surgery - EKG no acute changes - Cardiology consulted for preop clearance 4. h/o HF - last Echo 2012 at [facility]: moderate to severe decreased systolic function, Diastolic Dysfunction, mild AR, LVEF 35% - f/u echo in am - Cardiology consult appreciated. 5. h/o NSTEMI - stable, in 2012 - continue home meds except Plavix for poss surgery - EKG no acute changes 6. Hypothyroidism - asymptomatic - TSH : 0.07 ; T4: 2.05 ; T3 : pending - f/u T3 - Discontinue Levothyroxine 125mcg daily given TSH 0.07. - Start Levothyroxine 100mcg daily on Saturday, 07/15 7. DVT prophylaxis - Hold plavix for poss surgery - Lovenox daily.
[2018-07-14] MEDS: Saccharomyces Boulardi 250 mg Cap PO SCH ×2 (12:23→17:24)
[2018-07-14] MEDS: Enoxaparin 40 mg Syringe SC SCH (12:23)
--- NOTE | 2018-07-14 14:22 | CARD ---
APPROVED REPORT Date of service: 07/14/2018 EXAM: Two-dimensional and M-mode echocardiogram with Doppler and color Doppler. Other Information Quality : GoodRhythm : NSR INDICATION Infection: Bacteremia 2D DIMENSIONS IVSd1.15 (0.7-1.1cm)LVDd4.22 (3.9-5.9cm) LVOT Diameter1.90 (1.8-2.4cm)PWd1.47 (0.7-1.1cm) IVSs1.38 (0.8-1.2cm)LVDs2.79 (2.5-4.0cm) FS (%) 33.8 %PWs1.66 (0.8-1.2cm) M-Mode DIMENSIONS Left Atrium (MM)2.97 (2.5-4.0cm)IVSd0.85 (0.7-1.1cm) Aortic Root2.88 (2.2-3.7cm)LVDd4.88 (4.0-5.6cm) Aortic Cusp Exc.1.74 (1.5-2.0cm)PWd1.24 (0.7-1.1cm) IVSs1.47 cmFS (%) 49 % LVDs2.50 (2.0-3.8cm)PWs1.76 cm Aortic Valve AoV Peak Fohfogia748.9cm/sAoV VTI33.0cmAO Peak GR.16mmHg LVOT Peak Hxwumyms251.7cm/sLVOT VTI20.83cmAO Mean GR.8mmHg KIANA (VMAX)0.89jp8KST (VTI)0.95cm2 Mitral Valve MV E Dxsknjkd01.0cm/sMV DECEL KBPZ190elXQ A Tkrssrat80.2cm/s MV KNS80shS/A ratio1.3MVA (PHT)3.39cm2 TDI Lateral E' Peak V10.92cm/sMedial E' Peak V6.93cm/sE/Lateral E'7.6 E/Medial E'12.0 Pulmonary Valve PV Peak Sroljibx491.9cm/s LEFT VENTRICLE The left ventricle is normal size. There is normal left ventricular wall thickness. The left ventricular systolic function is normal. The estimated ejection fraction is 60-65% No regional wall motion abnormalities noted.. The left ventricular diastolic function is normal. No left ventricle thrombus noted on this study. There is no ventricular septal defect visualized. There is no left ventricular aneurysm. There is no mass noted in the left ventricle. RIGHT VENTRICLE The right ventricle is normal size. There is normal right ventricular wall thickness. The right ventricular systolic function is normal. ATRIA The left atrium size is normal. The right atrium size is normal. The interatrial septum is intact with no evidence for an atrial septal defect. AORTIC VALVE The aortic valve is normal in structure. No aortic regurgitation is present. There is no aortic valvular stenosis. There is no aortic valvular vegetation. MITRAL VALVE The mitral valve is normal in structure. There is no evidence of mitral valve prolapse. There is no mitral valve stenosis. There is no mitral valve regurgitation noted. TRICUSPID VALVE The tricuspid valve is normal in structure. There is trace tricuspid regurgitation. There is no tricuspid valve prolapse or vegetation. There is no tricuspid valve stenosis. PULMONIC VALVE The pulmonary valve is normal in structure. There is no pulmonic valvular regurgitation. There is no pulmonic valvular stenosis. GREAT VESSELS The aortic root is normal in size. The ascending aorta is normal in size. The pulmonary artery is normal. The IVC is normal in size and collapses >50% with inspiration. PERICARDIAL EFFUSION There is no pericardial effusion. There is no pleural effusion. <Conclusion> The estimated ejection fraction is 60-65% The left ventricular diastolic function is normal. There is trace tricuspid regurgitation. No valvular vegetation found on this study. Consider ODETTE if clinically indicated.
[2018-07-14 17:33] LABS: IRON 36 ug/dL (49-181)
[2018-07-14 17:42] LABS: % IRON SATURATION 13 % (20-55); TOTAL IRON BINDING CAPACITY 288 ug/dL (250-450)
[2018-07-15 06:30] LABS: HEMOGLOBIN 10.2 g/dL (12.0-18.0); MEAN CELL VOLUME 88.4 fl (80.0-94.0); MEAN CORPUSCULAR HEMOGLOBIN 29.2 pg (27.0-31.0); RBC 3.51 Mil/uL (4.40-5.90); RED CELL DISTRIBUTION WIDTH 15.6 % (11.5-14.5); WHITE BLOOD COUNT 5.5 K/uL (4.8-10.8)
--- NOTE | 2018-07-15 06:43 | CP.PCM.PN ---
Subjective - Date & Time of Evaluation Date of Evaluation: 07/15/18 Time of Evaluation: 08:23 - Subjective Subjective: Podiatry progress note for Dr. Diaz, 53 y/o male patient seen and evaluated on the bedside for right foot pain s/p right great toe amputation on (06/18/18) at [facility] and 2nd right digit ulceration. Patient is being admitted for iv antibiotics. Patient denies any overnight acute events. Patient denies any overnight F/N/V/C or SOB. Patient denies any other pedal complaint or pain at this time. Objective - Vital Signs/Intake and Output Vital Signs (last 24 hours): Temp Pulse Resp BP Pulse Ox 97.8 F 77 20 160/87 H 97 07/15/18 00:00 07/15/18 00:00 07/15/18 00:00 07/15/18 00:00 07/15/18 00:00 - Medications Medications: Current Medications Acetaminophen (Tylenol 325mg Tab) 650 mg PO Q6 PRN PRN Reason: Fever >100.4 F Last Admin: 07/13/18 00:40 Dose: 650 mg Chlordiazepoxide (Librium) 10 mg PO Q8 [facility] Last Admin: 07/15/18 00:54 Dose: 10 mg Clonidine HCl (Catapres) 0.1 mg PO BID [facility] Last Admin: 07/14/18 21:00 Dose: 0.1 mg Enoxaparin Sodium (Lovenox) 40 mg SC DAILY [facility]; Protocol Last Admin: 07/14/18 12:23 Dose: 40 mg Daptomycin 480 mg/ Sodium (Chloride) 100 mls @ 100 mls/hr IV Q24H [facility]; Protocol Stop: 07/17/18 14:46 Last Admin: 07/14/18 14:34 Dose: 100 mls/hr Saccharomyces Boulardii (Florastor) 250 mg PO BID [facility] Last Admin: 07/14/18 17:24 Dose: 250 mg Thiamine HCl (Vitamin B1 Tab) 100 mg PO DAILY [facility] Last Admin: 07/14/18 12:24 Dose: 100 mg - Labs Labs: 07/14/18 05:45 07/14/18 05:45 - Constitutional Appears: Well, Non-toxic, No Acute Distress - Head Exam Head Exam: ATRAUMATIC, NORMOCEPHALIC - Extremities Exam Additional comments: LE focused exam: Vascular: DP/ PT 2/4 b/l , Cap refill <3 secs x9, Temp gradient warm to warm, Moderate erythema noted on the anterior aspect of b/l legs, no edema noted Neuro: protective sensation diminished b/l Derm: No open lesions, surgical site noted at the previous right partial hallux amputation site, site well coapted, no wound dehiscence noted , no drainage noted, no malodor, no clinical signs of infection. Erythema noted on the anterior aspect of b/l legs with mildly increased temperature, no open lesions on legs, no clinical signs of infection, Dry, scaling skin noted on the plantar aspect of the right foot. Ulceration noted at the tip of the 2nd digit 0.5X0.4X0.2cm, 1 cc of purulent drainage noted, negative probe to bone, negative malodor, erythema noted to the 2nd digit with swelling, no tracking or tunneling noted. MSK: No pain on palpation at the surgery and the ulcer site. Muscle power intact 5/5 b/l. - Neurological Exam Neurological Exam: Alert, Awake, Oriented x3 - Psychiatric Exam Psychiatric exam: Normal Affect, Normal Mood Assessment and Plan - Assessment and Plan (Free Text) Assessment: 53 yo male seen at bedside s/p right partial hallux amputation (06/18/2018) and tip of the right second digit ulcer Plan: Patient seen and evaluated at the bedside. Plan discussed in details with the attending Dr. Diaz Patient chart and vitals and labs reviewed, afebrile, 5.5 WBC Right Foot and wounds cleansed with saline Patient ulcer dressed using betadine, adaptic, DSD and kerlix. Right foot second digit wound cultures result pending Right foot x-rays reviewed; Soft tissue changes consistent with 2nd digit ulcer, No evidence of osteomyelitis. MRI right foot (07/01) 2nd toe distal phalanx shows signal abnormailities so, Osteomyelitis can't be excluded. ID on board. Recommendations appreciated. Continue IV Abx as per ID. Podiatry will continue to follow up the patient while in house
[2018-07-15 07:45] LABS: BLOOD UREA NITROGEN 13 mg/dl (9-20); CALCIUM 9.2 mg/dL (8.4-10.2); GFR NON-AFRICAN AMERICAN > 60
--- NOTE | 2018-07-15 08:32 | CP.PCM.PN ---
Addendum entered and electronically signed by Cristian Coto MD 07/15/18 14:11: Patient was seen and examined bedside. All chart and clinical data reviewed . Agree with resident assessment and plan 53 y/o male homeless , alcoholic patient with multiple admissions admitted again for bacteremia and OM of right foot Id consulted On Daptomycin IV Will follow up repeat cultures Podiatry on board Original Note: Subjective - Date & Time of Evaluation Date of Evaluation: 07/15/18 Time of Evaluation: 08:30 - Subjective Subjective: 53 yo male seen and evaluated at bedside. Patient AAOX3 and NAD. Has no complaints today. Denies foot pain but states when podiatry changed dressing he noticed a lot of drainage. Denies N/V/F/C/SOB/CP/ pain in calves. States he is tolerating taking medication. CIWA withdrawal score 4. Objective - Vital Signs/Intake and Output Vital Signs (last 24 hours): Temp Pulse Resp BP Pulse Ox 98.1 F 79 20 154/92 H 96 07/15/18 07:55 07/15/18 07:55 07/15/18 07:55 07/15/18 07:55 07/15/18 07:55 - Medications Medications: Current Medications Acetaminophen (Tylenol 325mg Tab) 650 mg PO Q6 PRN PRN Reason: Fever >100.4 F Last Admin: 07/13/18 00:40 Dose: 650 mg Chlordiazepoxide (Librium) 10 mg PO Q8 [facility] Last Admin: 07/15/18 00:54 Dose: 10 mg Clonidine HCl (Catapres) 0.1 mg PO BID [facility] Last Admin: 07/14/18 21:00 Dose: 0.1 mg Enoxaparin Sodium (Lovenox) 40 mg SC DAILY [facility]; Protocol Last Admin: 07/14/18 12:23 Dose: 40 mg Daptomycin 480 mg/ Sodium (Chloride) 100 mls @ 100 mls/hr IV Q24H [facility]; Protocol Stop: 07/17/18 14:46 Last Admin: 07/14/18 14:34 Dose: 100 mls/hr Saccharomyces Boulardii (Florastor) 250 mg PO BID [facility] Last Admin: 07/14/18 17:24 Dose: 250 mg Thiamine HCl (Vitamin B1 Tab) 100 mg PO DAILY [facility] Last Admin: 10/01/18 12:24 Dose: 100 mg - Labs Labs: 07/15/18 05:40 07/15/18 05:40 - Constitutional Appears: Well, Non-toxic, No Acute Distress - Head Exam Head Exam: ATRAUMATIC, NORMOCEPHALIC - Eye Exam Eye Exam: EOMI, Normal appearance - ENT Exam ENT Exam: Mucous Membranes Moist, Normal Exam - Respiratory Exam Respiratory Exam: NORMAL BREATHING PATTERN - Cardiovascular Exam Cardiovascular Exam: REGULAR RHYTHM - GI/Abdominal Exam GI & Abdominal Exam: Soft, Normal Bowel Sounds - Extremities Exam Additional comments: Right first digit partial amputation - sutures removed, site well coapted, mild erythema periincison site Right second digit distal tip wound - drained about 2-3cc of purulent drainage, does not PTB Cap refill <3 seconds to all remaining digits - Neurological Exam Neurological Exam: Alert, Awake, Oriented x3 - Psychiatric Exam Psychiatric exam: Normal Affect, Normal Mood - Skin Skin Exam: Dry, Intact, Warm Assessment and Plan - Assessment and Plan (Free Text) Assessment: 53 y/o man w/ pmh of recurrent LE cellulitis and EtOH abuse presents to ED with complaint right foot pain and intoxication. Plan: Bacteremia -Feels well -WBC WNl on admission. Today is decreased -2 Bcx from previous admission 1 grew Coag neg Staph and another E.Faecalis -ID consult appreciated. F/u recs -C/w Daptomycin as per ID recs - third dose this afternoon -No new murmurs on exam or SOB or CP -No elevated temp overnight -Monitor CBCs and VS -echocardiogram results: estimated EF 60-65%, left ventricular diastolic function normal, trace tricuspid regurgitation, no valvular vegetation found Osteomyelitis of right foot -S/P 1st toe amputation at [facility] more than 1 m/a -Refused Surgical intervention on previous admission to [facility] due to persistent OM on right foot on MRI -Grew MSSA on wound Cx and was DC on PO levaquin that patient didnt take -Didnt f/u with Podiatry as outpatient -Podiatry consulted - will discuss second digit amputation as clinical signs of infection present and MRI read - F/U recs -ESR 104 -Pain control Alcohol Abuse -chronic -ETOH withdrawal protocol -Librium PRN Hypokalemia K=3.8 this AM Mg not taken today POss due to ETOH abuse KCL 40 meq stat given two days ago Anemia Poss due to ETOH abuse Iron - 36 TIBC - 288 % sat - 13 Ferritin - 148 B/L leg swelling and erythema with tenderness to R/calf -R/o DVT -LE US ordered - no evidence of DVT in the right lower extremity Prophylactic measures -DVT: lovenox 40 mg SC daily
[2018-07-15] MEDS: Saccharomyces Boulardi 250 mg Cap PO SCH ×2 (09:40→16:19)
[2018-07-15] MEDS: Enoxaparin 40 mg Syringe SC SCH (09:49)
[2018-07-15 17:06] LABS: FOLATE 15.8 ng/mL
[2018-07-16 06:49] LABS: HEMOGLOBIN 10.5 g/dL (12.0-18.0); MEAN CELL VOLUME 87.5 fl (80.0-94.0); MEAN CORPUSCULAR HEMOGLOBIN 29.4 pg (27.0-31.0); MEAN CORPUSCULAR HGB CONC 33.6 g/dL (33.0-37.0); RBC 3.59 Mil/uL (4.40-5.90); RED CELL DISTRIBUTION WIDTH 16.3 % (11.5-14.5); WHITE BLOOD COUNT 6.5 K/uL (4.8-10.8)
--- NOTE | 2018-07-16 08:18 | CP.PCM.PN ---
Addendum entered and electronically signed by Juan Hickman DPM 07/16/18 13:13: Plan: - Spoke to the patient about the possibility of doing distal Syms amputation to the right 2nd toe as the bone is infected. - spray foam installer number [id number] used for interpretation. - Benifits risks and alternatives of the surgery explained to the patient. - Patient expressed verbal understanding. - Patient will be seen tomorrow by Dr. Diaz for final decision. Original Note: Subjective - Date & Time of Evaluation Date of Evaluation: 07/16/18 Time of Evaluation: 08:16 - Subjective Subjective: Podiatry progress note for Dr. Diaz, 53 y/o male patient seen and evaluated on the bedside for right foot pain s/p right great toe amputation on (06/18/18) at [facility] and 2nd right digit ulceration. Patient is being admitted for iv antibiotics. Patient states that he has mild pain at his 2nd toe since yesterday at the ulcer site. Patient denies any overnight acute events. Patient denies any overnight F/N/V/C or SOB. Patient denies any other pedal complaint or pain at this time. Objective - Vital Signs/Intake and Output Vital Signs (last 24 hours): Temp Pulse Resp BP Pulse Ox 98.4 F 65 20 118/77 97 07/16/18 08:00 07/16/18 08:00 07/16/18 08:00 07/16/18 08:00 07/16/18 08:00 - Medications Medications: Current Medications Acetaminophen (Tylenol 325mg Tab) 650 mg PO Q6 PRN PRN Reason: Fever >100.4 F Last Admin: 07/13/18 00:40 Dose: 650 mg Chlordiazepoxide (Librium) 10 mg PO Q8 [facility] Last Admin: 07/16/18 01:40 Dose: 10 mg Clonidine HCl (Catapres) 0.1 mg PO BID [facility] Last Admin: 07/15/18 16:19 Dose: 0.1 mg Enoxaparin Sodium (Lovenox) 40 mg SC DAILY [facility]; Protocol Last Admin: 07/15/18 09:49 Dose: 40 mg Ferrous Sulfate (Feosol) 325 mg PO BID [facility] Folic Acid (Folic Acid) 1 mg PO DAILY [facility] Daptomycin 480 mg/ Sodium (Chloride) 100 mls @ 100 mls/hr IV Q24H [facility]; Protocol Stop: 07/17/18 14:46 Last Admin: 07/15/18 16:16 Dose: 100 mls/hr Saccharomyces Boulardii (Florastor) 250 mg PO BID [facility] Last Admin: 07/15/18 16:19 Dose: 250 mg Thiamine HCl (Vitamin B1 Tab) 100 mg PO DAILY [facility] Last Admin: 07/15/18 09:49 Dose: 100 mg - Labs Labs: 07/16/18 05:55 07/15/18 05:40 - Constitutional Appears: Well, Non-toxic, No Acute Distress - Head Exam Head Exam: ATRAUMATIC, NORMOCEPHALIC - Extremities Exam Additional comments: LE focused exam: Vascular: DP/ PT 2/4 b/l , Cap refill <3 secs x9, Temp gradient warm to warm, Moderate erythema noted on the anterior aspect of b/l legs, no edema noted Neuro: protective sensation diminished b/l Derm: No open lesions, surgical site noted at the previous right partial hallux amputation site, site well coapted, no wound dehiscence noted , no drainage noted, no malodor, no clinical signs of infection. Erythema noted on the anterior aspect of b/l legs with mildly increased temperature, no open lesions on legs, no clinical signs of infection, Dry, scaling skin noted on the plantar aspect of the right foot. Ulceration noted at the tip of the 2nd digit 0.5X0.4X0.2cm, about 1 cc of pur ulent drainage expressed today, negative probe to bone, negative malodor, erythema noted to the 2nd digit with swelling, no tracking or tunneling noted. MSK: No pain on palpation at the surgery and the ulcer site. Muscle power intact 5/5 b/l. - Neurological Exam Neurological Exam: Alert, Awake, Oriented x3 - Psychiatric Exam Psychiatric exam: Normal Affect, Normal Mood Assessment and Plan - Assessment and Plan (Free Text) Assessment: 53 yo male seen at bedside s/p right partial hallux amputation (06/18/2018) and tip of the right second digit ulcer Plan: Patient seen and evaluated at the bedside. Plan discussed in details with the attending Dr. Diaz Patient chart and vitals and labs reviewed, afebrile, 6.5 WBC Patient right 1st toe amputation site and 2nd toe ulcer dressed using betadine, DSD and kerlix. Right foot second digit wound cultures; Yeast species Right foot x-rays reviewed; Soft tissue changes consistent with 2nd digit ulcer, No evidence of osteomyelitis. MRI right foot (07/01) 2nd toe distal phalanx shows signal abnormailities so, Osteomyelitis can't be excluded. ID on board. Recommendations appreciated. Continue IV Abx as per ID. Podiatry will continue to follow up the patient while in house.
[2018-07-16] MEDS: Saccharomyces Boulardi 250 mg Cap PO SCH ×2 (09:16→16:22)
[2018-07-16] MEDS: Enoxaparin 40 mg Syringe SC SCH (09:16)
--- NOTE | 2018-07-16 09:45 | CP.PCM.PN ---
Subjective - Date & Time of Evaluation Date of Evaluation: 07/16/18 Time of Evaluation: 09:44 - Subjective Subjective: ID note- Pt. seen and examined today. pt. states he feels much better and denies any fever. he states he wishes to go home . Objective - Vital Signs/Intake and Output Vital Signs (last 24 hours): Temp Pulse Resp BP Pulse Ox 98.4 F 65 20 118/77 97 07/16/18 08:00 07/16/18 09:14 07/16/18 08:00 07/16/18 09:14 07/16/18 08:00 - Medications Medications: Current Medications Acetaminophen (Tylenol 325mg Tab) 650 mg PO Q6 PRN PRN Reason: Fever >100.4 F Last Admin: 07/13/18 00:40 Dose: 650 mg Chlordiazepoxide (Librium) 10 mg PO Q8 [facility] Last Admin: 07/16/18 09:24 Dose: 10 mg Clonidine HCl (Catapres) 0.1 mg PO BID [facility] Last Admin: 07/16/18 09:14 Dose: 0.1 mg Enoxaparin Sodium (Lovenox) 40 mg SC DAILY [facility]; Protocol Last Admin: 07/16/18 09:16 Dose: 40 mg Ferrous Sulfate (Feosol) 325 mg PO BID [facility] Last Admin: 07/16/18 09:15 Dose: 325 mg Folic Acid (Folic Acid) 1 mg PO DAILY [facility] Last Admin: 07/16/18 09:16 Dose: 1 mg Daptomycin 480 mg/ Sodium (Chloride) 100 mls @ 100 mls/hr IV Q24H [facility]; Protocol Stop: 07/17/18 14:46 Last Admin: 07/15/18 16:16 Dose: 100 mls/hr Saccharomyces Boulardii (Florastor) 250 mg PO BID [facility] Last Admin: 07/16/18 09:16 Dose: 250 mg Thiamine HCl (Vitamin B1 Tab) 100 mg PO DAILY [facility] Last Admin: 07/16/18 09:18 Dose: 100 mg - Labs Labs: - Additional Findings Additional findings: - Constitutional Appears: No Acute Distress - Head Exam Head Exam: ATRAUMATIC - Eye Exam Eye Exam: EOMI, PERRL - ENT Exam ENT Exam: Normal Oropharynx - Neck Exam Neck exam: Positive for: Full Rom - Respiratory Exam Respiratory Exam: Clear to Auscultation Bilateral, NORMAL BREATHING PATTERN - Cardiovascular Exam Cardiovascular Exam: RRR, +S1, +S2 - GI/Abdominal Exam GI & Abdominal Exam: Normal Bowel Sounds, Soft Additional comments: NT, ND - Extremities Exam Additional comments: right foot great toe with partial amputation . swelling and erythema is much less ad erythema on second toe and foot and ankle is also much less no discharge - Neurological Exam Neurological exam: Alert, Oriented x 3 Laboratory Results - last 72 hr 07/13/18 07/13/18 07/13/18 15:00 16:07 16:15 WBC RBC Hgb Hct MCV MCH MCHC RDW Plt Count ESR Sodium Potassium Chloride Carbon Dioxide Anion Gap BUN Creatinine Est GFR ( Amer) Est GFR (Non-Af Amer) POC Glucose (mg/dL) 104 Random Glucose Calcium Iron 36 L TIBC 288 % Saturation 13 L Ferritin Total Bilirubin AST ALT Alkaline Phosphatase Total Creatine Kinase 26 L Total Protein Albumin Globulin Albumin/Globulin Ratio Vitamin B12 Folate Urine Color Urine Clarity Urine pH Ur Specific [place] Urine Protein Urine Glucose (UA) Urine Ketones Urine Blood Urine Nitrate Urine Bilirubin Urine Urobilinogen Ur Leukocyte Esterase Urine RBC (Auto) Urine Microscopic WBC Ur Squamous Epith Cells Urine Bacteria 07/13/18 07/13/18 07/13/18 16:15 20:55 21:43 WBC RBC Hgb Hct MCV MCH MCHC RDW Plt Count ESR Sodium Potassium Chloride Carbon Dioxide Anion Gap BUN Creatinine Est GFR ( Amer) Est GFR (Non-Af Amer) POC Glucose (mg/dL) 127 H Random Glucose Calcium Iron TIBC % Saturation Ferritin 148.0 Total Bilirubin AST ALT Alkaline Phosphatase Total Creatine Kinase Total Protein Albumin Globulin Albumin/Globulin Ratio Vitamin B12 326 Folate 15.8 Urine Color Yellow Urine Clarity Clear Urine pH 7.0 Ur Specific [place] 1.008 Urine Protein Negative Urine Glucose (UA) Neg Urine Ketones Negative Urine Blood Negative Urine Nitrate Negative Urine Bilirubin Negative Urine Urobilinogen 0.2-1.0 Ur Leukocyte Esterase Neg Urine RBC (Auto) 3 Urine Microscopic WBC 1 Ur Squamous Epith Cells 1 Urine Bacteria Rare 07/14/18 07/14/18 07/14/18 05:17 05:45 05:45 WBC 4.9 RBC 3.25 L Hgb 9.5 L Hct 28.6 L MCV 88.0 MCH 29.2 MCHC 33.1 RDW 15.6 H Plt Count 250 ESR Sodium 141 Potassium 3.5 L Chloride 108 H Carbon Dioxide 27 Anion Gap 10 BUN 9 Creatinine 0.7 L Est GFR ( Amer) > 60 Est GFR (Non-Af Amer) > 60 POC Glucose (mg/dL) 86 Random Glucose 97 Calcium 8.8 Iron TIBC % Saturation Ferritin Total Bilirubin 0.7 AST 45 ALT 33 Alkaline Phosphatase 576 H Total Creatine Kinase Total Protein 6.7 Albumin 3.2 L Globulin 3.5 Albumin/Globulin Ratio 0.9 L Vitamin B12 Folate Urine Color Urine Clarity Urine pH Ur Specific [place] Urine Protein Urine Glucose (UA) Urine Ketones Urine Blood Urine Nitrate Urine Bilirubin Urine Urobilinogen Ur Leukocyte Esterase Urine RBC (Auto) Urine Microscopic WBC Ur Squamous Epith Cells Urine Bacteria 07/14/18 07/14/18 07/14/18 11:05 15:43 16:15 WBC RBC Hgb Hct MCV MCH MCHC RDW Plt Count ESR 104 H Sodium Potassium Chloride Carbon Dioxide Anion Gap BUN Creatinine Est GFR ( Amer) Est GFR (Non-Af Amer) POC Glucose (mg/dL) 114 H 98 Random Glucose Calcium Iron TIBC % Saturation Ferritin Total Bilirubin AST ALT Alkaline Phosphatase Total Creatine Kinase Total Protein Albumin Globulin Albumin/Globulin Ratio Vitamin B12 Folate Urine Color Urine Clarity Urine pH Ur Specific [place] Urine Protein Urine Glucose (UA) Urine Ketones Urine Blood Urine Nitrate Urine Bilirubin Urine Urobilinogen Ur Leukocyte Esterase Urine RBC (Auto) Urine Microscopic WBC Ur Squamous Epith Cells Urine Bacteria 07/14/18 07/15/18 07/15/18 21:39 03:10 05:19 WBC RBC Hgb Hct MCV MCH MCHC RDW Plt Count ESR Sodium Potassium Chloride Carbon Dioxide Anion Gap BUN Creatinine Est GFR ( Amer) Est GFR (Non-Af Amer) POC Glucose (mg/dL) 103 95 89 Random Glucose Calcium Iron TIBC % Saturation Ferritin Total Bilirubin AST ALT Alkaline Phosphatase Total Creatine Kinase Total Protein Albumin Globulin Albumin/Globulin Ratio Vitamin B12 Folate Urine Color Urine Clarity Urine pH Ur Specific [place] Urine Protein Urine Glucose (UA) Urine Ketones Urine Blood Urine Nitrate Urine Bilirubin Urine Urobilinogen Ur Leukocyte Esterase Urine RBC (Auto) Urine Microscopic WBC Ur Squamous Epith Cells Urine Bacteria 07/15/18 07/15/18 07/15/18 05:40 05:40 10:48 WBC 5.5 RBC 3.51 L Hgb 10.2 L Hct 31.0 L MCV 88.4 MCH 29.2 MCHC 33.0 RDW 15.6 H Plt Count 301 ESR Sodium 141 Potassium 3.8 Chloride 104 Carbon Dioxide 28 Anion Gap 13 BUN 13 Creatinine 0.9 Est GFR ( Amer) > 60 Est GFR (Non-Af Amer) > 60 POC Glucose (mg/dL) 105 Random Glucose 108 Calcium 9.2 Iron TIBC % Saturation Ferritin Total Bilirubin AST ALT Alkaline Phosphatase Total Creatine Kinase Total Protein Albumin Globulin Albumin/Globulin Ratio Vitamin B12 Folate Urine Color Urine Clarity Urine pH Ur Specific [place] Urine Protein Urine Glucose (UA) Urine Ketones Urine Blood Urine Nitrate Urine Bilirubin Urine Urobilinogen Ur Leukocyte Esterase Urine RBC (Auto) Urine Microscopic WBC Ur Squamous Epith Cells Urine Bacteria 07/15/18 07/15/18 07/16/18 15:51 22:21 04:53 WBC RBC Hgb Hct MCV MCH MCHC RDW Plt Count ESR Sodium Potassium Chloride Carbon Dioxide Anion Gap BUN Creatinine Est GFR ( Amer) Est GFR (Non-Af Amer) POC Glucose (mg/dL) 93 103 115 H Random Glucose Calcium Iron TIBC % Saturation Ferritin Total Bilirubin AST ALT Alkaline Phosphatase Total Creatine Kinase Total Protein Albumin Globulin Albumin/Globulin Ratio Vitamin B12 Folate Urine Color Urine Clarity Urine pH Ur Specific [place] Urine Protein Urine Glucose (UA) Urine Ketones Urine Blood Urine Nitrate Urine Bilirubin Urine Urobilinogen Ur Leukocyte Esterase Urine RBC (Auto) Urine Microscopic WBC Ur Squamous Epith Cells Urine Bacteria 07/16/18 05:55 WBC 6.5 RBC 3.59 L Hgb 10.5 L Hct 31.4 L MCV 87.5 MCH 29.4 MCHC 33.6 RDW 16.3 H Plt Count 289 ESR Sodium Potassium Chloride Carbon Dioxide Anion Gap BUN Creatinine Est GFR ( Amer) Est GFR (Non-Af Amer) POC Glucose (mg/dL) Random Glucose Calcium Iron TIBC % Saturation Ferritin Total Bilirubin AST ALT Alkaline Phosphatase Total Creatine Kinase Total Protein Albumin Globulin Albumin/Globulin Ratio Vitamin B12 Folate Urine Color Urine Clarity Urine pH Ur Specific [place] Urine Protein Urine Glucose (UA) Urine Ketones Urine Blood Urine Nitrate Urine Bilirubin Urine Urobilinogen Ur Leukocyte Esterase Urine RBC (Auto) Urine Microscopic WBC Ur Squamous Epith Cells Urine Bacteria Microbiology 07/13/18 20:55 Toe Gram Stain - Final 07/13/18 20:55 Toe Wound Culture - Preliminary Yeast Species 07/12/18 07:50 Blood Blood Culture - Preliminary NO GROWTH AFTER 4 DAYS 07/12/18 01:25 Blood Blood Culture - Preliminary NO GROWTH AFTER 4 DAYS 07/13/18 15:30 Blood-Venous Blood Culture - Preliminary NO GROWTH AFTER 48 HOURS 07/13/18 15:00 Blood-Venous Blood Culture - Preliminary NO GROWTH AFTER 48 HOURS 07/13/18 20:55 Urine Urine Culture - Final No Growth (<1,000 CFU/ML) Assessment and Plan (1) Osteomyelitis Status: Acute (2) Positive blood culture Status: Acute (3) Alcohol abuse Status: Chronic - Assessment and Plan (Free Text) Assessment: A/P- 53 year old male admitted with recurrentl LLE cellulitis and right great toe OM and coag neg staph bacteremia and VRE bacteremia. afebrile past 72 hours. no leukocytosis repeat blood cx from this admission - neg x 4 blood cx from last admission one is VRE and one is coag neg staph last admission wound cx- MSSA MRI last admission as per report acute OM of first and second right great toe. TTE- no veg as per report. cpk-normal high ESr. plan- continue with IV daptomycin day #5. patietn will need at least 2 weeks of abx for the bacteremia ( VRE and coag neg staph). may need longer if no further surgery is done for his second toe OM. may need further debridement or amp of the second toe as there is High ESR and OM as per MRI report. d/w patient . will d/w podiatry.
--- NOTE | 2018-07-16 10:48 | CP.PCM.PN ---
Addendum entered and electronically signed by Cristian Coto MD 07/16/18 15:57: Patient seen and examined bedside . All chart and clinical data reviewed . Case discussed with resident .Agree with assessment and plan. 53 y/o homeless male admitted with acute OM of right foot and bacteremia On Daptomycin IV as per Id recommendations Follow up repeat cultures podiatry will need to re discuss with patient about treatment options and possible more debridment and amputation. Original Note: Subjective - Date & Time of Evaluation Date of Evaluation: 07/16/18 Time of Evaluation: 10:46 - Subjective Subjective: 53 yo male seen and evaluated at bedside. Patient AAOX3 and NAD. Has no complaints today. Denies foot pain and any pedal complaints. Reports no acute events overnight. Denies N/V/F/C/SOB/CP/ pain in calves. States he is tolerating taking medication. CIWA withdrawal score 0. Objective - Vital Signs/Intake and Output Vital Signs (last 24 hours): Temp Pulse Resp BP Pulse Ox 98.4 F 65 20 118/77 97 07/16/18 08:00 07/16/18 09:14 07/16/18 08:00 07/16/18 09:14 07/16/18 08:00 - Medications Medications: Current Medications Acetaminophen (Tylenol 325mg Tab) 650 mg PO Q6 PRN PRN Reason: Fever >100.4 F Last Admin: 07/13/18 00:40 Dose: 650 mg Chlordiazepoxide (Librium) 10 mg PO Q8 [facility] Last Admin: 07/16/18 09:24 Dose: 10 mg Clonidine HCl (Catapres) 0.1 mg PO BID [facility] Last Admin: 07/16/18 09:14 Dose: 0.1 mg Enoxaparin Sodium (Lovenox) 40 mg SC DAILY [facility]; Protocol Last Admin: 07/16/18 09:16 Dose: 40 mg Ferrous Sulfate (Feosol) 325 mg PO BID [facility] Last Admin: 07/16/18 09:15 Dose: 325 mg Folic Acid (Folic Acid) 1 mg PO DAILY [facility] Last Admin: 07/16/18 09:16 Dose: 1 mg Daptomycin 480 mg/ Sodium (Chloride) 100 mls @ 100 mls/hr IV Q24H [facility]; Protocol Stop: 07/17/18 14:46 Last Admin: 07/15/18 16:16 Dose: 100 mls/hr Saccharomyces Boulardii (Florastor) 250 mg PO BID [facility] Last Admin: 07/16/18 09:16 Dose: 250 mg Thiamine HCl (Vitamin B1 Tab) 100 mg PO DAILY [facility] Last Admin: 07/16/18 09:18 Dose: 100 mg - Labs Labs: 07/16/18 05:55 07/15/18 05:40 - Constitutional Appears: Well, Non-toxic, No Acute Distress - Head Exam Head Exam: ATRAUMATIC, NORMOCEPHALIC - Eye Exam Eye Exam: EOMI, Normal appearance, PERRL - ENT Exam ENT Exam: Mucous Membranes Moist, Normal Exam - Neck Exam Neck Exam: Full ROM - Respiratory Exam Respiratory Exam: NORMAL BREATHING PATTERN - Cardiovascular Exam Cardiovascular Exam: REGULAR RHYTHM, +S1, +S2 - GI/Abdominal Exam GI & Abdominal Exam: Soft, Normal Bowel Sounds - Extremities Exam Extremities Exam: Full ROM Additional comments: Right first digit partial amputation - sutures removed, site well coapted, mild erythema periincison site Right second digit distal tip wound - drained no drainage today, no PTB Cap refill <3 seconds to all remaining digits Temp gradient is warm to warm L>R - Neurological Exam Neurological Exam: Alert, Awake, Oriented x3 - Psychiatric Exam Psychiatric exam: Normal Affect, Normal Mood - Skin Skin Exam: Dry, Intact, Warm Additional comments: Right second digit distal tip open ulcer present, mild erythema present along digit; healed amputation site at right hallux Assessment and Plan - Assessment and Plan (Free Text) Assessment: 53 y/o man w/ pmh of recurrent LE cellulitis and EtOH abuse seen and evaluated at bedside for right foot pain and alcohol withdrawal. Plan: Bacteremia -Feels well -WBC 6.5 -2 Bcx from previous admission 1 grew Coag neg Staph and another E.Faecalis -ID consult appreciated. F/u recs - will continue with #5 dose daptomycin - needs 2 weeks of antibiotics upon discharge for bacteremia, longer if no surgical intervention with second digit as ESR elevated and OM in MRI read -C/w Daptomycin as per ID recs - third dose 07/15, fourth dose this afternoon -No new murmurs on exam or SOB or CP -No elevated temp overnight -Monitor CBCs and VS -echocardiogram results: estimated EF 60-65%, left ventricular diastolic function normal, trace tricuspid regurgitation, no valvular vegetation found Osteomyelitis of right foot -S/P 1st toe amputation at [facility] more than 1 m/a -Refused Surgical intervention on previous admission to [facility] due to persistent OM on right foot on MRI -Grew MSSA on wound Cx and was DC on PO levaquin that patient didnt take -Didnt f/u with Podiatry as outpatient -Podiatry consulted - Dr. Diaz wants to do potential distal Sym[place] amputation - will visit patient tomorrow and discuss with patient and give final recs and plan -ESR 104 10 -Pain control Alcohol Abuse -chronic -ETOH withdrawal protocol -Librium Q8, clonidine 0.1 mg PO BID Hypokalemia K=3.8 10/2 Mg not taken today POss due to ETOH abuse KCL 40 meq stat given two days ago Anemia Poss due to ETOH abuse Iron - 36 TIBC - 288 % sat - 13 Ferritin - 148 All 10/2 B/L leg swelling and erythema with tenderness to R/calf -R/o DVT -LE US ordered - no evidence of DVT in the right lower extremity Prophylactic measures -DVT: lovenox 40 mg SC daily -stop 12 hours prior to surgery pending podiatry plan
[2018-07-17 06:09] LABS: MEAN CORPUSCULAR HEMOGLOBIN 29.2 pg (27.0-31.0); MEAN CORPUSCULAR HGB CONC 32.9 g/dL (33.0-37.0); RBC 3.76 Mil/uL (4.40-5.90); RED CELL DISTRIBUTION WIDTH 16.3 % (11.5-14.5); WHITE BLOOD COUNT 6.7 K/uL (4.8-10.8)
[2018-07-17 06:32] LABS: BLOOD UREA NITROGEN 20 mg/dl (9-20); CALCIUM 9.9 mg/dL (8.4-10.2); GFR NON-AFRICAN AMERICAN > 60
--- NOTE | 2018-07-17 06:52 | CP.PCM.PN ---
Subjective - Date & Time of Evaluation Date of Evaluation: 07/17/18 Time of Evaluation: 16:38 - Subjective Subjective: Podiatry progress note for Dr. Diaz, 53 y/o male patient seen and evaluated on the bedside for right foot pain s/p right great toe amputation on (06/18/18) at [facility] and 2nd right digit ulceration. Patient is being admitted for iv antibiotics. Patient states that he has mild pain at his 2nd toe since yesterday at the ulcer site. Patient denies any overnight acute events. Patient denies any overnight F/N/V/C or SOB. Patient denies any other pedal complaint or pain at this time. Objective - Vital Signs/Intake and Output Vital Signs (last 24 hours): Temp Pulse Resp BP Pulse Ox 98.6 F 72 20 130/83 98 07/16/18 23:54 07/16/18 23:54 07/16/18 23:54 07/16/18 23:54 07/16/18 23:54 - Medications Medications: Current Medications Acetaminophen (Tylenol 325mg Tab) 650 mg PO Q6 PRN PRN Reason: Fever >100.4 F Last Admin: 07/13/18 00:40 Dose: 650 mg Chlordiazepoxide (Librium) 10 mg PO Q8 [facility] Last Admin: 07/17/18 01:31 Dose: 10 mg Clonidine HCl (Catapres) 0.1 mg PO BID [facility] Last Admin: 07/16/18 16:20 Dose: 0.1 mg Enoxaparin Sodium (Lovenox) 40 mg SC DAILY [facility]; Protocol Last Admin: 07/16/18 09:16 Dose: 40 mg Ferrous Sulfate (Feosol) 325 mg PO BID [facility] Last Admin: 07/16/18 16:22 Dose: 325 mg Folic Acid (Folic Acid) 1 mg PO DAILY [facility] Last Admin: 07/16/18 09:16 Dose: 1 mg Daptomycin 480 mg/ Sodium (Chloride) 100 mls @ 100 mls/hr IV Q24H [facility]; Protocol Stop: 07/17/18 14:46 Last Admin: 07/16/18 15:00 Dose: 100 mls/hr Saccharomyces Boulardii (Florastor) 250 mg PO BID [facility] Last Admin: 07/16/18 16:22 Dose: 250 mg Thiamine HCl (Vitamin B1 Tab) 100 mg PO DAILY [facility] Last Admin: 07/16/18 09:18 Dose: 100 mg - Labs Labs: 07/17/18 05:40 07/17/18 05:40 - Constitutional Appears: Well, Non-toxic, No Acute Distress - Head Exam Head Exam: ATRAUMATIC, NORMOCEPHALIC - Extremities Exam Additional comments: LE focused exam: Vascular: DP/ PT 2/4 b/l , Cap refill <3 secs x9, Temp gradient warm to warm, Moderate erythema noted on the anterior aspect of b/l legs, no edema noted Neuro: protective sensation diminished b/l Derm: No open lesions, surgical site noted at the previous right partial hallux amputation site, site well coapted, no wound dehiscence noted , no drainage noted, no malodor, no clinical signs of infection. Erythema noted on the anterior aspect of b/l legs with mildly increased temperature, no open lesions on legs, no clinical signs of infection, Dry, scaling skin noted on the plantar aspect of the right foot. Ulceration noted at the tip of the 2nd digit 0.5X0.4X0.2cm, about 1 cc of p urulent drainage expressed today, negative probe to bone, negative malodor, erythema noted to the 2nd digit with swelling, no tracking or tunneling noted. MSK: No pain on palpation at the surgery and the ulcer site. Muscle power intact 5/5 b/l. - Neurological Exam Neurological Exam: Alert, Awake, Oriented x3 - Psychiatric Exam Psychiatric exam: Normal Affect, Normal Mood Assessment and Plan - Assessment and Plan (Free Text) Assessment: 53 yo male seen at bedside s/p right partial hallux amputation (06/18/2018) and tip of the right second digit ulcer Plan: Patient seen and evaluated at the bedside. Plan discussed in details with the attending Dr. Diaz Patient chart and vitals and labs reviewed, afebrile, 6.7 WBC Patient right 1st toe amputation site and 2nd toe ulcer dressed using betadine, DSD and kerlix. Right foot second digit wound cultures; Yeast species Right foot x-rays reviewed; Soft tissue changes consistent with 2nd digit ulcer, No evidence of osteomyelitis. MRI right foot (07/01) 2nd toe distal phalanx shows signal abnormailities so, Osteomyelitis can't be excluded. ID on board. Recommendations appreciated. Continue IV Abx as per ID. Confirmed NPO status from the patient. Patient was explained procedure and post-operative course. All patient's questions were answered to satisfaction. No guarantees were made. Patient understands all risks, benefits and complications of procedure. Patient will go to the OR today for right 2nd toe amputation. Informed consent obtained and signed by the patient. Podiatry will continue to follow up the patient while in house.
[2018-07-17] MEDS: Saccharomyces Boulardi 250 mg Cap PO SCH ×2 (08:58→21:44)
[2018-07-17] MEDS: Enoxaparin 40 mg Syringe SC SCH (09:00)
--- NOTE | 2018-07-17 10:13 | CP.PCM.PN ---
Addendum entered and electronically signed by Cristian Coto MD 07/17/18 18:02: Patient seen and examined bedside . All chart and clinical data reviewed . Case discussed with resident .Agree with assessment and plan. 53 y/o homeless male admitted with acute OM of right foot and bacteremia On Daptomycin IV as per ID recommendations wound cx positive for yeast For amputation of right 2nd toe distal falanx today by podiatry patient is medically stable for OR Original Note: <Royal Mccarty - Last Filed: 07/17/18 10:23> Subjective - Date & Time of Evaluation Date of Evaluation: 07/17/18 Time of Evaluation: 10:10 - Subjective Subjective: 53 yo male seen and evaluated at bedside. Patient AAOX3 and NAD. Discussed amputation with Dr. Coto yesterday and was made aware that he will have no change in his ambulation capabilities. Patient demonstrated understanding. Has no complaints today. Denies foot pain and any pedal complaints. Reports no acute events overnight. Denies N/V/F/C/SOB/CP/ pain in calves. States he is tolerating taking medication. CIWA withdrawal score 0. Objective - Vital Signs/Intake and Output Vital Signs (last 24 hours): Temp Pulse Resp BP Pulse Ox 98.0 F 93 H 19 116/77 95 07/17/18 08:26 07/17/18 08:56 07/17/18 08:26 07/17/18 08:56 07/17/18 08:26 - Medications Medications: Current Medications Acetaminophen (Tylenol 325mg Tab) 650 mg PO Q6 PRN PRN Reason: Fever >100.4 F Last Admin: 07/13/18 00:40 Dose: 650 mg Clonidine HCl (Catapres) 0.1 mg PO BID [facility] Last Admin: 07/17/18 08:56 Dose: 0.1 mg Enoxaparin Sodium (Lovenox) 40 mg SC DAILY [facility]; Protocol Last Admin: 07/16/18 09:16 Dose: 40 mg Ferrous Sulfate (Feosol) 325 mg PO BID [facility] Last Admin: 07/17/18 08:57 Dose: 325 mg Folic Acid (Folic Acid) 1 mg PO DAILY [facility] Last Admin: 07/17/18 08:58 Dose: 1 mg Daptomycin 480 mg/ Sodium (Chloride) 100 mls @ 100 mls/hr IV Q24H [facility]; Protocol Stop: 07/17/18 14:46 Last Admin: 07/16/18 15:00 Dose: 100 mls/hr Saccharomyces Boulardii (Florastor) 250 mg PO BID [facility] Last Admin: 07/17/18 08:58 Dose: 250 mg Thiamine HCl (Vitamin B1 Tab) 100 mg PO DAILY [facility] Last Admin: 07/17/18 08:58 Dose: 100 mg - Labs Labs: 07/17/18 05:40 07/17/18 05:40 - Constitutional Appears: Well, Non-toxic, No Acute Distress - Head Exam Head Exam: ATRAUMATIC, NORMOCEPHALIC - Eye Exam Eye Exam: EOMI, Normal appearance - ENT Exam ENT Exam: Mucous Membranes Moist, Normal Exam - Neck Exam Neck Exam: Full ROM, Normal Inspection - Respiratory Exam Respiratory Exam: NORMAL BREATHING PATTERN - Cardiovascular Exam Cardiovascular Exam: REGULAR RHYTHM, +S1, +S2 - GI/Abdominal Exam GI & Abdominal Exam: Soft, Normal Bowel Sounds - Extremities Exam Additional comments: Right first digit partial amputation - sutures removed, site well coapted, mild erythema periincison site Right second digit distal tip wound - drained no drainage today, no PTB Cap refill <3 seconds to all remaining digits Temp gradient is warm to warm L>R - Neurological Exam Neurological Exam: Alert, Awake, Oriented x3 - Psychiatric Exam Psychiatric exam: Normal Affect, Normal Mood - Skin Skin Exam: Dry, Intact, Normal Color, Warm Additional comments: Right second digit ulceration Assessment and Plan - Assessment and Plan (Free Text) Assessment: 53 y/o man w/ pmh of recurrent LE cellulitis and EtOH abuse seen and evaluated at bedside for right foot pain and alcohol withdrawal. Plan: Bacteremia -Feels well -WBC 6.7 -2 Bcx from previous admission 1 grew Coag neg Staph and another E.Faecalis -ID consult appreciated. F/u recs - will continue with #5 dose daptomycin - needs 2 weeks of antibiotics upon discharge for bacteremia, longer if no surgical intervention with second digit as ESR elevated and OM in MRI read -C/w Daptomycin as per ID recs - fourth dose 07/16, fifth dose tomorrow - ID rec if no surgery will need at least 2 weeks abx, possible PICC line insertion upon discharge -No new murmurs on exam or SOB or CP -No elevated temp overnight -Monitor CBCs and VS -echocardiogram results: estimated EF 60-65%, left ventricular diastolic function normal, trace tricuspid regurgitation, no valvular vegetation found Osteomyelitis of right foot -S/P 1st toe amputation at [facility] more than 1 m/a -Refused Surgical intervention on previous admission to [facility] due to persistent OM on right foot on MRI -Grew MSSA on wound Cx and was DC on PO levaquin that patient didnt take -Didnt f/u with Podiatry as outpatient -Podiatry consulted - Dr. Diaz wants to do potential distal Symes amputation - will visit patient today after his surgery at [facility] and discuss with patient and give final recs and plan -ESR 104 07/14 -Pain control Alcohol Abuse -chronic -ETOH withdrawal protocol -Librium Q8, clonidine 0.1 mg PO BID Hypokalemia K=4.3 10/4 Mg not taken today POss due to ETOH abuse KCL 40 meq stat given three days ago Anemia Poss due to ETOH abuse Iron - 36 TIBC - 288 % sat - 13 Ferritin - 148 All 07/15 B/L leg swelling and erythema with tenderness to R/calf -R/o DVT -LE US ordered - no evidence of DVT in the right lower extremity Prophylactic measures -DVT: lovenox 40 mg SC daily -stop 12 hours prior to surgery pending podiatry plan <Eloy Adhikari - Last Filed: 07/17/18 15:20> Objective - Vital Signs/Intake and Output Vital Signs (last 24 hours): Temp Pulse Resp BP Pulse Ox 98.0 F 93 H 19 116/77 95 07/17/18 08:26 07/17/18 08:56 07/17/18 08:26 07/17/18 08:56 07/17/18 08:26 - Medications Medications: Current Medications Acetaminophen (Tylenol 325mg Tab) 650 mg PO Q6 PRN PRN Reason: Fever >100.4 F Last Admin: 07/13/18 00:40 Dose: 650 mg Clonidine HCl (Catapres) 0.1 mg PO BID [facility] Last Admin: 07/17/18 08:56 Dose: 0.1 mg Enoxaparin Sodium (Lovenox) 40 mg SC DAILY [facility]; Protocol Last Admin: 07/17/18 09:00 Dose: 40 mg Ferrous Sulfate (Feosol) 325 mg PO BID [facility] Last Admin: 07/17/18 08:57 Dose: 325 mg Folic Acid (Folic Acid) 1 mg PO DAILY [facility] Last Admin: 07/17/18 08:58 Dose: 1 mg Saccharomyces Boulardii (Florastor) 250 mg PO BID [facility] Last Admin: 07/17/18 08:58 Dose: 250 mg Thiamine HCl (Vitamin B1 Tab) 100 mg PO DAILY [facility] Last Admin: 07/17/18 08:58 Dose: 100 mg - Labs Labs: 07/17/18 05:40 07/17/18 05:40 Assessment and Plan - Assessment and Plan (Free Text) Plan: Patient is optimized for amputation of distal phalanx of right second toe. NPO diet, case discussed with podiatry and medicine team. Surgery scheduled tentatively for 6 pm tonight.
[2018-07-17] MEDS ORDERED: Lidocaine 1% Inj (20ml) IJ ONE (16:34)
[2018-07-17] MEDS ORDERED: Bupivacaine 0.25% Inj(30mL) IJ ONE (16:34)
--- NOTE | 2018-07-17 16:38 | CP.PCM.PN ---
Subjective - Date & Time of Evaluation Date of Evaluation: 07/17/18 Time of Evaluation: 16:35 - Subjective Subjective: 53 y/o male was seen and evaluated at bedside prior to surgery, which will be 07/17/18 for amputation of the tip of the right 2nd digit. Patient aware of surgery and NPO status. Consent was reviewed with patient, with nurse present at bedside and signed by patient. All patient questions were answered. Objective - Vital Signs/Intake and Output Vital Signs (last 24 hours): Temp Pulse Resp BP Pulse Ox 98.9 F 53 L 18 128/80 97 07/17/18 16:06 07/17/18 16:06 07/17/18 16:06 07/17/18 16:06 07/17/18 16:06 - Medications Medications: Current Medications Acetaminophen (Tylenol 325mg Tab) 650 mg PO Q6 PRN PRN Reason: Fever >100.4 F Last Admin: 07/13/18 00:40 Dose: 650 mg Bupivacaine HCl (Marcaine 0.25%) 20 ml IJ ONCE ONE Stop: 07/17/18 16:35 Clonidine HCl (Catapres) 0.1 mg PO BID [facility] Last Admin: 07/17/18 08:56 Dose: 0.1 mg Enoxaparin Sodium (Lovenox) 40 mg SC DAILY [facility]; Protocol Last Admin: 07/17/18 09:00 Dose: 40 mg Ferrous Sulfate (Feosol) 325 mg PO BID [facility] Last Admin: 07/17/18 08:57 Dose: 325 mg Folic Acid (Folic Acid) 1 mg PO DAILY [facility] Last Admin: 07/17/18 08:58 Dose: 1 mg Lidocaine HCl (Lidocaine 1% (20ml)) 20 ml IJ ONCE ONE Stop: 07/17/18 16:35 Saccharomyces Boulardii (Florastor) 250 mg PO BID [facility] Last Admin: 07/17/18 08:58 Dose: 250 mg Thiamine HCl (Vitamin B1 Tab) 100 mg PO DAILY [facility] Last Admin: 07/17/18 08:58 Dose: 100 mg - Labs Labs: 07/17/18 05:40 07/17/18 05:40 - Constitutional Appears: Well, Non-toxic, No Acute Distress - Head Exam Head Exam: ATRAUMATIC, NORMOCEPHALIC - Extremities Exam Additional comments: Dressing intact, clean and dry - Neurological Exam Neurological Exam: Alert, Awake, Oriented x3 - Psychiatric Exam Psychiatric exam: Normal Affect, Normal Mood Assessment and Plan - Assessment and Plan (Free Text) Assessment: 53 y/o male seen and evaluated for acute osteomyelitis to the right 2nd digit. Plan: Pt was seen and examined on the floor Pt NPO status was confirmed All pre-op testing and clearance in chart Pt has exhausted all conservative treatment at this time and is opting for surgical intervention Pt was explained procedure and post-operative course All pt's questions were answered to satisfaction No guarantees were made Pt understands all risks, benefits and complications of procedure Pt will follow-up with Dr. Diaz within 1 week of surgery
[2018-07-17] MEDS ORDERED: Sodium Chloride 0.9% 1,000 ML IV SCH (16:45)
[2018-07-17] MEDS ORDERED: Bupivacaine HCl 0.25% PF (30 ml) Inj ONE (17:45)
[2018-07-17] MEDS ORDERED: Lidocaine 2% PF (10 ml) Amp ONE (17:46)
[2018-07-17] MEDS ORDERED: Lactated Ringer's 1,000 ML IV ONE (19:00)
[2018-07-17] MEDS ORDERED: Oxycodone/Acetaminophen 5/325 mg Tab PO PRN ×2 (19:46)
--- NOTE | 2018-07-17 19:50 | PCM.SURG1 ---
Surgeon's Initial Post Op Note - Surgeon's Notes Surgeon: Dr. Diaz, DPM Meeting/Event Planner: Dr. Terese Storey, PGY1 Type of Anesthesia: Local Anesthesia Administered By: Dr. Mitchell Pre-Operative Diagnosis: Right 2nd digit acute osteomyelitis Operative Findings: see dictation. I: 15 cc 1:1 mixture of 0.5% Marcaine, and 2% Lidocaine. M: 4-0 Prolene Post-Operative Diagnosis: same Operation Performed: Terminal Symes amputation of the Right foot 2nd digit Specimen/Specimens Removed: 1) Tip of the right 2nd digit. 2) Head of the Right 2nd digit proximal phalanx- clear margin Estimated Blood Loss: EBL {In ML}: 3 Blood Products Given: N/A Drains Used: No Drains Post-Op Condition: Good Date of Surgery/Procedure: 07/17/18 Time of Surgery/Procedure: 19:49
--- NOTE | 2018-07-18 07:46 | CP.PCM.PN ---
Subjective - Date & Time of Evaluation Date of Evaluation: 07/18/18 Time of Evaluation: 07:44 - Subjective Subjective: Podiatry progress note for Dr. Diaz, 53 y/o male patient seen and evaluated on the bedside 1 day s/p right second digit partial amputation. Patient denies any pain to the area. Patient denies any overnight F/N/V/C or SOB. Patient denies any other pedal complaint or pain at this time. Objective - Vital Signs/Intake and Output Vital Signs (last 24 hours): Temp Pulse Resp BP Pulse Ox 98.1 F 62 19 121/64 97 07/18/18 04:15 07/18/18 04:15 07/18/18 04:15 07/18/18 04:15 07/18/18 04:15 Intake and Output: 07/18/18 07/18/18 06:59 18:59 Intake Total 100 Balance 100 - Medications Medications: Current Medications Acetaminophen (Tylenol 325mg Tab) 650 mg PO Q6 PRN PRN Reason: Fever >100.4 F Last Admin: 07/13/18 00:40 Dose: 650 mg Acetaminophen (Tylenol 325mg Tab) 325 mg PO Q4 PRN PRN Reason: Pain, Mild (1-3) Clonidine HCl (Catapres) 0.1 mg PO BID [facility] Last Admin: 07/17/18 21:43 Dose: 0.1 mg Enoxaparin Sodium (Lovenox) 40 mg SC DAILY [facility]; Protocol Last Admin: 07/17/18 09:00 Dose: 40 mg Ferrous Sulfate (Feosol) 325 mg PO BID [facility] Last Admin: 07/17/18 21:44 Dose: 325 mg Folic Acid (Folic Acid) 1 mg PO DAILY [facility] Last Admin: 07/17/18 08:58 Dose: 1 mg Sodium Chloride (Sodium Chloride 0.9%) 1,000 mls @ 0 mls/hr IV .Q0M [facility] Stop: 07/18/18 16:34 Oxycodone/Acetaminophen (Percocet 5/325 Mg Tab) 1 tab PO Q4 PRN PRN Reason: Pain, moderate (4-7) Stop: 07/20/18 19:47 Oxycodone/Acetaminophen (Percocet 5/325 Mg Tab) 2 tab PO Q4 PRN PRN Reason: Pain, severe (8-10) Stop: 07/20/18 19:47 Saccharomyces Boulardii (Florastor) 250 mg PO BID [facility] Last Admin: 07/17/18 21:44 Dose: 250 mg Thiamine HCl (Vitamin B1 Tab) 100 mg PO DAILY [facility] Last Admin: 07/17/18 08:58 Dose: 100 mg - Labs Labs: 07/17/18 05:40 07/17/18 05:40 - Constitutional Appears: Well, Non-toxic, No Acute Distress - Head Exam Head Exam: ATRAUMATIC, NORMOCEPHALIC - Extremities Exam Additional comments: RLE focused exam: Vascular: DP/ PT 2/4 , Cap refill <3 secs x4, Temp gradient warm to warm, Moderate erythema noted on the anterior aspect of b/l legs secondary to chronic cellulitis, no edema noted Neuro: protective sensation diminished b/l Derm: surgical site at distal second toe, sutures intact, site well coapted, no wound dehiscence noted , no drainage noted, no malodor, no clinical signs of infection. Erythema noted on the anterior aspect of b/l legs with mildly increased temperature, no open lesions on legs, no clinical signs of infection, Dry, scaling skin noted on the plantar aspect of the right foot. Surgical site at the 1st toe looks C/D/I with no signs of dehiscence. MSK: No pain on palpation at the surgery site. Muscle power intact 5/5 b/l. - Neurological Exam Neurological Exam: Alert, Awake, Oriented x3 - Psychiatric Exam Psychiatric exam: Normal Affect - Skin Skin Exam: Normal Color Assessment and Plan - Assessment and Plan (Free Text) Assessment: 53 yo male seen at bedside 1 day s/p right second digit partial amputation. Plan: Patient seen and evaluated at the bedside. Plan discussed in details with the attending Dr. Diaz Patient chart and vitals and labs reviewed, afebrile, 6.7 WBC Right foot x-rays reviewed;no evidence of osteo, satisfactory post op xrays Deep wound intraop cultures pending Bone pathology pending Right second digit dressed with betadine and DSD. Patient stable for discharge from podiatry point of view Patient to be d/c with oral antibiotics as per ID Patient advised to keep the dressing C/D/I Patient to ambulate in surgical shoe at all times Patient educated on signs and symptoms of infection Patient showed verbal understanding and all questions were answered. Patient to follow up with Dr. Diaz upon discharge
[2018-07-18 08:02] LABS: BASO # 0.1 K/uL (0.0-0.2); BASO % 1.1 % (0.0-2.0); EOS # 0.3 K/uL (0.0-0.7); EOS % 4.9 % (0.0-4.0); HEMOGLOBIN 10.5 g/dL (12.0-18.0); LYMPH # 1.9 K/uL (1.0-4.3); LYMPH % 29.3 % (20.0-40.0); MEAN CORPUSCULAR HEMOGLOBIN 29.8 pg (27.0-31.0); MEAN CORPUSCULAR HGB CONC 33.5 g/dL (33.0-37.0); MEAN PLATELET VOLUME 8.4 fl (7.2-11.7); MONO # 0.4 K/uL (0.0-0.8); MONO % 5.5 % (0.0-10.0); NEUT # 3.9 K/uL (1.8-7.0); NEUT % 59.2 % (50.0-75.0); NRBC % 0.1 % (0.0-0.0); RBC 3.52 Mil/uL (4.40-5.90); RED CELL DISTRIBUTION WIDTH 15.7 % (11.5-14.5); WHITE BLOOD COUNT 6.6 K/uL (4.8-10.8)
[2018-07-18 08:08] LABS: BLOOD UREA NITROGEN 18 mg/dl (9-20); CALCIUM 10.1 mg/dL (8.4-10.2); GFR NON-AFRICAN AMERICAN > 60
[2018-07-18] MEDS: Saccharomyces Boulardi 250 mg Cap PO SCH ×2 (08:23→16:44)
[2018-07-18] MEDS: Enoxaparin 40 mg Syringe SC SCH (08:23)
--- NOTE | 2018-07-18 11:30 | CP.PCM.PN ---
Addendum entered and electronically signed by Cristian Coto MD 07/18/18 16:48: Patient seen and examined bedside . All chart and clinical data reviewed .Case discussed with resident.Agree with assessment and plan . hemodynamically stable, afebrile. No acute issues overnight . Pain is controlled s/p left foot second toe amputation for OM Continue daptomycin IV Follow up wound cultures and bone biopsy ID and podiatry on board following Continue pain management Original Note: Subjective - Date & Time of Evaluation Date of Evaluation: 07/18/18 Time of Evaluation: 11:14 - Subjective Subjective: 53 yo male seen and evaluated at bedside s/p distal symes amputation of right foot second digit. Patient is AAOx3 and NAD. Patient seen resting comfortably in bed. States that he is in no pain today. Denies N/V/F/C/SOB/CP/pain to calves. Has no other complaints or concerns. Objective - Vital Signs/Intake and Output Vital Signs (last 24 hours): Temp Pulse Resp BP Pulse Ox 98.2 F 69 20 121/78 96 07/18/18 07:58 07/18/18 07:58 07/18/18 07:58 07/18/18 07:58 07/18/18 07:58 Intake and Output: 07/18/18 07/18/18 06:59 18:59 Intake Total 100 Balance 100 - Medications Medications: Current Medications Acetaminophen (Tylenol 325mg Tab) 650 mg PO Q6 PRN PRN Reason: Fever >100.4 F Last Admin: 07/13/18 00:40 Dose: 650 mg Acetaminophen (Tylenol 325mg Tab) 325 mg PO Q4 PRN PRN Reason: Pain, Mild (1-3) Clonidine HCl (Catapres) 0.1 mg PO BID [facility] Last Admin: 07/18/18 08:23 Dose: 0.1 mg Enoxaparin Sodium (Lovenox) 40 mg SC DAILY [facility]; Protocol Last Admin: 07/18/18 08:23 Dose: 40 mg Ferrous Sulfate (Feosol) 325 mg PO BID [facility] Last Admin: 07/18/18 08:23 Dose: 325 mg Folic Acid (Folic Acid) 1 mg PO DAILY [facility] Last Admin: 07/18/18 08:23 Dose: 1 mg Sodium Chloride (Sodium Chloride 0.9%) 1,000 mls @ 0 mls/hr IV .Q0M [facility] Stop: 07/18/18 16:34 Oxycodone/Acetaminophen (Percocet 5/325 Mg Tab) 1 tab PO Q4 PRN PRN Reason: Pain, moderate (4-7) Stop: 07/20/18 19:47 Oxycodone/Acetaminophen (Percocet 5/325 Mg Tab) 2 tab PO Q4 PRN PRN Reason: Pain, severe (8-10) Stop: 07/20/18 19:47 Saccharomyces Boulardii (Florastor) 250 mg PO BID [facility] Last Admin: 07/18/18 08:23 Dose: 250 mg Thiamine HCl (Vitamin B1 Tab) 100 mg PO DAILY [facility] Last Admin: 07/18/18 08:23 Dose: 100 mg - Labs Labs: 07/18/18 07:44 07/18/18 07:44 - Constitutional Appears: Well, Non-toxic, No Acute Distress - Head Exam Head Exam: ATRAUMATIC, NORMOCEPHALIC - Eye Exam Eye Exam: EOMI, Normal appearance - ENT Exam ENT Exam: Mucous Membranes Moist, Normal Exam - Neck Exam Neck Exam: Normal Inspection - Respiratory Exam Respiratory Exam: NORMAL BREATHING PATTERN - Cardiovascular Exam Cardiovascular Exam: REGULAR RHYTHM, +S1, +S2 - GI/Abdominal Exam GI & Abdominal Exam: Soft, Normal Bowel Sounds - Extremities Exam Additional comments: 1 day s/p right foot second digit distal amputation Site examined, no drainage, pus, or streaking, no clinical signs of infection Sutures intact and site coapted cap refill <3 seconds to all digits no cellulitis present to lower extremities - Neurological Exam Neurological Exam: Alert, Awake, Oriented x3 - Psychiatric Exam Psychiatric exam: Normal Affect, Normal Mood - Skin Skin Exam: Dry, Intact, Normal Color, Warm Assessment and Plan - Assessment and Plan (Free Text) Assessment: 53 y/o man w/ pmh of recurrent LE cellulitis and EtOH abuse seen and evaluated at bedside for alcohol withdrawal and 1 day s/p right foot second digit distal amputation. Plan: Bacteremia -Feels well -WBC 6.7 -2 Bcx from previous admission 1 grew Coag neg Staph and another E.Faecalis -ID consult appreciated. F/u recs - will continue with #5 dose daptomycin - needs 2 weeks of antibiotics upon discharge for bacteremia, longer if no garcia rgical intervention with second digit as ESR elevated and OM in MRI read -C/w Daptomycin as per ID recs - sixth dose given 07/17 at 4:00PM, reordered cubicin - will continue daily administration over the weekend -No new murmurs on exam or SOB or CP -No elevated temp overnight -Monitor CBCs and VS -echocardiogram results: estimated EF 60-65%, left ventricular diastolic function normal, trace tricuspid regurgitation, no valvular vegetation found Osteomyelitis of right foot -1 day s/p right foot second digit distal symes amputation - wound cx and bone cx sent for pathology - read pending -pain controlled - no clinical signs of infection noted, patient tolerated procedure well -S/P 1st toe amputation at [employer] more than 1 m/a -Grew MSSA on wound Cx and was DC on PO levaquin that patient didnt take -Didnt f/u with Podiatry as outpatient -ESR 104 07/14 -Pain control Alcohol Abuse -chronic -ETOH withdrawal protocol -Librium Q8, clonidine 0.1 mg PO BID Hypokalemia K=4.2 10/5 Mg not taken today POss due to ETOH abuse KCL 40 meq stat given three days ago Anemia Poss due to ETOH abuse Iron - 36 TIBC - 288 % sat - 13 Ferritin - 148 All 10 B/L leg swelling and erythema with tenderness to R/calf -R/o DVT -LE US ordered - no evidence of DVT in the right lower extremity Prophylactic measures -DVT: lovenox 40 mg SC daily
--- NOTE | 2018-07-18 13:39 | RAD ---
Date of service: 07/17/2018 PROCEDURE: Right Foot Radiographs. HISTORY: s/p right foot tip of 2nd digit amputation COMPARISON: 07/13/2018 FINDINGS: BONES: The patient is status post prior amputation of 1st digit mid 1st proximal phalanx. The patient is status post most recent amputation 2nd digit mid 2nd proximal phalanx. There is no acute fracture. The joint spaces and articular surfaces are unremarkable. Note is made of a small plantar calcaneal spur. JOINTS: As above SOFT TISSUES: Normal. OTHER FINDINGS: None. IMPRESSION: Amputation 1st and 2nd digits mid 1st and 2nd proximal phalanges.
--- NOTE | 2018-07-18 17:12 | CP.PCM.PN ---
Subjective - Date & Time of Evaluation Date of Evaluation: 07/18/18 Time of Evaluation: 14:00 - Subjective Subjective: ID Note- Pt. seen and examined today. s/p POD #1 right second toe amp by podiatry for OM. Objective - Vital Signs/Intake and Output Vital Signs (last 24 hours): Temp Pulse Resp BP Pulse Ox 99.1 F 72 18 116/73 98 07/18/18 16:17 07/18/18 16:17 07/18/18 16:17 07/18/18 16:17 07/18/18 16:17 Intake and Output: 07/18/18 07/18/18 06:59 18:59 Intake Total 100 Balance 100 - Medications Medications: Current Medications Acetaminophen (Tylenol 325mg Tab) 650 mg PO Q6 PRN PRN Reason: Fever >100.4 F Last Admin: 07/13/18 00:40 Dose: 650 mg Acetaminophen (Tylenol 325mg Tab) 325 mg PO Q4 PRN PRN Reason: Pain, Mild (1-3) Clonidine HCl (Catapres) 0.1 mg PO BID [facility] Last Admin: 07/18/18 16:44 Dose: 0.1 mg Enoxaparin Sodium (Lovenox) 40 mg SC DAILY [facility]; Protocol Last Admin: 07/18/18 08:23 Dose: 40 mg Ferrous Sulfate (Feosol) 325 mg PO BID [facility] Last Admin: 07/18/18 16:44 Dose: 325 mg Folic Acid (Folic Acid) 1 mg PO DAILY [facility] Last Admin: 07/18/18 08:23 Dose: 1 mg Daptomycin 480 mg/ Sodium (Chloride) 100 mls @ 100 mls/hr IV Q24H [facility]; Protocol Stop: 07/23/18 12:31 Last Admin: 07/18/18 15:31 Dose: 100 mls/hr Oxycodone/Acetaminophen (Percocet 5/325 Mg Tab) 1 tab PO Q4 PRN PRN Reason: Pain, moderate (4-7) Stop: 07/20/18 19:47 Oxycodone/Acetaminophen (Percocet 5/325 Mg Tab) 2 tab PO Q4 PRN PRN Reason: Pain, severe (8-10) Stop: 07/20/18 19:47 Saccharomyces Boulardii (Florastor) 250 mg PO BID [facility] Last Admin: 07/18/18 16:44 Dose: 250 mg Thiamine HCl (Vitamin B1 Tab) 100 mg PO DAILY [facility] Last Admin: 07/18/18 08:23 Dose: 100 mg - Labs Labs: - Additional Findings Additional findings: - Constitutional Appears: No Acute Distress - Head Exam Head Exam: ATRAUMATIC - Eye Exam Eye Exam: EOMI, PERRL - ENT Exam ENT Exam: Normal Oropharynx - Neck Exam Neck exam: Positive for: Full Rom - Respiratory Exam Respiratory Exam: Clear to Auscultation Bilateral, NORMAL BREATHING PATTERN - Cardiovascular Exam Cardiovascular Exam: RRR, +S1, +S2 - GI/Abdominal Exam GI & Abdominal Exam: Normal Bowel Sounds, Soft Additional comments: NT, ND - Extremities Exam Additional comments: right foot wrapped in post-surgical dressing - Neurological Exam Neurological exam: Alert, Oriented x 3 Laboratory Results - last 72 hr 07/13/18 07/15/18 07/16/18 05:30 22:21 04:53 WBC RBC Hgb Hct MCV MCH MCHC RDW Plt Count MPV Neut % (Auto) Lymph % (Auto) Bullock % (Auto) Eos % (Auto) Baso % (Auto) Neut # (Auto) Lymph # (Auto) Bullock # (Auto) Eos # (Auto) Baso # (Auto) Sodium Potassium Chloride Carbon Dioxide Anion Gap BUN Creatinine Est GFR ( Amer) Est GFR (Non-Af Amer) POC Glucose (mg/dL) 103 115 H Random Glucose Calcium Alkaline Phosphatase 582 H Total Creatine Kinase 07/16/18 07/16/18 07/16/18 05:55 10:53 15:21 WBC 6.5 RBC 3.59 L Hgb 10.5 L Hct 31.4 L MCV 87.5 MCH 29.4 MCHC 33.6 RDW 16.3 H Plt Count 289 MPV Neut % (Auto) Lymph % (Auto) Bullock % (Auto) Eos % (Auto) Baso % (Auto) Neut # (Auto) Lymph # (Auto) Bullock # (Auto) Eos # (Auto) Baso # (Auto) Sodium Potassium Chloride Carbon Dioxide Anion Gap BUN Creatinine Est GFR ( Amer) Est GFR (Non-Af Amer) POC Glucose (mg/dL) 100 99 Random Glucose Calcium Alkaline Phosphatase Total Creatine Kinase 07/16/18 07/16/18 07/17/18 15:32 21:19 05:40 WBC RBC Hgb Hct MCV MCH MCHC RDW Plt Count MPV Neut % (Auto) Lymph % (Auto) Bullock % (Auto) Eos % (Auto) Baso % (Auto) Neut # (Auto) Lymph # (Auto) Bullock # (Auto) Eos # (Auto) Baso # (Auto) Sodium 141 Potassium 4.3 Chloride 105 Carbon Dioxide 33 H Anion Gap 7 L BUN 20 Creatinine 1.0 Est GFR ( Amer) > 60 Est GFR (Non-Af Amer) > 60 POC Glucose (mg/dL) 96 Random Glucose 101 Calcium 9.9 Alkaline Phosphatase Total Creatine Kinase < 20 L 07/17/18 07/17/18 07/17/18 05:40 06:20 10:53 WBC 6.7 RBC 3.76 L Hgb 11.0 L Hct 33.5 L MCV 89.0 MCH 29.2 MCHC 32.9 L RDW 16.3 H Plt Count 331 MPV Neut % (Auto) Lymph % (Auto) Bullock % (Auto) Eos % (Auto) Baso % (Auto) Neut # (Auto) Lymph # (Auto) Bullock # (Auto) Eos # (Auto) Baso # (Auto) Sodium Potassium Chloride Carbon Dioxide Anion Gap BUN Creatinine Est GFR ( Amer) Est GFR (Non-Af Amer) POC Glucose (mg/dL) 97 104 Random Glucose Calcium Alkaline Phosphatase Total Creatine Kinase 07/17/18 07/17/18 07/18/18 15:35 21:56 05:57 WBC RBC Hgb Hct MCV MCH MCHC RDW Plt Count MPV Neut % (Auto) Lymph % (Auto) Bullock % (Auto) Eos % (Auto) Baso % (Auto) Neut # (Auto) Lymph # (Auto) Bullock # (Auto) Eos # (Auto) Baso # (Auto) Sodium Potassium Chloride Carbon Dioxide Anion Gap BUN Creatinine Est GFR ( Amer) Est GFR (Non-Af Amer) POC Glucose (mg/dL) 111 H 97 111 H Random Glucose Calcium Alkaline Phosphatase Total Creatine Kinase 07/18/18 07/18/18 07/18/18 07:44 07:44 11:05 WBC 6.6 RBC 3.52 L Hgb 10.5 L Hct 31.3 L MCV 89.0 MCH 29.8 MCHC 33.5 RDW 15.7 H Plt Count 302 MPV 8.4 Neut % (Auto) 59.2 Lymph % (Auto) 29.3 Bullock % (Auto) 5.5 Eos % (Auto) 4.9 H Baso % (Auto) 1.1 Neut # (Auto) 3.9 Lymph # (Auto) 1.9 Bullock # (Auto) 0.4 Eos # (Auto) 0.3 Baso # (Auto) 0.1 Sodium 141 Potassium 4.2 Chloride 107 Carbon Dioxide 28 Anion Gap 10 BUN 18 Creatinine 0.9 Est GFR ( Amer) > 60 Est GFR (Non-Af Amer) > 60 POC Glucose (mg/dL) 126 H Random Glucose 107 Calcium 10.1 Alkaline Phosphatase Total Creatine Kinase 07/18/18 15:53 WBC RBC Hgb Hct MCV MCH MCHC RDW Plt Count MPV Neut % (Auto) Lymph % (Auto) Bullock % (Auto) Eos % (Auto) Baso % (Auto) Neut # (Auto) Lymph # (Auto) Bullock # (Auto) Eos # (Auto) Baso # (Auto) Sodium Potassium Chloride Carbon Dioxide Anion Gap BUN Creatinine Est GFR ( Amer) Est GFR (Non-Af Amer) POC Glucose (mg/dL) 104 Random Glucose Calcium Alkaline Phosphatase Total Creatine Kinase Microbiology 07/13/18 15:30 Blood-Venous Blood Culture - Final NO GROWTH AFTER 5 DAYS 07/13/18 15:30 Blood-Venous Gram Stain - Final TEST NOT PERFORMED 07/13/18 15:00 Blood-Venous Blood Culture - Final NO GROWTH AFTER 5 DAYS 07/13/18 15:00 Blood-Venous Gram Stain - Final TEST NOT PERFORMED 07/12/18 07:50 Blood Blood Culture - Final NO GROWTH AFTER 5 DAYS 07/12/18 07:50 Blood Gram Stain - Final TEST NOT PERFORMED 07/13/18 20:55 Toe Gram Stain - Final 07/13/18 20:55 Toe Wound Culture - Final Lissette Albicans 07/12/18 01:25 Blood Blood Culture - Final NO GROWTH AFTER 5 DAYS 07/12/18 01:25 Blood Gram Stain - Final TEST NOT PERFORMED 07/13/18 20:55 Urine Urine Culture - Final No Growth (<1,000 CFU/ML) Assessment and Plan (1) Osteomyelitis Status: Acute (2) Positive blood culture Status: Acute (3) Alcohol abuse Status: Chronic - Assessment and Plan (Free Text) Assessment: A/P- 53 year old male admitted with recurrentl LLE cellulitis and right great toe OM and coag neg staph bacteremia and VRE bacteremia. pod #1 right second toe amputation afebrile past 5 days. no leukocytosis repeat blood cx from this admission - neg x 4 blood cx from last admission one is VRE and one is coag neg staph!!! last admission wound cx- MSSA MRI last admission as per report acute OM of first and second right great toe. TTE- no veg as per report. cpk-normal high ESr. plan- continue with IV daptomycin day #7 patient will need at least 2 weeks of abx for the bacteremia ( VRE and coag neg staph). await bone bx result. if all the necrotic bone is resected then ABX only for 2 weeks as above for bacteremia. if any remaining necrotic bone then will need 4-6 weeks of abx. d/w patient and with the hospitalist.
[2018-07-19] MEDS: Saccharomyces Boulardi 250 mg Cap PO SCH ×2 (08:25→16:44)
[2018-07-19] MEDS: Enoxaparin 40 mg Syringe SC SCH (08:26)
[2018-07-19 08:32] LABS: BASO # 0.1 K/uL (0.0-0.2); BASO % 1.1 % (0.0-2.0); EOS # 0.4 K/uL (0.0-0.7); EOS % 5.9 % (0.0-4.0); HEMOGLOBIN 11.2 g/dL (12.0-18.0); LYMPH % 29.4 % (20.0-40.0); MEAN CELL VOLUME 88.8 fl (80.0-94.0); MEAN CORPUSCULAR HEMOGLOBIN 29.5 pg (27.0-31.0); MEAN CORPUSCULAR HGB CONC 33.3 g/dL (33.0-37.0); MEAN PLATELET VOLUME 8.9 fl (7.2-11.7); MONO # 0.4 K/uL (0.0-0.8); MONO % 5.4 % (0.0-10.0); NEUT # 3.9 K/uL (1.8-7.0); NEUT % 58.2 % (50.0-75.0); NRBC % 0.1 % (0.0-0.0); RBC 3.78 Mil/uL (4.40-5.90); RED CELL DISTRIBUTION WIDTH 16.2 % (11.5-14.5); WHITE BLOOD COUNT 6.7 K/uL (4.8-10.8)
[2018-07-19 08:48] LABS: BLOOD UREA NITROGEN 19 mg/dl (9-20); CALCIUM 9.8 mg/dL (8.4-10.2); GFR NON-AFRICAN AMERICAN > 60
--- NOTE | 2018-07-19 11:45 | CP.PCM.PN ---
<Eloy Adhikari - Last Filed: 07/19/18 11:58> Subjective - Date & Time of Evaluation Date of Evaluation: 07/19/18 Time of Evaluation: 11:40 - Subjective Subjective: 53 YO M resting comfortably in bed. States he is doing well .Denies any complaints. Slept well overnight. Has been eating well. Denies any pain on his amputation si te. Objective - Vital Signs/Intake and Output Vital Signs (last 24 hours): Temp Pulse Resp BP Pulse Ox 99.8 F H 98 H 20 97/53 L 98 07/19/18 08:27 07/19/18 08:27 07/19/18 08:27 07/19/18 08:27 07/19/18 08:27 - Medications Medications: Current Medications Acetaminophen (Tylenol 325mg Tab) 650 mg PO Q6 PRN PRN Reason: Fever >100.4 F Last Admin: 07/13/18 00:40 Dose: 650 mg Acetaminophen (Tylenol 325mg Tab) 325 mg PO Q4 PRN PRN Reason: Pain, Mild (1-3) Clonidine HCl (Catapres) 0.1 mg PO BID [facility] Last Admin: 07/19/18 08:25 Dose: 0.1 mg Enoxaparin Sodium (Lovenox) 40 mg SC DAILY [facility]; Protocol Last Admin: 07/19/18 08:26 Dose: 40 mg Ferrous Sulfate (Feosol) 325 mg PO BID [facility] Last Admin: 07/19/18 08:25 Dose: 325 mg Folic Acid (Folic Acid) 1 mg PO DAILY [facility] Last Admin: 07/19/18 08:26 Dose: 1 mg Daptomycin 480 mg/ Sodium (Chloride) 100 mls @ 100 mls/hr IV Q24H [facility]; Protocol Stop: 07/23/18 12:31 Last Admin: 07/18/18 15:31 Dose: 100 mls/hr Oxycodone/Acetaminophen (Percocet 5/325 Mg Tab) 1 tab PO Q4 PRN PRN Reason: Pain, moderate (4-7) Stop: 07/20/18 19:47 Oxycodone/Acetaminophen (Percocet 5/325 Mg Tab) 2 tab PO Q4 PRN PRN Reason: Pain, severe (8-10) Stop: 07/20/18 19:47 Saccharomyces Boulardii (Florastor) 250 mg PO BID [facility] Last Admin: 07/19/18 08:25 Dose: 250 mg Thiamine HCl (Vitamin B1 Tab) 100 mg PO DAILY [facility] Last Admin: 07/19/18 08:25 Dose: 100 mg - Labs Labs: 07/19/18 07:00 07/19/18 07:00 - Constitutional Appears: No Acute Distress - Head Exam Head Exam: NORMAL INSPECTION - Respiratory Exam Respiratory Exam: Clear to Ausculation Bilateral. absent: Rhonchi, Wheezes - Cardiovascular Exam Cardiovascular Exam: REGULAR RHYTHM, +S1, +S2 - GI/Abdominal Exam GI & Abdominal Exam: Soft, Normal Bowel Sounds. absent: Tenderness - Extremities Exam Additional comments: dressing C/D/I. No drainage or pus noted Cap refill < 3 seconds on all digits - Neurological Exam Neurological Exam: Alert, Awake, Oriented x3. absent: CN II-XII Intact Assessment and Plan - Assessment and Plan (Free Text) Assessment: 53 y/o man w/ pmh of recurrent LE cellulitis and EtOH abuse seen and evaluated at bedside for alcohol withdrawal and day 2 s/p right foot second digit distal amputation. Plan: Bacteremia possibly secondary to osteomylitis -Feels well -WBC 6.7 -2 Bcx from previous admission 1 grew Coag neg Staph and another E.Faecalis. - This admission Blood Culture negative x 4 -C/w Daptomycin as per ID recs - DAY # 8 - will continue daily administration over the weekend -echocardiogram results: estimated EF 60-65%, left ventricular diastolic function normal, trace tricuspid regurgitation, no valvular vegetation found Osteomyelitis of right foot - day 2 s/p right foot second digit distal symes amputation - wound cx and bone cx sent for pathology - read pending -pain controlled - no clinical signs of infection noted, patient tolerated procedure well -S/P 1st toe amputation at [facility] more than 1 m/a -Grew MSSA on wound Cx and was DC on PO levaquin that patient didnt take -Didnt f/u with Podiatry as outpatient -ESR 104 07/14 -Pain control Alcohol Abuse -chronic -ETOH withdrawal protocol -Librium Q8, clonidine 0.1 mg PO BID Hypokalemia Resolved after replacement K=4.3 on 07/19 B/L leg swelling and erythema with tenderness to R/calf -R/o DVT -LE US ordered - no evidence of DVT in the right lower extremity Prophylactic measures -DVT: lovenox 40 mg SC daily <JoshBelalila Pruitt - Last Filed: 07/19/18 16:03> Objective - Vital Signs/Intake and Output Vital Signs (last 24 hours): Temp Pulse Resp BP Pulse Ox 98.7 F 61 20 121/75 97 07/19/18 16:00 07/19/18 16:00 07/19/18 16:00 07/19/18 16:00 07/19/18 16:00 - Medications Medications: Current Medications Acetaminophen (Tylenol 325mg Tab) 650 mg PO Q6 PRN PRN Reason: Fever >100.4 F Last Admin: 07/13/18 00:40 Dose: 650 mg Acetaminophen (Tylenol 325mg Tab) 325 mg PO Q4 PRN PRN Reason: Pain, Mild (1-3) Clonidine HCl (Catapres) 0.1 mg PO BID [facility] Last Admin: 07/19/18 08:25 Dose: 0.1 mg Enoxaparin Sodium (Lovenox) 40 mg SC DAILY [facility]; Protocol Last Admin: 07/19/18 08:26 Dose: 40 mg Ferrous Sulfate (Feosol) 325 mg PO BID [facility] Last Admin: 07/19/18 08:25 Dose: 325 mg Folic Acid (Folic Acid) 1 mg PO DAILY [facility] Last Admin: 07/19/18 08:26 Dose: 1 mg Daptomycin 480 mg/ Sodium (Chloride) 100 mls @ 100 mls/hr IV Q24H [facility]; Protocol Stop: 07/23/18 12:31 Last Admin: 07/19/18 15:15 Dose: 100 mls/hr Oxycodone/Acetaminophen (Percocet 5/325 Mg Tab) 1 tab PO Q4 PRN PRN Reason: Pain, moderate (4-7) Stop: 07/20/18 19:47 Oxycodone/Acetaminophen (Percocet 5/325 Mg Tab) 2 tab PO Q4 PRN PRN Reason: Pain, severe (8-10) Stop: 07/20/18 19:47 Saccharomyces Boulardii (Florastor) 250 mg PO BID [facility] Last Admin: 07/19/18 08:25 Dose: 250 mg Thiamine HCl (Vitamin B1 Tab) 100 mg PO DAILY [facility] Last Admin: 10/06/18 08:25 Dose: 100 mg - Labs Labs: 07/19/18 07:00 07/19/18 07:00 Attending/Attestation - Attestation I have personally seen and examined this patient.: Yes I have fully participated in the care of the patient.: Yes I have reviewed all pertinent clinical information, including history, physical exam and plan: Yes
--- NOTE | 2018-07-19 14:04 | CP.PCM.PN ---
Subjective - Date & Time of Evaluation Date of Evaluation: 07/19/18 Time of Evaluation: 13:57 - Subjective Subjective: Podiatry progress note for Dr. Diaz, 53 y/o male patient seen and evaluated on the bedside 2 days s/p right second digit partial amputation. Patient denies any pain to the area. Patient denies any overnight F/N/V/C or SOB. Patient denies any other pedal complaint or pain at this time. Objective - Vital Signs/Intake and Output Vital Signs (last 24 hours): Temp Pulse Resp BP Pulse Ox 99.8 F H 98 H 20 97/53 L 98 07/19/18 08:27 07/19/18 08:27 07/19/18 08:27 07/19/18 08:27 07/19/18 08:27 - Medications Medications: Current Medications Acetaminophen (Tylenol 325mg Tab) 650 mg PO Q6 PRN PRN Reason: Fever >100.4 F Last Admin: 07/13/18 00:40 Dose: 650 mg Acetaminophen (Tylenol 325mg Tab) 325 mg PO Q4 PRN PRN Reason: Pain, Mild (1-3) Clonidine HCl (Catapres) 0.1 mg PO BID [facility] Last Admin: 07/19/18 08:25 Dose: 0.1 mg Enoxaparin Sodium (Lovenox) 40 mg SC DAILY [facility]; Protocol Last Admin: 07/19/18 08:26 Dose: 40 mg Ferrous Sulfate (Feosol) 325 mg PO BID [facility] Last Admin: 07/19/18 08:25 Dose: 325 mg Folic Acid (Folic Acid) 1 mg PO DAILY [facility] Last Admin: 07/19/18 08:26 Dose: 1 mg Daptomycin 480 mg/ Sodium (Chloride) 100 mls @ 100 mls/hr IV Q24H [facility]; Protocol Stop: 07/23/18 12:31 Last Admin: 07/18/18 15:31 Dose: 100 mls/hr Oxycodone/Acetaminophen (Percocet 5/325 Mg Tab) 1 tab PO Q4 PRN PRN Reason: Pain, moderate (4-7) Stop: 07/20/18 19:47 Oxycodone/Acetaminophen (Percocet 5/325 Mg Tab) 2 tab PO Q4 PRN PRN Reason: Pain, severe (8-10) Stop: 07/20/18 19:47 Saccharomyces Boulardii (Florastor) 250 mg PO BID [facility] Last Admin: 07/19/18 08:25 Dose: 250 mg Thiamine HCl (Vitamin B1 Tab) 100 mg PO DAILY [facility] Last Admin: 07/19/18 08:25 Dose: 100 mg - Labs Labs: 07/19/18 07:00 07/19/18 07:00 - Constitutional Appears: Well, Non-toxic, No Acute Distress - Head Exam Head Exam: ATRAUMATIC, NORMOCEPHALIC - Extremities Exam Additional comments: RLE focused exam: Vascular: DP/ PT 2/4 , Cap refill <3 secs x4, Temp gradient warm to warm, Moderate erythema noted on the anterior aspect of b/l legs secondary to chronic cellulitis, no edema noted Neuro: protective sensation diminished b/l Derm: surgical site at distal second toe, sutures intact, site well coapted, no wound dehiscence noted , no drainage noted, no malodor, no clinical signs of infection. Erythema noted on the anterior aspect of b/l legs with mildly increased temperature, no open lesions on legs, no clinical signs of infection, Dry, scaling skin noted on the plantar aspect of the right foot. Surgical site at the 1st toe looks C/D/I with no signs of dehiscence. MSK: No pain on palpation at the surgery site. Muscle power intact 5/5 b/l. - Neurological Exam Neurological Exam: Alert, Awake, Oriented x3 - Psychiatric Exam Psychiatric exam: Normal Affect, Normal Mood Assessment and Plan - Assessment and Plan (Free Text) Assessment: 53 yo male seen at bedside 2 days s/p right second digit partial amputation. Plan: Patient seen and evaluated at the bedside. Plan discussed in details with the attending Dr. Diaz Patient chart and vitals and labs reviewed, afebrile, 6.7 WBC Right foot x-rays reviewed;no evidence of osteo, satisfactory post op xrays Deep wound intraop cultures pending. Bone pathology pending. Right second digit dressed with betadine and DSD. Patient stable for discharge from podiatry point of view Patient to be d/c with oral antibiotics as per ID Patient advised to keep the dressing C/D/I Patient to ambulate in surgical shoe at all times Patient educated on signs and symptoms of infection Patient showed verbal understanding and all questions were answered. ID Plan: - Continue with IV daptomycin day #7 - Patient will need at least 2 weeks of abx for the bacteremia ( VRE and coag neg staph). - If all the necrotic bone is resected then ABX only for 2 weeks as above for bacteremia. - If any remaining necrotic bone then will need 4-6 weeks of abx. ID recommendations appreciated Podiatry will follow up the patient while in house. Patient to follow up with Dr. Diaz upon discharge.
[2018-07-20] MEDS: Enoxaparin 40 mg Syringe SC SCH (08:58)
[2018-07-20] MEDS: Saccharomyces Boulardi 250 mg Cap PO SCH ×2 (08:58→16:17)
--- NOTE | 2018-07-20 10:24 | CP.PCM.PN ---
Subjective - Date & Time of Evaluation Date of Evaluation: 07/20/18 Time of Evaluation: 12:36 - Subjective Subjective: Podiatry progress note for Dr. Diaz, 53 y/o male patient seen and evaluated on the bedside 3 days s/p right second digit partial amputation. Patient denies any pain to the area. Patient denies any overnight F/N/V/C or SOB. Patient denies any other pedal complaint or pain at this time. Objective - Vital Signs/Intake and Output Vital Signs (last 24 hours): Temp Pulse Resp BP Pulse Ox 98.1 F 65 19 116/79 95 07/20/18 08:07 07/20/18 08:57 07/20/18 08:07 07/20/18 08:57 07/20/18 08:07 - Medications Medications: Current Medications Acetaminophen (Tylenol 325mg Tab) 650 mg PO Q6 PRN PRN Reason: Fever >100.4 F Last Admin: 07/13/18 00:40 Dose: 650 mg Acetaminophen (Tylenol 325mg Tab) 325 mg PO Q4 PRN PRN Reason: Pain, Mild (1-3) Clonidine HCl (Catapres) 0.1 mg PO BID [facility] Last Admin: 07/20/18 08:57 Dose: 0.1 mg Enoxaparin Sodium (Lovenox) 40 mg SC DAILY [facility]; Protocol Last Admin: 07/20/18 08:58 Dose: 40 mg Ferrous Sulfate (Feosol) 325 mg PO BID [facility] Last Admin: 07/20/18 08:57 Dose: 325 mg Folic Acid (Folic Acid) 1 mg PO DAILY [facility] Last Admin: 07/20/18 08:58 Dose: 1 mg Daptomycin 480 mg/ Sodium (Chloride) 100 mls @ 100 mls/hr IV Q24H [facility]; Protocol Stop: 07/23/18 12:31 Last Admin: 07/19/18 15:15 Dose: 100 mls/hr Oxycodone/Acetaminophen (Percocet 5/325 Mg Tab) 1 tab PO Q4 PRN PRN Reason: Pain, moderate (4-7) Stop: 07/20/18 19:47 Oxycodone/Acetaminophen (Percocet 5/325 Mg Tab) 2 tab PO Q4 PRN PRN Reason: Pain, severe (8-10) Stop: 07/20/18 19:47 Saccharomyces Boulardii (Florastor) 250 mg PO BID [facility] Last Admin: 07/20/18 08:58 Dose: 250 mg Thiamine HCl (Vitamin B1 Tab) 100 mg PO DAILY [facility] Last Admin: 07/20/18 08:58 Dose: 100 mg - Labs Labs: 07/19/18 07:00 07/19/18 07:00 - Constitutional Appears: Well, Non-toxic, No Acute Distress - Head Exam Head Exam: ATRAUMATIC, NORMOCEPHALIC - Extremities Exam Additional comments: RLE focused exam: Vascular: DP/ PT 2/4 , Cap refill <3 secs x4, Temp gradient warm to warm, Moderate erythema noted on the anterior aspect of b/l legs secondary to chronic cellulitis, no edema noted Neuro: protective sensation diminished b/l Derm: surgical site at distal second toe, sutures intact, site well coapted, no wound dehiscence noted , no drainage noted, no malodor, no clinical signs of infection. Surgical site at the 1st toe looks C/D/I with no signs of dehiscence. MSK: No pain on palpation at the surgery site. Muscle power intact 5/5 b/l. - Neurological Exam Neurological Exam: Alert, Awake, Oriented x3 - Psychiatric Exam Psychiatric exam: Normal Affect, Normal Mood Assessment and Plan - Assessment and Plan (Free Text) Assessment: 53 yo male seen at bedside 3 days s/p right second digit partial amputation. Plan: Patient seen and evaluated at the bedside. Plan discussed in details with the attending Dr. Diaz Patient chart and vitals and labs reviewed, afebrile, 6.7 WBC (10/6) Right foot x-rays reviewed;no evidence of osteo, satisfactory post op xrays Deep wound intraop cultures pending. Bone pathology pending. Right second digit dressed with betadine and DSD. Patient stable for discharge from podiatry point of view Patient to be D/C with oral antibiotics as per ID Patient advised to keep the dressing C/D/I Patient to ambulate in surgical shoe at all times Patient educated on signs and symptoms of infection Patient showed verbal understanding and all questions were answered. ID Plan: - Continue with IV daptomycin day #7 - Patient will need at least 2 weeks of abx for the bacteremia ( VRE and coag neg staph). - If all the necrotic bone is resected then ABX only for 2 weeks as above for bacteremia. - If any remaining necrotic bone then will need 4-6 weeks of abx. ID recommendations appreciated Podiatry will follow up the patient while in house. Patient to follow up with Dr. Diaz upon discharge.
--- NOTE | 2018-07-20 17:16 | CP.PCM.PN ---
<Eloy Adhikari - Last Filed: 07/20/18 17:10> Subjective - Date & Time of Evaluation Date of Evaluation: 07/20/18 Time of Evaluation: 17:10 - Subjective Subjective: 53 YO M seen resting comfortably without any complaints. Has good appetite. Denies any pain on his right foot s/p day 3 of amputation of second digit. - Denies any fever, chills, nausea, or vomiting. Objective - Vital Signs/Intake and Output Vital Signs (last 24 hours): Temp Pulse Resp BP Pulse Ox 99.3 F 68 20 119/76 97 07/20/18 16:21 07/20/18 16:21 07/20/18 16:21 07/20/18 16:21 07/20/18 16:21 - Medications Medications: Current Medications Acetaminophen (Tylenol 325mg Tab) 650 mg PO Q6 PRN PRN Reason: Fever >100.4 F Last Admin: 07/13/18 00:40 Dose: 650 mg Acetaminophen (Tylenol 325mg Tab) 325 mg PO Q4 PRN PRN Reason: Pain, Mild (1-3) Clonidine HCl (Catapres) 0.1 mg PO BID [facility] Last Admin: 07/20/18 16:17 Dose: 0.1 mg Enoxaparin Sodium (Lovenox) 40 mg SC DAILY [facility]; Protocol Last Admin: 07/20/18 08:58 Dose: 40 mg Ferrous Sulfate (Feosol) 325 mg PO BID [facility] Last Admin: 07/20/18 16:17 Dose: 325 mg Folic Acid (Folic Acid) 1 mg PO DAILY [facility] Last Admin: 07/20/18 08:58 Dose: 1 mg Daptomycin 480 mg/ Sodium (Chloride) 100 mls @ 100 mls/hr IV Q24H [facility]; Protocol Stop: 07/23/18 12:31 Last Admin: 07/20/18 11:30 Dose: 100 mls/hr Oxycodone/Acetaminophen (Percocet 5/325 Mg Tab) 1 tab PO Q4 PRN PRN Reason: Pain, moderate (4-7) Stop: 07/20/18 19:47 Oxycodone/Acetaminophen (Percocet 5/325 Mg Tab) 2 tab PO Q4 PRN PRN Reason: Pain, severe (8-10) Stop: 07/20/18 19:47 Saccharomyces Boulardii (Florastor) 250 mg PO BID [facility] Last Admin: 07/20/18 16:17 Dose: 250 mg Thiamine HCl (Vitamin B1 Tab) 100 mg PO DAILY [facility] Last Admin: 07/20/18 08:58 Dose: 100 mg - Labs Labs: 07/19/18 07:00 07/19/18 07:00 - Constitutional Appears: No Acute Distress - Head Exam Head Exam: NORMAL INSPECTION - Respiratory Exam Respiratory Exam: Clear to Ausculation Bilateral. absent: Rhonchi, Wheezes - Cardiovascular Exam Cardiovascular Exam: REGULAR RHYTHM, +S1, +S2 - GI/Abdominal Exam GI & Abdominal Exam: Soft, Normal Bowel Sounds. absent: Tenderness - Extremities Exam Additional comments: dressing C/D/I . No drainage or pus noted Cap refill < 3 seconds on all digits - Neurological Exam Neurological Exam: Alert, Awake, CN II-XII Intact, Oriented x3 Assessment and Plan - Assessment and Plan (Free Text) Assessment: 53 y/o man w/ pmh of recurrent LE cellulitis and EtOH abuse seen and evaluated at bedside for alcohol withdrawal and day3 s/p right foot second digit distal amputation. Plan: Bacteremia possibly secondary to osteomylitis -Feels well -WBC 6.7 -2 Bcx from previous admission 1 grew Coag neg Staph and another E.Faecalis. - This admission Blood Culture negative x 4 -C/w Daptomycin as per ID recs - DAY # 9 - -echocardiogram results: estimated EF 60-65%, left ventricular diastolic function normal, trace tricuspid regurgitation, no valvular vegetation found Osteomyelitis of right foot - day 3 s/p right foot second digit distal symes amputation - wound cx and bone cx sent for pathology - read pending -pain controlled - no clinical signs of infection noted, patient tolerated procedure well -S/P 1st toe amputation at [facility] more than 1 m/a -Grew MSSA on wound Cx and was DC on PO levaquin that patient didnt take -Didnt f/u with Podiatry as outpatient -ESR 104 07/14 -Pain control Alcohol Abuse -chronic -ETOH withdrawal protocol - clonidine 0.1 mg PO BID Hypokalemia Resolved after replacement K=4.3 on 07/19 B/L leg swelling and erythema with tenderness to R/calf -R/o DVT -LE US ordered - no evidence of DVT in the right lower extremity Prophylactic measures -DVT: rohininox 40 mg SC daily <Bela Moreno - Last Filed: 07/20/18 17:46> Objective - Vital Signs/Intake and Output Vital Signs (last 24 hours): Temp Pulse Resp BP Pulse Ox 99.3 F 68 20 119/76 97 07/20/18 16:21 07/20/18 16:21 07/20/18 16:21 07/20/18 16:21 07/20/18 16:21 - Medications Medications: Current Medications Acetaminophen (Tylenol 325mg Tab) 650 mg PO Q6 PRN PRN Reason: Fever >100.4 F Last Admin: 07/13/18 00:40 Dose: 650 mg Acetaminophen (Tylenol 325mg Tab) 325 mg PO Q4 PRN PRN Reason: Pain, Mild (1-3) Clonidine HCl (Catapres) 0.1 mg PO BID [facility] Last Admin: 07/20/18 16:17 Dose: 0.1 mg Enoxaparin Sodium (Lovenox) 40 mg SC DAILY [facility]; Protocol Last Admin: 07/20/18 08:58 Dose: 40 mg Ferrous Sulfate (Feosol) 325 mg PO BID [facility] Last Admin: 07/20/18 16:17 Dose: 325 mg Folic Acid (Folic Acid) 1 mg PO DAILY [facility] Last Admin: 07/20/18 08:58 Dose: 1 mg Daptomycin 480 mg/ Sodium (Chloride) 100 mls @ 100 mls/hr IV Q24H [facility]; Protocol Stop: 07/23/18 12:31 Last Admin: 07/20/18 11:30 Dose: 100 mls/hr Oxycodone/Acetaminophen (Percocet 5/325 Mg Tab) 1 tab PO Q4 PRN PRN Reason: Pain, moderate (4-7) Stop: 07/20/18 19:47 Oxycodone/Acetaminophen (Percocet 5/325 Mg Tab) 2 tab PO Q4 PRN PRN Reason: Pain, severe (8-10) Stop: 07/20/18 19:47 Saccharomyces Boulardii (Florastor) 250 mg PO BID [facility] Last Admin: 07/20/18 16:17 Dose: 250 mg Thiamine HCl (Vitamin B1 Tab) 100 mg PO DAILY [facility] Last Admin: 07/20/18 08:58 Dose: 100 mg - Labs Labs: 07/19/18 07:00 07/19/18 07:00 Attending/Attestation - Attestation I have personally seen and examined this patient.: Yes I have fully participated in the care of the patient.: Yes I have reviewed all pertinent clinical information, including history, physical exam and plan: Yes <Adonay Frey - Last Filed: 07/21/18 13:56> Objective - Vital Signs/Intake and Output Vital Signs (last 24 hours): Temp Pulse Resp BP Pulse Ox 98.4 F 79 19 111/75 100 07/21/18 07:42 07/21/18 08:14 07/21/18 07:42 07/21/18 08:14 07/21/18 07:42 - Medications Medications: Current Medications Acetaminophen (Tylenol 325mg Tab) 650 mg PO Q6 PRN PRN Reason: Fever >100.4 F Last Admin: 07/13/18 00:40 Dose: 650 mg Acetaminophen (Tylenol 325mg Tab) 325 mg PO Q4 PRN PRN Reason: Pain, Mild (1-3) Clonidine HCl (Catapres) 0.1 mg PO BID [facility] Last Admin: 07/21/18 08:14 Dose: 0.1 mg Enoxaparin Sodium (Lovenox) 40 mg SC DAILY [facility]; Protocol Last Admin: 07/21/18 08:16 Dose: 40 mg Ferrous Sulfate (Feosol) 325 mg PO BID [facility] Last Admin: 07/21/18 08:15 Dose: 325 mg Folic Acid (Folic Acid) 1 mg PO DAILY [facility] Last Admin: 07/21/18 08:16 Dose: 1 mg Daptomycin 480 mg/ Sodium (Chloride) 100 mls @ 100 mls/hr IV Q24H [facility]; Protocol Stop: 07/23/18 12:31 Last Admin: 07/20/18 11:30 Dose: 100 mls/hr Saccharomyces Boulardii (Florastor) 250 mg PO BID [facility] Last Admin: 07/21/18 08:16 Dose: 250 mg Thiamine HCl (Vitamin B1 Tab) 100 mg PO DAILY [facility] Last Admin: 07/21/18 08:16 Dose: 100 mg - Labs Labs: 07/19/18 07:00 07/19/18 07:00
--- NOTE | 2018-07-21 06:03 | CP.PCM.PN ---
Subjective - Date & Time of Evaluation Date of Evaluation: 07/21/18 Time of Evaluation: 12:08 - Subjective Subjective: Podiatry progress note for Dr. Diaz, 53 y/o male patient seen and evaluated on the bedside 4 days s/p right second digit partial amputation. Patient denies any pain to the area. Patient denies any overnight F/N/V/C or SOB. Patient denies any other pedal complaint or pain at this time. Objective - Vital Signs/Intake and Output Vital Signs (last 24 hours): Temp Pulse Resp BP Pulse Ox 98.0 F 64 20 122/78 97 07/21/18 01:00 07/21/18 01:00 07/21/18 01:00 07/21/18 01:00 07/21/18 01:00 - Medications Medications: Current Medications Acetaminophen (Tylenol 325mg Tab) 650 mg PO Q6 PRN PRN Reason: Fever >100.4 F Last Admin: 07/13/18 00:40 Dose: 650 mg Acetaminophen (Tylenol 325mg Tab) 325 mg PO Q4 PRN PRN Reason: Pain, Mild (1-3) Clonidine HCl (Catapres) 0.1 mg PO BID [facility] Last Admin: 07/20/18 16:17 Dose: 0.1 mg Enoxaparin Sodium (Lovenox) 40 mg SC DAILY [facility]; Protocol Last Admin: 07/20/18 08:58 Dose: 40 mg Ferrous Sulfate (Feosol) 325 mg PO BID [facility] Last Admin: 07/20/18 16:17 Dose: 325 mg Folic Acid (Folic Acid) 1 mg PO DAILY [facility] Last Admin: 07/20/18 08:58 Dose: 1 mg Daptomycin 480 mg/ Sodium (Chloride) 100 mls @ 100 mls/hr IV Q24H [facility]; Protocol Stop: 07/23/18 12:31 Last Admin: 07/20/18 11:30 Dose: 100 mls/hr Saccharomyces Boulardii (Florastor) 250 mg PO BID [facility] Last Admin: 07/20/18 16:17 Dose: 250 mg Thiamine HCl (Vitamin B1 Tab) 100 mg PO DAILY [facility] Last Admin: 07/20/18 08:58 Dose: 100 mg - Labs Labs: 07/19/18 07:00 07/19/18 07:00 - Constitutional Appears: Well, Non-toxic, No Acute Distress - Head Exam Head Exam: ATRAUMATIC, NORMOCEPHALIC - Extremities Exam Additional comments: RLE focused exam: Vascular: DP/ PT 2/4 , Cap refill <3 secs x4, Temp gradient warm to warm, Moderate erythema noted on the anterior aspect of b/l legs secondary to chronic cellulitis, no edema noted Neuro: protective sensation diminished b/l Derm: surgical site at distal second toe, sutures intact, site well coapted, no wound dehiscence noted , no drainage noted, no malodor, no clinical signs of infection. Surgical site at the 1st toe looks C/D/I with no signs of dehiscence. MSK: No pain on palpation at the surgery site. Muscle power intact 5/5 b/l. - Neurological Exam Neurological Exam: Alert, Awake, Oriented x3 - Psychiatric Exam Psychiatric exam: Normal Affect, Normal Mood Assessment and Plan - Assessment and Plan (Free Text) Assessment: 53 yo male seen at bedside 4 days s/p right second digit partial amputation. Plan: Patient seen and evaluated at the bedside. Plan discussed in details with the attending Dr. Diaz Patient chart and vitals and labs reviewed, afebrile, 6.7 WBC (10/6) Right foot x-rays reviewed;no evidence of osteo, satisfactory post op xrays Deep wound intraoperative cultures pending. Bone pathology pending. Right second digit surgical site dressed with betadine and DSD. Patient stable for discharge from podiatry point of view Patient advised to keep the dressing C/D/I Patient to ambulate in surgical shoe at all times Patient educated on signs and symptoms of infection Patient showed verbal understanding and all questions were answered. ID Plan: - Continue with IV daptomycin day #7 - Patient will need at least 2 weeks of abx for the bacteremia ( VRE and coag neg staph). - If all the necrotic bone is resected then ABX only for 2 weeks as above for bacteremia. - If any remaining necrotic bone then will need 4-6 weeks of abx. ID recommendations appreciated Podiatry will follow up the patient while in house. Patient to follow up with Dr. Diaz upon discharge.
--- NOTE | 2018-07-21 07:55 | OP ---
PROCEDURE DATE: 07/17/2018 PATIENT AGE: 53. PATIENT SEX: Male. PREOPERATIVE DIAGNOSIS: Acute osteomyelitis of the right second digit. POSTOPERATIVE DIAGNOSIS: Acute osteomyelitis of the right second digit. NAME OF PROCEDURE: Terminal Symes of the right second digit with second proximal phalanx head resection. SURGEON: Palmer Diaz DPM SENIOR SCRUM MASTER: Dr. Tim Storey, PGY-1 ANESTHESIA: Local anesthesia. ANESTHESIOLOGIST: Zain Mitchell MD INDICATION FOR PROCEDURE: This is a 53-year-old male with the above diagnosis. The patient has exhausted all conservative treatment at that time and now required surgical intervention. The patient signed the consent after careful explanation of the risks, benefits, complications, and alternatives for the surgical procedure. No guarantees were given nor implied. NPO status was confirmed prior to taking the patient to the OR. PREPARATION: The patient was brought in to the operating room and placed on the operating room table in a supine position. A time-out was performed for identification of the correct patient and procedure. The patient received a total of 15 mL of 1:1 mixture of 0.5% Marcaine plain and 2% lidocaine plain in a local V block-type fashion to the right second digit. The right foot was then prepped and draped in a normal sterile manner and the procedure began. No tourniquet was used during the procedure. DESCRIPTION OF PROCEDURE: Attention was then drawn to the dorsal aspect of the right second digit where a fish-mouth type incision was made at the level of the second proximal interphalangeal joint using a #15 blade. The incision was then extended down through the subcutaneous layers, down to the level of the bone using a bone clamp to stabilize the toe. The second digit was articulated from the foot at the level of the proximal interphalangeal joint. It was then passed from the operative field and sent to Pathology. Using a fresh #15 blade, the head of the proximal phalanx was dissected out. Next, using a bone cutter, the head of the second proximal phalanx was then cut and passed from the field and sent to Pathology as proximal margin. The surgical site was copiously flushed with sterile saline. At this time, a #4-0 Prolene was then used to reapproximate the skin edges in simple sutures. The incision site was dressed with Xeroform, 4x4, Kerlix, and Clifton stage. POSTOPERATIVE CONDITION: The patient tolerated the anesthesia and the procedure well and was escorted to the recovery room with vital signs stable and neurovascular status intact to the right foot. The patient may be weightbearing as tolerated in a surgical shoe. Podiatry will continue to follow while he remains in house. The patient will follow up in Podiatry clinic TIM STOREY Palmer Dinero DPM [facility]
[2018-07-21] MEDS: Saccharomyces Boulardi 250 mg Cap PO SCH ×2 (08:16→16:47)
[2018-07-21] MEDS: Enoxaparin 40 mg Syringe SC SCH (08:16)
--- NOTE | 2018-07-21 11:05 | CP.PCM.PN ---
<Royal Mccarty - Last Filed: 07/21/18 11:03> Subjective - Date & Time of Evaluation Date of Evaluation: 07/21/18 Time of Evaluation: 11:03 - Subjective Subjective: 53 yo male seen and evaluated at bedside 4 days s/p right second digit amputation. Seen resting comfortably and without complaints. Denies N/V/F/C/SOB/CP and had no acute events over night. Objective - Vital Signs/Intake and Output Vital Signs (last 24 hours): Temp Pulse Resp BP Pulse Ox 98.4 F 79 19 111/75 100 07/21/18 07:42 07/21/18 08:14 07/21/18 07:42 07/21/18 08:14 07/21/18 07:42 - Medications Medications: Current Medications Acetaminophen (Tylenol 325mg Tab) 650 mg PO Q6 PRN PRN Reason: Fever >100.4 F Last Admin: 07/13/18 00:40 Dose: 650 mg Acetaminophen (Tylenol 325mg Tab) 325 mg PO Q4 PRN PRN Reason: Pain, Mild (1-3) Clonidine HCl (Catapres) 0.1 mg PO BID [facility] Last Admin: 07/21/18 08:14 Dose: 0.1 mg Enoxaparin Sodium (Lovenox) 40 mg SC DAILY [facility]; Protocol Last Admin: 07/21/18 08:16 Dose: 40 mg Ferrous Sulfate (Feosol) 325 mg PO BID [facility] Last Admin: 07/21/18 08:15 Dose: 325 mg Folic Acid (Folic Acid) 1 mg PO DAILY [facility] Last Admin: 07/21/18 08:16 Dose: 1 mg Daptomycin 480 mg/ Sodium (Chloride) 100 mls @ 100 mls/hr IV Q24H [facility]; Protocol Stop: 07/23/18 12:31 Last Admin: 07/20/18 11:30 Dose: 100 mls/hr Saccharomyces Boulardii (Florastor) 250 mg PO BID [facility] Last Admin: 07/21/18 08:16 Dose: 250 mg Thiamine HCl (Vitamin B1 Tab) 100 mg PO DAILY [facility] Last Admin: 07/21/18 08:16 Dose: 100 mg - Labs Labs: 07/19/18 07:00 07/19/18 07:00 - Constitutional Appears: Well, Non-toxic, No Acute Distress - Head Exam Head Exam: ATRAUMATIC, NORMOCEPHALIC - Eye Exam Eye Exam: EOMI, Normal appearance - ENT Exam ENT Exam: Mucous Membranes Moist, Normal Exam - Neck Exam Neck Exam: Full ROM - Respiratory Exam Respiratory Exam: NORMAL BREATHING PATTERN - Cardiovascular Exam Cardiovascular Exam: REGULAR RHYTHM, +S1, +S2 - GI/Abdominal Exam GI & Abdominal Exam: Soft, Normal Bowel Sounds - Extremities Exam Extremities Exam: Normal Capillary Refill. absent: Pedal Edema Additional comments: dressing c/d/i no pain to surgical site cap refill <3 seconds to all remaining digits no signs of streaking or cellulitis b/l no other open lesions or wounds - Neurological Exam Neurological Exam: Alert, Awake, Oriented x3 - Psychiatric Exam Psychiatric exam: Normal Affect, Normal Mood - Skin Skin Exam: Dry, Intact, Normal Color, Warm Assessment and Plan - Assessment and Plan (Free Text) Assessment: 53 y/o man w/ pmh of recurrent LE cellulitis and EtOH abuse seen and evaluated at bedside for alcohol withdrawal and 4 days s/p right foot second digit distal amputation. Plan: Bacteremia possibly secondary to osteomylitis -Feels well -WBC 6.7 07/19 -2 Bcx from previous admission 1 grew Coag neg Staph and another E.Faecalis. - This admission Blood Culture negative x 4 -C/w Daptomycin as per ID recs - DAY # 10 8 -echocardiogram results: estimated EF 60-65%, left ventricular diastolic function normal, trace tricuspid regurgitation, no valvular vegetation found Osteomyelitis of right foot - day 3 s/p right foot second digit distal symes amputation - wound cx and bone cx sent for pathology - read pending -pain controlled - no clinical signs of infection noted, patient tolerated procedure well -S/P 1st toe amputation at [facility] more than 1 m/a -Grew MSSA on wound Cx and was DC on PO levaquin that patient didnt take -Didnt f/u with Podiatry as outpatient -ESR 104 07/14 -Pain control Alcohol Abuse -chronic -ETOH withdrawal protocol - clonidine 0.1 mg PO BID Hypokalemia Resolved after replacement K=4.3 on 07/19 B/L leg swelling and erythema with tenderness to R/calf -R/o DVT -LE US ordered - no evidence of DVT in the right lower extremity Prophylactic measures -DVT: lovenox 40 mg SC daily <Bela Moreno - Last Filed: 07/21/18 17:51> Objective - Vital Signs/Intake and Output Vital Signs (last 24 hours): Temp Pulse Resp BP Pulse Ox 98.2 F 63 18 120/73 98 07/21/18 16:28 07/21/18 16:46 07/21/18 16:28 07/21/18 16:46 07/21/18 16:28 - Medications Medications: Current Medications Acetaminophen (Tylenol 325mg Tab) 650 mg PO Q6 PRN PRN Reason: Fever >100.4 F Last Admin: 07/13/18 00:40 Dose: 650 mg Acetaminophen (Tylenol 325mg Tab) 325 mg PO Q4 PRN PRN Reason: Pain, Mild (1-3) Clonidine HCl (Catapres) 0.1 mg PO BID [facility] Last Admin: 07/21/18 16:46 Dose: 0.1 mg Enoxaparin Sodium (Lovenox) 40 mg SC DAILY [facility]; Protocol Last Admin: 07/21/18 08:16 Dose: 40 mg Ferrous Sulfate (Feosol) 325 mg PO BID [facility] Last Admin: 07/21/18 16:47 Dose: 325 mg Folic Acid (Folic Acid) 1 mg PO DAILY [facility] Last Admin: 07/21/18 08:16 Dose: 1 mg Daptomycin 480 mg/ Sodium (Chloride) 100 mls @ 100 mls/hr IV Q24H [facility]; Protocol Stop: 07/23/18 12:31 Last Admin: 07/21/18 15:25 Dose: 100 mls/hr Saccharomyces Boulardii (Florastor) 250 mg PO BID [facility] Last Admin: 07/21/18 16:47 Dose: 250 mg Thiamine HCl (Vitamin B1 Tab) 100 mg PO DAILY [facility] Last Admin: 07/21/18 08:16 Dose: 100 mg - Labs Labs: 07/19/18 07:00 07/19/18 07:00 Attending/Attestation - Attestation I have personally seen and examined this patient.: Yes I have fully participated in the care of the patient.: Yes I have reviewed all pertinent clinical information, including history, physical exam and plan: Yes
--- NOTE | 2018-07-22 06:48 | CP.PCM.PN ---
Addendum entered and electronically signed by Cristian Coto MD 07/22/18 12:40: Patient seen and examined bedside . All chart and clinical data reviewed . Case discussed with resident .Agree with assessment and plan. 53 y/o homeless male admitted with acute OM of right foot and bacteremia s/p right foot second toe distal phalanx amputation. Wound healing well and podiatry following wound cx positive for young albicans On Daptomycin IV as per ID recommendations for bacteremia (until ) continue current management Will discuss with ID for need for PO antibiotics upon discharge for OM Original Note: Subjective - Date & Time of Evaluation Date of Evaluation: 07/22/18 Time of Evaluation: 06:45 - Subjective Subjective: 53 yo male seen and evaluated at bedside resting comfortably. States he has no complaints today. He has no pain in his right second digit amputation site. States he had no acute events overnight. Denies N/V/F/C/SOB/CP. CIWA score 0. Objective - Vital Signs/Intake and Output Vital Signs (last 24 hours): Temp Pulse Resp BP Pulse Ox 97.9 F 62 20 111/71 97 07/21/18 23:38 07/21/18 23:38 07/21/18 23:38 07/21/18 23:38 07/21/18 23:38 - Medications Medications: Current Medications Acetaminophen (Tylenol 325mg Tab) 650 mg PO Q6 PRN PRN Reason: Fever >100.4 F Last Admin: 07/13/18 00:40 Dose: 650 mg Acetaminophen (Tylenol 325mg Tab) 325 mg PO Q4 PRN PRN Reason: Pain, Mild (1-3) Clonidine HCl (Catapres) 0.1 mg PO BID [facility] Last Admin: 07/21/18 16:46 Dose: 0.1 mg Enoxaparin Sodium (Lovenox) 40 mg SC DAILY [facility]; Protocol Last Admin: 07/21/18 08:16 Dose: 40 mg Ferrous Sulfate (Feosol) 325 mg PO BID [facility] Last Admin: 07/21/18 16:47 Dose: 325 mg Folic Acid (Folic Acid) 1 mg PO DAILY [facility] Last Admin: 07/21/18 08:16 Dose: 1 mg Daptomycin 480 mg/ Sodium (Chloride) 100 mls @ 100 mls/hr IV Q24H [facility]; Protocol Stop: 07/23/18 12:31 Last Admin: 07/21/18 15:25 Dose: 100 mls/hr Saccharomyces Boulardii (Florastor) 250 mg PO BID [facility] Last Admin: 07/21/18 16:47 Dose: 250 mg Thiamine HCl (Vitamin B1 Tab) 100 mg PO DAILY [facility] Last Admin: 07/21/18 08:16 Dose: 100 mg - Labs Labs: 07/19/18 07:00 07/19/18 07:00 - Constitutional Appears: Well, Non-toxic, No Acute Distress - Head Exam Head Exam: ATRAUMATIC, NORMOCEPHALIC - Eye Exam Eye Exam: EOMI, Normal appearance - ENT Exam ENT Exam: Mucous Membranes Moist - Neck Exam Neck Exam: Full ROM - Respiratory Exam Respiratory Exam: Clear to Ausculation Bilateral - Cardiovascular Exam Cardiovascular Exam: REGULAR RHYTHM, +S1, +S2 - GI/Abdominal Exam GI & Abdominal Exam: Soft, Normal Bowel Sounds - Extremities Exam Additional comments: dressing c/d/i no evidence of strikethrough to dressing no pain to surgical site cap refill <3 seconds to all remaining digits no signs of streaking or cellulitis b/l no other open lesions or wounds - Neurological Exam Neurological Exam: Alert, Awake, Oriented x3 - Psychiatric Exam Psychiatric exam: Normal Affect, Normal Mood - Skin Skin Exam: Dry, Intact, Normal Color Assessment and Plan - Assessment and Plan (Free Text) Assessment: 53 y/o man w/ pmh of recurrent LE cellulitis and EtOH abuse seen and evaluated at bedside for alcohol withdrawal and 5 days s/p right foot second digit distal amputation. Plan: 1. Bacteremia possibly secondary to osteomylitis -Feels well -WBC 6.7 / -2 Bcx from previous admission 1 grew Coag neg Staph and another E.Faecalis. - This admission Blood Culture negative x 4 -C/w Daptomycin as per ID recs - DAY # 11 07/22 -echocardiogram results: estimated EF 60-65%, left ventricular diastolic function normal, trace tricuspid regurgitation, no valvular vegetation found 2. Osteomyelitis of right foot - day 5 s/p right foot second digit distal symes amputation - wound cx and bone cx sent for pathology - read pending -c/w daptomycin as per ID recs - day #11 07/22 - possible discharge for , discuss continuing levaquin as outpatient for OM -pain controlled - no clinical signs of infection noted, patient tolerated procedure well -S/P 1st toe amputation at [facility] more than 1 m/a -Grew MSSA on wound Cx and was DC on PO levaquin that patient didnt take -Didnt f/u with Podiatry as outpatient -ESR 104 07/14 -Pain control 3. Alcohol Abuse -chronic -ETOH withdrawal protocol - clonidine 0.1 mg PO BID 4. Hypokalemia Resolved after replacement K=4.3 07/19 5. B/L leg swelling and erythema with tenderness to R calf -R/o DVT -LE US ordered - no evidence of DVT in the right lower extremity 6. Prophylactic measures -DVT: lovenox 40 mg SC daily
--- NOTE | 2018-07-22 07:18 | CP.PCM.PN ---
Subjective - Date & Time of Evaluation Date of Evaluation: 07/22/18 Time of Evaluation: 10:31 - Subjective Subjective: Podiatry progress note for Dr. Diaz, 53 y/o male patient seen and evaluated on the bedside 5 days s/p right second digit partial amputation. Patient denies any pain to the area. Patient denies any overnight F/N/V/C or SOB. Patient denies any other pedal complaint or pain at this time. Objective - Vital Signs/Intake and Output Vital Signs (last 24 hours): Temp Pulse Resp BP Pulse Ox 97.9 F 62 20 111/71 97 07/21/18 23:38 07/21/18 23:38 07/21/18 23:38 07/21/18 23:38 07/21/18 23:38 - Medications Medications: Current Medications Acetaminophen (Tylenol 325mg Tab) 650 mg PO Q6 PRN PRN Reason: Fever >100.4 F Last Admin: 07/13/18 00:40 Dose: 650 mg Acetaminophen (Tylenol 325mg Tab) 325 mg PO Q4 PRN PRN Reason: Pain, Mild (1-3) Clonidine HCl (Catapres) 0.1 mg PO BID [facility] Last Admin: 07/21/18 16:46 Dose: 0.1 mg Enoxaparin Sodium (Lovenox) 40 mg SC DAILY [facility]; Protocol Last Admin: 07/21/18 08:16 Dose: 40 mg Ferrous Sulfate (Feosol) 325 mg PO BID [facility] Last Admin: 07/21/18 16:47 Dose: 325 mg Folic Acid (Folic Acid) 1 mg PO DAILY [facility] Last Admin: 07/21/18 08:16 Dose: 1 mg Daptomycin 480 mg/ Sodium (Chloride) 100 mls @ 100 mls/hr IV Q24H [facility]; Protocol Stop: 07/23/18 12:31 Last Admin: 07/21/18 15:25 Dose: 100 mls/hr Saccharomyces Boulardii (Florastor) 250 mg PO BID [facility] Last Admin: 07/21/18 16:47 Dose: 250 mg Thiamine HCl (Vitamin B1 Tab) 100 mg PO DAILY [facility] Last Admin: 07/21/18 08:16 Dose: 100 mg - Labs Labs: 07/19/18 07:00 07/19/18 07:00 - Constitutional Appears: Well, Non-toxic, No Acute Distress - Head Exam Head Exam: ATRAUMATIC, NORMOCEPHALIC - Extremities Exam Additional comments: RLE focused exam: Vascular: DP/ PT 2/4 , Cap refill <3 secs x4, Temp gradient warm to warm, Moderate erythema noted on the anterior aspect of b/l legs secondary to chronic cellulitis, no edema noted Neuro: protective sensation diminished b/l Derm: surgical site at distal second toe, sutures intact, site well coapted, no wound dehiscence signs noted , no drainage noted, no malodor, no clinical signs of infection. Surgical site at the 1st toe looks C/D/I with no signs of dehiscence. MSK: No pain on palpation at the surgery site. Muscle power intact 5/5 b/l. - Neurological Exam Neurological Exam: Alert, Awake, Oriented x3 - Psychiatric Exam Psychiatric exam: Normal Affect, Normal Mood Assessment and Plan - Assessment and Plan (Free Text) Assessment: 53 yo male seen at bedside 5 days s/p right second digit partial amputation. Plan: Patient seen and evaluated at the bedside. Plan discussed in details with the attending Dr. Diaz Patient chart and vitals and labs reviewed, afebrile, WBC 6.1 Right foot x-rays reviewed;no evidence of osteo, satisfactory post op X-rays Deep wound intra-operative cultures pending. Intra-operative Bone pathology pending. Right second digit surgical site dressed with betadine and DSD. Patient stable for discharge from podiatry point of view Patient advised to keep the dressing C/D/I Patient to ambulate in surgical shoe at all times Patient educated on signs and symptoms of infection Patient showed verbal understanding and all questions were answered. ID Plan: - Continue with IV Daptomycin day. - Patient will need at least 2 weeks of abx for the bacteremia ( VRE and coag neg staph). - If all the necrotic bone is resected then ABX only for 2 weeks as above for bacteremia. - If any remaining necrotic bone then will need 4-6 weeks of abx. ID recommendations appreciated. Podiatry will follow up the patient while in house. Patient to follow up with Dr. Diaz upon discharge.
[2018-07-22 08:20] LABS: HEMOGLOBIN 11.3 g/dL (12.0-18.0); MEAN CELL VOLUME 89.4 fl (80.0-94.0); MEAN CORPUSCULAR HEMOGLOBIN 29.5 pg (27.0-31.0); RBC 3.85 Mil/uL (4.40-5.90); RED CELL DISTRIBUTION WIDTH 15.9 % (11.5-14.5); WHITE BLOOD COUNT 6.1 K/uL (4.8-10.8)
[2018-07-22 08:31] LABS: BLOOD UREA NITROGEN 22 mg/dl (9-20); CALCIUM 10.2 mg/dL (8.4-10.2); GFR NON-AFRICAN AMERICAN > 60
[2018-07-22] MEDS: Enoxaparin 40 mg Syringe SC SCH (09:01)
[2018-07-22] MEDS: Saccharomyces Boulardi 250 mg Cap PO SCH ×2 (09:01→16:44)
--- NOTE | 2018-07-23 06:32 | CP.PCM.PN ---
Subjective - Date & Time of Evaluation Date of Evaluation: 07/23/18 Time of Evaluation: 10:53 - Subjective Subjective: Podiatry progress note for Dr. Diaz, 53 y/o male patient seen and evaluated on the bedside 6 days S/P right second digit partial amputation. Patient denies any pain to the area. Patient denies any overnight F/N/V/C or SOB. Patient denies any other pedal complaint or pain at this time. Objective - Vital Signs/Intake and Output Vital Signs (last 24 hours): Temp Pulse Resp BP Pulse Ox 99.0 F 70 19 118/76 98 07/23/18 00:00 07/23/18 00:00 07/23/18 00:00 07/23/18 00:00 07/23/18 00:00 - Medications Medications: Current Medications Acetaminophen (Tylenol 325mg Tab) 650 mg PO Q6 PRN PRN Reason: Fever >100.4 F Last Admin: 07/13/18 00:40 Dose: 650 mg Acetaminophen (Tylenol 325mg Tab) 325 mg PO Q4 PRN PRN Reason: Pain, Mild (1-3) Clonidine HCl (Catapres) 0.1 mg PO BID [facility] Last Admin: 07/22/18 16:43 Dose: 0.1 mg Enoxaparin Sodium (Lovenox) 40 mg SC DAILY [facility]; Protocol Last Admin: 07/22/18 09:01 Dose: 40 mg Ferrous Sulfate (Feosol) 325 mg PO BID [facility] Last Admin: 07/22/18 16:44 Dose: 325 mg Folic Acid (Folic Acid) 1 mg PO DAILY [facility] Last Admin: 07/22/18 09:01 Dose: 1 mg Daptomycin 480 mg/ Sodium (Chloride) 100 mls @ 100 mls/hr IV Q24H [facility]; Protocol Stop: 07/23/18 12:31 Last Admin: 07/22/18 13:59 Dose: 100 mls/hr Saccharomyces Boulardii (Florastor) 250 mg PO BID [facility] Last Admin: 07/22/18 16:44 Dose: 250 mg Thiamine HCl (Vitamin B1 Tab) 100 mg PO DAILY [facility] Last Admin: 07/22/18 09:01 Dose: 100 mg - Labs Labs: 07/22/18 08:10 07/22/18 08:10 - Constitutional Appears: Well, Non-toxic, No Acute Distress - Head Exam Head Exam: ATRAUMATIC, NORMOCEPHALIC - Extremities Exam Additional comments: RLE focused exam: Vascular: DP/ PT 2/4 , Cap refill <3 secs x4, Temp gradient warm to warm, Moderate erythema noted on the anterior aspect of b/l legs secondary to chronic cellulitis, no edema noted Neuro: protective sensation diminished b/l Derm: surgical site at distal second toe, sutures intact, site well coapted, no wound dehiscence signs noted , no drainage noted, no malodor, no clinical signs of infection. Surgical site at the 1st toe looks C/D/I with no signs of dehiscence. MSK: No pain on palpation at the surgery site. Muscle power intact 5/5 b/l. - Neurological Exam Neurological Exam: Alert, Awake, Oriented x3 - Psychiatric Exam Psychiatric exam: Normal Affect, Normal Mood Assessment and Plan - Assessment and Plan (Free Text) Assessment: 53 yo male seen at bedside 6 days s/p right second digit partial amputation. Plan: Patient seen and evaluated at the bedside. Plan discussed in details with the attending Dr. Diaz Patient chart and vitals and labs reviewed, afebrile, WBC 6.1 (10/9) Right foot x-rays reviewed;no evidence of osteomyelitis, satisfactory post op X- rays Intra-operative Bone pathology: Clean margin of the proximal phalengeal head. No evidence of OM in the resected toe portion. Right second digit surgical site dressed with betadine and DSD. Patient stable for discharge from podiatry point of view Patient advised to keep the dressing C/D/I Patient to ambulate in surgical shoe at all times Patient educated on signs and symptoms of infection Patient showed verbal understanding and all questions were answered. ID Plan: - Continue with IV Daptomycin day. - Patient will need at least 2 weeks of abx for the bacteremia ( VRE and coag neg staph). - If all the necrotic bone is resected then ABX only for 2 weeks as above for bacteremia. - If any remaining necrotic bone then will need 4-6 weeks of abx. ID recommendations appreciated. Podiatry will follow up the patient while in house. Patient to follow up with Dr. Diaz upon discharge.
[2018-07-23] MEDS: Enoxaparin 40 mg Syringe SC SCH (10:28)
[2018-07-23] MEDS: Saccharomyces Boulardi 250 mg Cap PO SCH ×2 (10:28→18:16)
--- NOTE | 2018-07-23 11:16 | CP.PCM.PN ---
Addendum entered and electronically signed by Cristian Coto MD 07/23/18 15:14: Patient seen and examined bedside . Feeling well, pain controlled . Hemodynamically stable, afebrile case discussed with resident . Agree with assessment and plan Continue IV antibiotics for total 2 weeks for bacteremia. ( last day tomorrow) Plan for d/c in AM Original Note: Subjective - Date & Time of Evaluation Date of Evaluation: 07/23/18 Time of Evaluation: 11:14 - Subjective Subjective: 53 yo male seen and evaluated at bedside resting comfortably. Seen after eating breakfast. AAOx3 and NAD. Denies pain to right second digit amputation site and has no other acute complaints at this time. Denies N/V/F/C/SOB/CP. Objective - Vital Signs/Intake and Output Vital Signs (last 24 hours): Temp Pulse Resp BP Pulse Ox 98.5 F 61 19 144/81 95 07/23/18 08:03 07/23/18 10:29 07/23/18 08:03 07/23/18 10:29 07/23/18 08:03 - Medications Medications: Current Medications Acetaminophen (Tylenol 325mg Tab) 650 mg PO Q6 PRN PRN Reason: Fever >100.4 F Last Admin: 07/13/18 00:40 Dose: 650 mg Acetaminophen (Tylenol 325mg Tab) 325 mg PO Q4 PRN PRN Reason: Pain, Mild (1-3) Clonidine HCl (Catapres) 0.1 mg PO BID [facility] Last Admin: 07/23/18 10:29 Dose: 0.1 mg Enoxaparin Sodium (Lovenox) 40 mg SC DAILY [facility]; Protocol Last Admin: 07/23/18 10:28 Dose: 40 mg Ferrous Sulfate (Feosol) 325 mg PO BID [facility] Last Admin: 07/23/18 10:28 Dose: 325 mg Folic Acid (Folic Acid) 1 mg PO DAILY [facility] Last Admin: 07/23/18 10:28 Dose: 1 mg Daptomycin 480 mg/ Sodium (Chloride) 100 mls @ 100 mls/hr IV Q24H [facility]; Protocol Stop: 07/23/18 12:31 Last Admin: 07/22/18 13:59 Dose: 100 mls/hr Saccharomyces Boulardii (Florastor) 250 mg PO BID [facility] Last Admin: 07/23/18 10:28 Dose: 250 mg Thiamine HCl (Vitamin B1 Tab) 100 mg PO DAILY [facility] Last Admin: 07/23/18 10:28 Dose: 100 mg - Labs Labs: 07/22/18 08:10 07/22/18 08:10 - Constitutional Appears: Well, Non-toxic, No Acute Distress - Head Exam Head Exam: ATRAUMATIC, NORMOCEPHALIC - Eye Exam Eye Exam: EOMI, Normal appearance - ENT Exam ENT Exam: Mucous Membranes Moist, Normal Exam - Neck Exam Neck Exam: Normal Inspection - Respiratory Exam Respiratory Exam: Clear to Ausculation Bilateral, NORMAL BREATHING PATTERN - Cardiovascular Exam Cardiovascular Exam: REGULAR RHYTHM, +S1, +S2 - GI/Abdominal Exam GI & Abdominal Exam: Soft, Normal Bowel Sounds - Extremities Exam Additional comments: dressing c/d/i no evidence of strikethrough to dressing no pain to surgical site cap refill <3 seconds to all remaining digits no signs of streaking or cellulitis b/l no other open lesions or wounds - Neurological Exam Neurological Exam: Alert, Awake, Oriented x3 - Psychiatric Exam Psychiatric exam: Normal Affect, Normal Mood - Skin Skin Exam: Dry, Normal Color Assessment and Plan - Assessment and Plan (Free Text) Assessment: 53 y/o man w/ pmh of recurrent LE cellulitis and EtOH abuse seen and evaluated at bedside for alcohol withdrawal and 5 days s/p right foot second digit distal amputation. Plan: 1. Bacteremia possibly secondary to osteomylitis -Feels well -WBC 6.7 /6 -2 Bcx from previous admission 1 grew Coag neg Staph and another E.Faecalis. - This admission Blood Culture negative x 4 -C/w Daptomycin as per ID recs - DAY # 12 07/23 -echocardiogram results: estimated EF 60-65%, left ventricular diastolic function normal, trace tricuspid regurgitation, no valvular vegetation found 2. Osteomyelitis of right foot - day 5 s/p right foot second digit distal symes amputation - wound cx and bone cx sent for pathology - no evidence of acute osteomyelitis in either specimen, no evidence of acute necrosis to tissue -c/w daptomycin as per ID recs - day #11 07/22 - possible discharge for , discuss continuing levaquin as outpatient for OM -pain controlled - no clinical signs of infection noted, patient tolerated procedure well -S/P 1st toe amputation at [facility] more than 1 m/a -Grew MSSA on wound Cx and was DC on PO levaquin that patient didnt take -Didnt f/u with Podiatry as outpatient -ESR 104 07/14 -Pain control 3. Alcohol Abuse -chronic -ETOH withdrawal protocol - clonidine 0.1 mg PO BID 4. Hypokalemia Resolved after replacement K=4.8 07/22 5. B/L leg swelling and erythema with tenderness to R calf -R/o DVT -LE US ordered - no evidence of DVT in the right lower extremity 6. Prophylactic measures -DVT: lovenox 40 mg SC daily
[2018-07-23 17:06] VITALS: RESP 20
--- NOTE | 2018-07-24 07:11 | CP.PCM.PN ---
Addendum entered and electronically signed by Juan Hickman DPM 07/24/18 12:31: Patient will F/U in the podiatry clinic upon discharge Original Note: Subjective - Date & Time of Evaluation Date of Evaluation: 07/24/18 Time of Evaluation: 09:41 - Subjective Subjective: Podiatry progress note for Dr. Diaz, 53 y/o male patient seen and evaluated on the bedside 7 days S/P right second digit partial amputation. Patient denies any pain to the area. Patient denies any overnight F/N/V/C or SOB. Patient denies any other pedal complaint or pain at this time. Patient will be discharged home today. Objective - Vital Signs/Intake and Output Vital Signs (last 24 hours): Temp Pulse Resp BP Pulse Ox 97.8 F 73 20 125/78 99 07/23/18 23:46 07/23/18 23:46 07/23/18 23:46 07/23/18 23:46 07/23/18 23:46 - Medications Medications: Current Medications Acetaminophen (Tylenol 325mg Tab) 650 mg PO Q6 PRN PRN Reason: Fever >100.4 F Last Admin: 07/13/18 00:40 Dose: 650 mg Acetaminophen (Tylenol 325mg Tab) 325 mg PO Q4 PRN PRN Reason: Pain, Mild (1-3) Clonidine HCl (Catapres) 0.1 mg PO BID [facility] Last Admin: 07/23/18 18:15 Dose: 0.1 mg Enoxaparin Sodium (Lovenox) 40 mg SC DAILY [facility]; Protocol Last Admin: 07/23/18 10:28 Dose: 40 mg Ferrous Sulfate (Feosol) 325 mg PO BID [facility] Last Admin: 07/23/18 18:15 Dose: 325 mg Folic Acid (Folic Acid) 1 mg PO DAILY [facility] Last Admin: 07/23/18 10:28 Dose: 1 mg Saccharomyces Boulardii (Florastor) 250 mg PO BID [facility] Last Admin: 07/23/18 18:16 Dose: 250 mg Thiamine HCl (Vitamin B1 Tab) 100 mg PO DAILY [facility] Last Admin: 07/23/18 10:28 Dose: 100 mg - Labs Labs: 07/22/18 08:10 07/22/18 08:10 - Constitutional Appears: Well, Non-toxic, No Acute Distress - Head Exam Head Exam: ATRAUMATIC, NORMOCEPHALIC - Extremities Exam Additional comments: RLE focused exam: Vascular: DP/ PT 2/4 , Cap refill <3 secs x4, Temp gradient warm to cool, No erythema, no edema noted Neuro: protective sensation diminished b/l Derm: surgical site at distal second toe, sutures intact, site well coapted, no wound dehiscence signs noted , no drainage noted, no malodor, no clinical signs of infection. Surgical site at the 1st toe looks C/D/I with no signs of dehiscence. MSK: No pain on palpation at the surgery site. Muscle power intact 5/5 b/l. - Neurological Exam Neurological Exam: Alert, Awake, Oriented x3 - Psychiatric Exam Psychiatric exam: Normal Affect, Normal Mood Assessment and Plan - Assessment and Plan (Free Text) Assessment: 53 yo male seen at bedside 6 days s/p right second digit partial amputation. Plan: Patient seen and evaluated at the bedside. Plan discussed in details with the attending Dr. Diaz Patient chart and vitals and labs reviewed, afebrile, WBC 6.1 (10/) Right foot x-rays reviewed;no evidence of osteomyelitis, satisfactory post op X- rays Intra-operative Bone pathology: Clean margin of the proximal phalengeal head. No evidence of OM in the resected toe portion. Right second digit surgical site dressed with betadine and DSD. Patient stable for discharge from podiatry point of view. Patient advised to keep the dressing C/D/I Patient instructed to change the dressing daily with betadine and DSD. Patient to ambulate in surgical shoe at all times Patient educated on signs and symptoms of infection Patient showed verbal understanding and all questions were answered. ID Plan: - Continue with IV Daptomycin day. - Patient will need at least 2 weeks of abx for the bacteremia ( VRE and coag neg staph). - If all the necrotic bone is resected then ABX only for 2 weeks as above for bacteremia. - If any remaining necrotic bone then will need 4-6 weeks of abx. ID recommendations appreciated. Patient will be discharged home today. Podiatry will follow up the patient while in house. Patient to follow up with Dr. Diaz upon discharge.
[2018-07-24 08:41] VITALS: BP 121/80; PULSE 62; TEMP 97.6; O2SAT 97
[2018-07-24] MEDS: Saccharomyces Boulardi 250 mg Cap PO SCH (09:41)
[2018-07-24] MEDS: Enoxaparin 40 mg Syringe SC SCH (09:41)
--- NOTE | 2018-07-24 09:49 | CP.PCM.DIS ---
Addendum entered and electronically signed by Cristian Coto MD 07/24/18 12:15: Patient seen and examined bedside . All chart and clinical data reviewed. Agree with resident assessment and discharge planning . Finished 14 days of IV daptomycin for bacteremia Discussed with ID . will discharge on Doxycycline 100 mg po BID for 10 more days patient to follow up with podiatry clinic and [facility] counselled on ETOH abuse Original Note: Provider - Provider Date of Admission: 07/11/18 23:41 Attending physician: Emani Lowery DO Primary care physician: [facility] Consults: Infectious disease - Dr. Lakhani Podiatry - Dr. Herrera Time Spent in preparation of Discharge (in minutes): 30 Diagnosis - Discharge Diagnosis (1) Osteomyelitis Status: Acute (2) Positive blood culture Status: Acute (3) Alcohol abuse Status: Chronic Hospital Course - Lab Results Lab Results: Micro Results 07/13/18 15:30 Blood-Venous Blood Culture - Final NO GROWTH AFTER 5 DAYS 07/13/18 15:30 Blood-Venous Gram Stain - Final TEST NOT PERFORMED 07/13/18 15:00 Blood-Venous Blood Culture - Final NO GROWTH AFTER 5 DAYS 07/13/18 15:00 Blood-Venous Gram Stain - Final TEST NOT PERFORMED 07/12/18 07:50 Blood Blood Culture - Final NO GROWTH AFTER 5 DAYS 07/12/18 07:50 Blood Gram Stain - Final TEST NOT PERFORMED 07/13/18 20:55 Toe Gram Stain - Final 07/13/18 20:55 Toe Wound Culture - Final Lissette Albicans 07/12/18 01:25 Blood Blood Culture - Final NO GROWTH AFTER 5 DAYS 07/12/18 01:25 Blood Gram Stain - Final TEST NOT PERFORMED 07/13/18 20:55 Urine Urine Culture - Final No Growth (<1,000 CFU/ML) Most Recent Lab Values WBC 6.1 K/uL (4.8-10.8) 07/22/18 08:10 RBC 3.85 Mil/uL (4.40-5.90) L 07/22/18 08:10 Hgb 11.3 g/dL (12.0-18.0) L 07/22/18 08:10 Hct 34.4 % (35.0-51.0) L 07/22/18 08:10 MCV 89.4 fl (80.0-94.0) 07/22/18 08:10 MCH 29.5 pg (27.0-31.0) 07/22/18 08:10 MCHC 33.0 g/dL (33.0-37.0) 07/22/18 08:10 RDW 15.9 % (11.5-14.5) H 07/22/18 08:10 Plt Count 298 K/uL (130-400) 07/22/18 08:10 MPV 8.9 fl (7.2-11.7) 07/19/18 07:00 Neut % (Auto) 58.2 % (50.0-75.0) 07/19/18 07:00 Lymph % (Auto) 29.4 % (20.0-40.0) 07/19/18 07:00 Stearns % (Auto) 5.4 % (0.0-10.0) 07/19/18 07:00 Eos % (Auto) 5.9 % (0.0-4.0) H 07/19/18 07:00 Baso % (Auto) 1.1 % (0.0-2.0) 07/19/18 07:00 Neut # (Auto) 3.9 K/uL (1.8-7.0) 07/19/18 07:00 Lymph # (Auto) 2.0 K/uL (1.0-4.3) 07/19/18 07:00 Stearns # (Auto) 0.4 K/uL (0.0-0.8) 07/19/18 07:00 Eos # (Auto) 0.4 K/uL (0.0-0.7) 07/19/18 07:00 Baso # (Auto) 0.1 K/uL (0.0-0.2) 07/19/18 07:00 ESR 104 mm/hr (0-20) H 07/14/18 16:15 pO2 29 mm/Hg (30-55) L 07/12/18 01:35 VBG pH 7.27 (7.32-7.43) L 07/12/18 01:35 VBG pCO2 57 mmHg (40-60) 07/12/18 01:35 VBG HCO3 22.2 mmol/L 07/12/18 01:35 VBG Total CO2 27.9 mmol/L (22-28) 07/12/18 01:35 VBG O2 Sat (Calc) 43.6 % (40-65) 07/12/18 01:35 VBG Base Excess -1.7 mmol/L (0.0-2.0) L 07/12/18 01:35 VBG Potassium 3.6 mmol/L (3.6-5.2) 07/12/18 01:35 Sodium 147.0 mmol/L (132-148) 07/12/18 01:35 Chloride 111.0 mmol/L (98-107) H 07/12/18 01:35 Glucose 89 mg/dL (75-110) 07/12/18 01:35 Lactate 1.6 mmol/L (0.7-2.1) 07/12/18 01:35 FiO2 21.0 % 07/12/18 01:35 Sodium 141 mmol/l (132-148) 07/22/18 08:10 Potassium 4.8 MMOL/L (3.6-5.0) 07/22/18 08:10 Chloride 108 mmol/L (98-107) H 07/22/18 08:10 Carbon Dioxide 21 mmol/L (22-30) L 07/22/18 08:10 Anion Gap 17 (10-20) 07/22/18 08:10 BUN 22 mg/dl (9-20) H 07/22/18 08:10 Creatinine 0.8 mg/dl (0.8-1.5) 07/22/18 08:10 Est GFR ( Amer) > 60 07/22/18 08:10 Est GFR (Non-Af Amer) > 60 07/22/18 08:10 POC Glucose (mg/dL) 118 mg/dL (65-110) H 07/24/18 05:37 Random Glucose 97 mg/dL (75-110) 07/22/18 08:10 Calcium 10.2 mg/dL (8.4-10.2) 07/22/18 08:10 Phosphorus 3.8 mg/dl (2.5-4.5) 07/12/18 01:25 Magnesium 1.8 MG/DL (1.6-2.3) 07/12/18 01:25 Iron 36 ug/dL (49-181) L 07/13/18 16:15 TIBC 288 ug/dL (250-450) 07/13/18 16:15 % Saturation 13 % (20-55) L 07/13/18 16:15 Ferritin 148.0 ng/Ml (17.9-464) 07/13/18 16:15 Total Bilirubin 0.7 mg/dl (0.2-1.3) 07/14/18 05:45 AST 45 U/L (17-59) 07/14/18 05:45 ALT 33 U/L (21-72) 07/14/18 05:45 Alkaline Phosphatase 576 U/L (38-126) H 07/14/18 05:45 Total Creatine Kinase 24 U/L (55-170) L 07/22/18 04:55 Total Protein 6.7 G/DL (6.3-8.2) 07/14/18 05:45 Albumin 3.2 g/dL (3.5-5.0) L 07/14/18 05:45 Globulin 3.5 gm/dL (2.2-3.9) 07/14/18 05:45 Albumin/Globulin Ratio 0.9 (1.0-2.1) L 07/14/18 05:45 Vitamin B12 326 pg/mL (239-931) 07/13/18 16:15 Folate 15.8 ng/mL 07/13/18 16:15 Venous Blood Potassium 3.6 mmol/L (3.6-5.2) 07/12/18 01:35 Urine Color Yellow (YELLOW) 07/13/18 20:55 Urine Clarity Clear (Clear) 07/13/18 20:55 Urine pH 7.0 (5.0-8.0) 07/13/18 20:55 Ur Specific Carm[place] 1.008 (1.003-1.030) 07/13/18 20:55 Urine Protein Negative mg/dL (NEGATIVE) 07/13/18 20:55 Urine Glucose (UA) Neg mg/dL (Normal) 07/13/18 20:55 Urine Ketones Negative mg/dL (NEGATIVE) 07/13/18 20:55 Urine Blood Negative (NEGATIVE) 07/13/18 20:55 Urine Nitrate Negative (NEGATIVE) 07/13/18 20:55 Urine Bilirubin Negative (NEGATIVE) 07/13/18 20:55 Urine Urobilinogen 0.2-1.0 mg/dL (0.2-1.0) 07/13/18 20:55 Ur Leukocyte Esterase Neg Edgardo/uL (Negative) 07/13/18 20:55 Urine RBC (Auto) 3 /hpf (0-3) 07/13/18 20:55 Urine Microscopic WBC 1 /hpf (0-5) 07/13/18 20:55 Ur Squamous Epith Cells 1 /hpf (0-5) 07/13/18 20:55 Urine Bacteria Rare (<OCC) 07/13/18 20:55 Alcohol, Quantitative 197 mg/dl (0-10) H 07/12/18 01:25 - Hospital Course Hospital Course: 53 y/o man w/ pmh of recurrent LE cellulitis and EtOH abuse presents to ED with chief complaint right foot pain and intoxication. On admission, patient's wound culture was positive for staph aureus. Prior to this visit he was discharged 07/07/2018 and ID'ed w/ levaquin becaue he had declined surgical intervention during admission. Patient was contacted to return to hospital earlier upon b lood and wound culture findings to receive antibiotic treatment. Patient stated that he did not take the levaquin after he left the hospital. He presented with a prior right first digit partial amputation at a different hospital with sutures still intact and site well coapted. He presented with a right second digit distal tip wound that was draining pus and was open. MRI of the right foot was taken and the results showed signal abnormalitiy within the remnant of the 1st proximal phalanx suggestive of acute osteomyelitis; cellulitis of the foot most prominent dorsally; second digit distal phalanx changes suggestive of acute osteomyelitis; 5th digit with some signal abnormality where acute osteo could not be excluded but clinical correlation was not made. 2 bcx were postivie, 1 showed coag neg staph and the other showed E. faecalis. This admission the bcx were all negative x4. ID was consulted and Dr. Lakhani planned 2 weeks of daptomycin IV. Echocardiogram was taken and results showed no valvular vegetation with estimated EF 60-65%. Plan for discharge is to continue taking levaquin that patient states he has. Patient was explained risks and benefits of right second digit infected digit amputation and was amenable. Podiatry performed a distal symes amputation to the right second digit and pathology came back with no acute osteomyelitis in clean bone margins and no necrotic or i nfected tissue in clean tissue sent. Hypokalemia was present at start of admission and resolved after replacement. Patient will follow up at the [facility] with primary doctor and at the [place] podiatry clinic. Patient to be discharged. - Date & Time of H&P Date of H&P: 07/24/18 Time of H&P: 09:50 Discharge Exam - Head Exam Head Exam: ATRAUMATIC, NORMOCEPHALIC - Eye Exam Eye Exam: EOMI, Normal appearance - ENT Exam ENT Exam: Mucous Membranes Moist - Respiratory Exam Respiratory Exam: NORMAL BREATHING PATTERN - Cardiovascular Exam Cardiovascular Exam: REGULAR RHYTHM, +S1, +S2 - GI/Abdominal Exam GI & Abdominal Exam: Normal Bowel Sounds, Soft - Extremities Exam Additional comments: dressing c/d/i no evidence of strikethrough to dressing no pain to surgical site cap refill <3 seconds to all remaining digits no signs of streaking or cellulitis b/l no other open lesions or wounds - Neurological Exam Neurological exam: Alert, Oriented x3 - Psychiatric Exam Psychiatric exam: Normal Affect, Normal Mood - Skin Skin Exam: Dry, Intact, Normal Color Discharge Plan - Discharge Medications Prescriptions: levoFLOXacin 750 mg in D5W [Levaquin 750MG] 750 mg PO BID 14 Days #28 tab - Follow Up Plan Condition: STABLE Disposition: HOME/ ROUTINE Instructions: Sepsis, Adult (DC), Abuse of Alcohol (ED), Alcohol Intoxication (DC), Alcohol Withdrawal (DC) Additional Instructions: Continue with Levofloxacin 750 mg daily x 2 weeks with home medications supply. - Leave dressing clean dry and intact until podietry clinic. Ambulate with surgical shoe. continuar con antibiotico levaquin 750mg diario por 2 semanas. dejar vendaje limpio e intacto hasta billie el podiatra. ambular con zapato quirurgico Referrals: [facility] [Outside] Podiatry Clinic [Outside] Shoaib Lakhani MD [Staff Provider] - Clinical Quality Measures - Date & Time of Discharge Summary Date of Discharge Summary: 07/24/18 Time of Discharge Summary: 10:15
--- NOTE | 2018-07-24 11:44 | CP.PCM.PN ---
Subjective - Date & Time of Evaluation Date of Evaluation: 07/24/18 Time of Evaluation: 11:44 - Subjective Subjective: ID note- pt. seen and examined today. Pt. in good spirits and denies any complaints. Objective - Vital Signs/Intake and Output Vital Signs (last 24 hours): Temp Pulse Resp BP Pulse Ox 97.6 F 62 20 121/80 97 07/24/18 08:40 07/24/18 09:40 07/24/18 08:40 07/24/18 09:40 07/24/18 08:40 - Medications Medications: Current Medications Acetaminophen (Tylenol 325mg Tab) 650 mg PO Q6 PRN PRN Reason: Fever >100.4 F Last Admin: 07/13/18 00:40 Dose: 650 mg Acetaminophen (Tylenol 325mg Tab) 325 mg PO Q4 PRN PRN Reason: Pain, Mild (1-3) Clonidine HCl (Catapres) 0.1 mg PO BID [facility] Last Admin: 07/24/18 09:40 Dose: 0.1 mg Enoxaparin Sodium (Lovenox) 40 mg SC DAILY [facility]; Protocol Last Admin: 07/24/18 09:41 Dose: 40 mg Ferrous Sulfate (Feosol) 325 mg PO BID [facility] Last Admin: 07/24/18 09:40 Dose: 325 mg Folic Acid (Folic Acid) 1 mg PO DAILY [facility] Last Admin: 07/24/18 09:41 Dose: 1 mg Saccharomyces Boulardii (Florastor) 250 mg PO BID [facility] Last Admin: 07/24/18 09:41 Dose: 250 mg Thiamine HCl (Vitamin B1 Tab) 100 mg PO DAILY [facility] Last Admin: 07/24/18 09:41 Dose: 100 mg - Labs Labs: - Additional Findings Additional findings: - Constitutional Appears: No Acute Distress - Head Exam Head Exam: ATRAUMATIC - Eye Exam Eye Exam: EOMI, PERRL - ENT Exam ENT Exam: Normal Oropharynx - Neck Exam Neck exam: Positive for: Full Rom - Respiratory Exam Respiratory Exam: Clear to Auscultation Bilateral, NORMAL BREATHING PATTERN - Cardiovascular Exam Cardiovascular Exam: RRR, +S1, +S2 - GI/Abdominal Exam GI & Abdominal Exam: Normal Bowel Sounds, Soft Additional comments: NT, ND - Extremities Exam Additional comments: right foot wrapped in post-surgical dressing - Neurological Exam Neurological exam: Alert, Oriented x 3 Laboratory Results - last 72 hr 07/21/18 07/21/18 07/22/18 16:09 21:56 04:55 WBC RBC Hgb Hct MCV MCH MCHC RDW Plt Count Sodium Potassium Chloride Carbon Dioxide Anion Gap BUN Creatinine Est GFR ( Amer) Est GFR (Non-Af Amer) POC Glucose (mg/dL) 95 101 Random Glucose Calcium Total Creatine Kinase 24 L 07/22/18 07/22/18 07/22/18 06:03 08:10 08:10 WBC 6.1 RBC 3.85 L Hgb 11.3 L Hct 34.4 L MCV 89.4 MCH 29.5 MCHC 33.0 RDW 15.9 H Plt Count 298 Sodium 141 Potassium 4.8 Chloride 108 H Carbon Dioxide 21 L Anion Gap 17 BUN 22 H Creatinine 0.8 Est GFR ( Amer) > 60 Est GFR (Non-Af Amer) > 60 POC Glucose (mg/dL) 314 H Random Glucose 97 Calcium 10.2 Total Creatine Kinase 07/22/18 07/22/18 07/22/18 10:52 15:46 21:21 WBC RBC Hgb Hct MCV MCH MCHC RDW Plt Count Sodium Potassium Chloride Carbon Dioxide Anion Gap BUN Creatinine Est GFR ( Amer) Est GFR (Non-Af Amer) POC Glucose (mg/dL) 144 H 115 H 115 H Random Glucose Calcium Total Creatine Kinase 07/23/18 07/23/18 07/23/18 06:05 10:49 16:28 WBC RBC Hgb Hct MCV MCH MCHC RDW Plt Count Sodium Potassium Chloride Carbon Dioxide Anion Gap BUN Creatinine Est GFR ( Amer) Est GFR (Non-Af Amer) POC Glucose (mg/dL) 97 95 108 Random Glucose Calcium Total Creatine Kinase 07/23/18 07/24/18 07/24/18 21:32 05:37 10:57 WBC RBC Hgb Hct MCV MCH MCHC RDW Plt Count Sodium Potassium Chloride Carbon Dioxide Anion Gap BUN Creatinine Est GFR ( Amer) Est GFR (Non-Af Amer) POC Glucose (mg/dL) 114 H 118 H 106 Random Glucose Calcium Total Creatine Kinase Microbiology 07/13/18 15:30 Blood-Venous Blood Culture - Final NO GROWTH AFTER 5 DAYS 07/13/18 15:30 Blood-Venous Gram Stain - Final TEST NOT PERFORMED 07/13/18 15:00 Blood-Venous Blood Culture - Final NO GROWTH AFTER 5 DAYS 07/13/18 15:00 Blood-Venous Gram Stain - Final TEST NOT PERFORMED 07/12/18 07:50 Blood Blood Culture - Final NO GROWTH AFTER 5 DAYS 07/12/18 07:50 Blood Gram Stain - Final TEST NOT PERFORMED 07/13/18 20:55 Toe Gram Stain - Final 07/13/18 20:55 Toe Wound Culture - Final Lissette Albicans 07/12/18 01:25 Blood Blood Culture - Final NO GROWTH AFTER 5 DAYS 07/12/18 01:25 Blood Gram Stain - Final TEST NOT PERFORMED 07/13/18 20:55 Urine Urine Culture - Final No Growth (<1,000 CFU/ML) Microbiology 07/06/18 20:42 Blood-Venous Blood Culture - Final 07/06/18 20:42 Blood-Venous Gram Stain - Final Coagulase Neg Staphylococcus 07/06/18 20:35 Blood-Venous S.aureus & Coag-Neg Staph PNA FISH - Final 07/06/18 20:35 Blood-Venous Gram Stain - Final Enterococcus Faecium 07/03/18 09:54 Foot - Right Gram Stain - Final 07/03/18 09:54 Foot - Right Wound Culture - Final Staphylococcus Aureus 07/01/18 05:12 Foot - Right Gram Stain - Final 07/01/18 05:12 Foot - Right Wound Culture - Final Staphylococcus Aureus Assessment and Plan (1) Osteomyelitis Status: Acute (2) Positive blood culture Status: Acute (3) Alcohol abuse Status: Chronic - Assessment and Plan (Free Text) Assessment: A/P- 53 year old male admitted with recurrentl LLE cellulitis and right great toe OM and coag neg staph bacteremia and VRE bacteremia. pod #6 right second toe amputation has remained no leukocytosis repeat blood cx from this admission - neg x 4 blood cx from last admission one is VRE and one is coag neg staph!!! both sens to tetracycline (doxy). last admission wound cx- MSSA sens to tetra MRI last admission as per report acute OM of first and second right great toe. second toe bone biopsy path report- Negative for OM. TTE- no veg as per report. plan- today is day #14 of IV daptolycin for the coag neg and VRe bacteremia. sicne the bone bx is negative for OM no need for further iv abx. pt. can be d/c home on 10 days of po doxycycline 100 mg BID. advise to f/u with podiatry and his PCP as outpatient. d/w patient and with the hospitalist .
--- NOTE | 2018-07-30 17:06 | PQF ---
PROVIDER RESPONSE TEXT: Patient had acute osteomyelitis diagnosis in admission and Bacteremia REVIEWER QUERY TEXT: Documentation Clarification Your help is requested in clarifying the following clinical documentation, if you can please further specify in the medical record and discharge summary. Acute osteomyelitis of second digit is documented. Pathology report documented no osteomyelitis was f ound. Please clarify if after study diagnosis of acute osteomyelitis was ruled in or out. The patient's Clinical Indicators include: Pt was admitted with acute osteomyelitis second digit Query created by: Juliette Neal on 07/29/2018 12:02 PM Electronically signed by: 07/30/2018 5:03 PM
--- NOTE | 2018-07-30 19:22 | PQF ---
PROVIDER RESPONSE TEXT: Patient had bacteremia on admission that was treated with IV antibiotics during this admission REVIEWER QUERY TEXT: Conflicting Documentation Clarification A single mention or documentation of multiple diagnoses for the same clinical presentation appears in the record. Please clarify if the pt has a diagnosis of sepsis/bactermia. Please also document if the condition is: -- Confirmed and current -- Confirmed, treated and resolved -- Ruled out -- Other, please specify The patient's Clinical Indicators include: SEPSIS/BACTEREMIA Query created by: Juliette Neal on 07/29/2018 11:58 AM Electronically signed by: 07/30/2018 7:19 PM
== END 2018-07-24 14:30 | disposition home or self-care (01) | DRG 581 ==
LOC: H.ER 20:57 → H.ERHOLD 23:41 → H.MEDSURG1 07-12 13:11
PROVIDERS: ADMIT Student in an Organized Health Care Education/Training Program; ATTEND Student in an Organized Health Care Education/Training Program
PROC: 0QTQ0ZZ Resection of Right Toe Phalanx, Open Approach (ICD-10-PCS; 2018-07-17)
PROC: 0Y6R0Z1 Detachment at Right 2nd Toe, High, Open Approach (ICD-10-PCS; principal; 2018-07-17 18:30)
DX: A41.81 Sepsis due to Enterococcus (principal); M86.171 Other acute osteomyelitis, right ankle and foot; E11.69 Type 2 diabetes mellitus with other specified complication; L03.115 Cellulitis of right lower limb; E87.6 Hypokalemia; F10.239 Alcohol dependence with withdrawal, unspecified; B95.7 Other staphylococcus as the cause of diseases classified elsewhere; Z16.21 Resistance to vancomycin; Z91.19 Patient's noncompliance with other medical treatment and regimen; Z89.411 Acquired absence of right great toe; M65.9 Synovitis and tenosynovitis, unspecified; Y90.6 Blood alcohol level of 120-199 mg/100 ml; Z87.891 Personal history of nicotine dependence; I10 Essential (primary) hypertension; Z91.14 Patient's other noncompliance with medication regimen; D64.9 Anemia, unspecified; Z59.0 Homelessness; B37.9 Candidiasis, unspecified; F10.229 Alcohol dependence with intoxication, unspecified